=== PATIENT | female | born 1950 | race African-American/Black ===

== ENCOUNTER 2025-06-10 14:11 | Outpatient (AMB) | payer MEDICARE, SELFPAY ==
--- OUTSIDE RECORDS SUMMARY | 2025-06-10 14:14 | XMS_ITS ---
Author Name [facility] Organization Unknown Results Test Name/Text Value Interpretation Date Range Source Troponin I SerPl HS-mCnc 8.0 ng/L 03/14/2025 0 - 14 [facility] D Dimer PPP DDU-mCnc 268.0 ng/mL DDU Above high normal 03/14/2025 - 231 [facility] Troponin I SerPl HS-mCnc 10.0 ng/L 03/14/2025 0 - 14 [facility] Magnesium SerPl-mCnc 2.0 mg/dL Normal 03/14/2025 1.7 - 2.8 [facility] Anion Gap SerPl Calc-sCnc 11.0 Normal 03/14/2025 5 - 14 [facility] Sodium SerPl-sCnc 136.0 mmol/L Normal 03/14/2025 135 - 14 5 [facility] Chloride SerPl-sCnc 103.0 mmol/L Normal 03/14/2025 98 - 107 [facility] BUN SerPl-mCnc 9.0 mg/dL Normal 03/14/2025 7 - 17 [facility] Glucose SerPl-mCnc 83.0 mg/dL Normal 03/14/2025 70 - 199 [facility] Potassium SerPl-sCnc 3.8 mmol/L Normal 03/14/2025 3.5 - 5.1 [facility] BUN/Creat SerPl 18.0 Normal 03/14/2025 12 - 20 [facility] CO2 SerPl-sCnc 22.0 mmol/L Below low normal 03/14/2025 24 - 32 [facility] eGFRcr SerPlBld CKD-EPI 2020 100.0 mL/min/1.73m2 Normal 03/14/2025 - [facility] Creat SerPl-mCnc 0.5 mg/dL Normal 03/14/2025 0.5 - 1 [facility] Calcium SerPl-mCnc 8.6 mg/dL Normal 03/14/2025 8.4 - 10.2 [facility] Hct VFr Bld Auto 40.5 % Normal 03/14/2025 37 - 47 [facility] Platelet # Bld Auto 234.0 K/mcL Normal 03/14/2025 150 - 450 [facility] RDW RBC Auto 15.5 % Normal 03/14/2025 12.1 - 16.2 [facility] RBC # Bld Auto 5.27 M/mcL Normal 03/14/2025 4.2 - 5.4 [facility] PMV Bld Auto 8.5 FL Normal 03/14/2025 7.4 - 11.4 [facility] Hgb Bld-mCnc 13.1 g/dL Normal 03/14/2025 12.5 - 16 [facility] MCHC RBC Auto-EntMCnc 32.3 g/dL Normal 03/14/2025 32 - 36 [facility] WBC # Bld Auto 4.5 K/mcL Normal 03/14/2025 4 - 10.5 [facility] MCH RBC Qn Auto 24.9 pcg Below low normal 03/14/2025 25 - 3 3 [facility] RBC Auto 77.0 FL Below low normal 03/14/2025 78 - 100 [facility] FLUBV RNA Nph Ql CASSANDRA+non-probe Not Detected Normal 03/13/2025 [facility] HPIV2 RNA Nph Ql CASSANDRA+probe Not Detected Normal 03/13/2025 [facility] B parap [id number] DNA Nph Ql CASSANDRA+non-probe Not Detected Normal 03/13/2025 [facility] RSV RNA Resp Ql CASSANDRA+probe Not Detected Normal 03/13/2025 [facility] HAdV DNA Upper resp Ql CASSANDRA+probe Not Detected Normal 03/13/2025 [facility] HPIV4 RNA Nph Ql CASSANDRA+probe Not Detected Normal 03/13/2025 [facility] FLUAV RNA Nph Ql CASSANDRA+non-probe Not Detected Normal 03/13/2025 [facility] SARS-CoV-2 RNA Nph Ql CASSANDRA+non-probe Not Detected Normal 03/13/2025 [facility] hMPV B RNA Spec Ql CASSANDRA+probe Not Detected Normal 03/13/2025 [facility] HPIV3 RNA Nph Ql CASSANDAR+probe Not Detected Normal 03/13/2025 [facility] K pneumon DNA Spec Ql CASSANDRA+probe Not Detected Normal 03/13/2025 [facility] HCoV NL63 RNA Aspirate Ql CASSANDRA+probe Not Detected Normal 03/13/2025 [facility] C pneum DNA Nph Ql CASSANDRA+probe Not Detected Normal 03/13/2025 [facility] RV+EV RNA Nph Ql CASSANDRA+probe Not Detected Normal 03/13/2025 [facility] HCoV OC43 RNA Nph Ql CASSANDRA+non-probe Not Detected Normal 03/13/2025 [facility] B pert DNA Nph Ql CASSANDRA+probe Not Detected Normal 03/13/2025 [facility] HCoV HKU1 RNA Nph Ql CASSANDRA+non-probe Not Detected Normal 03/13/2025 [facility] HCoV 229E RNA Spec Ql CASSANDRA+probe Not Detected Normal 03/13/2025 [facility] HPIV1 RNA Nph Ql CASSANDRA+probe Not Detected Normal 03/13/2025 [facility] Troponin I SerPl HS-mCnc 20.0 ng/L Above high normal 03/13/2025 0 - 14 [facility] Glucose SerPl-mCnc 93.0 mg/dL Normal 03/13/2025 70 - 199 [facility] BUN/Creat SerPl 20.0 Normal 03/13/2025 12 - 20 [facility] Creat SerPl-mCnc 0.6 mg/dL Normal 03/13/2025 0.5 - 1 [facility] BUN SerPl-mCnc 12.0 mg/dL Normal 03/13/2025 7 - 17 [facility] Anion Gap SerPl Calc-sCnc 10.0 Normal 03/13/2025 5 - 14 [facility] Sodium SerPl-sCnc 139.0 mmol/L Normal 03/13/2025 135 - 14 5 [facility] eGFRcr SerPlBld CKD-EPI 2020 96.0 mL/min/1.73m2 Normal 03/13/2025 - [facility] CO2 SerPl-sCnc 24.0 mmol/L Normal 03/13/2025 24 - 32 [facility] Potassium SerPl-sCnc 3.9 mmol/L Normal 03/13/2025 3.5 - 5.1 [facility] Chloride SerPl-sCnc 105.0 mmol/L Normal 03/13/2025 98 - 107 [facility] Calcium SerPl-mCnc 8.4 mg/dL Normal 03/13/2025 8.4 - 10.2 [facility] TSH SerPl DL<=0.005 mIU/L-aCnc 0.81 mcIU/mL Normal 03/13/2025 0.45 - 5.33 [facility] Troponin I SerPl HS-mCnc 13.0 ng/L Normal 03/13/2025 0 - 14 [facility] ALP SerPl-cCnc 55.0 unit/L Normal 03/13/2025 34 - 104 [facility] CO2 SerPl-sCnc 23.0 mmol/L Below low normal 03/13/2025 24 - 32 [facility] Creat SerPl-mCnc 0.6 mg/dL Normal 03/13/2025 0.5 - 1 [facility] Albumin SerPl-mCnc 3.7 g/dL Normal 03/13/2025 3.5 - 5 [facility] ALT SerPl-cCnc 12.0 unit/L Normal 03/13/2025 7 - 52 [facility] BUN SerPl-mCnc 12.0 mg/dL Normal 03/13/2025 7 - 17 [facility] AST SerPl-cCnc 33.0 unit/L Normal 03/13/2025 5 - 40 [facility] Sodium SerPl-sCnc 137.0 mmol/L Normal 03/13/2025 135 - 14 5 [facility] BUN/Creat SerPl 20.0 Normal 03/13/2025 12 - 20 [facility] Anion Gap SerPl Calc-sCnc 9.0 Normal 03/13/2025 5 - 14 [facility] Glucose SerPl-mCnc 94.0 mg/dL Normal 03/13/2025 70 - 199 [facility] eGFRcr SerPlBld CKD-EPI 2020 96.0 mL/min/1.73m2 Normal 03/13/2025 - [facility] Chloride SerPl-sCnc 105.0 mmol/L Normal 03/13/2025 98 - 107 [facility] Bilirub SerPl-mCnc 0.5 mg/dL Normal 03/13/2025 0.3 - 1 [facility] Prot SerPl-mCnc 6.6 g/dL Normal 03/13/2025 6.4 - 8.5 [facility] Potassium SerPl-sCnc 5.7 mmol/L Above high normal 03/13/2025 3.5 - 5.1 [facility] Calcium SerPl-mCnc 8.7 mg/dL Normal 03/13/2025 8.4 - 10.2 [facility] Magnesium SerPl-mCnc 1.8 mg/dL Normal 03/13/2025 1.7 - 2.8 [facility] RDW RBC Auto 16.3 % Above high normal 03/13/2025 12.1 - 1 6.2 [facility] MCHC RBC Auto-EntMCnc 31.5 g/dL Below low normal 03/13/2025 32 - 36 [facility] Monocytes # Bld Auto 0.4 K/mcL Normal 03/13/2025 0 - 0.8 [facility] Lymphocytes # Bld Auto 1.3 K/mcL Normal 03/13/2025 1 - 3.2 [facility] Hgb Bld-mCnc 13.0 g/dL Normal 03/13/2025 12.5 - 16 [facility] Platelet # Bld Auto 289.0 K/mcL Normal 03/13/2025 150 - 450 [facility] Lymphocytes NFr Bld Auto 30.7 % Normal 03/13/2025 20 - 48 [facility] MCH RBC Qn Auto 24.7 pcg Below low normal 03/13/2025 25 - 3 3 [facility] RBC Auto 78.2 FL Normal 03/13/2025 78 - 100 [facility] PMV Bld Auto 8.9 FL Normal 03/13/2025 7.4 - 11.4 [facility] Neutrophils # Bld Auto 2.5 K/mcL Normal 03/13/2025 1.8 - 7.8 [facility] Hct VFr Bld Auto 41.3 % Normal 03/13/2025 37 - 47 [facility] WBC # Bld Auto 4.4 K/mcL Normal 03/13/2025 4 - 10.5 [facility] Basophils NFr Bld Auto 0.4 % Normal 03/13/2025 0 - 2 [facility] Neutrophils NFr Bld Auto 58.1 % Normal 03/13/2025 44 - 74 [facility] Basophils # Bld Auto 0.0 K/mcL Normal 03/13/2025 0 - 0.2 [facility] Eosinophil # Bld Auto 0.0 K/mcL Normal 03/13/2025 0 - 0.5 [facility] Monocytes NFr Bld Auto 10.1 % Normal 03/13/2025 2 - 12 [facility] RBC # Bld Auto 5.28 M/mcL Normal 03/13/2025 4.2 - 5.4 [facility] Eosinophil NFr Bld Auto 0.7 % Normal 03/13/2025 0 - 6 [facility] History of Medication Use Medication Directions Dispensed Refills Start Date End Date Stat colchicine (COLCRYS) 0.6 mg tablet Take 1 tablet (0.6 mg total) by mouth daily. 04/25/2025 active nabumetone (RELAFEN) 500 MG tablet Take 1 tablet (500 mg total) by mouth 2 (two) times a day as needed (arthritis pain). 03/31/2025 active aspirin chewable tablet 81 mg 03/14/2025 active dilTIAZem CD (CARDIZEM CD) 24 hr capsule 120 mg 120 mg, oral, Daily, First dose on Fri03/14/25 at 0900, Do not crush, chew, or split. 03/14/2025 active enoxaparin (LOVENOX) injection 40 mg 40 mg, subcutaneous, Every 24 hours scheduled, First dose on Fri03/14/25 at 0900, Indication: VTE/PE Prophylaxis 03/14/2025 active melatonin tablet 3 mg 3 mg, oral, Nightly PRN, sleep, Starting on 03/13/25 at 2133 03/14/2025 active metoprolol succinate (TOPROL-XL) 24 Hour tablet 50 mg 50 mg, oral, Daily, First dose on Fri03/14/25 at 0900, Do not crush or chew. 03/14/2025 active metoprolol succinate (TOPROL-XL) 25 mg 24 hr tablet Take 2 tablets (50 mg total) by mouth 1 (one) time each day. Do not crush or chew. 03/14/2025 active magnesium sulfate 2 gram/50 mL (4 %) IVPB 2 g 2 g, intravenous, at 25 mL/hr, Administer over 2 Hours, Once, On Fri03/13/25 at 1349, For 1 dose 03/13/2025 completed metoprolol tartrate (LOPRESSOR) injection 5 mg 5 mg, intravenous, Once, On Fri03/13/25 at 1135, For 1 dose, For IV Push - Administer undiluted over 2 minutes 03/13/2025 completed potassium chloride (KLOR-CON M20) CR tablet 20 mEq 20 mEq, oral, Once, On Fri03/13/25 at 1349, For 1 dose, Tablet may be swallowed whole (do not crush/chew/suck on) OR broken in half and each half swallowed separately OR dissolved (whole tablet) in ~4 ounces of water (allow ~2 minutes to dissolve, stir well and administer immediately). 03/13/2025 completed sodium chloride 0.9 % bolus 1,000 mL 1,000 mL, intravenous, Once, On Fri03/13/25 at 1135, For 1 dose 03/13/2025 completed acetaminophen (TYLENOL) tablet 650 mg 650 mg, oral, Every 6 hours PRN, mild pain, Starting on 03/13/25 at 1609 03/13/2025 active traMADoL (ULTRAM) tablet 50 mg 50 mg, oral, Every 6 hours PRN, severe pain, Starting on 03/13/25 at 1622, Max of 300 mg daily for patients greater than 75 years of age. 03/13/2025 active meloxicam (MOBIC) 15 MG tablet 03/09/2025 5 aborted buprenorphine hcl (BELBUCA) 600 MCG buccal film Apply 1 Film (600 mcg total) to cheek twice daily (every 12 hours). Max Daily Amount: 1,200 mcg 03/02/2025 active diltiazem (CARDIZEM CD) 120 MG 24 hr capsule 02/12/2025 active metoPROLOL SUCCINATE (TOPROL-XL) 25 MG 24 hr tablet 02/09/2025 active benzonatate (TESSALON) 200 MG capsule Take 1 capsule (200 mg total) by mouth 3 (three) times a day as needed for cough. 12/22/2024 active oxyCODONE-acetaminoph en (PERCOCET) 5-325 mg per tablet Take 1 tablet by mouth every 4 (four) hours as needed for severe pain. Max Daily Amount: 6 tablets 09/10/2024 active DULoxetine (CYMBALTA) 20 MG capsule 07/15/2024 active meloxicam (MOBIC) 15 MG tablet Take 1 tablet (15 mg total) by mouth daily. 07/11/2024 active gadoterate meglumine (DOTAREM) injection 7.5 mmol/15 mL 15 mL, Intravenous, IMG once as needed, contrast, Starting on Tu05/04/24 at 1359, For 1 dose, Radiology Contrast 05/04/2024 4 completed Xanax 0.5 mg tablet Take 3 tablets 3 hours before MRI. May repeat with 1 tablet 90 minutes later 04/29/2024 active prednisone 10 mg tablet Day 1: 4 tablets in the morning, Day 2: 4 tablets in the morning, Day 3: 3 tablets in the morning, Day 4: 3 tablets in the morning, Day 5: 2 tablets in the morning, Day 6: 2 tablets in the morning, Day 7: 1 tablet in the morning, Day 8: 1 tablet in the morning! 04/15/2024 active dilTIAZem CD (CARDIZEM CD) 120 mg 24 hr capsule TAKE 1 CAPSULE(120 MG) BY MOUTH DAILY 04/02/2024 active methocarbamol (ROBAXIN) 750 MG tablet TAKE 1 TABLET BY MOUTH EVERY NIGHT AT BEDTIME FOR MUSCLE SPASM 02/19/2024 active Paxlovid (300/100) 20 x 150 MG & 10 x 100MG Oral Tablet Therapy Pack Paxlovid (300/100) 20 x 150 MG & 10 x 100MG Oral Tablet Therapy PackTake 2 pink and 1 white pill (3 pills all at once) twice daily, at least 8 hours apart, for five days Quantity: 1 Refills: Wilfred Fisher M.D. Start : [id number] Tablet Box 10/30/2022 completed aspirin 81 mg chewable tablet 07/29/2022 active aspirin 81 mg chewable tablet Chew 1 tablet (81 mg total) by mouth daily. 07/29/2022 active aspirin 81 MG chewable tablet Chew 1 tablet (81 mg total) by mouth daily. 07/29/2022 active aspirin 81 MG chewable tablet Chew 1 tablet (81 mg total) by mouth daily. 07/29/2022 active bisacodyl (DULCOLAX) 5 MG EC tablet Take 4 tablets (20 mg total) by mouth once. Take prior to starting to drink prep, on day prior to colonoscopy. 03/12/2022 active diltiazem (CARDIZEM CD) 120 MG 24 hr capsule Take 1 capsule (120 mg total) by mouth daily. 02/04/2022 active dilTIAZem HCl - 120 MG Oral Tablet dilTIAZem HCl - 120 MG Oral TabletTake 1 tablet daily Quantity: 90 Refills: Maria Dolores Castellano M.D. Start : [id number] 08/01/2020 completed Multivitamin Oral Tablet Multivitamin Oral Tablet1 TAB BY MOUTH ONCE DAILY Refills: 0 Start : [id number] 08/01/2020 completed Tylenol Extra Strength 500 MG Oral Tablet Tylenol Extra Strength 500 MG Oral Tablet Refills: 0 Start : [id number] 08/01/2020 completed Paxlovid 300 mg (150 mg x 2)-100 mg tablets in a dose pack 4 active prednisone 10 mg tablet active acetaminophen 500 mg tablet active alprazolam 0.5 mg tablet Take 3 tablets 3 hours before MRI. May repeat with 1 tablet 90 minutes later active baclofen 10 mg tablet ac tive calcium 600 mg (as calcium carbonate 1,500 mg) tablet active cetirizine 10 mg tablet active cholecalciferol (vitamin D3) 50 mcg (2,000 unit) tablet activ e diltiazem 120 mg tablet Take 1 tablet 3 times a day by oral route. active meloxicam 7.5 mg tablet 7.5 mg by oral route. active oxycodone-acetaminoph en 5 mg-325 mg tablet act arnie tramadol 50 mg tablet ac tive ZTlido 1.8 % topical patch active acetaminophen (TYLENOL EXTRA STRENGTH) 500 MG tablet Take 2 tablets (1,000 mg total) by mouth every 6 (six) hours as needed for pain. active acetaminophen (TYLENOL) 500 MG tablet Take 2 tablets (1,000 mg total) by mouth every 6 (six) hours as needed for pain. active ALPRAZolam (XANAX) 0.25 MG tablet Take 0.25 mg by mouth nightly as needed. active calcium carbonate 1,500 mg (600 mg elemental calcium) tablet Caltrate active Calcium Carbonate 1500 (600 Ca) MG TABS Caltrate act arnie cetirizine (ZyrTEC) 10 MG tablet Take 1 tablet (10 mg total) by mouth daily as needed for allergies. active cholecalciferol (VITAMIN D3) 1000 units tablet Take 1 tablet (1,000 Units total) by mouth daily. active Cholecalciferol (VITAMIN D3) 2000 units TABS Take 1 tablet by mouth daily. active meloxicam (MOBIC) 7.5 mg tablet Take 1 tablet (7.5 mg total) by mouth 1 (one) time each day. active No known medications No known medications active Allergies Allergen Reaction Severity Comment Documented Date Source Status ADHESIVE RASH Only paper tape-REDNESS- per pt bandaides and tegaderms are okay 11/29/2017 [facility] active ADHESIVES/TAPE RASH/DERMATITIS Only paper tape-REDNESS 11/29/2017 [facility] active TAPE RASHRASH Only paper tape-REDNESS- per pt bandaides and tegaderms are okay 11/29/2017 [facility] active VANCOMYCIN ITCHINGOTHER (SEE COMMENTS)OTHER (SEE COMMENTS)OTHER (SEE COMMENTS) Tingling of the tongue, ,Other Reaction(s): Other (See Comments) 11/30/2014 [facility] active PENICILLINS RASH/DERMATITIS 11/16/2014 [facility] a ctive CODEINE ANAPHYLAXIS [facility] ERYTHROMYCIN ANAPHYLAXIS [facility] ERYTHROMYCIN BASE ANAPHYLAXIS [facility] VANCOMYCIN HCL [facility] Problems Problem Status Onset Date Problem Type Date of Resolution Source Kyphosis of thoracic spine active 2023-05-10 1 ProblemAct [facility] Cramp in lower limb active 2023-05-10 1 ProblemAct [facility] Neck pain active 6 ProblemAct [facility] Stenosis of cervix active 6 ProblemAct [facility] Claustrophobia active 2024-04-11 0 ProblemAct [facility] Scoliosis deformity of spine active 2023-05-10 1 ProblemAct [facility] History of lumbar fusion active 6 ProblemAct [facility] Stenosis of intervertebral foramina active 6 ProblemAct [facility] Low back pain active 6 ProblemAct [facility] Neurogenic claudication active 2024-04-11 0 ProblemAct [facility] Other chest pain active 2022-09-11 5 ProblemAct [facility] Primary osteoarthritis of right hand active 2018-02-09 0 ProblemAct [facility] Spondylosis active 7 ProblemAct [facility] Adolescent idiopathic scoliosis of lumbar region active 2017-10-10 2 ProblemAct [facility] Premature atrial beats active 8 ProblemAct [facility] Nonrheumatic aortic valve insufficiency active 2025-03-11 1 ProblemAct [facility] Asymmetric septal hypertrophy active 2022-01-09 7 ProblemAct [facility] Chronic bilateral low back pain with bilateral sciatica active 2017-10-10 2 ProblemAct [facility] Hand arthritis active 6 ProblemAct [facility] Bilateral carpal tunnel syndrome active 6 ProblemAct [facility] Diverticulosis of large intestine without hemorrhage active 2017-10-11 9 ProblemAct [facility] Elbow pain, right active 6 ProblemAct [facility] Elevated blood pressure reading without diagnosis of hypertension active 2025-03-11 1 ProblemAct [facility] Supraventricular tachycardia (CMS/HCC V24) active 2015-03-11 5 ProblemAct [facility] Simple chronic bronchitis ([facility] V24, [facility] V28) active 2019-07-11 8 ProblemAct [facility] C. difficile colitis active 2018-02-08 7 ProblemAct [facility] Left shoulder pain, unspecified chronicity active EncounterDiagnosisAct [facility] Hip arthritis active 2017-12-11 3 ProblemAct [facility] Postlaminectomy syndrome, lumbar region active 2023-06-10 5 ProblemAct [facility] Chronic low back pain without sciatica active 2017-12-11 3 ProblemAct [facility] Greater trochanteric bursitis of left hip active 2018-03-11 2 ProblemAct [facility] Postoperative ileus ([facility] V24, [facility] V28) active 2017-11-11 4 ProblemAct [facility] Palpitations active 8 ProblemAct [facility] Elbow arthritis active 6 ProblemAct [facility] Gait instability active 9 ProblemAct [facility] Family history of malignant neoplasm of breast active 2019-07-11 7 ProblemAct [facility] Asymmetric septal hypertrophy active 2022-01-09 7 ProblemAct [facility] Leg fatigue active 2021-01-08 9 ProblemAct [facility] Left elbow pain active 6 ProblemAct [facility] Status post left hip replacement active 5 ProblemAct [facility] Hand pain, right active 6 ProblemAct [facility] Spondylolisthesis of lumbar region active 2017-10-10 2 ProblemAct [facility] Cervical spondylolysis active 5 ProblemAct [facility] Diarrhea active 2016-04-10 4 ProblemAct [facility] Synovitis of right elbow active EncounterDiagnosisAct [facility] Iron deficiency anemia active 2015-04-10 7 ProblemAct [facility] SVT (supraventricular tachycardia) active 2024-08-10 5 ProblemAct [facility] Status post total right knee replacement active 2015-03-11 5 ProblemAct [facility] Cervical arthritis active 2024-01-1 2 ProblemAct [facility] Inflammation of sacroiliac joint active 4 ProblemAct [facility] Arthritis of right elbow active EncounterDiagnosisAct [facility] History of Clostridium difficile colitis active 2016-04-10 4 ProblemAct [facility] Chronic low back pain without sciatica, unspecified back pain laterality active EncounterDiagnosisAct [facility] Osteoarthritis of spine with radiculopathy, lumbar region active 7 ProblemAct [facility] C. difficile colitis active 2015-04-10 7 ProblemAct [facility] Synovitis of left elbow active EncounterDiagnosisAct [facility] Mild episode of recurrent major depressive disorder active 2025-02-09 3 ProblemAct [facility] COPD (chronic obstructive pulmonary disease) active 2015-03-11 5 ProblemAct [facility] Pain of left hip joint active 2017-09-10 4 ProblemAct [facility] Chondrocalcinosis active [facility] Cardiomyopathy, hypertrophic active 2024-08-10 5 ProblemAct [facility] Essential hypertension active 2015-02-09 9 ProblemAct [facility] Lumbar postlaminectomy syndrome active 2024-11-10 0 ProblemAct [facility] Immunizations Vaccine Date Source Lot Number Status Influenza High-Dose Quadriva lent,(FLUZONE HIGH-DOSE), Perservative Free IM 0.7 mL 65 years and older 08/01/2020 [facility] [id number] completed Influenza, Quadrivalent (FLU CELVAX) MDCK, Preservative Free IM 07/28/2019 [facility] [id number] completed Influenza, Quadrivalent (FLU ARIX, AFLURIA, FLULAVAL, FLUZONE) Preservative Free IM 07/15/2018 [facility] [id number] completed Pneumococcal Polysaccharide 23-Valent 12/03/2017 [facility] [id number] completed Encounters Encounter Type Encounter Reason Primary Diagnosis Location Date Ambulatory [facility] 5 Ambulatory [facility] 5 Ambulatory Dizziness and giddiness Dizziness and giddiness [facility] 5 Ambulatory Annual Exam Annual Exam [facility] 5 Ambulatory [facility] 5 Ambulatory [facility] 5 Ambulatory Supraventricular tachycardia, unspecified ([facility] V24) Supraventricular tachycardia, unspecified ([facility] V24) [facility] 5 Ambulatory Transition Of Care Transition Of Care [facility] 5 Emergency Shortness of Breath, Chest Tightness Palpitations [facility] 5 Ambulatory Sacrococcygeal disorders, not elsewhere Sacrococcygeal disorders, not elsewhere classified [facility] 5 Ambulatory Pain in right hip Pain in right hip [facility] 5 Ambulatory Radiculopathy, lumba r region Radiculopathy, lumbar region [facility] 5 Ambulatory Chronic obstructive pulmonary disease, unspecified Chronic obstructive pulmonary disease, unspecified [facility] 5 Ambulatory [facility] 5 Ambulatory Pain in left knee Pain in left knee [facility] 5 Ambulatory Radiculopathy, lumba r region Radiculopathy, lumbar region [facility] 5 Ambulatory [facility] 5 Ambulatory [facility] 5 Ambulatory Radiculopathy, lumba r region Radiculopathy, lumbar region [facility] 5 Ambulatory Radiculopathy, lumba r region Radiculopathy, lumbar region [facility] 5 Ambulatory Influenza due to other identified influenza virus with other respiratory manifestations Influenza due to other identified influenza virus with other respiratory manifestations [facility] 5 Ambulatory [facility] 5 Ambulatory [facility] 5 Ambulatory [facility] 5 Ambulatory Supraventricular tachycardia, unspecified Supraventricular tachycardia, unspecified [facility] 4 Ambulatory Supraventricular tachycardia, unspecified Supraventricular tachycardia, unspecified [facility] 4 Ambulatory [facility] 4 Ambulatory [facility] 4 Ambulatory Sacroiliitis, not elsewhere classified (CMS/[facility]) [M46.1] Sacroiliitis, not elsewhere classified [facility] 4 Ambulatory [facility] 4 Ambulatory OTHER REDUCED MOBILITY [facility] 4 Ambulatory Spondylosis, unspecified Spondylosis, unspecified [facility] 4 Ambulatory [facility] 4 Ambulatory Follow-up Follow-up [facility] 4 Ambulatory [facility] 4 Ambulatory Other symptoms and signs involving the nervous system Other symptoms and signs involving the nervous system [facility] 4 Ambulatory Other symptoms and signs involving the nervous system Other symptoms and signs involving the nervous system [facility] 4 Ambulatory Other symptoms and signs involving the nervous system Other symptoms and signs involving the nervous system [facility] 4 Ambulatory Other symptoms and signs involving the nervous system Other symptoms and signs involving the nervous system [facility] 4 Ambulatory Loose body in right elbow Loose body in right elbow [facility] 4 Ambulatory [facility] 4 Ambulatory Primary osteoarthritis, right elbow Primary osteoarthritis, right elbow [facility] 4 Ambulatory [facility] 4 Ambulatory [facility] 4 Ambulatory [facility] 4 [facility]ulatory [facility] [place] [facility] [place] [place] 4 Emergency Strain of muscle, fascia and tendon of l Strain of muscle, fascia and tendon of lower back, initial encounter [facility] 4 Ambulatory ARTHRODESIS STATUS [facility] 4 Ambulatory Other specified dermatitis Other specified dermatitis [facility] Ambulatory Annual Wellness Visit Annual Wellness Vis it [facility] 4 Ambulatory Cervicalgia Cervicalgia [facility] 3 Ambulatory Encounter for screening mammogram for malignant neoplasm of breast Encounter for screening mammogram for malignant neoplasm of breast [facility] 3 Ambulatory Fourth degree hemorrhoids Fourth degree hemorrhoids [facility] 3 Ambulatory [facility] 3 Ambulatory [facility] 3 Ambulatory Dorsalgia, unspecified Dorsalgia, unspecified [facility] 3 Ambulatory Dorsalgia, unspecified Dorsalgia, unspecified [facility] 3 Ambulatory Dorsalgia, unspecified Dorsalgia, unspecified [facility] 3 Ambulatory Dorsalgia, unspecified Dorsalgia, unspecified [facility] 3 Ambulatory Dorsalgia, unspecified Dorsalgia, unspecified [facility] 3 Ambulatory Cramp and spasm [facility] 3 Ambulatory [facility] 3 Ambulatory [facility] 3 Ambulatory [facility] 3 Ambulatory [facility] 3 Ambulatory [facility] 3 Ambulatory [facility] [place] 3 Ambulatory Encounter for ge neral adult medical examination without abnormal findings [facility] 3 Ambulatory Encounter for screening for other viral diseases [facility] 2 Emergency Chest pain, unspecified [facility] 2 Ambulatory Other abnormalit y of red blood cells [facility] 2 Ambulatory [facility] 2 Ambulatory Personal history of colonic polyps [facility] 2 Ambulatory Pain in left hip [facility] [employer] 2 Ambulatory Pain in left hip [facility] [employer] 2 Ambulatory Pain in left hip [facility] [employer] [facility] 2 Ambulatory Pain in left hip [facility] [employer] [facility] 2 Ambulatory Pain in left hip [facility] [employer] [facility] 2 Ambulatory Pain in left hip [facility] [employer] [facility] 2 Ambulatory Pain in left hip [facility] [employer] [facility] 2 Ambulatory Pain in left hip [facility] [employer] [facility] 2 Ambulatory Pain in left hip [facility] [employer] [facility] 2 Ambulatory Pain in left hip [facility] [employer] [facility] 2 Ambulatory Encounter for preprocedural laboratory examination [facility] 2 Ambulatory Other specified symptoms and signs involving the digestive system and abdomen [facility] 1 Care Team Organization Name Specialty Phone Email Start Date End Da te [employer] DIONI Primary Care 02/25/2025 Elroy Batista, P.C[facility] [phone] Primary Care 09/30/2024 03/29/[address] [facility] JUJUGALEANO Primary Care 09/14/[address] [facility] NANI MATUTEGALEANO Primary Care 09/13/2024 [facility] 08/19/2024 Elroy Batista, P.CLa Nena Lopez Primary Care 04/29/2024 03/29/2025 [facility] NANI LOPEZ Primary Care 04/02/2024 [facility] 03/12/2024 05/24/2025 [facility] 03/03/2024 [facility] 11/30/2023 [employer] ROBERT LOPEZ Primary Care 08/05/2023 [facility] 06/24/2023 01/28/2025 [facility] NANI LOPEZ Primary Care 06/24/2023 06/24/2023 [facility] 06/06/2023 05/24/2025 [facility] NANI JUJUGALEANO Primary Care 06/04/2023 06/04/[address] [facility] NANI JUJUGALEANO Primary Care 05/30/2023 05/30/2023 [facility] MARIA DOLORES PIERCE Primary Care 09/09/20 [facility] Primary Care 06/16/2022 [facility] Primary Care 06/16/2006/16/2022 [employer] MARAH PIERCEENCE Primary Care 05/24/2022 [facility] JACKIE MARTIN, Primary Care 08/02/2021 06/28/2024 [facility] 07/25/2021 07/25/[address] [facility] 06/01/2019 05/24/20 [facility] Primary Care 06/01/2019 05/24/2022
--- OUTSIDE RECORDS SUMMARY | 2025-06-10 14:14 | XMS_ITS | Clinical Summary ---
Author Organization [facility] Address [address] [place] [address] Care Team Providers Care Distribution System Operator Name Role Phone Juan ManuelAdamMckeonAmparo DO Primary Care Provider + Allergies Active Allergy Reactions Criticality Noted Date Comments Codeine Anaphylaxis High 11/16/2014 Erythromycin Anaphylaxis High 11/16/2014 Penicillins Rash Low 11/16/2014 Tape Rash Low 11/29/2017 Only paper [id number] pt bandaides and tegaderms are okay Vancomycin Hives,Itching,Other (See Comments) Low 11/30/2014 Tingling of the tongue Medications Medication Sig Dispensed Refills Start Date End Date Status acetaminophen (TYLENOL EXTRA STRENGTH) 500 MG tablet Take 2 tablets (1,000 mg total) by mouth every 6 (six) hours as needed for pain. 0 Active Cholecalciferol (VITAMIN D3) 2000 units TABS Take 1 tablet by mouth daily. 0 Active Calcium Carbonate 1500 (600 Ca) MG TABS Caltrate 0 Active aspirin 81 MG chewable tablet Chew 1 tablet (81 mg total) by mouth daily. 100 tablet 3 07/29/2022 Active cetirizine (ZyrTEC) 10 MG tablet Take 1 tablet (10 mg total) by mouth daily as needed for allergies. 0 Active dilTIAZem (CARDIZEM CD) 120 MG 24 hr capsule TAKE 1 CAPSULE(120 MG) BY MOUTH DAILY 90 capsule 3 04/02/2024 Active metoprolol succinate (TOPROL-XL) 24 hr tablet 25 mg Take 1 tablet (25 mg total) by mouth daily. 90 tablet 3 05/05/2024 Active ALPRAZolam (XANAX) 0.25 MG tablet Take 1 tablet (0.25 mg total) by mouth every night at bedtime as needed for anxiety. 0 Active Active Problems Problem Noted Date Diagnosed Date Postlaminectomy syndrome, lumbar region 06/24/20 23 Other chest pain 10/04/2022 Asymmetric septal hypertrophy 02/03/2022 Cervical spondylolysis 08/14/2021 Leg fatigue 01/26/2021 Palpitations 01/16/2020 Premature atrial beats 01/16/2020 Simple chronic bronchitis 07/28/2019 Family history of malignant neoplasm of breast 0 07/27/2019 Status post left hip replacement 07/15/2018 Greater trochanteric bursitis of left hip 2017 Primary osteoarthritis second MCP joint right rehman nd 02/27/2018 C. difficile colitis 02/24/2018 Bilateral carpal tunnel syndrome 02/13/2018 Hand pain, right 02/13/2018 Elbow arthritis 02/13/2018 Hand arthritis 02/13/2018 Left elbow pain 02/13/2018 Elbow pain, right 02/13/2018 Chronic low back pain without sciatica 8 Hip arthritis 12/23/2017 Postoperative ileus 12/03/2017 Diverticulosis of large intestine without hemorr jerica 11/07/2017 Chronic bilateral low back pain with bilateral s ciatica 10/21/2017 Adolescent idiopathic scoliosis of lumbar region 10/21/2017 Spondylolisthesis of lumbar region 10/21/2017 Gait instability 08/18/2017 Spondylosis 01/14/2017 History of Clostridium difficile colitis 016 Iron deficiency anemia 04/26/2015 Status post total right knee replacement 015 Supraventricular tachycardia 04/03/2015 COPD (chronic obstructive pulmonary disease) Essential hypertension 03/08/2015 Overview: ICD-10 Activation Resolved Problems Problem Noted Date Diagnosed Date Resolved Date Primary osteoarthritis of left hip 05/25/2018 07/15/2018 Primary osteoarthritis of left hip 03/31/2018 07/15/2018 Primary osteoarthritis of right elbow 02/27/2018 07/15/2018 Hip pain, left 12/23/2017 07/15/2018 Diarrhea 04/23/2016 11/07/2017 C. difficile colitis 04/26/2015 017 Colitis, Clostridium difficile 04/03/2015 11/07/2015 Atrial tachycardia 05/07/201 6 Hx of echocardiogram 019 Overview: nl LV size/thickness/fxn.,EF >60%,nl diastolic filling pattern no WMA ,tr AI,no ,RVSP 32mmHg Immunizations Name Administration Dates Next Due Influenza Quad (Fluarix/Fluz one/FluLaval) 0.5mL (SD-IIV4) 07/15/2018 Influenza Quad (Flucelvax) 0.5mL >6mon (ccIIV4) 07/28/2019 Pneumococcal Polysaccharide PPSV23 12/03/2017 Family History Medical History Relation Name Comments Arthritis Brother 1 Heart failure Brother 1 Asthma Brother 2 Diabetes Father Hypertension Father Other Father SPINAL ISSUES Breast cancer Mother Diabetes Mother Depression Sister Hypertension Unknown Cancer Neg Hx Colon cancer Neg Hx Endometrial cancer Neg Hx Ovarian cancer Neg Hx Relation Name Status Comments Brother 1 Alive Brother 2 (Age 29) [employer] H Father Alive Mother (Age 59) BREAST CA Sister Alive Unknown Social History Tobacco Use Types Packs/Day Years Used Date Smoking Tobacco: Former Cigarettes 1 30 Q uit: 09/10/2014 Smokeless Tobacco: Never Tobacco Cessation:Counseling Given: Not Answered Comments:quit 10/2014 Alcohol Use Standard Drinks/Week Comments Yes 11 (1 standard drink = 0.6 oz pu re alcohol) Sex and Gender Information Value Date Recorded Sex Assigned at Female 01/19/2020 12:11 PM EDT Gender Identity Female 01/20/2020 1:16 PM EDT Sexual Orientation Not on file Job Start Date Occupation Industry Not on file Not on file Not on file Last Filed Vital Signs Vital Sign Reading Time Taken Comments Blood Pressure 110/84 08/19/2024 1:00 PM EDT Pulse 79 08/19/2024 1:00 PM EDT Temperature 36.5 C (97.7 F) 08/19/2024 10:18 AM EDT Respiratory Rate 18 12/16/2022 1:19 PM EST Oxygen Saturation 98% 08/19/2024 1:00 PM EDT Inhaled Oxygen Concentration - - Weight 59.9 kg (132 lb) 08/19/2024 10:18 AM EDT Height 158.8 cm (5' 2.5 ) 08/19/2024 10:18 AM ED T Body Mass Index 23.76 08/19/2024 10:18 AM EDT Plan of Treatment Health Maintenance Due Date Last Done Comments COVID-19 Vaccine (#1) 1952 DTap / Tdap / Td (1 - Tdap) 1971 Shingrix-Zoster Vaccine (1 of 2) 2002 RSV Adult > 60+ Yrs or (1 - Risk 60-74 years 1-dose series) 2012 Pneumococcal Vaccine (2 of 2 - PCV) 12/03/2018 12/03/2017 Depression Screening 07/28/2020 07/28/2019, 07/28/2019, 07/28/2019, Additional history exists Fall Risk Assessment 07/28/2020 07/28/2019, 07/28/2019, 07/28/2019, Additional history exists Preventative Health Evaluation 07/28/2020 07/28/2019, 01/19/2019, 01/14/2017 Lung Cancer Screening (Low Dose CT) 03/20/2024 03/20/2023 Osteoporosis Screening (DEXA Scan) 03/20/2025 03/20/2023, 04/22/2018, 09/27/2014 Influenza Vaccine (#1) 2025 , 07/28/2019, 07/15/2018 Breast Cancer Screening (Mammogram) 09/03/2025 09/03/2023, 05/23/2022, 05/06/2019, Additional history exists Colon Cancer Screening (Colonoscopy) 06/26/2026 06/26/2016 Hepatitis C Screening Completed 01/19/2019 Hepatitis B Vaccines Aged Out No long er eligible based on patient's age to complete this topic RSV Ped < 20 months Aged Out No longe r eligible based on patient's age to complete this topic Medical Devices Implanted Type Area Manager Behavior Device Identifier Shelf Expiration Date Model / Serial / Lot Sponge Surgiflo 8ml Hemostatic Matrix Absorbable Latex Free - [id number] - [id number] Implanted:Qty: 1 on 11/26/2017 by Sai Aguilar MD at [facility] Hemostatic Agent Left: Spine Lumbar [employer] 07/10/2019 2991 / / [id number] Cement Simplex P Radiopaque Full Dose Bone - 038637 - [id number] Implanted:Qty: 2 on 11/30/2014 by Jaskaran Farrell MD at [facility] Left: Knee [employer] 04/09/2017 6191-1-010 / / [id number] Component Nexgen 32mm All Poly Ptlar - 259665 - [id number] Implanted:Qty: 1 on 11/30/2014 by Jaskaran Farrell MD at [facility] Left: Knee [employer] 08/09/2022 [id number] / / [id number] Insert Lps-Flex Nexgen 3-4mm E-F 10mm Net Mold Fix Uhmwpe - 826252 - [id number] Implanted:Qty: 1 on 11/30/2014 by Jaskaran Farrell MD at [facility] Left: Knee [employer] 07/09/2022 [id number] / / [id number] Plate Nexgen [id number] Cement Modular Stem Tivanium Pmma - 096433 - [id number] Implanted:Qty: 1 on 11/30/2014 by Jaskaran Farrell MD at [facility] Left: Knee [employer] 08/09/2024 [id number] / / [id number] Component Lps-Flex Gender Solutions Option Nexgen F Cocr - 364599 - [id number] Implanted:Qty: 1 on 11/30/2014 by Jaskaran Farrell MD at [facility] Left: Knee [employer] 08/09/2024 [id number] / / [id number] System Gender Solutions Option Flex Cement Tkr Femur - 577721 - [id number] Implanted:Qty: 1 on 11/30/2014 by Jaskaran Farrell MD at [facility] Left: Knee [employer] [id number] / / Insert Legion 3-4 9mm Posterior Stabilized High Flexion Xlpe - 673180 - [id number] Implanted:Qty: 1 on 03/29/2015 by Jaskaran Farrell MD at [facility] Right: Knee [employer] 02/28/2024 [id number] / / [id number] Component Grace Ii 32mm Resurfacing Oxinium Ptlar Knee - 732507 - [id number] Implanted:Qty: 1 on 03/29/2015 by Jaskaran Farrell MD at [facility] Right: Knee [employer] 01/27/2025 [id number] / / [id number] Lgn Gii Ps Cemented Standard Insert - 571644 - [id number] Implanted:Qty: 1 on 03/29/2015 by Jaskaran Farrell MD at [facility] Right: Knee [employer] [id number] / / Cement Simplex P Radiopaque Full Dose Bone - 164863 - [id number] Implanted:Qty: 2 on 03/29/2015 by Jaskaran Farrell MD at [facility] [employer] 03/29/2017 6191-1-010 / / [id number] Component Legion Narrow Posterior Stabilize Femoral Knee - 148307 - [id number] Implanted:Qty: 1 on 03/29/2015 by Jaskaran Farrell MD at [facility] Right: Knee [employer] 06/29/2024 [id number] / / [id number] Baseplate Garce Ii 4 Cemented Titanium Nonporous Tibial - 161969 - [id number] Implanted:Qty: 1 on 03/29/2015 by Jaskaran Farrell MD at [facility] Right: Knee [employer] 08/29/2022 [id number] / / [id number] Kit Infuse Medium 2x1in 20ga 5.6ml Vial Absorbable Collagen - 339489 - [id number] Implanted:Qty: 1 on 11/26/2017 by Sai Aguilar MD at [facility] Left: Spine Lumbar [employer] 09/09/2019 [id number] / / [id number] Spacer [employer]ental 18mm Wide Medium 10d 11mm - 760559 - [id number] Implanted:Qty: 1 on 11/26/2017 by Sai Aguilar MD at [facility] Left: Spine Lumbar [employer] 375.271 / / Screw Creo Creo Amp 55mm 6.5mm Modular Rehman Bone Spine Sterile - 749575 - [id number] Implanted:Qty: 1 on 11/26/2017 by Sai Aguilar MD at [facility] r: Spine Lumbar [employer] 02/14/2022 1067.1656S / / [id number] Screw Creo Creo Amp 55mm 6.5mm Modular Rehman Bone Spine Sterile - 416427 - [id number] Implanted:Qty: 1 on 11/26/2017 by Sai Aguilar MD at [facility] r: Spine Lumbar [employer] 02/14/2022 1067.1656S / / [id number] Bone Cancellous Coarse 30cc - 213683 - [id number] Implanted:Qty: 1 on 11/26/2017 by Sai Aguilar MD at [facility] r: Spine Lumbar [employer] 01/30/2022 1103-12 / [id number] / 6.5 X 50mm Screw Modular Creo Amp - 604903 - [id number] Implanted:Qty: 1 on 11/26/2017 by Sai Aguilar MD at [facility] r: Spine Lumbar [employer] 1067.1650 / / 6.5 X 55mm Screw Modular Creo Amp - 722619 - [id number] Implanted:Qty: 1 on 11/26/2017 by Sai Aguilar MD at [facility] r: Spine Lumbar [facility] 1067.1655 / / Clamp Spinal Od6.5 Mm Mark To Mark - 810540 - [id number] Implanted:Qty: 2 on 11/26/2017 at [facility] r: Spine Lumbar [employer] 154.858 / / 5.5 Polyaxial Tulip Threaded Creo Amp - 652944 - [id number] Implanted:Qty: 4 on 11/26/2017 at [facility] r: Spine Lumbar [employer] 1119.0110 / / 5.5 Threaded Locking Cap Creo - 836436 - [id number] Implanted:Qty: 4 on 11/26/2017 at [facility] r: Spine Lumbar [employer] 1119.0010 / / 5.5mm Curved Mark Titanium Alloy 100mm Length - 956759 - [id number] Implanted:Qty: 1 on 11/26/2017 at [facility] Posterio r: Spine Lumbar [facility] 1119.7100 / / 5.5 Snap On Cross Connector 30 To 35mm Long Creo - 629504 - [id number] Implanted:Qty: 1 on 11/26/2017 at [facility] Posterio r: Spine Lumbar [facility] 1119.0030 / / Off Set Connection 20mm Implanted:Qty: 1 on 11/26/2017 at [facility] r: Spine Lumbar 124.971 / / Shell R3 Standard 52mm 3 Hole Poly Acetabular Hip - 953155 - [id number] Implanted:Qty: 1 on 05/27/2018 by Jaskaran Farrell MD at [facility] Left: Hip [employer] 04/16/2028 [id number] / / [id number] Liner R3 20d 52mm 36mm Xlpe Poly Acetabular Hip Sterile - 276630 - [id number] Implanted:Qty: 1 on 05/27/2018 by Jaskaran Farrell MD at [facility] Left: Hip [employer] 03/24/2028 [id number] / / [id number] Screw Reflection 30mm 6.5mm Reflection Spherical Head Bone - 030097 - [id number] Implanted:Qty: 1 on 05/27/2018 by Jaskaran Farrell MD at [facility] Left: Hip [employer] 12/24/2027 [id number] / / [id number] Screw Reflection 25mm 6.5mm Spherical Head Bone Acetabular - 182935 - [id number] Implanted:Qty: 1 on 05/27/2018 by Jaskaran Farrell MD at [facility] Left: Hip [employer] 01/28/2028 05919608 / / [id number] Stem Anthology 5 High Offset Porous Femoral Hip - 450111 - [id number] Implanted:Qty: 1 on 05/27/2018 by Jaskaran Farrell MD at [facility] Left: Hip [employer] 12/02/2027 [id number] / / [id number] Head [place] -3mm 12\14 Taper 36mm Revision Oxinium Femoral - 735176 - [id number] Implanted:Qty: 1 on 05/27/2018 by Jaskaran Farrell MD at [facility] Left: Hip [employer] 02/22/2028 [id number] / / [id number] Explanted Type Area Manager Behavior Device Identifier Shelf Expiration Date Model / Serial / Lot Clamp External Fixation L18 Mm Od5.5-6.5 Mm Spine Mark To Mark - 348653 - [id number] Explanted:Qty: 1 on 11/26/2017 at [facility] Posterior: Spine Lumbar [employer] 154.860 / / Screw 6.5 X 45.Mm - 513514 - [id number] Explanted:Qty: 1 on 11/26/2017 at [facility] Posterior: Spine Lumbar [employer] 1067.1645 / / 5.5mm Curved Mark Titanium Alloy 90mm Length - 685677 - [id number] Explanted:Qty: 2 on 11/26/2017 at [facility] Posterior: Spine Lumbar [employer] 1119.7090 / / Advance Directives For more information, please contact: [phone] Documents on File Type Date Recorded Patient [employer] Manager Expl anation Advance Directive and Living Will 04/30/2018 1:52 PM Living Will Latest Code Status on File Code Status Date Activated Date Inactivated Comments Full Code 05/27/2018 9:44 AM 05/28/2018 5:54 PM This code status was ascertained in the following way: discussion with patient . Code Status History Code Status Date Activated Date Inactivated Comments Full Code 05/27/2018 5:52 AM 05/27/2018 9:44 AM This code status was ascertained in the following way: discussion with patient . Full Code 11/26/2017 4:40 PM 12/03/2017 9:25 PM This code status was ascertained in the following way: discussion with patient . Full Code 06/26/2016 11:42 AM 06/26/2016 6:21 PM This code status was ascertained in the following way: discussion with patient. Full Code 03/29/2015 8:27 AM 04/12/2015 12:23 AM This code status was ascertained in the following way: discussion with healthcare patient service representative. Care Teams Distribution System Operator Relationship Specialty Start Date End Date Amparo Lopez DO [address] [place] [address] PCP - General Family Medicine 03/18/23
--- OUTSIDE RECORDS SUMMARY | 2025-06-10 14:15 | XMS_ITS | Clinical Summary ---
Author Organization [facility] [address] [facility] Address [address] [place] [address] Phone Care Team Providers Care Area Development Consultant Name Role Phone Amparo Lopez Primary Care Provider Allergies Active Allergy Reactions Criticality Noted Date Comments Adhesive Rash Low 11/29/2017 Only paper [id number] pt bandaides and tegaderms are okay Codeine Anaphylaxis High 11/16/2014 Erythromycin Anaphylaxis High 11/16/2014 Penicillins Rash Low 11/16/2014 Vancomycin Hives,Itching Low 11/30/2014 Other Reaction(s): Other (See Comments) Tingling of the tongue Medications acetaminophen (TYLENOL) 500 mg tablet Take 2 tablets (1,000 mg total) by mouth every 6 (six) hours as needed for pain. Active aspirin 81 mg chewable tablet Chew 1 tablet (81 mg total) by mouth daily. 2 Active calcium carbonate 1,500 mg (600 mg elemental calcium) tablet Caltrate Acti ve cetirizine (ZyrTEC) 10 mg tablet Take 1 tablet (10 mg total) by mouth daily as needed for allergies. Active cholecalciferol (VITAMIN D-3) 50 mcg (2,000 unit) tablet Take 1 tablet by mouth daily. Active ALPRAZolam (XANAX) 0.25 mg tablet Take 1 tablet (0.25 mg total) by mouth every night at bedtime as needed for anxiety. Active dilTIAZem CD (CARDIZEM CD) 120 mg 24 hr capsule Take 1 capsule (120 mg total) by mouth 1 (one) time each day. 90 capsule 3 5 Active metoprolol succinate (TOPROL-XL) 25 mg 24 hr tablet Take 2 tablets (50 mg total) by mouth 1 (one) time each day. Do not crush or chew. 180 each 3 5 06/01/20 26 Active metoprolol succinate (TOPROL-XL) 25 mg 24 hr tablet Take 2 tablets (50 mg total) by mouth 1 (one) time each day. Do not crush or chew. 180 each 3 5 06/01/20 25 Discontinu ed(Reorder ) Active Problems Problem Noted Date Diagnosed Date Nonrheumatic aortic valve insufficiency 03/30/20 25 Elevated blood pressure read ing without diagnosis of hypertension 03/30/2025 Lumbar postlaminectomy syndrome 11/19/2024 Inflammation of sacroiliac joint ([facility] V24) 1 11/13/2023 Postlaminectomy syndrome, lumbar region 06/24/20 23 Other chest pain 10/04/2022 Asymmetric septal hypertrophy 02/03/2022 Cervical spondylolysis 08/14/2021 Leg fatigue 01/26/2021 Palpitations 01/16/2020 Premature atrial beats 01/16/2020 Simple chronic bronchitis ([facility] V24, [facility] V28) 07/28/2019 Greater trochanteric bursitis of left hip 2017 Primary osteoarthritis of right hand 02/27/2018 C. difficile colitis 02/24/2018 Bilateral carpal tunnel syndrome 02/13/2018 Elbow arthritis 02/13/2018 Elbow pain, right 02/13/2018 Hand arthritis 02/13/2018 Hand pain, right 02/13/2018 Left elbow pain 02/13/2018 Chronic low back pain without sciatica 8 Hip arthritis 12/23/2017 Postoperative ileus (CMS/HCC V24, [facility] V28) 0 12/03/2017 Diverticulosis of large intestine without hemorr jerica 11/07/2017 Adolescent idiopathic scoliosis of lumbar region 10/21/2017 Chronic bilateral low back pain with bilateral s ciatica 10/21/2017 Spondylolisthesis of lumbar region 10/21/2017 Gait instability 08/18/2017 Spondylosis 01/14/2017 Iron deficiency anemia 04/26/2015 COPD (chronic obstructive pu lmonary disease) ([facility] V24, [facility] V28) 04/03/2015 Supraventricular tachycardia ([facility] V24) 04/03 Essential hypertension 03/08/2015 Overview (08/26/2024): ICD-10 Activation Resolved Problems Problem Noted Date Diagnosed Date Resolved Date Tachycardia 03/13/2025 03/14/2025 Encounters Date Type Department Care Team Description 03/29/2025 2:00 PM EDT Office Visit [facility] - [place] [address] [facility] [address] [place] [id number] Becca Browne MD Supraventricular tachycardia ([facility] V24) (Primary Dx); Palpitations; Nonrheumatic aortic valve insufficiency; Elevated blood pressure reading without diagnosis of hypertension 03/13/2025 10:49 AM EDT - 03/14/2025 3:38 PM EDT Hospital Encounter [facility] CV Surg Card 8-[address] [place] [id number] Ritchie Baez MD Lee, Swan, MD Singh, Gagan D, MD Shahid, Hania, MD Palpitations (Primary Dx); Chest pain, unspecified type; History of paroxysmal supraventricular tachycardia; Elevated troponin; Tachycardia Discharge Disposition: Home or Self Care from Last 3 Months Immunizations Name Administration Dates Next Due Influenza Quadravalent, MDCK , 0.5ml, preservative free (Flucelvax) 6mo and older 07/28/2019 Influenza Quadrivalent, 0.5m l, preservative free (Fluarix; FluLaval; Fluzone) ages 6mo and older (Afluria) 3yo and older 07/15/2018 Pneumococcal polysaccharide 23 valent (Pneumovax 23) 2yo and older 12/03/2017 Surgical History Surgery Date Site/Laterality Comments BACK SURGERY 1993 PROCEDURE:BACK SURGERY;COMMENT:L4-L5 DILATION AND CURETTAGE OF UTERUS PROCEDURE:DILATION AND CURETTAGE OF UTERUS TOTAL KNEE ARTHROPLASTY 11/2014 Left PROCEDURE:TOTAL KNEE ARTHROPLASTY SPINAL FIXATION SURGERY 04/1995 PROCEDURE:SPINAL FIXATION SURGERY;COMMENT:reconstruct ion COLONOSCOPY PROCEDURE:COLONOSCOPY CATARACT EXTRACTION W/ INTRAOCULAR LENS IMPLANT 2009 Bilateral PROCEDURE:CATARACT EXTRACTION W/ INTRAOCULAR LENS IMPLANT TOTAL HIP ARTHROPLASTY 05/27/2018 Left PROCEDURE:TOTAL HIP ARTHROPLASTY;COMMENT:Proced ure: REPLACEMENT TOTAL HIP; Surgeon: Jaskaran Farrell MD; Location: [facility]); Service: Orthopedics; Laterality: Left; LUMBAR FUSION 11/26/2017 Left PROCEDURE:LUMBAR FUSION;COMMENT:Procedure: L2-3 FUSION SPINE LUMBAR - DLIF 1 INTERSPACE/; Surgeon: Sai Aguilar MD; Location: [facility] MAIN OPERATING ROOM; Service: Spine; Laterality: Left; LUMBAR FUSION 11/26/2017 Posterior PROCEDURE:LUMBAR FUSION;COMMENT:Procedure: L2- L3 FUSION SPINE LUMBAR POSTERIOR EXTENSION TO L4; Surgeon: Sai Aguilar MD; Location: [facility] MAIN [facility]PERATING ROOM; Service: Spine; Laterality: Posterior; LUMBAR LAMINECTOMY 11/26/2017 Bilateral Posterior PROCEDURE:LUMBAR LAMINECTOMY;COMMENT:Procedu re: L2, L3 LAMINECTOMY POSTERIOR LUMBAR; Surgeon: Sai Aguilar MD; Location: [facility] MAIN OPERATING ROOM; Service: Spine; Laterality: Bilateral Posterior; BONE MARROW ASPIRATION 11/26/2017 Right Posterior PROCEDURE:BONE MARROW ASPIRATION;COMMENT:Procedur e: BONE MARROW ASPIRATION; Surgeon: Sai Aguilar MD; Location: [facility] MAIN [facility]PERATING ROOM; Service: Spine; Laterality: Right Posterior; COLONOSCOPY 06/26/2016 N/A PROCEDURE:COLONOSCOPY;COMME NT:Procedure: COLONOSCOPY; Surgeon: Teddy Enamorado MD; Location: [facility] ENDOSCOPY; Service: Gastroenterology; Laterality: N/A; 06/26/16@10:30am [facility]# [id number] Medicaid# [id number] propofol TOTAL KNEE ARTHROPLASTY 03/29/2015 Right PROCEDURE:TOTAL KNEE ARTHROPLASTY;COMMENT:Proced ure: REPLACEMENT TOTAL KNEE; Surgeon: Jaskaran Farrell MD; Location: [facility] [place] [facility]); Service: Orthopedics; Laterality: Right; TOTAL KNEE ARTHROPLASTY 11/30/2014 Left PROCEDURE:TOTAL KNEE ARTHROPLASTY;COMMENT:Proced ure: REPLACEMENT TOTAL KNEE; Surgeon: Jaskaran Farrell MD; Location: [facility] [place] [facility]); Service: Orthopedics; Laterality: Left; Medical History Medical History Date Comments Hypertension DX:Hypertension Osteoarthritis DX:Osteoarthriti s Bronchitis DX:Bronchitis;CO MMENT:in past x's 1 History of transfusion DX:Histor y of transfusion Chronic low back pain DX:Chronic low back pain Palpitations DX:Palpitations; COMMENT:in h&p Varicose vein DX:Varicose vein Gastroenteritis DX:Gastroenterit is PAC (premature atrial contraction) DX:PAC (premature atrial contraction) Hemorrhoids DX:Hemorrhoids Peripheral neuropathy DX:Periphe ral neuropathy;COMMENT:right LE to great big toe Headache DX:Headache Murmur DX:Murmur Atrial tachycardia (CMS/HCC V24) DX:Atrial tachycardia (HCC) Hx of echocardiogram 02/2015 DX:Hx of ec hocardiogram;COMMENT:nl LV size/thickness/fxn.,EF >60%,nl diastolic filling pattern no WMA ,tr AI,no ,RVSP 32mmHg C. difficile diarrhea DX:C. diff icile diarrhea Thrombocytosis DX:Thrombocytosi s Clostridium difficile infection 03/2015 DX:Clostridium difficile infection Cardiac disease DX:Cardiac disea se Anesthesia DX:Anesthesia;CO MMENT:TACHYCARDIA POST OP Primary osteoarthritis of left hip 05/25/2018 DX:Primary osteoarthritis of left hip Spinal stenosis of lumbar region DX:Spinal stenosis of lumbar region History of Holter monitoring 11/2021 DX: History of Holter monitoring;COMMENT:Sinus 57-140, Avg 90, 984 PVCs, 2084 PACs, 59 brief runs SVT - longes 8 beats @ 160. Artifact. 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 Father Alive Mother (Age 59) BREAST CA Other Sister Alive Social History Tobacco Use Types Packs/Day Years Used Date Smoking Tobacco: Former Cigarettes Q uit: 09/10/2014 Smokeless Tobacco: Never Comments:Quit 2013 Alcohol Use Standard Drinks/Week Comments Yes 11 (1 standard drink = 0.6 oz pu re alcohol) 2-3 x weekly Interpersonal Safety Answer Date Record ed Physical Abuse 10/06/2024 Verbal Abuse 10/06/2024 Comments No Sex and Gender Information Value Date Recorded Sex Assigned at Female 10/06/2024 8:33 AM EST Legal Sex Female 2:23 PM EST Gender Identity Female 10/06/2024 8:33 AM EST Sexual Orientation Not on file Obstetrics History Last Filed Vital Signs Vital Sign Reading Time Taken Comments Blood Pressure 129/94 03/29/2025 2:15 PM EDT Pulse 91 03/29/2025 2:15 PM EDT Temperature 36.7 C (98 F) 03/14/2025 5:51 AM EDT Respiratory Rate 16 03/14/2025 12:10 PM EDT Oxygen Saturation 98% 03/29/2025 2:15 PM EDT Inhaled Oxygen Concentration - - Weight 57.2 kg (126 lb) 03/29/2025 2:15 PM EDT Height 157.5 cm (5' 2 ) 03/29/2025 2:15 PM EDT Body Mass Index 23.05 03/29/2025 2:15 PM EDT Plan of Treatment Upcoming Encounters Date Type Department Care Team (Late st Contact Info) Description 06/30/2025 1:30 PM EDT Office Visit [facility] - [address] [place] [phone] Becca Browne MD [address] [place] [address] [address] [facility] Cardioil[facility]ists [place], [place] [id number] Health Maintenance Due Date Last Done Comments DTaP,Tdap,and Td Vaccines (1 - Tdap) 1971 Zoster Vaccines (1 of 2) 2002 RSV Immunization Adult Patients (1 - Risk 60-74 years 1-dose series) 2012 Pneumococcal Vaccine: 50+ Years (2 of 2 - PCV) 12/03/2018 12/03/2017 Medicare Annual Wellness Visit 10/17/2022 Social Influencers of Health Screening 10/17/2022 Lung Cancer Screening (Low Dose CT) 03/20/2024 03/20/2023 COVID-19 Vaccine ( - season) 2024 Depression Screening 11/10/2024 Influenza Vaccine (#1) 2025 , 07/28/2019, 07/15/2018 Breast Cancer Screening 09/03/2025 09/03/20 23, 05/23/2022, 05/06/2019, Additional history exists Falls Risk Assessment 03/14/2026 03/14/2025 Hypertension/CHF/CAD Annual BMP Blood Test 03/14/2026 03/14/2025, 03/13/2025, 03/13/2025, Additional history exists Colorectal Cancer Screening: Colonoscopy 06/26/2026 06/26/2016 Cholesterol Screening (Lipid Panel) 03/02/2029 03/02/2024 Osteoporosis Screening (Bone Density Screening) 03/20/2033 03/20/2023, 04/22/2018 Hepatitis C Screening Completed 01/19/2019 HIB Vaccines Aged Out No longer eligi ble based on patient's age to complete this topic HPV Vaccines Aged Out No longer eligi ble based on patient's age to complete this topic Hepatitis A Vaccines Aged Out No long er eligible based on patient's age to complete this topic Hepatitis B Vaccines Aged Out No long er eligible based on patient's age to complete this topic IPV Vaccines Aged Out No longer eligi ble based on patient's age to complete this topic MMR Vaccines Aged Out No longer eligi ble based on patient's age to complete this topic Meningococcal ACWY Vaccine Aged Out N o longer eligible based on patient's age to complete this topic Meningococcal B Vaccine Aged Out No l onger eligible based on patient's age to complete this topic RSV Immunization Patients Under 20 months Aged Out No longer eligible based on patient's age to complete this topic Varicella Vaccines Aged Out No longer eligible based on patient's age to complete this topic Procedures Procedure Name Priority Date/Time Associated Diagnosis Comments ECG 12-LEAD Routine 03/30/2025 8:09 PM EDT Supraventricular tachycardia (CMS/HCC V24) D-DIMER Routine 03/14/2025 12:35 PM EDT TROPONIN I HIGH SENSITIVITY Routine 03/14/2025 12:35 PM EDT TROPONIN I HIGH SENSITIVITY STAT Add-on 03/14/2025 8:21 AM EDT MAGNESIUM Routine 03/14/2025 8:21 AM EDT BASIC METABOLIC PANEL Routine 03/14/2025 8:21 AM EDT COMPLETE BLOOD COUNT Routine 03/14/2025 8:21 AM EDT TRANSTHORACIC ECHOCARDIOGRAM (TTE) COMPLETE Routine 03/14/2025 8:11 AM EDT Tachycardia RESPIRATORY VIRUS PANEL MOLECULAR STUDY Routine 03/13/2025 4:56 PM EDT XR CHEST 1 VIEW STAT 03/13/2025 1:09 PM EDT BASIC METABOLIC PANEL STAT Add-on 03/13/2025 12:43 PM EDT TROPONIN I HIGH SENSITIVITY STAT 03/13/2025 12:43 PM EDT CBC WITH AUTO DIFFERENTIAL STAT 03/13/2025 11:48 AM EDT TROPONIN I HIGH SENSITIVITY STAT 03/13/2025 11:48 AM EDT MAGNESIUM STAT 03/13/2025 11:48 AM EDT THYROID STIMULATING HORMONE WITH REFLEX FREE T4 STAT 03/13/2025 11:48 AM EDT CBC AND DIFFERENTIAL STAT 03/13/2025 11:48 AM EDT COMPREHENSIVE METABOLIC PANEL STAT 03/13/2025 11:48 AM EDT ECG 12-LEAD STAT 03/13/2025 10:47 AM EDT LIPID PANEL Routine 03/02/2024 MAMMOGRAM SCREENING BILATERAL 3D JEROME WITH CAD Routine 09/03/2023 12:58 PM EDT Encounter for screening mammogram for malignant neoplasm of breast BONE DENSITY STUDY Routine 03/20/2023 2: 24 PM EDT Asymptomatic menopausal state CT CHEST LOW DOSE RADIATION SCREENING WITHOUT IV CONTRAST Routine 03/20/2023 2:06 PM EDT Nicotine dependence, cigarettes, uncomplicated HM HEPATITIS C SCREENING Routine 01/19/2019 HM COLONOSCOPY Routine 06/26/2016 from Last 3 Months or Most Recently Relevant to Health Maintenance Results * ECG 12 lead (03/30/2025 8:09 PM EDT) Only the most recent of2 resultswithin the time period is included. Narrative Becca Browne MD - 03/30/2025 8:09 PM EDT Sinus rhythm rate 71 bpm DE 198 msec/ QRS 98 msec/ QT c 443 msec Normal EKG us Becca Browne MD ECG ORDERABLES Final Resu lt * Troponin I high sensitivity (03/14/2025 12:35 PM EDT) Only the most recent of4 resultswithin the time period is included. High Sensitivity Troponin I 8 0 - 14 ng/L LAB CHEMISTRY METHOD 03/14/2025 1:19 PM EDT [facility] Blood Venous blood specimen / Unknown Venipuncture / Unknown 03/14/2025 12:35 PM EDT 03/14/2025 12:43 PM EDT Narrative [facility] - 03/14/2025 1:19 PM EDT HSTnI results stratify to HIGH RISK category if any value >100 ng/L or delta at 1 hour is greater than or equal to 15 ng/L (male and female). Note: Delta values are not applicable if symptoms began more than 12 hours pre-arrival. Risk stratification should include the calculation of the HEART score. The testing method is an immunoenzymatic assay manufactured by [employer] and performed on the [employer] DxI 800. Ridge Gillespie CANDLE MOLDER HAND LAB BLOOD ORDERABLES Final Result Performing Organization Address [facility] de Phone Number [facility] [address] [place] [address], * (ABNORMAL) D-Dimer (03/14/2025 12:35 PM EDT) Pathologist [facility] [place] D-Dimer, Quant (D-DU) 268(H) <231 ng/mL DDU LAB COAGULATION METHOD 03/14/2025 1:04 PM EDT [facility] Blood Venous blood specimen / Unknown Venipuncture / Unknown 03/14/2025 12:35 PM EDT 03/14/2025 12:43 PM EDT Narrative [facility] - 03/14/2025 1:04 PM EDT This assay has been approved by the Food and Drug Administration (FDA) for use in excluding low and moderate risk patients suspected of venous thromboembolism, including deep vein thrombosis (DVT) and pulmonary embolism (PE) when used in conjunction with a clinical Pre test Probability model such as Wells, et al. The D Dimer result should not be used alone to rule in DVT and or PE. us Ridge Gillespie NP LAB BLOOD ORDERABLES Final Result Performing Organization Address [facility] de Phone Number [facility] [address] [place] [address], [place] [phone] * (ABNORMAL) Complete blood count (03/14/2025 8:21 AM EDT) Pathologist [facility] [place] WBC 4.5 4.0 - 10.5 K/[facility] LAB HEMETOLOGY METHOD 03/14/2025 8:54 AM EDT [facility] RBC 5.27 4.20 - 5.40 M/[facility] LAB HEMETOLOGY METHOD 03/14/2025 8:54 AM EDT [facility] Hemoglobin 13.1 12.5 - 16.0 g/dL LAB HEMETOLOGY METHOD 03/14/2025 8:54 AM EDT [facility] Hematocrit 40.5 37.0 - 47.0 % LAB HEMETOLOGY METHOD 03/14/2025 8:54 AM EDT [facility] MCV 77.0(L) 78.0 - 100.0 FL LAB HEMETOLOGY METHOD 03/14/2025 8:54 AM EDT [facility] MCH 24.9(L) 25.0 - 33.0 pcg LAB HEMETOLOGY METHOD 03/14/2025 8:54 AM EDT [facility] MCHC 32.3 32.0 - 36.0 g/dL LAB HEMETOLOGY METHOD 03/14/2025 8:54 AM EDT [facility] RDW 15.5 12.1 - 16.2 % LAB HEMETOLOGY METHOD 03/14/2025 8:54 AM EDT [facility] Platelets 234 150 - 450 K/mcL LAB HEMETOLOGY METHOD 03/14/2025 8:54 AM EDT [facility] MPV 8.5 7.4 - 11.4 FL LAB HEMETOLOGY METHOD 03/14/2025 8:54 AM EDT [facility] Blood Venous blood specimen / Unknown Venipuncture / Unknown 03/14/2025 8:21 AM EDT 03/14/2025 8:46 AM EDT us Haven Cui [employer]ANDLE [employer] HAND LAB BLOOD ORDERABLES Final Res ult [facility] [address] [place] [address], [place] [phone] * Magnesium (03/14/2025 8:21 AM EDT) Only the most recent of2 resultswithin the time period is included. Magnesium 2.0 1.7 - 2.8 mg/dL LAB CHEMISTRY METHOD 03/14/2025 9:14 AM EDT [facility] Blood Venous blood specimen / Unknown Venipuncture / Unknown 03/14/2025 8:21 AM EDT 03/14/2025 8:46 AM EDT Haven Cui NP LAB BLOOD ORDERABLES Final Res ult [facility] [address] [place] [address], [place] [phone] * (ABNORMAL) Basic metabolic panel (03/14/2025 8:21 AM EDT) Only the most recent of2 resultswithin the time period is included. Sodium 136 135 - 145 mmol/L LAB CHEMISTRY METHOD 03/14/2025 9:14 AM EDT [facility] Potassium 3.8 3.5 - 5.1 mmol/L LAB CHEMISTRY METHOD 03/14/2025 9:14 AM EDT [facility] Chloride 103 98 - 107 mmol/L LAB CHEMISTRY METHOD 03/14/2025 9:14 AM EDT [facility] CO2 22(L) 24 - 32 mmol/L LAB CHEMISTRY METHOD 03/14/2025 9:14 AM EDT [facility] Anion Gap 11 5 - 14 LAB CHEMISTRY METHOD 03/14/2025 9:14 AM EDT [facility] Glucose 83 70 - 199 mg/dL LAB CHEMISTRY METHOD 03/14/2025 9:14 AM EDT [facility] BUN 9 7 - 17 mg/dL LAB CHEMISTRY METHOD 03/14/2025 9:14 AM EDT [facility] Creatinine 0.50 0.50 - 1.00 mg/dL LAB CHEMISTRY METHOD 03/14/2025 9:14 AM EDT [facility] eGFR 100 >=60 mL/min/1. 73m2 LAB CHEMISTRY METHOD 03/14/2025 9:14 AM EDT [facility] Comment:Calculation based on the Chronic Kidney Disease Epidemiology Collaboration (CKD-EPI) equation refit without adjustment for race. BUN/Creatinine Ratio 18.0 12.0 - 20.0 LAB CHEMISTRY METHOD 03/14/2025 9:14 AM EDT [facility] Calcium 8.6 8.4 - 10.2 mg/dL LAB CHEMISTRY METHOD 03/14/2025 9:14 AM EDT [facility] Blood Venous blood specimen / Unknown Venipuncture / Unknown 03/14/2025 8:21 AM EDT 03/14/2025 8:46 AM EDT us Haven Cui [employer] LAB BLOOD ORDERABLES Final Res ult [facility] [address] [place] [address], [place] [phone] * (ABNORMAL) TRANSTHORACIC ECHOCARDIOGRAM (TTE) COMPLETE (03/14/2025 8:11 AM EDT) Left Atrium Minor [place] 6.6 cm CV PACS Left Atrium Major [place] 6.6 cm CV PACS LA Area Sys (A2C) 21 cm2 CV PACS LA Area Sys (A4C) 27 cm2 CV PACS LA Volume (BP) 70 mL CV PACS RA Area 14.5 cm2 CV PACS RA 2D Volume 30 mL CV PACS AV Regurgitation PHT 470 ms CV PACS AR Max Velocity 5.3 m/s CV PACS Aortic Root 3.1 cm CV PACS Ascending Aorta 3.9 cm CV PACS Ejection Fraction (3D) 74 % CV PACS LVOT Stroke Volume 92 mL CV PACS LV [place]azar Vol 3D 93 mL CV PACS LV Sys Vol 3D 24 mL CV PACS LV Mass 3D 125 g CV PACS IVSD 0.9 0.6 - 0.9 cm CV PACS LVIDD 4.1 3.8 - 5.2 cm CV PACS LVIDS 2.6 2.2 - 3.5 cm CV PACS LVOT Diameter 2.0 cm CV PACS LVOT Mean Grad 3 mmHg CV PACS LVOT Peak VTI 29.3 cm CV PACS LVOT Mean Christo 0.9 m/s CV PACS LVOT Peak Christo 1.3 m/s CV PACS LVOT Peak Gradient 7 mmHg CV PACS LVPWD 0.9 0.6 - 0.9 cm CV PACS MV E' Tissue Velocity Lateral 6 cm/s CV PACS MV E' Tissue Velocity Septal 4 cm/s CV PACS GLS -17.9 % CV PACS LVOT Area 3.1 cm2 CV PACS MV Deceleration Reeves 1.9 m/s2 CV PACS E Wave Deceleration Time 274(A) 119 - 242 ms CV PACS MV Annulus 3.9 cm CV PACS MV PHT 80 ms CV PACS MV Peak A Christo 0.52 m/s CV PACS MV Peak E Christo 0.51 m/s CV PACS MV Area PHT 2.8 cm2 CV PACS PV Peak Velocity 0.8 m/s CV PACS PV Peak Gradient 2 mmHg CV PACS RV Diastolic Basal Dimension 3.5 2.5 - 4.1 cm CV PACS RV S' 14 cm/s CV PACS TAPSE 22 mm CV PACS TR Peak Velocity 2.28 m/s CV PACS TR Peak Gradient 21 mmHg CV PACS E/E' Ratio Septal 13 CV PACS E/E' Ratio Averaged 11 CV PACS LVOT Stroke Index 59 mL/m2 CV PACS Relative Wall Thickness ratio 0.44 CV PACS LV Mass Index 3D 80 g/m2 CV PACS FS 37 % CV PACS LV Mass 2D 114 g CV PACS Ascending Aorta Index 2.48 cm/m2 CV PACS LVOT flow 283 mL/s CV PACS RA 2D Volume Index 19 mL/m2 CV PACS LVIDD Index 2.61 cm/m2 CV PACS LVIDS Index 1.66 cm/m2 CV PACS Aortic Root Index 1.97 cm/m2 CV PACS LV EDV Index (3D) 59 mL/m2 CV PACS LV ESV Index (3D) 15 mL/m2 CV PACS E/A Ratio 1.0 CV PACS E/E' Ratio Lateral 9 CV PACS LA Volume Index (BP) 45 mL/m2 CV PACS LV Mass Index 2D 73 g/m2 CV PACS BSA 1.58 m2 CV PACS Right Ventricular Peak Systolic Pressure 24 mmHg CV PACS Est. RA Pressure 3 mmHg CV PACS Anatomical Region Laterality Modality Ultrasound Narrative 03/14/2025 12:14 PM EDT Left ventricle cavity size is normal. Left ventricular systolic function is hyperdynamic. EF by 3D imaging is 74%. No regional LV wall motion abnormalities noted. Left ventricle wall thickness is normal. Left Ventricle: There is Grade I (mild) diastolic dysfunction. Right ventricle cavity is normal. Right ventricular systolic function is normal. Aortic valve demonstrates moderate regurgitation. Left Atrium: Left atrium cavity is moderately dilated. Mitral Valve: There is mild to moderate regurgitation. The ascending aorta is dilated (3.9 cm). Left Ventricle Left ventricle cavity size is normal. Wall thickness is normal. Systolic function is hyperdynamic. The quantitative EF by 3D imaging is 74%. LV global longitudal strain is normal. Global longitudinal strain is -17.9%. There are no regional LV wall motion abnormalities. There is Grade I (mild) diastolic dysfunction. Right Ventricle Right ventricle cavity appears normal. Basal RV end-diastolic diameter is 3.5 cm. Systolic function is normal. RV S' 14 cm/sec. Normal TAPSE (> 17 mm), measuring 22 mm. Normal systolic excursion velocity by TDI (>9.5 cm/s). Left Atrium Left atrium cavity is moderately dilated. Right Atrium Right atrium cavity is normal. Right atrial volume is normal. IVC/SVC Inferior vena cava structure is normal. RA pressures is estimated to be 3 mmHg (IVC diameter <21 mm and decreases >50% during inspiration). Mitral Valve Mitral valve structure is normal. There is mild to moderate regurgitation. There is no evidence of mitral valve stenosis. Tricuspid Valve Tricuspid valve structure is normal. There is mild regurgitation with an eccentric jet. There is no evidence of tricuspid valve stenosis. Aortic Valve The aortic valve is trileaflet. There is moderate regurgitation. There is no evidence of aortic valve stenosis. Pulmonic Valve Visualized portions of the pulmonic valve appear normal. There is no regurgitation or stenosis. Ascending Aorta The ascending aorta is dilated (3.9 cm). Pericardium There is an fat pad. There is no pericardial effusion. Study Details Overall the study quality was adequate. Additional technique includes 3D imaging and postprocessing performed without an independent workstation and myocardial strain. us Haven Cui NP CV ECHO PROCEDURES Final Resul t * Respiratory virus panel molecular study (03/13/2025 4:56 PM EDT) Adenovirus Detection by PCR Not Detected Not Detected LAB MICROBIOLOGY METHOD 03/13/2025 6:22 PM EDT [facility] Influenza A PCR Not Detected Not Detected LAB MICROBIOLOGY METHOD 03/13/2025 6:22 PM EDT [facility] Influenza B PCR Not Detected Not Detected, Invalid LAB MICROBIOLOGY METHOD 03/13/2025 6:22 PM EDT [facility] Coronavirus 229E Not Detected Not Detected LAB MICROBIOLOGY METHOD 03/13/2025 6:22 PM EDT [facility] Coronavirus HKU1 Not Detected Not Detected LAB MICROBIOLOGY METHOD 03/13/2025 6:22 PM EDT [facility] Coronavirus OC43 Not Detected Not Detected LAB MICROBIOLOGY METHOD 03/13/2025 6:22 PM EDT [facility] Coronavirus NL63 Not Detected Not Detected LAB MICROBIOLOGY METHOD 03/13/2025 6:22 PM EDT [facility] Parainfluenza Virus 1 Not Detected Not Detected LAB MICROBIOLOGY METHOD 03/13/2025 6:22 PM EDT [facility] Parainfluenza Virus 2 Not Detected Not Detected LAB MICROBIOLOGY METHOD 03/13/2025 6:22 PM EDT [facility] Parainfluenza Virus 3 Not Detected Not Detected LAB MICROBIOLOGY METHOD 03/13/2025 6:22 PM EDT [facility] Parainfluenza Virus 4 Not Detected Not Detected LAB MICROBIOLOGY METHOD 03/13/2025 6:22 PM EDT [facility] RSV PCR Not Detected Not Detected LAB MICROBIOLOGY METHOD 03/13/2025 6:22 PM EDT [facility] Human Metapneumovirus A and B Not Detected Not Detected LAB MICROBIOLOGY METHOD 03/13/2025 6:22 PM EDT [facility] Rhinovirus/Entero virus Not Detected Not Detected LAB MICROBIOLOGY METHOD 03/13/2025 6:22 PM EDT [facility] Bordetella pertussis Not Detected Not Detected LAB MICROBIOLOGY METHOD 03/13/2025 6:22 PM EDT [facility] Bordetella parapertussis Not Detected Not Detected LAB MICROBIOLOGY METHOD 03/13/2025 6:22 PM EDT [facility] Mycoplasma pneumo by PCR Not Detected Not Detected LAB MICROBIOLOGY METHOD 03/13/2025 6:22 PM EDT [facility] Chlamydia pneumoniae Not Detected Not Detected LAB MICROBIOLOGY METHOD 03/13/2025 6:22 PM EDT [facility] SARS COV-2 Not Detected Not Detected, Invalid LAB MICROBIOLOGY METHOD 03/13/2025 6:22 PM EDT [facility] Swab Both anterior nares / Unknown Non-blood Collection / Unknown 03/13/2025 4:56 PM EDT 03/13/2025 5:05 PM EDT Haven Cui NP LAB MICROBIOLOGY - GENERAL ORD ERABLES Final Result [facility] [address] [place] [address], * XR Chest 1 View (03/13/2025 1:09 PM EDT) Anatomical Region Laterality Modality Body Radiographic Carmen ging 03/13/2025 1:16 PM EDT Impressions 03/13/2025 1:18 PM EDT Mild cardiomegaly. No pulmonary edema. No acute cardiopulmonary abnormality. Report reviewed and signed by : Dr. Deni Green on 03/13/2025 1:18 PM. Workstation Name - [id number] -------- FINAL REPORT -------- Dictated By: Deni Green Dictated Date: 03/13/2025 13:16 ET Assigned Physician: Deni Green Reviewed and Electronically Signed By: Deni Green Signed Date: 03/13/2025 13:18 ET Workstation ID: [id number] Transcribed By: Self Edit Transcribed Date: 03/13/2025 13:16 ET Narrative 03/13/2025 1:18 PM EDT XR CHEST PORTABLE CLINICAL INFORMATION: cp/palp COMPARISON: 12/08/2014 TECHNIQUE: Portable chest radiograph, AP view. FINDINGS: Lungs are well-expanded and clear. No pulmonary consolidation, pneumothorax or pleural effusion. Cardiac silhouette is mildly enlarged. No evidence of cephalization of pulmonary venous flow. There is atherosclerotic calcification of the tortuous thoracic aorta. Bones are diffusely osteopenic. Dextroscoliosis of the degenerated thoracic spine. Procedure Note Deni Green MD - 03/13/2025 XR CHEST PORTABLE CLINICAL INFORMATION: cp/palp COMPARISON: 12/08/2014 TECHNIQUE: Portable chest radiograph, AP view. FINDINGS: Lungs are well-expanded and clear. No pulmonary consolidation,pneumothorax or pleural effusion. Cardiac silhouette is mildly enlarged. No evidence of cephalization ofpulmonary venous flow. There is atherosclerotic calcification of the tortuous thoracic aorta. Bones are diffusely osteopenic. Dextroscoliosis of the degeneratedthoracic spine. IMPRESSION: Mild cardiomegaly. No pulmonary edema. No acute cardiopulmonaryabnormality. Report reviewed and signed by : Dr. Dein Green on 03/13/2025 1:18 PM.Workstation Name - [id number] -------- FINAL REPORT -------- Dictated By: Deni Green Dictated Date: 03/13/2025 13:16 ET Assigned Physician: Deni Green Reviewed and Electronically Signed By: Deni Green Signed Date: 03/13/2025 13:18 ET Workstation ID: [id number] Transcribed By: Self Edit Transcribed Date: 03/13/2025 13:16 ET us Ritchie Baez MD IMG XR PROCEDURES Fi nal Result * Thyroid stimulating hormone with reflex free T4 (03/13/2025 11:48 AM EDT) TSH 0.81 0.45 - 5.33 mcIU/mL LAB CHEMISTRY METHOD 03/13/2025 12:46 PM EDT [facility] Blood Venous blood specimen / Unknown Venipuncture / Unknown 03/13/2025 11:48 AM EDT 03/13/2025 11:58 AM EDT Ritchie Baez MD LAB BLOOD ORDERABLES Final Result [facility] [address] [place] [address], * (ABNORMAL) CBC auto differential (03/13/2025 11:48 AM EDT) Pathologist [facility] [place] WBC 4.4 4.0 - 10.5 K/mcL LAB HEMETOLOGY METHOD 03/13/2025 12:18 PM EDT [facility] RBC 5.28 4.20 - 5.40 M/mcL LAB HEMETOLOGY METHOD 03/13/2025 12:18 PM EDT [facility] Hemoglobin 13.0 12.5 - 16.0 g/dL LAB HEMETOLOGY METHOD 03/13/2025 12:18 PM EDT [facility] Hematocrit 41.3 37.0 - 47.0 % LAB HEMETOLOGY METHOD 03/13/2025 12:18 PM EDT [facility] MCV 78.2 78.0 - 100.0 FL LAB HEMETOLOGY METHOD 03/13/2025 12:18 PM EDT [facility] MCH 24.7(L) 25.0 - 33.0 pcg LAB HEMETOLOGY METHOD 03/13/2025 12:18 PM EDT [facility] MCHC 31.5(L) 32.0 - 36.0 g/dL LAB HEMETOLOGY METHOD 03/13/2025 12:18 PM EDT [facility] RDW 16.3(H) 12.1 - 16.2 % LAB HEMETOLOGY METHOD 03/13/2025 12:18 PM EDT [facility] Platelets 289 150 - 450 K/mcL LAB HEMETOLOGY METHOD 03/13/2025 12:18 PM EDT [facility] MPV 8.9 7.4 - 11.4 FL LAB HEMETOLOGY METHOD 03/13/2025 12:18 PM EDT [facility] Neutrophils Relative 58.1 44.0 - 74.0 % LAB HEMETOLOGY METHOD 03/13/2025 12:18 PM EDT [facility] Comment:Verified by repeat a nalysis Lymphocytes Relative 30.7 20.0 - 48.0 % LAB HEMETOLOGY METHOD 03/13/2025 12:18 PM EDT [facility] Monocytes Relative 10.1 2.0 - 12.0 % LAB HEMETOLOGY METHOD 03/13/2025 12:18 PM EDT [facility] Eosinophils Relative 0.7 0.0 - 6.0 % LAB HEMETOLOGY METHOD 03/13/2025 12:18 PM EDT [facility] Basophils Relative 0.4 0.0 - 2.0 % LAB HEMETOLOGY METHOD 03/13/2025 12:18 PM EDT [facility] Neutrophils Absolute 2.50 1.80 - 7.80 K/mcL LAB HEMETOLOGY METHOD 03/13/2025 12:18 PM EDT [facility] Lymphocytes Absolute 1.30 1.00 - 3.20 K/mcL LAB HEMETOLOGY METHOD 03/13/2025 12:18 PM EDT [facility] Monocytes Absolute 0.40 0.00 - 0.80 K/mcL LAB HEMETOLOGY METHOD 03/13/2025 12:18 PM EDT [facility] Eosinophils Absolute 0.00 0.00 - 0.50 K/mcL LAB HEMETOLOGY METHOD 03/13/2025 12:18 PM EDT [facility] Basophils Absolute 0.00 0.00 - 0.20 K/mcL LAB HEMETOLOGY METHOD 03/13/2025 12:18 PM EDT [facility] Blood Venous blood specimen / Unknown Venipuncture / Unknown 03/13/2025 11:48 AM EDT 03/13/2025 11:58 AM EDT us Ritchie Baez MD LAB BLOOD ORDERABLES Final Result [facility] [address] [place] [address], * (ABNORMAL) Comprehensive metabolic panel (03/13/2025 11:48 AM EDT) Sodium 137 135 - 145 mmol/L LAB CHEMISTRY METHOD 03/13/2025 12:37 PM EDT [facility] Potassium 5.7(H) 3.5 - 5.1 mmol/L LAB CHEMISTRY METHOD 03/13/2025 12:37 PM EDT [facility] Comment:Slightly to Moderate ly Hemolyzed Chloride 105 98 - 107 mmol/L LAB CHEMISTRY METHOD 03/13/2025 12:37 PM EDT [facility] CO2 23(L) 24 - 32 mmol/L LAB CHEMISTRY METHOD 03/13/2025 12:37 PM EDT [facility] Anion Gap 9 5 - 14 LAB CHEMISTRY METHOD 03/13/2025 12:37 PM EDT [facility] Glucose 94 70 - 199 mg/dL LAB CHEMISTRY METHOD 03/13/2025 12:37 PM EDT [facility] BUN 12 7 - 17 mg/dL LAB CHEMISTRY METHOD 03/13/2025 12:37 PM EDT [facility] Creatinine 0.60 0.50 - 1.00 mg/dL LAB CHEMISTRY METHOD 03/13/2025 12:37 PM EDT [facility] eGFR 96 >=60 mL/min/1. 73m2 LAB CHEMISTRY METHOD 03/13/2025 12:37 PM EDT [facility] Comment:Calculation based on the Chronic Kidney Disease Epidemiology Collaboration (CKD-EPI) equation refit without adjustment for race. BUN/Creatinine Ratio 20.0 12.0 - 20.0 LAB CHEMISTRY METHOD 03/13/2025 12:37 PM EDT [facility] Calcium 8.7 8.4 - 10.2 mg/dL LAB CHEMISTRY METHOD 03/13/2025 12:37 PM EDT [facility] AST (SGOT) 33 5 - 40 unit/L LAB CHEMISTRY METHOD 03/13/2025 12:37 PM EDT [facility] Comment:Slightly to Moderate ly Hemolyzed ALT (SGPT) 12 7 - 52 unit/L LAB CHEMISTRY METHOD 03/13/2025 12:37 PM EDT [facility] Alkaline Phosphatase 55 34 - 104 unit/L LAB CHEMISTRY METHOD 03/13/2025 12:37 PM EDT [facility] Total Protein 6.6 6.4 - 8.5 g/dL LAB CHEMISTRY METHOD 03/13/2025 12:37 PM EDT [facility] Albumin 3.7 3.5 - 5.0 g/dL LAB CHEMISTRY METHOD 03/13/2025 12:37 PM EDT [facility] Total Bilirubin 0.5 0.3 - 1.0 mg/dL LAB CHEMISTRY METHOD 03/13/2025 12:37 PM T [facility] Blood Venous blood specimen / Unknown Venipuncture / Unknown 03/13/2025 11:48 AM EDT 03/13/2025 11:59 AM EDT Ritchie Baez MD LAB BLOOD ORDERABLES Final Result [facility] [address] [place] [address], [place] [phone] * Lipid panel (03/02/2024) LDL/HDL Ratio 0 Comment:No interpretation Triglycerides 0 mg/dL Comment:No interpretation Cholesterol 0 mg/dL Comment:No interpretation HDL 0 mg/dL Comment:No interpretation LDL Cholesterol 0 mg/dL Comment:No interpretation Blood Venous blood specimen / Unknown Historical Provider MD LAB BLOOD ORDERABLES Deanna l Result * MAMMOGRAM SCREENING BILATERAL 3D JEROME WITH CAD (09/03/2023 12:58 PM EDT) Anatomical Region Laterality Modality Mammography 08/22/2023 9:15 AM EDT Narrative 09/03/2023 1:11 PM EDT This is a summary report. The complete report is available in the patient's medical record. If you cannot access the medical record, please contact the sending organization for a detailed fax or copy. SESSION: Separate. EXAMINATION: Bilateral digital mammograms with CAD and Tomosynthesis. TECHNIQUE: Bilateral full field digital mammography with synthesized (2D) the and Tomosynthesis (3-D) was performed using standard cc and MLO projections. Mammogram was interpreted in correlation with CAD and Tomosynthesis. INDICATION: Yearly screening. FINDINGS: Compared to 05/23/2022, 05/06/2019 and 04/22/2018. There are scattered areas of fibroglandular density. (Density B, 25% to less than 50%). There is no significant change in the appearance and distribution of benign fibroglandular as well as fibronodular densities in the both breasts. A few typically benign scattered calcifications as well as benign-appearing axillary lymph nodes are stable. No suspicious microcalcifications or masses are seen. CONCLUSION: Stable mammographic findings with no evidence of malignancy. RECOMMENDATION: Patient should continue with yearly screening mammography. NOTE: Patient has been informed about results of this screening mammogram, by a patient letter with 'plain language report'. BI-RADS Category 2: Benign findings. PQRI: 3342F. Report reviewed and signed by : Dr. Isabel Washburn MD on 09/03/2023 1:11 PM. Workstation Name - [id number] Procedure Note Isabel Washburn MD - 12/16/2023 This is a summary report. The complete report is available in thepatient's medical record. If you cannot access the medical record, pleasecontact the sending organization for a detailed fax or copy. SESSION: Separate. EXAMINATION: Bilateral digital mammograms with CAD and Tomosynthesis. TECHNIQUE: Bilateral full field digital mammography with synthesized (2D)the and Tomosynthesis (3-D) was performed using standard cc and MLOprojections. Mammogram was interpreted in correlation with CAD andTomosynthesis. INDICATION: Yearly screening. FINDINGS: Compared to 05/23/2022, 05/06/2019 and 04/22/2018. There are scattered areas of fibroglandular density. (Density B, 25% toless than 50%). There is no significant change in the appearance anddistribution of benign fibroglandular as well as fibronodular densities inthe both breasts. A few typically benign scattered calcifications as well asbenign-appearing axillary lymph nodes are stable. No suspiciousmicrocalcifications or masses are seen. CONCLUSION: Stable mammographic findings with no evidence of malignancy. RECOMMENDATION: Patient should continue with yearly screening mammography. NOTE: Patient has been informed about results of this screening mammogram,by a patient letter with 'plain language report'. BI-RADS Category 2: Benign findings. PQRI: 3342F. Report reviewed and signed by : Dr. Isabel Washburn MD on 09/03/2023 1:11PM. Workstation Name - [id number] Amparo Lopez IM BI PROCEDURES Final Res ult * BONE DENSITY STUDY (03/20/2023 2:24 PM EDT) Anatomical Region Laterality Modality Bone Densitometr y 02/20/2023 7:25 AM EDT Narrative 03/21/2023 8:34 AM EDT EXAM PERFORMED: Bone density study DEXA EXAM HISTORY: Postmenopausal screening. Post-menopausal TECHNIQUE: [employer] system utilized for DEXA images Findings: LEFT FOREARM: Bone mineral density (BMD) measured in the 1/3 radius is 0.593 g/cm2. This correlates with a Z-score of 0.5 and a T-score of -1.7. RIGHT HIP: Bone mineral density (BMD) measured in the total hip is 0.698 g/cm2. This correlates with a Z-score of -1.0 and a T-score of -2.0. IMPRESSION: 1. Left Forearm: Osteopenia. 2. Hip: Osteopenia. PLEASE NOTE: 1) The World Health Organization defines low BMD as follows: T-score Normal > -1 Osteopenia < -1 and > -2.5 Osteoporosis < -2.5 without fractures Established osteoporosis < -2.5 with fractures 2) In general, you may wish to consider: Diagnosis Treatment Follow-up DEXA Normal BMD Prevention 2-3 years Osteopenia Prevention/therapy 1-2 years Osteoporosis Therapy Yearly 3) Fracture risk estimated from the T-score is more accurate for vertebral fractures (often spontaneous) than for hip fractures. 4) The next DEXA scan of this patient should include the following sites: forearm, hip. Session: Separate Report reviewed and signed by : Dr. Neisha Fuentes MD on 03/21/2023 8:34 AM. Workstation Name - [id number] Procedure Note Neisha Fuentes MD - 12/16/2023 EXAM PERFORMED: Bone density study DEXA EXAM HISTORY: Postmenopausal screening. Post-menopausal TECHNIQUE: Hologic system utilized for DEXA images Findings: LEFT FOREARM: Bone mineral density (BMD) measured in the 1/3 radius is 0.593 g/cm2. This correlates with a Z-score of 0.5 and a T-score of -1.7. RIGHT HIP: Bone mineral density (BMD) measured in the total hip is 0.698 g/cm2. This correlates with a Z-score of -1.0 and a T-score of -2.0. IMPRESSION: 1. Left Forearm: Osteopenia. 2. Hip: Osteopenia. PLEASE NOTE: 1) The World Health Organization defines low BMD as follows: T-score Normal > -1 Osteopenia < -1 and > -2.5 Osteoporosis < -2.5 without fractures Established osteoporosis < -2.5 with fractures 2) In general, you may wish to consider: Diagnosis Treatment Follow-upDEXA Normal BMD Prevention 2-3years Osteopenia Prevention/therapy 1-2years Osteoporosis Therapy Yearly 3) Fracture risk estimated from the T-score is more accurate forvertebral fractures (often spontaneous) than for hip fractures. 4) The next DEXA scan of this patient should include the following sites:forearm, hip. Session: Separate Report reviewed and signed by : Dr. Neisha Fuentes MD on 03/21/2023 8:34AM. Workstation Name - [id number] Amparo ZambranoAdamMckeon [facility] DXA PROCEDURES Final Re sult * CT CHEST LOW DOSE RADIATION SCREENING WITHOUT IV CONTRAST (03/20/2023 2:06 PM EDT) Anatomical Region Laterality Modality Computed Tomogra phy 02/20/2023 7:27 AM EDT Narrative 03/20/2023 4:[address] CHEST WITHOUT CONTRAST FOR LUNG CANCER SCREENING INDICATION: Smoking greater than 20 pack years TECHNIQUE: Helical, low dose CT (LDCT) of the chest was performed without intravenous contrast. Additional maximal intensity projection images COMPARISON: None available at this institution. FINDINGS: Neck: Enlargement of the thyroid Lung Screening Specific: 2 mm subpleural right upper lobe pulmonary nodule (series 3, image 89). 3 mm solid nodule along the right fissure (series 3, image 210). Lung parenchyma: Fine linear subpleural interstitial thickening. Mediastinum: Mild atherosclerosis of thoracic aorta. Upper abdomen: Calcification within the spleen could represent granuloma. MSK: Moderate degenerative changes of thoracic spine IMPRESSION: 1. LUNG-RADS category 2: Benign findings without evidence of primary lung cancer. 2. LUNG-RADS category S: Negative, no new/unknown potentially significant incidental findings requiring urgent additional evaluation. 3. Other incidental findings as above. RECOMMENDATION: Continued routine annual LDCT lung screening. Suggest next exam on or around 03/20/2024. Report reviewed and signed by : Dr. Garland Ellis MD on 03/20/2023 4:50 PM. Workstation Name - [id number] Procedure Note Garland Ellis MD - 12/16/2023 CT CHEST WITHOUT CONTRAST FOR LUNG CANCER SCREENING INDICATION: Smoking greater than 20 pack years TECHNIQUE: Helical, low dose CT (LDCT) of the chest was performed withoutintravenous contrast. Additional maximal intensity projection images COMPARISON: None available at this institution. FINDINGS: Neck: Enlargement of the thyroid Lung Screening Specific: 2 mm subpleural right upper lobe pulmonarynodule (series 3, image 89). 3 mm solid nodule along the right fissure(series 3, image 210). Lung parenchyma: Fine linear subpleural interstitial thickening. Mediastinum: Mild atherosclerosis of thoracic aorta. Upper abdomen: Calcification within the spleen could representgranuloma. MSK: Moderate degenerative changes of thoracic spine IMPRESSION: 1. LUNG-RADS category 2: Benign findings without evidence of primary lungcancer. 2. LUNG-RADS category S: Negative, no new/unknown potentially significantincidental findings requiring urgent additional evaluation. 3. Other incidental findings as above. RECOMMENDATION: Continued routine annual LDCT lung screening. Suggest nextexam on or around 03/20/2024. Report reviewed and signed by : Dr. Garland Ellis MD on 03/20/2023 4:50PM. Workstation Name - [id number] Amparo STEEL CT PROCEDURES Final Res ult * Hepatitis C Screening (01/19/2019) [facility] Hepatitis C Screening Abstracted Historical Provider HEALTH MAINTENANCE Final Result * Colonoscopy (06/26/2016) [facility] Colonoscopy Abstracted, no interpretation Anatomical Region Laterality Modality Other Historical Provider HEALTH MAINTENANCE Final Result from Last 3 Months or Most Recently Relevant to Health Maintenance Insurance [employer] Advance Directives * Full Code - Confirmed (Latest Code Status on File) Date Activated Date Inactivated Comments 03/13/2025 2:20 PM 03/14/2025 5:49 PM This code stat us was ascertained in the following way: Code status discussion: discussion with patient To update the patient's code status, place a code status order. Do not modify or discontinue any currently active code status orders. * Full Code - Default Date Activated Date Inactivated Comments 03/13/2025 2:07 PM 03/13/2025 2:20 PM This is order is used when code status has not been discussed with the patient, or code status is otherwise unknown/unconfirmed To update the patient's code status, place a code status order. Do not modify or discontinue any currently active code status orders. Care Teams Area Development Consultant Relationship Specialty Start Date End Date Amparo Lopez [address] [place] [id number] PCP - General 03/18/23
--- OUTSIDE RECORDS SUMMARY | 2025-06-10 14:15 | XMS_ITS ---
Author Organization [facility] Care Team Providers Care Sales Representative Trainee Name Role Phone Bre Wong Unavailable Unavailable Sriram Boss Unavailable Unavailable Allergies and adverse reactions Code CodeSystem Substance Reaction Severity StartDate Concern Status 36693 RXNORM Vancomycin Unknown 12/03/[id number] Penicillins Unknown 12/03/2017 activ e paper tape Unknown 12/03/2017 active 4053 RXNORM Erythromycin Unknown 12/03/2017 active 2670 RXNORM Codeine Unknown 12/03/2017 active Care Team Name Role Address Phone Organization Dates Sriram Boss PCP [address] [place], [address], [place] (Office): : [facility] 12/03/2017 - 12/12/2017 Bre Wong [facility] [address], [place], [address], [place] (Office): [facility] 12/03/2017 - 12/12/2017 Functional Status Functional Condition Code Code System Date Dependence on Cane 704095060 SNOMED CT 8 Immunizations Immunization Status Vaccine Details Vaccine Code CodeSystem Date Notes Influenza new Influenza, high-dose, split virus, quadrivalent, injectable, preservative free 197 CVX created date: 12/11/2017 consent date: 12/11/2017 Pneumovax 23 Dose 1 completed pneumococcal polysaccharide vaccine, 23 valent 33 CVX created date: 12/04/2017 administere d date: 12/03/2017 Mental Status Section Date Assessment Total Score Description 12/12/2017 BIMS 15 cognitively int act CAM 0 No delirium ind icated PHQ-9 00 12/10/2017 BIMS 15 cognitively int act CAM 0 No delirium ind icated PHQ-9 00 Problems Problem # Description Date of onset Resolved Date Code CodeSystem Concern Status 1 ENCOUNTER FOR IMMUNIZATION 12/11/[address] active 2 ADOLESCENT IDIOPATHIC SCOLIOSIS, LUMBAR REGION 12/03/[address] active 3 CHRONIC OBSTRUCTIVE PULMONARY DISEASE, UNSPECIFIED 12/03/[address] active 4 ENCOUNTER FOR OTHER SPECIFIED SURGICAL AFTERCARE 12/03/[address] active 5 ESSENTIAL (PRIMARY) HYPERTENSION 12/03/[address] active 6 MUSCLE WEAKNESS (GENERALIZED) 12/03/[address] active 7 NEED FOR ASSISTANCE WITH PERSONAL CARE 12/03/[address] active 8 OTHER INTERVERTEBRAL DISC DEGENERATION, LUMBAR REGION 12/03/[address] active 9 SPINAL STENOSIS, LUMBAR REGION WITHOUT NEUROGENIC CLAUDICATION 12/03/[address] active 10 SPONDYLOLISTHESIS, LUMBAR REGION 12/03/[address] active 11 SUPRAVENTRICULAR TACHYCARDIA 12/03/[address] active 12 UNSPECIFIED ABNORMALITIES OF GAIT AND MOBILITY 12/03/[address] active Reason for Referral No Reasons for Referral Entered Social History Social History Observation Description Start Date End Date Code Code System Current Smoking Status Tobacco smoking consumption unknown 997350825 SNOMED CT Sex Assigned At Female 1950 75602-4 [facility] Gender Identity Vital Signs Code Code System Vitals Name Values and Units Timing Information 54369-6 INC Pain Level Value=7.0 12/12/2017 8310-5 INC Body Temperature Value=97.0 Units= F 12/12/2017 9279-1 LOINC Respiratory Rate Value=19.0 Units=/m in 12/12/2017 8462-4 [facility] Blood Pressure-Diastolic Value=78 Un its=mmHg 12/12/2017 8480-6 [facility] Blood Pressure-Systolic Gmbzl=827 Un its=mmHg 12/12/2017 8867-4 [facility] Heart rate Value=89.0 Units=/min 12/2017 30343-8 [facility] O2 % BldC Oximetry Value=99.0 Units= % 12/12/2017 63907-6 [facility] Weight Wypgk=126.4 Units=Lbs 8302-2 [facility] Height Value=63.0 Units=Inches 12/03/2017
--- OUTSIDE RECORDS SUMMARY | 2025-06-10 14:15 | XMS_ITS | Clinical Summary ---
Author Organization [facility] Address [address] [place] [address] Care Team Providers Care Military Lawyer Name Role Phone Amparo Lopez Unavailable [phone] Amparo Lopez DO Primary Care Provider + Allergies Active Allergy Reactions Criticality Noted Date Comments Adhesive Rash Low 11/29/2017 Only paper ikza-OLGHNAX-gva pt bandaides and tegaderms are okay Adhesive Tape-Silicones Rash Low 11/29/2017 Only paper tape-REDNESS Codeine Anaphylaxis High 11/16/2014 Erythromycin Base 06/16/2022 Penicillins Rash Low 11/16/2014 Vancomycin Hives,Itching,Other (see comments) Medium 11/30/2014 Tingling of the tongue Tingling of the tongue Medications diltiazem (TIAZAC) 120 mg 24 hr capsule diltiazem CD 120 mg capsule,extend ed release 24 hr 2 Active metoprolol succinate XL (TOPROL-XL) 25 mg 24 hr tablet 2 Active baclofen (LIORESAL) 10 mg tablet Take 0.5 tablets (5 mg total) by mouth 2 (two) times a day as needed for muscle spasms for up to 14 days. 14 tablet 4 Active Active Problems Problem Noted Date Diagnosed Date Asthma 02/08/2025 Atrial fibrillation 02/08/2025 Eczema 02/08/2025 Hypercholesterolemia 02/08/2025 Hypertensive disorder 02/08/2025 Loose body in right elbow 02/08/2025 Melanocytic nevi of trunk 02/08/2025 Primary osteoarthritis of right elbow 02/08/2025 Seborrheic keratosis 02/08/2025 Smoker 02/08/2025 Radiculopathy, lumbar region 02/08/2025 Notalgia paresthetica 02/08/2025 Inflammation of sacroiliac joint 09/13/2024 Cardiomyopathy, hypertrophic 08/24/2024 Cervical arthritis 11/21/2023 Postlaminectomy syndrome, lumbar region 06/24/20 23 Other chest pain 10/04/2022 Asymmetric septal hypertrophy 02/03/2022 Cervical spondylolysis 08/14/2021 Leg fatigue 01/26/2021 Palpitations 01/16/2020 Premature atrial beats 01/16/2020 Simple chronic bronchitis 07/28/2019 Status post left hip replacement 07/15/2018 Greater trochanteric bursitis of left hip 2017 Primary osteoarthritis of right hand 02/27/2018 Bilateral carpal tunnel syndrome 02/13/2018 Elbow arthritis 02/13/2018 Hand arthritis 02/13/2018 Hand pain, right 02/13/2018 Left elbow pain 02/13/2018 Hip arthritis 12/23/2017 Postoperative ileus 12/03/2017 Diverticulosis of large intestine without hemorr jerica 11/07/2017 Adolescent idiopathic scoliosis of lumbar region 10/21/2017 Chronic bilateral low back pain with bilateral s ciatica 10/21/2017 Spondylolisthesis of lumbar region 10/21/2017 Pain of left hip joint 09/23/2017 Gait instability 08/18/2017 Osteoarthritis of spine with radiculopathy, lumb ar region 01/14/2017 Spondylosis 01/14/2017 Diarrhea 04/23/2016 C. difficile colitis 04/26/2015 Iron deficiency anemia 04/26/2015 Supraventricular tachycardia 04/03/2015 COPD (chronic obstructive pulmonary disease) Status post total right knee replacement 015 Essential hypertension 03/08/2015 Overview (02/08/2025): ICD-10 Activation Encounters Date Type Department Care Team Description 03/22/2025 12:30 PM EDT - 03/22/2025 1:00 PM EDT Surgery [facility] Operating Room Services [address] [place] [address] Sriram Duran III, MD R HIP INJ [[id number] (CPT )] 03/22/2025 10:39 AM EDT - 03/22/2025 12:22 PM EDT Hospital Encounter [facility] [address] [place] [address] Sriram Duran III, MD Discharge Disposition: Home or Self Care 03/22/2025 7:05 AM EDT Ancillary Procedure [facility] Department of OR Imaging [address] [place] [address] Sriram Duran III, MD from Last 3 Months Social History Tobacco Use Types Packs/Day Years Used Date Smoking Tobacco: Former Cigarettes Smokeless Tobacco: Never Tobacco Cessation:Counseling Given: Not Answered Alcohol Use Standard Drinks/Week Comments Yes 0 (1 standard drink = 0.6 oz pur e alcohol) socially Comments No Sex and Gender Information Value Date Recorded Sex Assigned at Not on file Legal Sex Female 12:55 AM EST Gender Identity Not on file Sexual Orientation Not on file Last Filed Vital Signs Vital Sign Reading Time Taken Comments Blood Pressure 134/82 03/22/2025 12:10 PM EDT Pulse 67 03/22/2025 12:10 PM EDT Temperature 36.2 C (97.1 F) 03/22/2025 11:19 AM EDT Respiratory Rate 16 03/22/2025 12:10 PM EDT Oxygen Saturation 97% 03/22/2025 12:10 PM EDT Inhaled Oxygen Concentration - - Weight 58.1 kg (128 lb) 03/22/2025 11:19 AM EDT Height 157.5 cm (5' 2 ) 03/22/2025 11:19 AM EDT Body Mass Index 23.41 03/22/2025 11:19 AM EDT Plan of Treatment Health Maintenance Due Date Last Done Comments Bone Density Screening 1950 CT Colonography 1950 FIT-DNA (Cologuard) 1950 FIT 1950 FOBT 1950 Flex Sigmoidoscopy - 5y 1950 HIV Screening 1950 DTaP,Tdap,and Td Vaccines (1 - Tdap) 1970 Hepatitis C Screening 1970 Zoster Vaccines (1 of 2) 2002 Pneumococcal Vaccine, 50+ Years (2 of 2 - PCV) 12/03/2018 12/03/2017 Breast Cancer Screening 05/23/2024 05/23/2022 COVID-19 Vaccine (1 - season) 2024 Influenza Vaccine (#1) 2025 0, 07/28/2019, 07/15/2018 Medicare Annual Wellness (AWV) 03/03/2026 03/02/2025, 03/02/2024, 02/18/2023, Additional history exists Colonoscopy 06/26/2026 06/26/2016 Colorectal Cancer Screening 06/26/2026 HPV Vaccines Aged Out No longer eligi ble based on patient's age to complete this topic Hepatitis A Vaccines Aged Out No long er eligible based on patient's age to complete this topic Meningococcal Vaccine Aged Out No guillermo francisco eligible based on patient's age to complete this topic Procedures Procedure Name Priority Date/Time Associated Diagnosis Comments OR C-ARM IMAGING Routine 03/22/2025 12:1 0 PM EDT HI ARTHROCENTESIS ASPIR&/INJ MAJOR JT/BURSA W/O US 03/22/2025 11:54 AM EDT Right hip pain Special Needs 11A please from Last 3 Months Results * FL > 1 HR IN OR RAD READ (03/22/2025 12:10 PM EDT) Anatomical Region Laterality Modality Radio Fluoroscop y 03/22/2025 12:2 8 PM EDT Impressions 03/22/2025 12:29 PM EDT Fluoroscopic assistance provided. Please refer to the corresponding operative report / procedure note for details on findings. Reminder to Patients and Legally Authorized Representatives: Language in this report is designed for medical communication with other treating physicians and clinical practitioners. Please speak with your provider(s) about any questions or concerns related to the content of this report. Jimmy Angulo AF^0 Narrative 03/22/2025 12:29 PM EDT EXAMINATION: INTRAOPERATIVE FLUOROSCOPIC GUIDANCE INDICATION: OR C-ARM IMAGING 03/22/2025 11:52 AM. Patient : 1950. PROCEDURE: Fluoroscopy for OR C-ARM IMAGING. Fluoroscopic guidance was provided to DR. SRIRAM DURAN III for the procedure. A radiologist was not present during the procedure. The fluoroscopy was performed by the radiology specialist. The exam is not reviewed for diagnostic purposes. The healthcare provider performing the procedure is responsible for supervision and interpretation of fluoroscopic images. Total fluoroscopy time: 16.8 seconds Fluoroscopic images: 3 Procedure Note Jimmy Angulo MD - 03/22/2025 EXAMINATION: INTRAOPERATIVE FLUOROSCOPIC GUIDANCE INDICATION: OR C-ARM IMAGING 03/22/2025 11:52 AM. Patient : 1950. PROCEDURE: Fluoroscopy for OR C-ARM IMAGING. Fluoroscopic guidance was provided to DR. SRIRAM DURAN III for theprocedure. A radiologist was not present during the procedure. The fluoroscopy was performed by the radiology specialist. The exam is not reviewed for diagnostic purposes. The healthcare provider performing the procedure is responsible forsupervision and interpretation of fluoroscopic images. Total fluoroscopy time: 16.8 seconds Fluoroscopic images: 3 IMPRESSION: Fluoroscopic assistance provided. Please refer to the corresponding operative report / procedure note fordetails on findings. Reminder to Patients and Legally Authorized Representatives: Language in this report is designed for medical communication with othertreating physicians and clinical practitioners. Please speak with your provider(s) about any questions or concernsrelated to the content of this report. Jimmy Angulo AF^0 Sriram Duran III, MD IMG FLUOROSCOPY PROCEDURES Final Result from Last 3 Months Insurance () [facility] [place] [address] MEDICARE [employer] MEDICARE [facility] Advance Directives For more information, please contact: [phone] Documents on File Type Date Recorded Patient Bedspread Folder Expl anation Advance Directives 03/24/2025 2:19 PM Care Teams Military Lawyer Relationship Specialty Start Date End Date Amparo Lopez DO [address] [place] [address] PCP - Insurance Payer PCP 04/02/24 Amparo Lopez DO [address] [place] [address] PCP - General Internal Medicine 04/02/24
--- OUTSIDE RECORDS SUMMARY | 2025-06-10 14:15 | XMS_ITS | Encounter Summary ---
Author Organization [facility] Address [address] [place] [address] Care Team Providers Care Supervisor Bleach Plant Name Role Phone Becca Browne MD Unavailable [phone] Al Platt MD Unavailable Amparo Lopez MD Primary Care Provider + Amparo Lopez MD Unavailable [phone] Amparo Lopez MD Unavailable [phone] Encounter Details Date Type Department Care Team (Late st Contact Info) Description 01/28/2025 Scanned Document [facility], [address], [address] [place] [address] Unknown Unknow Provider Address Social History Tobacco Use Types Packs/Day Years Used Date Smoking Tobacco: Former Cigarettes 2013 Smokeless Tobacco: Former Alcohol Use Standard Drinks/Week Comments Yes 6 (1 standard drink = 0.6 oz pur e alcohol) PHQ-2 Answer Date Recorded PHQ-2 Total Score 2 03/02/2024 Comments No Sex and Gender Information Value Date Recorded Sex Assigned at Choose not to disclose 10:53 AM EDT Legal Sex Female 2:45 PM EDT Gender Identity Choose not to disclose 10:53 AM EDT Sexual Orientation Choose not to disclose 2022 10:53 AM EDT 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 file Not on file Not on file documented as of this encounter Plan of Treatment Upcoming Encounters Date Type Department Care Team (Late st Contact Info) Description 06/27/2025 1:30 PM EDT Consult [facility] Department of Pain [place] [address] [place] [phone] Cas Baez MD [address] [place] [address], [place] [address] 07/20/2025 1:00 PM EDT Clinical Support [facility] [place] [address] [place] [phone] Fan Ness MD [address] [phone] Karla Cueva Au.D [address] [place], [place] [phone] 03/06/2026 1:00 PM EDT Office Visit [facility] Department of Family Medicine [place] [address] [place] [phone] Amparo Lopez MD [address] [place], [place] [phone] documented as of this encounter Goals Goal Patient Goal Type Associated Problems Recent Progress Patient-Stated? Author PT STG 2 Physical Therapy Not on track( 022 4:43 PM EDT) Jai Roth PT Note: Pt will be able to get in and out of her car w/o using her arms to lift the L LE after 3 weeks of PT PT STG 3 Physical Therapy Not on track( 022 4:43 PM EDT) Jai Roth PT Note: Pt LE strength will be at least 4+/5 grossly after 3 weeks of PT PT LTG 1 Physical Therapy Not on track( 022 4:44 PM EDT) Jai Roth PT Note: Pt will be able to sleep at least 5 hours w/o interruption after 6 weeks of PT documented as of this encounter Visit Diagnoses Not on filedocumented in this encounter Care Teams Supervisor Bleach Plant Relationship Specialty Start Date End Date Amparo Lopez MD [address] [place] [address] PCP - General Internal Medicine 04/01/23 Amparo Lopez MD [address] [place] [address] PCP - Elroy Quintana MA Attributed 09/10/24 Becca Browne MD Continuity Tester Cardiovascular Disease 03/12/22 Al Platt MD [address] [place] [address] Gastroenterology 03/26/22 Amparo Lopez MD [address] [place] [address] Internal Medicine 02/01/25 documented as of this encounter
--- NOTE | 2025-06-10 14:25 | HO.SPINEOV ---
Vital Signs 06/10/25 14:30 Height 5 ft 2 in Weight 130 lb BMI 23.8 Intake Visit Reasons: back pain/difficulty walking Intake Note: Ms. Bella is here today c/o intense back pain and weakness in both legs. Salesforce Developer Required: No Allergies codeine Allergy (Severe, Verified 06/10/25 14:32) Unknown Penicillins Allergy (Severe, Verified 06/10/25 14:32) Unknown vancomycin Allergy (Severe, Verified 06/10/25 14:32) Unknown Physical Exam Vital Signs: BMI result Body Mass Index 23.8 Assessment & Plan Assessment & Plan (1) Lumbar spinal stenosis due to adjacent segment disease after fusion procedure: Code(s): M48.061 - Spinal stenosis, lumbar region without neurogenic claudication; M51.369 - Other intervertebral disc degeneration, lumbar region without mention of lumbar back pain or lower extremity pain; Z98.1 - Arthrodesis status Category: Medical Plan Dear colleague Thank you for referring Marisa Bella to the office today with a chief complaint of back pain, right leg pain and weakness. HPI: This 75-year-old female is suffering from back pain, and intense burning pain in the right hip and weakness of both legs with difficulty walking and standing. Intensity can be 10/10. The left leg weakness is more pronounced than the right leg weakness. Her history is positive for a spinal fusion L4-5 in 1993 and extension of the fusion to L2 in 2018. She did well until approximately 2 years ago where she started to develop the above-mentioned symptoms. They have since then progressed and currently she can hardly walk or stand. Sitting or leaning forward improves the symptoms. She has seen her old surgeon, who apparently through his hands up in the air and said he could not do anything. Another surgeon wanted to fuse her from the cervical spine down to the lumbar spine but in the end decided not to do it. She comes in for another opinion. The following conservative treatment options were tried in the last 2 years without success antiinflammatories, tylenol, physical therapy, chiropractic therapy, acupuncture and cortisone shots PMH: Hypertension, supraventricular tachycardia, 2 spinal surgeries, left hip replacement, bilateral knee replacement Medications: Diltiazem, metoprolol, acetaminophen Allergies: Vancomycin, penicillin, erythromycin, codeine Social history: Nonsmoker Physical Exam: Height 5 ft 2, weight 130 lb. She stands in a flexed position. She has a well healed for in scar in the midline of the lumbar spine. There is a grade 3/5 weakness of the iliopsoas on the left side than a grade 4/5 weakness of the iliopsoas on the right side. The remainder of the muscles are intact. No sensory deficits. Reflexes are symmetrically intact. SI joint provocative tests are negative. Radiological Studies: MRI done of the lumbar spine at [facility] shows status post L2-L5 instrumented fusion with 2 types of instrumentation. There was advanced adjacent degenerative disc disease L1-L2 with central spinal stenosis and severe bilateral L1 foraminal stenosis. There is also a right-sided disc herniation compressing the right L2 nerve root. However, a CT scan and CT myelogram show that this disc herniation is calcified. The CT scan also shows that this patient is osteoporotic. Impression/Plan: This is a 75-year-old female that is suffering from neurogenic claudication with pain and weakness due to adjacent degenerative disc disease L1-L2. She is status post L2-5 instrumented fusion. The symptoms are debilitating and she is looking for a solution to have a quality of life. I offered her a oblique lumbar lateral interbody fusion L1-L2 followed by revision of the posterior instrumentation and extension of the instrumentation to L1. The disc quality of T12 is excellent and therefore I decided not to extend the fusion into the thoracic spine. She has 2 types of instrumentation and I will need the operative reports to see what type of instrumentation is in the lumbar spine in order for me to have the right tools to remove it. She will think about our conversation and will let me know if she wants to proceed. Thank you for allowing me to participate in your patients care. total time spent was 60 minutes in counseling ,coordination of plan, personal review of imaging, surgical decision making and subsequent plan Eric Bull MD, PhD Spine Fellowship Trained Neurosurgeon Director, [facility] Coding Level of Care Code New Pt Level 5 (64192) Diagnoses Lumbar spinal stenosis due to adjacent segment disease after fusion procedure M48.061; M51.369; Z98.1
[2025-06-10 14:30] VITALS: BMI 23.8
== END 2025-06-10 16:24 | disposition home or self-care (01) ==
LOC: HO.HNS 14:12
PROVIDERS: Visit Provider Neurological Surgery
DX: M48.061 Spinal stenosis, lumbar region without neurogenic claudication (principal); M51.369 Other intervertebral disc degeneration, lumbar region without mention of lumbar back pain or lower extremity pain; Z98.1 Arthrodesis status
CPT/HCPCS: 99205

== ENCOUNTER → 2025-06-10 14:11 | Outpatient (BNVA) | payer MEDICARE, SELFPAY | PROVIDERS: Visit Provider Neurological Surgery | DX: M48.061 Spinal stenosis, lumbar region without neurogenic claudication (principal); Z98.1 Arthrodesis status | CPT/HCPCS: 99202 ==

== ENCOUNTER 2025-07-22 13:32 | Outpatient (AMB) | payer MEDICARE, SELFPAY ==
--- NOTE | 2025-07-22 13:39 | HO.SPINEOV ---
Intake Visit Reasons: Address further surgical questions Intake Note: Ms. Bella is here today to Address further surgical questions. Oval Or Circular Glass Cutter Required: No Allergies codeine Allergy (Severe, Verified 07/22/25 13:39) Unknown Penicillins Allergy (Severe, Verified 07/22/25 13:39) Unknown vancomycin Allergy (Severe, Verified 07/22/25 13:39) Unknown Assessment & Plan Assessment & Plan (1) Lumbar spinal stenosis due to adjacent segment disease after fusion procedure: Code(s): M48.061 - Spinal stenosis, lumbar region without neurogenic claudication; M51.369 - Other intervertebral disc degeneration, lumbar region without mention of lumbar back pain or lower extremity pain; Z98.1 - Arthrodesis status Category: Medical Plan Mrs Bella came back in follow-up to review her operative note from Dr. Walden and to go over the operative plan with Dr. Bull. Please refer to his last note for the specifics of the problem. The operative note states that Creo Globus screws were used at the time of surgery. The surgeon did have a lot of problems localizing L3-[address] so he [address] not [address] an interbody construct there and did not remove the posterior instrumentation at L4-5 but rather connected the whole construct together from L2-3 down to the L4 level using various dominoes and lateral connectors. Based on the x-rays that we saw that the patient's granddaughter had from Dr. Walden office it looks like there maybe a crosslink in there as well. She has a CT scan and an MRI done from [facility] that we reviewed as well. The plan will be for an L1-2 oblique lateral trans Kambin lumbar interbody fusion with revision of posterior instrumentation. All pertinent risks and benefits were discussed, quoted success rate at 60-70%. The patient will obtain preoperative cardiac clearance. She is tentatively booked for August 30 The patient was given risk and benefits of lumbar fusion surgery including but not limited to infection, hematoma, nerve injury, durotomy, weakness, bowel/bladder injury, persistent pain, and pseudoarthosis or instrumentation failure. We also discussed the option to continue with conservative treatment and patient wishes to proceed with surgery. They are aware they should stop NSAIDs 7 days prior to surgery. All questions were answered to the best of our ability. If there is anything about this patients medical history that we have overlooked or concerns you have about us proceeding with surgery we would appreciate any input you can offer. Total amount of time spent in this visit was 20 minutes in discussion of symptoms, lumbar CT, MRI imaging results and subsequent plan of care Jai Bull MD,PhD [facility] Coding Level of Care Code Est Pt Level 3 (45252) Diagnoses Lumbar spinal stenosis due to adjacent segment disease after fusion procedure M48.061; M51.369; Z98.1
--- OUTSIDE RECORDS SUMMARY | 2025-07-22 16:19 | XMS_ITS ---
Author Organization [facility] Care Team Providers Care Armhole Raiser Lockstitch Name Role Phone Bre Wong Unavailable Unavailable Sriram Boss Unavailable Unavailable Allergies and adverse reactions Code CodeSystem Substance Reaction Severity StartDate Concern Status 16294 RXNORM Vancomycin Unknown 12/03/[address] Penicillins Unknown 12/03/2017 activ e paper tape Unknown 12/03/2017 active 4053 RXNORM Erythromycin Unknown 12/03/2017 active 2670 RXNORM Codeine Unknown 12/03/2017 active Care Team Name Role Address Phone Organization Dates Sriram Boss PCP [address] [place], [address], [place] (Office): : [facility] 12/03/2017 - 12/12/2017 Bre Wong [facility] [address], [place], [address], [place] (Office): [facility] 12/03/2017 - 12/12/2017 Functional Status Functional Condition Code Code System Date Dependence on Cane 078011714 SNOMED CT 8 Immunizations Immunization Status Vaccine [...] Status 1 ENCOUNTER FOR IMMUNIZATION 12/11/[address] active 2 ADOLESCENT IDIOPATHIC SCOLIOSIS, LUMBAR REGION 12/03/[address] active 3 CHRONIC OBSTRUCTIVE PULMONARY DISEASE, UNSPECIFIED 12/03/[address] active 4 ENCOUNTER FOR OTHER SPECIFIED SURGICAL AFTERCARE 12/03/[address] active 5 ESSENTIAL (PRIMARY) HYPERTENSION 12/03/[address] active 6 MUSCLE WEAKNESS (GENERALIZED) 12/03/[address] active 7 NEED FOR ASSISTANCE WITH PERSONAL CARE 12/03/[address] active 8 OTHER INTERVERTEBRAL DISC DEGENERATION, LUMBAR REGION 12/03/[address] active 9 SPINAL STENOSIS, LUMBAR REGION WITHOUT NEUROGENIC CLAUDICATION 12/03/[address] active 10 SPONDYLOLISTHESIS, LUMBAR REGION 12/03/[address] active 11 SUPRAVENTRICULAR TACHYCARDIA 12/03/[address] active 12 UNSPECIFIED ABNORMALITIES OF GAIT AND MOBILITY 12/03/[address] active Reason for Referral No Reasons for Referral Entered Social History Social History Observation Description Start Date End Date Code Code System Current Smoking Status Tobacco smoking consumption unknown 835916036 SNOMED CT Sex Assigned At Female 1950 02122-9 [facility] Gender Identity Sexual Orientation Vital Signs Code Code System Vitals Name Values and Units Timing Information 25493-2 LOINC Pain Level Value=7.0 12/12/2017 8310-5 LOINC Body Temperature Value=97.0 Units= F 12/12/2017 9279-1 LOINC Respiratory Rate Value=19.0 Units=/m in 12/12/2017 8462-4 [facility] Blood Pressure-Diastolic Value=78 Un its=mmHg 12/12/2017 8480-6 [facility] Blood Pressure-Systolic Kqqwi=136 Un its=mmHg 12/12/2017 8867-4 [facility] Heart rate Value=89.0 Units=/min 12/2017 82483-4 [facility] O2 % BldC Oximetry Value=99.0 Units= % 12/12/2017 32042-4 [facility] Weight Mqezb=063.4 Units=Lbs 8302-2 [facility] Height Value=63.0 Units=Inches 12/03/2017
--- OUTSIDE RECORDS SUMMARY | 2025-07-22 16:19 | XMS_ITS | Clinical Summary ---
Author Organization [facility] Address [address] [place] [address] Care Team Providers Care Traffic Operations Engineer Name Role Phone Amparo Lopez Unavailable [phone] Amparo Lopez DO Primary Care Provider + Allergies Active Allergy Reactions Criticality Noted Date Comments Adhesive Rash Low 11/29/2017 Only paper [id number] pt bandaides and tegaderms are okay Adhesive [...] Essential hypertension 03/08/2015 Overview (02/08/2025): ICD-10 Activation Social History Tobacco Use Types Packs/Day Years [...] Screening 05/23/2024 05/23/2022 COVID-19 Vaccine (1 - 2023- season) 2025 Influenza Vaccine (#1) 2025 , 07/28/2019, 07/15/2018 Medicare Annual Wellness (AWV) 03/03/2026 [...] on patient's age to complete this topic Insurance () [facility] [place] Address: [facility] [address] [place] [address] MEDICARE CONNECT[place]ARE MEDICARE CONNE[place]ARE Advance Directives For more information, please contact: [phone] Documents on File Type Date Recorded Patient Day Spa Manager Expl anation Advance Directives 03/24/2025 2:19 PM Care Teams Traffic Operations Engineer Relationship Specialty Start Date End Date Amparo Lopez DO [address] [place] [address] PCP - Insurance Payer PCP 04/02/24 Amparo Lopez DO [address] [facility] [place] [address] PCP - General Internal Medicine 04/02/24
--- OUTSIDE RECORDS SUMMARY | 2025-07-22 16:19 | XMS_ITS | Encounter Summary ---
Author Organization [facility] Address [address] [place] [address] Care Team Providers Care Fish And Wildlife Warden Name Role Phone Amparo Lopez DO Unavailable [phone] Amparo Lopez DO Primary Care Provider + Encounter Details Date Type Department Care Team (Late st Contact Info) Description 09/04/2022 Orders Only [address] [address] Micki Rice DDS [address] [place] [address] [place] [address] Social History Tobacco Use Types Packs/Day Years Used Date Smoking Tobacco: Never Assessed Comments No Sex and Gender Information Value Date Recorded Sex Assigned at Not on file Legal Sex Female 12:55 AM EST Gender Identity Not on file Sexual Orientation Not on file documented as of this encounter Plan of Treatment Not on file documented as of this encounter Visit Diagnoses Not on filedocumented in this encounter Care Teams Fish And Wildlife Warden Relationship Specialty Start Date End Date Amparo Lopez DO [address] [place], [place] [id number] PCP - Insurance Payer PCP 04/02/24 Amparo Lopez DO [address] [place], [place] [phone] PCP - General Internal Medicine 04/02/24 documented as of this encounter
--- OUTSIDE RECORDS SUMMARY | 2025-07-22 16:19 | XMS_ITS | Clinical Summary ---
Author Organization [facility] [address] [facility] Address [address] [place] [address] Phone Care Team Providers Care Criminal Justice Social Worker Name Role Phone Amparo Lopez Primary Care Provider Allergies Active Allergy Reactions Criticality Noted Date Comments Adhesive Rash Low 11/29/2017 Only paper imos-[id number] pt bandaides and tegaderms are okay Codeine [...] mg (600 mg elemental calcium) tablet Caltrate Active cetirizine (ZyrTEC) 10 mg tablet Take 1 tablet (10 mg total) by mouth daily as needed for allergies. Active cholecalcifero l (VITAMIN D-3) 50 mcg (2,000 unit) tablet Take 1 tablet by mouth daily. Active dilTIAZem CD (CARDIZEM CD) 120 mg 24 hr capsule Take 1 capsule (120 mg total) by mouth 1 (one) time each day. 90 capsule 3 5 Active metoprolol succinate (TOPROL-XL) 25 mg 24 hr tablet Take 2 tablets (50 mg total) by mouth 1 (one) time each day. Do not crush or chew. 180 each 3 5 026 Active ALPRAZolam (XANAX) 0.25 mg tablet Take 1 tablet (0.25 mg total) by mouth every night at bedtime as needed for anxiety. 025 Discontinued Active Problems Problem Noted Date Diagnosed Date Nonrheumatic aortic valve insufficiency 03/30/20 Elevated blood pressure read ing without diagnosis of hypertension 03/30/2025 Lumbar postlaminectomy syndrome 11/19/2024 Inflammation of sacroiliac joint ([facility] V24) 1 11/13/2023 Postlaminectomy syndrome, lumbar region 06/24/20 Other chest pain 10/04/2022 Asymmetric septal hypertrophy 02/03/2022 Cervical spondylolysis 08/14/2021 Leg fatigue 01/26/2021 Palpitations 01/16/2020 Premature atrial beats 01/16/2020 Simple chronic bronchitis ([facility] V24, [facility] V28) 07/28/2019 Greater trochanteric bursitis of left hip 2017 Primary osteoarthritis of right hand 02/27/2018 C. difficile colitis 02/24/2018 Bilateral carpal tunnel syndrome 02/13/2018 Elbow arthritis 02/13/2018 Elbow pain, right 02/13/2018 Hand arthritis 02/13/2018 Hand pain, right 02/13/2018 Left elbow pain 02/13/2018 Chronic low back pain without sciatica 8 Hip arthritis 12/23/2017 Postoperative ileus ([facility] V24, [facility] V28) 0 12/03/2017 Diverticulosis of large intestine without hemorr jerica 11/07/2017 Adolescent idiopathic scoliosis of lumbar region 10/21/2017 Chronic bilateral low back pain with bilateral s ciatica 10/21/2017 Spondylolisthesis of lumbar region 10/21/2017 Gait instability 08/18/2017 Spondylosis 01/14/2017 Iron deficiency anemia 04/26/2015 Supraventricular tachycardia ([facility] V24) 04/03 Essential hypertension 03/08/2015 Overview (08/26/2024): ICD-10 Activation Resolved Problems Problem Noted Date Diagnosed Date Resolved Date Tachycardia 03/13/2025 03/14/2025 COPD (chronic obstructive pu lmonary disease) ([facility] V24, [facility] V28) 04/03/2015 06/30/2025 Encounters Date Type Department Care Team Description 06/30/2025 1:30 PM EDT [facility] Visit [facility] [address] [place] [address] Becca Browne MD Supraventricular tachycardia ([facility] V24) (Primary Dx) from Last 3 Months Immunizations Name Administration [...] TOTAL HIP; Surgeon: Jaskaran Farrell MD; Location: [facility]); Service: Orthopedics; Laterality: Left; LUMBAR FUSION 11/26/2017 Left PROCEDURE:LUMBAR FUSION;COMMENT:Procedure: L2-3 FUSION SPINE LUMBAR - DLIF 1 INTERSPACE/; Surgeon: Sai Aguilar MD; Location: [facility]PERATING [facility]OM; Service: Spine; Laterality: Left; LUMBAR FUSION 11/26/2017 Posterior PROCEDURE:LUMBAR FUSION;COMMENT:Procedure: L2- L3 FUSION SPINE LUMBAR POSTERIOR EXTENSION TO L4; Surgeon: Sai Aguilar MD; Location: [facility]; Service: Spine; Laterality: Posterior; LUMBAR LAMINECTOMY 11/26/2017 Bilateral Posterior PROCEDURE:LUMBAR LAMINECTOMY;COMMENT:Procedu re: L2, L3 LAMINECTOMY POSTERIOR LUMBAR; Surgeon: Sai Aguilar MD; Location: [facility]; Service: Spine; Laterality: Bilateral Posterior; BONE MARROW ASPIRATION 11/26/2017 Right Posterior PROCEDURE:BONE MARROW ASPIRATION;COMMENT:Procedur e: BONE MARROW ASPIRATION; Surgeon: Sai Aguilar MD; Location: [facility]; Service: Spine; Laterality: Right Posterior; COLONOSCOPY 06/26/2016 N/A PROCEDURE:COLONOSCOPY;COMME NT:Procedure: COLONOSCOPY; Surgeon: Teddy Enamorado MD; Location: [facility] ENDOSCOPY; Service: Gastroenterology; Laterality: N/A; 06/26/16@10:30am [facility]# [id number] Medicaid# [id number] propofol TOTAL KNEE ARTHROPLASTY 03/29/2015 Right PROCEDURE:TOTAL KNEE ARTHROPLASTY;COMMENT:Proced ure: REPLACEMENT TOTAL KNEE; Surgeon: Jaskaran Farrell MD; Location: [facility] ([facility]); Service: Orthopedics; Laterality: Right; TOTAL KNEE ARTHROPLASTY 11/30/2014 Left PROCEDURE:TOTAL KNEE ARTHROPLASTY;COMMENT:Proced ure: REPLACEMENT TOTAL KNEE; Surgeon: Jaskaran Farrell MD; Location: [facility] ([facility]); Service: Orthopedics; Laterality: Left; Medical History Medical [...] 1 Alive Brother 2 (Age 29) 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 H Father Alive Mother (Age 59) BREAST [...] Sign Reading Time Taken Comments Blood Pressure 112/80 06/30/2025 1:38 PM EDT Pulse 81 06/30/2025 1:34 PM EDT Temperature 36.7 C (98 F) 03/14/2025 5:51 AM EDT Respiratory Rate 16 03/14/2025 12:10 PM EDT Oxygen Saturation 98% 06/30/2025 1:34 PM EDT Inhaled Oxygen Concentration - - Weight 59 kg (130 lb) 06/30/2025 1:34 PM EDT Height 157.5 cm (5' 2 ) 06/30/2025 1:34 PM EDT Body Mass Index 23.78 06/30/2025 1:34 PM EDT Plan of Treatment Upcoming Encounters Date Type Department Care Team ([facility] st Contact Info) Description 08/16/2025 1:30 PM EDT Office Visit [facility] [place] [address] [address] Rebekah Kline NP 19 [facility] [address] [place], [place] [id number] Health Maintenance Due Date Last Done Comments DTaP,Tdap,and Td Vaccines (1 - Tdap) 1971 Zoster Vaccines (1 of 2) 2002 RSV Immunization Adult Patients (1 - Risk 60-74 years 1-dose series) 2012 Pneumococcal Vaccine: 50+ Years (2 of 2 - PCV) 12/03/2018 12/03/2017 Medicare Annual Wellness Visit 10/17/2022 Social Influencers of Health Screening 10/17/2022 Lung Cancer Screening (Low Dose CT) 03/20/2024 03/20/2023 Depression Screening 11/10/2024 COVID-19 Vaccine ( - season) 2025 Influenza Vaccine (#1) 2025 , 07/28/2019, 07/15/2018 Falls Risk Assessment 03/14/2026 03/14/2025 Hypertension/CHF/CAD Annual BMP Blood Test 03/14/2026 03/14/2025, 03/13/2025, 03/13/2025, Additional history exists Colorectal Cancer Screening: Colonoscopy 06/26/2026 06/26/2016 Breast Cancer Screening 04/19/2027 04/19/20 25, 09/03/2023, 05/23/2022, Additional history exists Cholesterol Screening (Lipid Panel) 03/02/2029 03/02/2024 Osteoporosis Screening (Bone Density Screening) 04/19/2035 04/19/2025, 03/20/2023, 04/22/2018 Hepatitis C Screening Completed 01/19/2019 [...] Procedure Name Priority Date/Time Associated Diagnosis Comments BASIC METABOLIC PANEL Routine 03/14/2025 8:21 AM EDT LIPID PANEL Routine 03/02/2024 MAMMOGRAM SCREENING BILATERAL 3D JEROME WITH CAD Routine 09/03/2023 12:58 PM EDT Encounter for screening mammogram for malignant neoplasm of breast BONE DENSITY STUDY Routine 03/20/2023 2: 24 PM EDT Asymptomatic menopausal state CT CHEST LOW DOSE RADIATION SCREENING WITHOUT IV CONTRAST Routine 03/20/2023 2:06 PM EDT Nicotine dependence, cigarettes, uncomplicated HEPATITIS C SCREENING Routine 01/19/2019 COLONOSCOPY Routine 06/26/2016 from Last 3 Months or Most Recently Relevant to Health Maintenance Results * (ABNORMAL) Basic metabolic panel (03/14/2025 8:21 AM EDT) Sodium 136 135 - 145 mmol/L LAB CHEMISTRY METHOD 03/14/2025 9:14 AM EDT [facility] Potassium 3.8 3.5 - 5.1 mmol/L LAB CHEMISTRY METHOD 03/14/2025 9:14 AM EDT [facility] Chloride 103 98 - 107 mmol/L LAB CHEMISTRY METHOD 03/14/2025 9:14 AM EDT [facility] CO2 22(L) 24 - 32 mmol/L LAB CHEMISTRY METHOD 03/14/2025 9:14 AM EDT [facility] Anion Gap 11 5 - 14 LAB CHEMISTRY METHOD 03/14/2025 9:14 AM EDT [facility] Glucose 83 70 - 199 mg/dL LAB CHEMISTRY METHOD 03/14/2025 9:14 AM EDT [facility] BUN 9 7 - 17 mg/dL LAB CHEMISTRY METHOD 03/14/2025 9:14 AM EDT [facility] Creatinine 0.50 0.50 - 1.00 mg/dL LAB CHEMISTRY METHOD 03/14/2025 9:14 AM EDT [facility] eGFR 100 >=60 mL/min/1. 73m2 LAB CHEMISTRY METHOD 03/14/2025 9:14 AM EDT [facility] Comment:Calculation based on the Chronic Kidney Disease Epidemiology Collaboration (CKD-EPI) equation refit without adjustment for race. BUN/Creatinine Ratio 18.0 12.0 - 20.0 LAB CHEMISTRY METHOD 03/14/2025 9:14 AM EDT [facility] Calcium 8.6 8.4 - 10.2 mg/dL LAB CHEMISTRY METHOD 03/14/2025 9:14 AM EDT [facility] Blood Venous blood specimen / Unknown Venipuncture / Unknown 03/14/2025 8:21 AM EDT 03/14/2025 8:46 AM EDT us Haven Cui NP LAB BLOOD ORDERABLES Final Res ult [facility] [address] [place] [address], [place] [phone] * Lipid panel (03/02/2024) LDL/HDL Ratio 0 Comment:No interpretation Triglycerides 0 mg/dL Comment:No interpretation Cholesterol 0 mg/dL Comment:No interpretation HDL 0 mg/dL Comment:No interpretation LDL Cholesterol 0 mg/dL Comment:No interpretation Blood Venous blood specimen / Unknown us Historical Provider MD LAB BLOOD ORDERABLES Deanna [...] on 09/03/2023 1:11 PM. Workstation Name - [id number] Procedure Note Isabel Washburn MD - 12/16/2023 [...] MD on 09/03/2023 1:11PM. Workstation Name - [id number] Amparo Lopez IM BI PROCEDURES Final Res [...] on 03/21/2023 8:34 AM. Workstation Name - [id number] Procedure Note Neisha Fuentes MD - 12/16/2023 [...] MD on 03/21/2023 8:34AM. Workstation Name - [id number] Amparo Lopez IM DXA PROCEDURES Final Re sult * CT [...] Res ult * Hepatitis C Screening (01/19/2019) Pathologist [facility] Hepatitis C Screening Abstracted Historical Provider HEALTH MAINTENANCE Final Result * Colonoscopy (06/26/2016) Pathologist [facility] Colonoscopy Abstracted, no interpretation Anatomical Region [...] currently active code status orders. Care Teams Criminal Justice Social Worker Relationship Specialty Start Date End Date Amparo Lopez [address] [place] [phone] PCP - General 03/18/23
== END 2025-07-22 14:55 | disposition home or self-care (01) ==
PROVIDERS: Visit Provider Physician Assistant
DX: M48.061 Spinal stenosis, lumbar region without neurogenic claudication (principal); M51.369 Other intervertebral disc degeneration, lumbar region without mention of lumbar back pain or lower extremity pain; Z98.1 Arthrodesis status
CPT/HCPCS: 99213

== ENCOUNTER → 2025-07-22 13:32 | Outpatient (BNVA) | payer MEDICARE, SELFPAY | PROVIDERS: Visit Provider Neurological Surgery | DX: M48.061 Spinal stenosis, lumbar region without neurogenic claudication (principal); M51.369 Other intervertebral disc degeneration, lumbar region without mention of lumbar back pain or lower extremity pain | CPT/HCPCS: 99212 ==

== ENCOUNTER 2025-08-30 09:21 | Inpatient (IN) | payer MEDICARE, SELFPAY ==
[2025-08-23 13:10] VITALS: BP 112/68; PULSE 78; RESP 16; O2SAT 96; BMI 24.7
--- NOTE | 2025-08-23 13:29 | P.CONAN_ITS ---
Documented by User: Josi Delatorre NP 08/26/25 12:14 HPI - Anesthesia Eval Consult details Narrative: 75 yr old female for L1-L2 Transforaminal Lumbar Interbody Fuse, scheduled for 08/30/25, seen in PAT 08/23/25 No CP/SOB with minimal walking with cane, limited due to pain. No recent illness. Saw PCP May 2025 for lightheadedness, had labs, EKG with unremarkable work up. Pt reports full resolution of symptoms. SVT: follows with court monitor in [place], [place]; pt denies recent symptoms Optimized by her court monitor to proceed at 08/24/25 visit Anesthesia Pre-Procedure Meds If yes to any meds - educate patient: Pt education - increased risk of aspiration and/or euvolemic DKA PMFSH Active Problems Active Problems: All Active Problems Lumbar spinal stenosis due to adjacent segment disease after fusion procedure (Acute) Past Medical History Medical History (Updated 08/23/25 @ 13:26 by Kerline Toscano, CAT) Scoliosis Situational anxiety Weakness of both legs History of ileus Hx of supraventricular tachycardia Spinal stenosis Hx of Clostridium difficile infection (~2017) Family History Family history of problems with anesthesia: No Surgical History Surgical History (Updated 08/24/25 @ 15:49 by Kerline Toscano, CAT) Hx of bilateral cataract extraction Hx of colonoscopy History of right hip replacement (~2016) History of bilateral knee replacement (~2014) Hx of spinal surgery (2018) History of Problems with Anesthesia: No Social History Social History (Updated 08/23/25 @ 13:28 by Kerline Toscano RN) Household Members: None Housing: Apartment Patient Tobacco Use Status: Former Tobacco user Tobacco use type: Cigarette Use of substances other than those prescribed or required for medical reasons: Yes Substance Use Type: Marijuana Substance Use Frequency: Daily Have you been hit, kicked, punched, or otherwise hurt by someone within the past year? If so, by whom?: No Are you DNR?: No Advance Directives: No Advance Directives Information Provided: Yes Advance Directives on File: No Poor oral hygiene: No Meds Allergies Allergy/AdvReac Type Severity Reaction Status Date / Time adhesive tape Allergy Severe Rash Verified 08/19/25 09:02 codeine Allergy Severe Anaphylaxis Verified 08/19/25 09:02 erythromycin base Allergy Severe Itching Verified 08/19/25 09:02 Penicillins Allergy Severe Itching Verified 08/19/25 09:02 vancomycin Allergy Severe Itching Verified 08/19/25 09:02 Home Medications ?Medication ?Instructions ?Recorded ?Confirmed ?Last Taken ?Type Vitamin C 08/19/25 Unknown History Vitamin D3 08/19/25 Unknown History calcium 08/19/25 Unknown History diltiazem HCl 120 mg 120 mg PO DAILY 08/19/2509/0308/30/25 History capsule,extended release 24 hr magnesium 08/19/25 08/19/25 Unknown H istory metoprolol succinate 25 mg 50 mg PO BID 08/19/2508/1908/30/25 History tablet,extended release 24 hr multivitamin 1 tab PO DAILY 08/19/2508/10 Unknown History zinc 08/19/25 Unknown History Exam Height,Weight and Vital Signs: Height 5 ft 2 in Weight 61.235 kg Last Vital Signs Pulse 78 08/23/25 13:10 Resp 16 08/23/25 13:10 BP 112/68 08/23/25 13:10 Pulse Ox 96 08/23/25 13:10 O2 Del Method Room Air 08/23/25 13:10 Pertinent Lab Results Pertinent Lab Results: Labs 05/12/25 CBC WBC 5.63 RBC 5.36 Hgb 13.1 Hct 41.0 Platelet 257 CMP Glucose 170 BUN 13 Creat 0.7 Sodium 140 Potassium 4.2 Calcium 9.6 AST 21 ALT 19 Narrative Narrative: EKG 05/2025 Normal sinus, rate [address]-T wave changes EKG 08/2025 NSR, rate [address]-T wave changes ECHO 03/2025 Left ventricle cavity is normal. Left ventricular systolic function is hyperdynamic. EF by 3D imaging is 74%. No regional LV wall motion abnormalities noted. Left ventricl wall thickness is normal. Left ventricle: Grade I mild diastolic dysfunction. Right ventricle cavity is normal. Right ventricular systolic function is normal. Aortic valve demonstrates moderate regurgitation. Left atrium: Left atrium is moderately dilated. Mitral valve: there is mild to moderate regurg Ascending aorta is dilated 3.9 cm Airway TM Dist: >3cm Neck ROM: Full Loose/Missing/Broken Teeth: Yes (chipped #9) Heart: RRR Lungs: CTAB Assessment and Plan Final Anesthetic Review Family History of Problems with Anesthesia: No History of Problems with Anesthesia: No Documented by User: Arnold Caal MD 08/30/25 13:31 REPLACED BY [facility] Past Medical History Medical History (Updated 08/23/25 @ 13:26 by Kerline Toscano, RN) Scoliosis Situational anxiety Weakness of both legs History of ileus Hx of supraventricular tachycardia Spinal stenosis Hx of Clostridium difficile infection (~2017) Surgical History Surgical History (Updated 08/24/25 @ 15:49 by Kerline Toscano, RN) Hx of bilateral cataract extraction Hx of colonoscopy History of right hip replacement (~2016) History of bilateral knee replacement (~2014) Hx of spinal surgery (2018) Social History Social History (Updated 08/23/25 @ 13:28 by Kerline Toscano, RN) Household Members: None Housing: Apartment Patient Tobacco Use Status: Former Tobacco user Tobacco use type: Cigarette Use of substances other than those prescribed or required for medical reasons: Yes Substance Use Type: Marijuana Substance Use Frequency: Daily Have you been hit, kicked, punched, or otherwise hurt by someone within the past year? If so, by whom?: No Are you DNR?: No Advance Directives: No Advance Directives Information Provided: Yes Advance Directives on File: No Poor oral hygiene: No Meds Allergies Allergy/AdvReac Type Severity Reaction Status Date / Time adhesive tape Allergy Severe Rash Verified 08/19/25 09:02 codeine Allergy Severe Anaphylaxis Verified 08/19/25 09:02 erythromycin base Allergy Severe Itching Verified 08/19/25 09:02 Penicillins Allergy Severe Itching Verified 08/19/25 09:02 vancomycin Allergy Severe Itching Verified 08/19/25 09:02 Home Medications ?Medication ?Instructions ?Recorded ?Confirmed ?Last Taken ?Type Vitamin C 08/19/25 Unknown History Vitamin D3 08/19/25 Unknown History calcium 08/19/25 Unknown History diltiazem HCl 120 mg 120 mg PO DAILY 08/19/2509/0308/30/25 History capsule,extended release 24 hr magnesium 08/19/25 08/19/25 Unknown H istory metoprolol succinate 25 mg 50 mg PO BID 08/19/2508/1908/30/25 History tablet,extended release 24 hr multivitamin 1 tab PO DAILY 08/19/2508/10 Unknown History zinc 08/19/25 Unknown History Assessment and Plan Final Anesthetic Review NPO: Yes ASA Class: III Final Preanesthetic Review: No Changes in Pt Med Stat, Meds/Allgs Chart Reviewed, Consent Obtained/Reviewed and Anes Risks/Benef Reviewed Patient Risk: Intermediate Procedure Risk: Low Anesthetic Plan Anesthetic Plan: GA Disposition: Standard PACU
[2025-08-30] VITALS (13 sets, daily range): BP systolic 117–186; BP diastolic 69–105; PULSE 73–102; RESP 12–24; TEMP 35.9–37.6; O2SAT 94–98
--- NOTE | ~2025-08-30 | FL_ITS ---
EXAMINATION: FL GUIDANCE ONLY HISTORY: L1-2 Transkambin with revision COMPARISON: None available. TECHNIQUE: Fluoroscopy time: 2 minutes, 45 seconds. Cumulative Dose: 77.254 mGy. DAP: 20.932 Gycm2 Images: 7. FINDINGS: Fluoroscopic spot films of the lumbar spine demonstrate placement of an intervertebral disc prosthesis at the L1-2 level. FL/FL guidance in OR IMPRESSION: Fluoroscopy during procedure. Please see procedure report for additional information. Electronically signed by: Ras Villafuerte MD 08/31/2025 07:53 AM EDT
[2025-08-30] MEDS: Lactated Ringers 1,000 ML 100 ML IVCONT (09:51)
--- NOTE | 2025-08-30 10:10 | MHC.SHP ---
Pre-Procedural Eval Section A - 24 Hr Update-Section A only Date of Service: 08/30/25 The patient is an INPATIENT: No Changes since office visit: No Cold of Flu in the past 2 weeks, No New Medical Problems, No Changes in Medication and No Patient answered all questions Section B - Complete if H&P > 30 days Chief Complaint: s/p L1-2 transkambin fusion Allergies: Allergies Allergy/AdvReac Type Severity Reaction Status Date / Time adhesive tape Allergy Severe Rash Verified 08/19/25 09:02 codeine Allergy Severe Anaphylaxis Verified 08/19/25 09:02 erythromycin base Allergy Severe Itching Verified 08/19/25 09:02 Penicillins Allergy Severe Itching Verified 08/19/25 09:02 vancomycin Allergy Severe Itching Verified 08/19/25 09:02 Review of Systems Sugical H&P ROS: Negative: Constitution, Cardiovascular, Respiratory, Neurological, Psychiatric, Hem-Onc, Allergic/Immunologic, Gastrointestinal, Genitourinary, Musculoskeletal, Integumentary, Endocrine and Eyes/Ears/Nose/Throat Exam Surgical H&P Exam: Normal: HEENT, Normal: Heart, Normal: Lungs, Normal: Extremities, Normal: Abdomen, Normal: Skin and Normal: Neurological (awake, alert,oriented x 3 ) Plan Diagnosis/Plan: Unchanged L1-2 transkambin lumbar interbody fusion, revision of posterior instrumentation Time Spent With Patient Time: Total time managing care of this patient today _4___ minutes.
--- NOTE | 2025-08-30 10:11 | PC.NURSE ---
Patient has allergic reaction Hives to PCN. patient stated 'My last procedure at [facility] they have me something that started with an A . This Rn spoke to Abhilash, pharmacist regarding allergy reaction and educated on safety of administering Ancef with PCN reaction. Patient educated. Dr. Bull and Dr. Caal aware.
--- OUTSIDE RECORDS SUMMARY | 2025-08-30 10:38 | XMS_ITS | Clinical Summary ---
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 Father Alive Mother (Age 59) BREAST [...] this topic Medical Devices Implanted Type Area Machine Brush Maker Device Identifier Shelf Expiration Date Model / Serial / Lot Sponge Surgiflo 8ml Hemostatic Matrix Absorbable Latex Free - [id number] - [id number] Implanted:Qty: 1 on 11/26/2017 by Sai Aguilar MD at [facility] Hemostatic Agent Left: Spine Lumbar [employer] 07/10/2019 2991 / / [id number] Cement Simplex P Radiopaque Full Dose Bone - 898001 - [id number] Implanted:Qty: 2 on 11/30/2014 by Jaskaran Farrell MD at [facility] Left: Knee [employer] 04/09/2017 6191-1-010 / / [id number] Component Nexgen 32mm All Poly Ptlar - 144568 - [id number] Implanted:Qty: 1 on 11/30/2014 by Jaskaran Farrell MD at [facility] Left: Knee [employer] 08/09/2022 [id number] / / [id number] Insert Lps-Flex Nexgen 3-4mm E-F 10mm Net Mold Fix Uhmwpe - 964515 - [id number] Implanted:Qty: 1 on 11/30/2014 by Jaskaran Farrell MD at [facility] Left: Knee [employer] 07/09/2022 [id number] / / [id number] Plate Nexgen [id number] Cement Modular Stem Tivanium Pmma - 885386 - [id number] Implanted:Qty: 1 on 11/30/2014 by Jaskaran Farrell MD at [facility] Left: Knee [employer] 08/09/2024 [id number] / / [id number] Component Lps-Flex Gender Solutions Option Nexgen F Cocr - 376750 - [id number] Implanted:Qty: 1 on 11/30/2014 by Jaskaran Farrell MD at [facility] Left: Knee [employer] 08/09/2024 [id number] / / [id number] System Gender Solutions Option Flex Cement Tkr Femur - 929254 - [id number] Implanted:Qty: 1 on 11/30/2014 by Jaskaran Farrell MD at [facility] Left: Knee [employer] [id number] / / Insert Legion 3-4 9mm Posterior Stabilized High Flexion Xlpe - 227109 - [id number] Implanted:Qty: 1 on 03/29/2015 by Jaskaran Farrell MD at [facility] Right: Knee [employer] 02/28/2024 [id number] / / [id number] Component Grace Ii 32mm Resurfacing Oxinium Ptlar Knee - 135745 - [id number] Implanted:Qty: 1 on 03/29/2015 by Jaskaran Farrell MD at [facility] Right: Knee [employer] 01/27/2025 [id number] / / [id number] Lgn Gii Ps Cemented Standard Insert - 181220 - [id number] Implanted:Qty: 1 on 03/29/2015 by Jaskaran Farrell MD at [facility] Right: Knee [employer] [id number] / / Cement Simplex P Radiopaque Full Dose Bone - 473422 - [id number] Implanted:Qty: 2 on 03/29/2015 by Jaskaran Farrell MD at [facility] 03/29/2017 6191-1-010 / / [id number] Component Legion Narrow Posterior Stabilize Femoral Knee - 402627 - [id number] Implanted:Qty: 1 on 03/29/2015 by Jaskaran Farrell MD at [facility] Right: Knee [employer] 06/29/2024 [id number] / / [id number] Baseplate Grace Ii 4 Cemented Titanium Nonporous Tibial - 415461 - [id number] Implanted:Qty: 1 on 03/29/2015 by Jaskaran Farrell MD at [facility] Right: Knee [employer] 08/29/2022 [id number] / / [id number] Kit Infuse Medium 2x1in 20ga 5.6ml Vial Absorbable Collagen - 118523 - [id number] Implanted:Qty: 1 on 11/26/2017 by Sai Aguilar MD at [facility] Left: Spine Lumbar [employer] 09/09/2019 [id number] / / [id number] Spacer Transcontinental 18mm Wide Medium 10d 11mm - 043163 - [id number] Implanted:Qty: 1 on 11/26/2017 by Sai Aguilar MD at [facility] Left: Spine Lumbar [employer] 375.271 / / Screw Creo Creo Amp 55mm 6.5mm Modular Rehman Bone Spine Sterile - 306572 - [id number] Implanted:Qty: 1 on 11/26/2017 by Sai Aguilar MD at [facility] r: Spine Lumbar [employer] 02/14/2022 1067.1656S / / [id number] Screw Creo Creo Amp 55mm 6.5mm Modular Rehman Bone Spine Sterile - 832199 - [id number] Implanted:Qty: 1 on 11/26/2017 by Sai Aguilar MD at [facility] r: Spine Lumbar [employer] 02/14/2022 1067.1656S / / [id number] Bone Cancellous Coarse 30cc - 822178 - [id number] Implanted:Qty: 1 on 11/26/2017 by Sai Aguilar MD at [facility] r: Spine Lumbar [employer] 01/30/2022 1103-12 / [id number] / 6.5 X 50mm Screw Modular Creo Amp - 135602 - [id number] Implanted:Qty: 1 on 11/26/2017 by Sai Aguilar MD at [facility] r: Spine Lumbar [employer] 1067.1650 / / 6.5 X 55mm Screw Modular Creo Amp - 477396 - [id number] Implanted:Qty: 1 on 11/26/2017 by Sai Aguilar MD at [facility] r: Spine Lumbar [facility] 1067.1655 / / Clamp Spinal Od6.5 Mm Mark To Mark - 276815 - [id number] Implanted:Qty: 2 on 11/26/2017 at [facility] r: Spine Lumbar [employer] 154.858 / / 5.5 Polyaxial Tulip Threaded Creo Amp - 345344 - [id number] Implanted:Qty: 4 on 11/26/2017 at [facility] r: Spine Lumbar [employer] 1119.0110 / / 5.5 Threaded Locking Cap Creo - 086377 - [id number] Implanted:Qty: 4 on 11/26/2017 at [facility] r: Spine Lumbar [employer] 1119.0010 / / 5.5mm Curved Mark Titanium Alloy 100mm Length - 598201 - [id number] Implanted:Qty: 1 on 11/26/2017 at [facility] Posterio r: Spine Lumbar [facility] 1119.7100 / / 5.5 Snap On Cross Connector 30 To 35mm Long Creo - 271282 - [id number] Implanted:Qty: 1 on 11/26/2017 at [facility] Posterio r: Spine Lumbar [facility] 1119.0030 / / Off Set Connection 20mm Implanted:Qty: 1 on 11/26/2017 at [facility] Posterio r: Spine Lumbar 124.971 / / Shell R3 Standard 52mm 3 Hole Poly Acetabular Hip - 027417 - [id number] Implanted:Qty: 1 on 05/27/2018 by Jaskaran Farrell MD at [facility] Left: Hip [employer] 04/16/2028 [id number] / / [id number] Liner R3 20d 52mm 36mm Xlpe Poly Acetabular Hip Sterile - 533957 - [id number] Implanted:Qty: 1 on 05/27/2018 by Jaskaran Farrell MD at [facility] Left: Hip [employer] 03/24/2028 [id number] / / [id number] Screw Reflection 30mm 6.5mm Reflection Spherical Head Bone - 107871 - [id number] Implanted:Qty: 1 on 05/27/2018 by Jaskaran Farrell MD at [facility] Left: Hip [employer] 12/24/2027 [id number] / / [id number] Screw Reflection 25mm 6.5mm Spherical Head Bone Acetabular - 799715 - [id number] Implanted:Qty: 1 on 05/27/2018 by Jaskaran Farrell MD at [facility] Left: Hip [employer] 01/28/2028 [id number] / / [id number] Stem Anthology 5 High Offset Porous Femoral Hip - 471002 - [id number] Implanted:Qty: 1 on 05/27/2018 by Jaskaran Farrell MD at [facility] Left: Hip [employer] 12/02/2027 [id number] / / [id number] Head [place] -3mm 12\14 Taper 36mm Revision Oxinium Femoral - 650038 - [id number] Implanted:Qty: 1 on 05/27/2018 by Jaskaran Farrell MD at [facility] Left: Hip [employer] 02/22/2028 [id number] / / [id number] Explanted Type Area Machine Brush Maker Device Identifier Shelf Expiration Date Model / Serial / Lot Clamp External Fixation L18 Mm Od5.5-6.5 Mm Spine Mark To Mark - 416878 - [id number] Explanted:Qty: 1 on 11/26/2017 at [facility] Posterior: Spine Lumbar [employer] 154.860 / / Screw 6.5 X 45.Mm - 440612 - [id number] Explanted:Qty: 1 on 11/26/2017 at [facility] Posterior: Spine Lumbar [employer] 1067.1645 / / 5.5mm Curved Mark Titanium Alloy 90mm Length - 423213 - [id number] Explanted:Qty: 2 on 11/26/2017 at [facility] Posterior: Spine Lumbar [employer] 1119.7090 / / Advance Directives For more information, please contact: [phone] Documents on File Type Date Recorded Patient Chinese Medicine Practitioner Expl anation Advance Directive and Living Will [...] in the following way: discussion with healthcare players club representative. Care Teams Octave Board Assembler Relationship Specialty Start Date End Date Amparo Lopez DO [address] [place] [address] PCP - General Family Medicine 03/18/23
--- OUTSIDE RECORDS SUMMARY | 2025-08-30 10:38 | XMS_ITS | Clinical Summary ---
Author Organization [facility] Address [address] [place] [address] Care Team Providers Care Legal Activity Adjudicator Name Role Phone Amparo Lopez Unavailable [phone] Amparo Lopez DO Primary Care Provider + Allergies Active Allergy Reactions Criticality Noted Date Comments Adhesive Rash Low 11/29/2017 Only paper zqoh-WADNXGH-fmo pt bandaides and tegaderms are okay Adhesive [...] to complete this topic Insurance () [facility] Address: [facility] [address] [place] [address] MEDICARE CONNECT[place]ARE MEDICARE CONNE[place]ARE Advance Directives For more information, please contact: [phone] Documents on File Type Date Recorded Patient Business Professor Expl anation Advance Directives 03/24/2025 2:19 PM Care Teams Legal Activity Adjudicator Relationship Specialty Start Date End Date Amparo Lopez DO [address] [place] [address] PCP - Insurance Payer PCP 04/02/24 Amparo Lopez DO [address] [facility] [place] [address] PCP - General Internal Medicine 04/02/24
--- OUTSIDE RECORDS SUMMARY | 2025-08-30 10:38 | XMS_ITS | Encounter Summary ---
Author Organization [facility] Address [address] [place] [address] Care Team Providers Care Manager Housekeeping Name Role Phone Becca Browne MD Unavailable [phone] Al Platt MD Unavailable Amparo Lopez MD Primary Care Provider + Amparo Lopez MD Unavailable [phone] Amparo Lopez MD Unavailable [phone] Amparo Lopez MD Unavailable [phone] Encounter Details Date Type Department Care Team (Late st Contact Info) Description 01/28/2025 Scanned Document [facility], [address], [address] [place] [address] Unknown Unknow Provider Address Social [...] Care Team (Late st Contact Info) Description 03/06/2026 1:00 PM EDT Office Visit Elroy Batista Department of Family Medicine [place] [address] [place] [address] Amparo Lopez MD [address] [place] [address] documented as of this encounter Goals Goal Patient Goal Type Associated Problems Recent Progress Patient-Stated? Author PT STG 2 Physical Therapy Not on track( 4:43 PM EDT) No Jai Mcclellan PT Note: Pt will be able to get in and out of her car w/o using her arms to lift the L LE after 3 weeks of PT PT STG 3 Physical Therapy Not on track( 4:43 PM EDT) No Jai Mcclellan PT Note: Pt LE strength will be at least 4+/5 grossly after 3 weeks of PT PT LTG 1 Physical Therapy Not on track( 4:44 PM EDT) No Jai Mcclellan PT Note: Pt will be able to sleep at least 5 hours w/o interruption after 6 weeks of PT documented as of this encounter Visit Diagnoses Not on filedocumented in this encounter Care Teams Manager Housekeeping Relationship Specialty Start Date End Date Amparo Lopez MD [address] [place] [address] PCP - General Internal Medicine 04/01/23 Amparo Lopez MD [address] [place] [address] PCP - Elroy Quintana MA Attributed 09/10/24 06/09/25 Amparo Lopez MD [address] [place] [address] PCP - Elroy Brady [place] attributed 06/10/25 Becca Browne MD Flight Manager Cardiovascular Disease 03/12/22 Al Platt MD [address] [place] [address] Gastroenterology 03/26/22 Amparo Lopez MD [address] [place] [address] Internal Medicine 02/01/25 documented as of this encounter
--- OUTSIDE RECORDS SUMMARY | 2025-08-30 10:38 | XMS_ITS | Encounter Summary ---
Author Organization [facility] Address [address] [place] [address] Care Team Providers Care Broadcast Field Supervisor Name Role Phone Provider, Mikie MEDLEY Primary Care Provider Un available Maria Dolores Sinha MD Primary Care Provider [phone] Becca Browne MD Unavailable [phone] Al Platt MD Unavailable Amparo Lopez MD Primary Care Provider + Amparo Lopez MD Unavailable [phone] Amparo Lopez MD Unavailable [phone] Amparo Lopez MD Unavailable [phone] Amparo Lopez MD Unavailable [phone] Encounter Details Date Type Department Care Team (Late st Contact Info) Description 11/20/2017 Scanned Document [facility] [address] [place] [address] Jhony Mcdonald MD [address] [facility] [address] [place], [place] [id number] Social History Tobacco Use Types Packs/Day Years Used Date Smoking Tobacco: Former Cigarettes Smokeless Tobacco: Former Alcohol Use Standard Drinks/Week Comments Yes 7 (1 standard drink = 0.6 oz pur e alcohol) Social Use Comments No Sex and Gender Information Value [...] Visit Elroy Batista Department of Family Medicine [place] [address] [place] [address] Amparo Lopez MD [address] [place] [address] documented as of this encounter Visit Diagnoses Not on filedocumented in this encounter Care Teams Broadcast Field Supervisor Relationship Specialty Start Date End Date Provider, MD Mikie PCP - General 03/10/15 09/13/21 Maria Dolores Sinha MD [address] [place] [address] PCP - General Internal Medicine 09/14/21 03/31/23 Amparo Lopez MD [address] [place] [address] PCP - General Internal Medicine 04/01/23 Amparo Lopez MD [address] [place] [address] PCP - Elroy Bonifacio MCDOWELL Attributed 12/11/23 09/09/24 Amparo Lopez MD [address] [place] [address] PCP - Elroy Quintana MA Attributed 09/10/24 06/09/25 Amparo Lopez MD [address] [place] [address] PCP - Elroy Brady [place] attributed 06/10/25 Becca Browne MD [address] [place] [address] Teacher Tutor Cardiovascular Disease 03/12/22 Al Platt MD [address] [place] [address] Gastroenterology 03/26/22 Amparo Lopez MD [address] [place] [address] Internal Medicine 02/01/25 documented as of this encounter
--- OUTSIDE RECORDS SUMMARY | 2025-08-30 10:38 | XMS_ITS | Encounter Summary ---
Author Organization [facility] Address [address] [place] [address] Care Team Providers Care Materials Analyst Name Role Phone Amparo Lopez DO Unavailable [phone] Amparo Lopez DO Primary Care Provider + Encounter Details Date Type Department Care Team (Late st Contact Info) Description 09/04/2022 Orders Only [address] [address] Micki Rice DDS [address] [place] [address] [place] [address] Social History Tobacco Use Types Packs/Day Years [...] on filedocumented in this encounter Care Teams Materials Analyst Relationship Specialty Start Date End Date Amparo Lopez DO [address] [place], [place] [id number] PCP - Insurance Payer PCP 04/02/24 Amparo Lopez DO [address] [place], [place] [id number] PCP - General Internal Medicine 04/02/24 documented as of this encounter
--- OUTSIDE RECORDS SUMMARY | 2025-08-30 10:38 | XMS_ITS | Encounter Summary ---
Author Organization [facility] Address [address] [place] [address] Care Team Providers Care Yarn Winder Name Role Phone Provider, Mikie MEDLEY Primary Care Provider Un available Maria Dolores Sinha MD Primary Care Provider [phone] Becca Browne MD Unavailable [phone] Al Platt MD Unavailable Amparo Lopez MD Primary Care Provider + Amparo Lopez MD Unavailable + [phone] Amparo Lopez MD Unavailable + [phone] Amparo Lopez MD Unavailable + [phone] Amparo Lopez MD Unavailable [phone] Encounter Details Date Type Department Care Team (Late st Contact Info) Description 07/11/2017 Abstract [facility] [address] [place] [address] Susana Blake [place] 100 [facility] [address] [place] [address] Social History Tobacco Use Types Packs/Day Years Used Date Smoking Tobacco: Never Assessed Comments Unknown Sex and Gender Information Value Date Recorded Sex Assigned at Choose not to disclose 10:53 AM EDT Legal Sex Female 2:45 PM EDT Gender Identity Choose not to disclose 10:53 AM EDT Sexual Orientation Choose not to disclose 2022 10:53 AM EDT documented as of this encounter Plan of Treatment Upcoming Encounters Date Type Department Care Team (Late st Contact Info) Description 03/06/2026 1:00 PM EDT Office Visit Elroy Batista Department of Family Medicine [place] [address] [place] [address] Amparo Lopez MD [address] [place] [address] documented as of this encounter Visit Diagnoses Not on filedocumented in this encounter Care Teams Yarn Winder Relationship Specialty Start Date End Date Provider, MD Mikie PCP - General 03/10/15 09/13/21 Maria Dolores Sinha MD [address] [place] [address] PCP - General Internal Medicine 09/14/21 03/31/23 Amparo Lopez MD [address] [place] [address] PCP - General Internal Medicine 04/01/23 Amparo Lopez MD [address] [place] [address] PCP - Elroy HENDERSON MA Attributed 12/11/23 09/09/24 Amparo Lopez MD [address] [place] [address] PCP - Elroy Quintana MA Attributed 09/10/24 06/09/25 Amparo Lopez MD [address] [place] [address] PCP - Elroy Brady MA attributed 06/10/25 Becca Browne MD [address] [place] [address] Buffer Copper Cardiovascular Disease 03/12/22 Al Platt MD [address] [place] [address] Gastroenterology 03/26/22 Amparo Lopez MD [address] [place] [address] Internal Medicine 02/01/25 documented as of this encounter
--- OUTSIDE RECORDS SUMMARY | 2025-08-30 10:38 | XMS_ITS | Encounter Summary ---
Author Organization [facility] Address [address] [place] [address] Care Team Providers Care Logistical Engineer Name Role Phone Provider, Mikie MEDLEY Primary Care Provider Un available Maria Dolores Sinha MD Primary Care Provider [phone] Becca Browne MD Unavailable [phone] Al Platt MD Unavailable Amparo Lopez MD Primary Care Provider + Amparo Lopez MD Unavailable + [phone] Amparo Lopez MD Unavailable + [phone] Amparo Lopez MD Unavailable + [phone] Amparo Lopez MD Unavailable + [phone] Encounter Details Date Type Department Care Team (Late st Contact Info) Description 09/16/2017 Scanned Document [facility] PHYSICAL MEDICINE & REH[facility] [address]ANE [address] [place] [phone] Delvis Mcknight MD [address] [place] [address] Social History Tobacco Use Types Packs/Day Years Used Date Smoking Tobacco: Former Cigarettes Smokeless Tobacco: Never Alcohol Use Standard Drinks/Week Comments Yes 7 [...] Visit Elroy Batista Department of Family Medicine [place] [address] [place] [address] Amparo Lopez MD [address] [place] [address] documented as of this encounter Visit Diagnoses Not on filedocumented in this encounter Care Teams Logistical Engineer Relationship Specialty Start Date End Date ProviderMikie MD PCP - General 03/10/15 09/13/21 Maria Dolores Sinha MD [address] [place] [address] PCP - General Internal Medicine 09/14/21 03/31/23 Amparo Lopez MD [address] [place] [address] PCP - General Internal Medicine 04/01/23 Amparo Lopez MD [address] [place] [address] PCP - Elroy Bonifacio MCDOWELL Attributed 12/11/23 09/09/24 Amparo Lopez MD [address] [place] [address] PCP - Elroy Quintana MA Attributed 09/10/24 06/09/25 Amparo Lopez MD [address] [place] [address] PCP - Elroy Brady MD attributed 06/10/25 Becca Browne MD [address] [place] [address] Fixture Maker Cardiovascular Disease 03/12/22 Al Platt MD [address] [place] [address] Gastroenterology 03/26/22 Amparo Lopez MD [address] [place] [address] Internal Medicine 02/01/25 documented as of this encounter
--- OUTSIDE RECORDS SUMMARY | 2025-08-30 10:39 | XMS_ITS | Encounter Summary ---
Author Organization [facility] Address [address] [place] [address] Care Team Providers Care Manager Production Name Role Phone Maria Dolores Sinha MD Primary Care Provider [phone] Becca Browne MD Unavailable [phone] Al Platt MD Unavailable Amparo Lopez MD Primary Care Provider + Amparo Lopez MD Unavailable [phone] Amparo Lopez MD Unavailable [phone] Amparo Lopez MD Unavailable [phone] Amparo Lopez MD Unavailable [phone] Encounter Details Date Type Department Care Team (Late st Contact Info) Description 03/14/2022 Erroneous Encounter [facility] [address] [place] [id number] ProviderMikie MD Social History Tobacco Use Types Packs/Day Years Used Date Smoking Tobacco: Former Cigarettes 1 20 Smokeless Tobacco: Former Alcohol Use Standard Drinks/Week Comments Yes 6 (1 standard drink = 0.6 oz pur e alcohol) Comments No Sex and Gender Information Value [...] Description 03/06/2026 1:00 PM EDT Office Visit [facility] Physicians Department of Family Medicine [place] [address] [place] [phone] Amparo Lopez MD [address] [place] [address] documented as of this encounter Goals Goal [...] filedocumented in this encounter Care Teams Manager Production Relationship Specialty Start Date End Date Maria Dolores Sinha MD [address] [place] [id number] PCP - General Internal Medicine 09/14/21 03/31/23 Amparo Lopez MD [address] [place] [address] PCP - General Internal Medicine 04/01/23 Amparo Lopez MD [address] [place] [address] PCP - Starjovana [facility] [place] Attributed 12/11/23 09/09/24 Amparo Lopez MD [address] [place] [address] [facility] [place] Attributed 09/10/24 06/09/25 Amparo Lopez MD [address] [place] [address] PCP - [place] [place] attributed 06/10/25 Becca Browne MD [address] [place] [id number] Pool Cleaner Cardiovascular Disease 03/12/22 Al Platt MD [address] [place] [id number] Gastroenterology 03/26/22 Amparo Lopez MD [address] [place] [address] Internal Medicine 02/01/25 documented as of this encounter
--- OUTSIDE RECORDS SUMMARY | 2025-08-30 10:39 | XMS_ITS | Clinical Summary ---
Author Organization [facility] Address [address] [place] [address] Care Team Providers Care Territory Sales Consultant Name Role Phone Becca Browne MD Unavailable [phone] Al Platt MD Unavailable Amparo Lopez MD Primary Care Provider + Amparo Lopez MD Unavailable [phone] Amparo Lopez MD Unavailable [phone] Allergies Active Allergy Reactions Criticality Noted Date Comments Adhesives/Tape Rash/Dermatitis Low 11/29/2017 Only paper tape-REDNESS Codeine Anaphylaxis High 11/16/2014 Erythromycin Anaphylaxis High 11/16/2014 Penicillins Rash/Dermatitis Low 11/16/2014 Vancomycin Hives,Other (See Comments) Medium 11/30/2014 Tongue tingling Medications methocarbamol (ROBAXIN) 750 MG tablet TAKE 1 TABLET BY MOUTH EVERY NIGHT AT BEDTIME FOR MUSCLE SPASM 024 Active acetaminophen (TYLENOL) 500 MG tablet Take 2 tablets (1,000 mg total) by mouth every 6 (six) hours as needed for pain. Active diltiazem (CARDIZEM CD) 120 MG 24 hr capsule 025 Active metoPROLOL SUCCINATE (TOPROL-XL) 25 MG 24 hr tablet 025 Active traMADol (ULTRAM) 50 MG tabletIndications: Lumbar postlaminectomy syndrome,Other osteoarthritis of spine, unspecified spinal region Take 1 tablet (50 mg total) by mouth 4 times daily (every 6 hours) as needed for severe pain or moderate pain. 120 tablet 025 Active nabumetone (RELAFEN) 500 MG tabletIndications: Chronic low back pain without sciatica, unspecified back pain laterality Take 1 tablet (500 mg total) by mouth 2 (two) times a day as needed (arthritis pain). 60 tablet 025 Active colchicine (COLCRYS) 0.6 mg tabletIndications: Calcium pyrophosphate arthropathy Take 1 tablet (0.6 mg total) by mouth daily. 30 tablet 1 025 Active ibandronate (BONIVA) 150 MG tabletIndications: Osteoporosis without current pathological fracture, unspecified osteoporosis type Take 1 tablet (150 mg total) by mouth every 30 days (once a month). Take in AM with glass of water prior to food; don't lie down for 60 minutes. 3 tablet 3 025 Active meclizine (ANTIVERT) 25 MG tabletIndications: Dizziness Take 1 tablet (25 mg total) by mouth 3 (three) times a day as needed for dizziness. 90 tablet 3 025 Active aejyrq-zthtuuupd-u agnesium sulfates (Suprep Bowel Prep Kit) 17.5-3.13-1.6 GM/177ML Solution solutionIndication s:Change in bowel function,Nausea,We ight loss,Decrease in appetite,Low mean corpuscular volume (MCV) Take two 177 mL bottles as directed 2 each 021 2021 Discontinued diltiazem (DILACOR XR) 120 MG 24 hr capsule Take 120 mg by mouth daily. 2021 Discontinued(P atient Discharge) magnesium citrate solutionIndication s:Change in bowel function,Nausea,We ight loss,Decrease in appetite Take two 10 oz bottle as instructed 2days before procedure 2 each 022 2021 Discontinued Active Problems Problem Noted Date Diagnosed Date Mild episode of recurrent major depressive disor robert 03/02/2025 Lumbar postlaminectomy syndrome 11/19/2024 Inflammation of sacroiliac joint 09/13/2024 Cardiomyopathy, hypertrophic 08/24/2024 SVT (supraventricular tachycardia) 08/24/2024 Cervical arthritis 11/21/2023 Pain of left hip joint 09/23/2017 Hx of echocardiogram 07/27/2017 Overview (07/27/2017): Overview: nl LV size/thickness/fxn.,EF >60%,nl diastolic filling pattern no WMA ,tr AI,no ,RVSP 32mmHg Osteoarthritis of spine with radiculopathy, lumb ar region 01/14/2017 Diarrhea 04/23/2016 History of Clostridium difficile colitis 016 C. difficile colitis 04/26/2015 Iron deficiency anemia 04/26/2015 COPD (chronic obstructive pulmonary disease) Status post total right knee replacement 015 Essential hypertension 03/08/2015 Overview (07/27/2017): Overview: ICD-10 Activation Resolved Problems Problem Noted Date Diagnosed Date Resolved Date Supraventricular tachycardia 04/03/2015 08/24/2024 Encounters Date Type Department Care Team Description 07/20/2025 1:00 PM EDT Clinical Support [facility] [address] [place] [phone] Fan Ness MD Necklas, Gabriella, Au.D Tinnitus, bilateral (Primary Dx); Sensorineural hearing loss, bilateral; Impacted cerumen of left ear 07/19/2025 Telephone [facility] Department of Pain [address] [phone] Cas Baez MD mri discs 06/27/2025 2:05 PM EDT Ancillary Procedure [facility] [address] [place] [phone] Low back pain, unspecified back pain laterality, unspecified chronicity, unspecified whether sciatica present 06/27/2025 1:30 PM EDT Consult [facility] Department of Pain [place] [address] [place] [address] Cas Baez MD Low back pain, unspecified back pain laterality, unspecified chronicity, unspecified whether sciatica present (Primary Dx) 06/27/2025 Travel 06/06/2025 Orders Only [facility] Department of Family Medicine [address] [phone] Provider, MD Kiara from Last 3 Months Immunizations Immunization Administration Dates Next Due Influenza High-Dose Quadriva lent,(FLUZONE HIGH-DOSE), Perservative Free IM 0.7 mL 65 years and older 08/01/2020 Influenza, Quadrivalent (FLU ARIX, AFLURIA, FLULAVAL, FLUZONE) Preservative Free IM 07/15/2018 Influenza, Quadrivalent (FLU CELVAX) MDCK, Preservative Free IM 07/28/2019 Pneumococcal Polysaccharide 23-Valent 12/03/2017 Family History Medical History Relation Name Comments Arthritis Father Hypertension Father passed age 94 Breast cancer Mother passed age 59 Diabetes Mother Congenital heart disease Son Gout Son Colon cancer Neg Hx Crohn's disease Neg Hx Ulcerative colitis Neg Hx Relation Name Status Comments Father Mother Son Alive Social History Tobacco Use Types Packs/Day Years Used Date Smoking Tobacco: Former Cigarettes 2013 Smokeless Tobacco: Former Tobacco Cessation:Counseling Given: Not Answered Alcohol Use Standard Drinks/Week Comments Yes 6 (1 standard drink = 0.6 oz pur e alcohol) AUDIT-C Answer Date Recorded Q1: How often do you have a drink containing alc ohol? 2-3 times a week 03/01/2025 Q2: How many drinks containi ng alcohol do you have on a typical day when you are drinking? 1 or 2 03/01/2025 Q3: How often do you have si x or more drinks on one occasion? 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 Not on file Not o n file Not on file Last Filed Vital Signs Vital Sign Reading Time Taken Comments Blood Pressure 110/80 05/12/2025 9:17 AM EDT Pulse 99 05/12/2025 9:17 AM EDT Temperature 36.3 C (97.3 F) 05/12/2025 9:17 AM EDT Respiratory Rate 14 03/18/2025 11:29 AM EDT Oxygen Saturation 100% 05/12/2025 9:17 AM EDT Inhaled Oxygen Concentration - - Weight 58.3 kg (128 lb 8.5 oz) 07/20/2025 1:38 P M EDT Height 157.5 cm (5' 2.01 ) 07/20/2025 1:38 PM ED T Body Mass Index 23.5 07/20/2025 1:38 PM EDT Plan of Treatment Upcoming Encounters Date Type Department Care Team (Late st Contact Info) Description 03/06/2026 1:00 PM EDT Office Visit [facility] Department of Family Medicine [place] [address] [place] [phone] Amparo Lopez MD [address] [place] [address] Health Maintenance Due Date Last Done Comments Hepatitis C Virus Screening 1950 DTaP/Tdap/Td Vaccines (1 - Tdap) 1971 Lung Cancer Screening (LDCT) 2002 RSV Vaccine 50 years and older and Patients (1 - Risk 50-74 years 1-dose series) 2002 Zoster (Shingles) Vaccine (1 of 2) 2002 Pneumococcal Vaccines 50+ (2 of 2 - PCV) 12/03/2018 12/03/2017 Influenza Vaccine 06/10/2025 08/01/2020, 07/28/2019, 07/15/2018 COVID-19 Vaccine (1 - 2023-2 5 season) 2025 DXA Bone Density (Females,Ages 65 and older) 04/19/2027 04/19/2025 Mammogram 04/19/2027 04/19/2025 Colonoscopy 05/24/2032 05/24/2022 Advance Care Planning Completed 05/22/2023 Hepatitis B Vaccines Aged Out No long er eligible based on patient's age to complete this topic Goals Goal Patient Goal Type Associated Problems Recent Progress Patient-Stated? Author PT STG 2 Physical Therapy Not on track( 022 4:43 PM EDT) No Jai Mcclellan, PT Note: Pt will be able to get in and out of her car w/o using her arms to lift the L LE after 3 weeks of PT PT STG 3 Physical Therapy Not on track( 022 4:43 PM EDT) No Jai Mcclellan PT Note: Pt LE strength will be at least 4+/5 grossly after 3 weeks of PT PT LTG 1 Physical Therapy Not on track( 022 4:44 PM EDT) No Jai Mcclellan PT Note: Pt will be able to sleep at least 5 hours w/o interruption after 6 weeks of PT Procedures Procedure Name Priority Date/Time Associated Diagnosis Comments NC PURE TONE AUDIOMETRY AIR ONLY Routine 07/20/2025 1:00 PM EDT Tinnitus, bilateral Sensorineural hearing loss, bilateral XR LUMBAR SPINE 2 OR 3 VIEWS Routine 06/27/2025 2:23 PM EDT Low back pain, unspecified back pain laterality, unspecified chronicity, unspecified whether sciatica present RESULT LETTER Routine 06/06/2025 4:53 PM EDT DEXA BONE DENSITY AXIAL SKELETON, 1 OR MORE SITES Routine 04/19/2025 3:46 PM EDT Post-menopausal MM MAMMOGRAM SCREENING-BILATERAL Routine 04/19/2025 1:34 PM EDT Encounter for screening mammogram for malignant neoplasm of breast from Last 3 Months or Most Recently Relevant to Health Maintenance Results * Audiometry (07/20/2025 1:00 PM EDT) Karla Santo Au.D - 07/20/2025 1:00 PM EDT Ankur Ross 07/20/2025 1:12 PM Fan Ness MD AUDIOLOGY SERVICES ORDERAB LES Final Result * XR Lumbar spine 2 or 3 views (06/27/2025 2:23 PM EDT) Anatomical Region Laterality Modality L-spine Digital Radiogra phy 06/28/2025 1:20 PM EDT Impressions 06/28/2025 1:24 PM EDT 1. Severe demineralization somewhat limits study. 2. Grade 2 anterolisthesis L4-5 without significant change on flexion and extension views. 3. Generalized disc space narrowing. Narrative 06/28/2025 1:24 PM EDT XR LUMBAR SPINE 2 OR 3 VIEWS: 06/27/2025 2:11 PM CLINICAL HISTORY: flex ex low back. Low back pain, unspecified back pain laterality, unspecified chronicity, unspecified whether sciatica present. COMPARISON:02/22/2025 TECHNIQUE: The examination is performed in the lateral view with flexion and extension. FINDINGS: Patient is status post fusion from the level of L2 through the level of L5. There is severe demineralization of the osseous structures which does somewhat limit the study. Interbody spacer L2-3. Grade 2/3 anterolisthesis L4-5 with approximately 2.1 cm of bony offset on flexion and 2.0 cm on extension. No statistically significant change detected. Disc space narrowing L3-4 and L4-5. Disc space narrowing L1-2 with increased sclerotic changes at the endplates. No acute compression deformity detected. Consider further assessment as clinically indicated. Procedure Note Martin Espinoza MD - 06/28/2025 XR LUMBAR SPINE 2 OR 3 VIEWS: 06/27/2025 2:11 PM CLINICAL HISTORY: flex ex low back. Low back pain, unspecified back pain laterality,unspecified chronicity, unspecified whether sciatica present. COMPARISON:02/22/2025 TECHNIQUE: The examination is performed in the lateral view with flexion andextension. FINDINGS: Patient is status post fusion from the level of L2 through the level ofL5. There is severe demineralization of the osseous structures which doessomewhat limit the study. Interbody spacer L2-3. Grade 2/3 anterolisthesis L4-5 with approximately 2.1 cm of bony offset onflexion and 2.0 cm on extension. No statistically significant changedetected. Disc space narrowing L3-4 and L4-5. Disc space narrowing L1-2 with increased sclerotic changes at theendplates. No acute compression deformity detected. Consider further assessment as clinically indicated. IMPRESSION: 1. Severe demineralization somewhat limits study. 2. Grade 2 anterolisthesis L4-5 without significant change on flexion andextension views. 3. Generalized disc space narrowing. Cas Baez MD IMG DIAGNOSTIC IMAGING ORDERABLE S Final Result * RESULT LETTER (06/06/2025 4:53 PM EDT) External Provider HX AMB PROCEDURES Final Res ult * DEXA Bone Density axial skeleton, 1 or more sites (04/19/2025 3:46 PM EDT) Anatomical Region Laterality Modality Digital Radiogra phy 04/19/2025 2:15 PM EDT 04/19/2025 2:15 PM EDT Impressions 04/20/2025 1:31 PM EDT 1. DIAGNOSIS: Osteoporosis based on the lowest T-score value of -3.2 in the forearm radius 33% applying World Health Organization criteria. 2. 10-YEAR FRACTURE RISK PREDICTION, FRAX: According to the guidelines, FRAX calculation should only be performed on patients in the osteopenia bone density category. Therefore, FRAX was not performed on this patient. 3. Treatment Recommendations: NOF guidelines recommend consideration for treatment in postmenopausal women and men age 50 and older presenting with the following: -A hip or vertebral (clinical or morphometric) fracture. -T-score less than or equal to -2.5 at the femoral neck or spine after appropriate evaluation to exclude secondary causes. -Low bone mass at the hip or spine and a 10-year fracture probability by FRAX of greater than or equal to 3% for hip fracture or greater than or equal to 20% for major osteoporotic fracture based on the [place] adapted WHO algorithm. 4. Other Recommendations: All treatment decisions require clinical judgment and consideration of individual patient factors, including patient preferences, comorbidities, previous drug use, risk factors not captured in the FRAX model (e.g. frailty, falls, vitamin D deficiency, increased bone turnover, interval significant decline in bone density) and possible under or overestimation of fracture risk by FRAX. Additional medical evaluation for secondary cause of low bone mineral density may be appropriate. FUTURE SCAN RECOMMENDATION: People with diagnosed cases of osteoporosis or at high risk for fracture should have regular bone mineral density tests. For patients eligible for Medicare, routine testing is allowed once every 2 years. The testing frequency can be increased to one year for patients who have rapidly progressing disease, those who are receiving or discontinuing medical therapy to restore bone mass, or have additional risk factors. Electronically signed by: Ranjeet Roman MD 04/20/2025 01:31 PM EDT RP Thank you for referring your patient to us, Ranjeet Roman MD [phone] (Electronically Signed - 04/20/2025 13:31) Narrative 04/20/2025 1:31 PM EDT EXAMINATION: BONE DENSITOMETRY CLINICAL INDICATION: Asymptomatic menopausal state. COMPARISON: This is the patients baseline examination. TECHNIQUE: Using a [employer] DXA system (software version: 14.10) manufactured by [employer], dual-energy x-ray absorptiometry was performed of the right hip and left forearm radius 33% due to left hip replacement and spinal surgery. The images are of good technical quality. Summary results are attached. FINDINGS: RIGHT FEMUR, NECK: BMD 0.755 g/cm2, Z-score -1.1, T-score -2.0, osteopenia. RIGHT FEMUR, TOTAL: BMD 0.772 g/cm2, Z-score -1.2, T-score -1.9, osteopenia. LEFT FOREARM RADIUS 33%: BMD 0.478 g/cm2, Z-score -1.9, T-score -3.2, osteoporosis. IDENTIFIED RISK FACTORS: Height loss, hysterectomy, low body weight, low calcium intake, osteoporosis. HISTORY OF FRACTURE: None listed. MEDICATIONS: Calcium supplements or multivitamin, vitamin D. Procedure Note Ranjeet Roman MD - 04/20/2025 EXAMINATION: BONE DENSITOMETRY CLINICAL INDICATION: Asymptomatic menopausal state. COMPARISON: This is the patients baseline examination. TECHNIQUE: Using a [employer] DXA system (software version:14.10) manufactured by [employer], dual-energy x-rayabsorptiometry was performed of the right hip and left forearm radius 33%due to left hip replacement and spinal surgery. The images are of good technical quality. Summary results areattached. FINDINGS: RIGHT FEMUR, NECK: BMD 0.755 g/cm2, Z-score -1.1, T-score -2.0, osteopenia. RIGHT FEMUR, TOTAL: BMD 0.772 g/cm2, Z-score -1.2, T-score -1.9, osteopenia. LEFT FOREARM RADIUS 33%: BMD 0.478 g/cm2, Z-score -1.9, T-score -3.2, osteoporosis. IDENTIFIED RISK FACTORS: Height loss, hysterectomy, low body weight, low calcium intake,osteoporosis. HISTORY OF FRACTURE: None listed. MEDICATIONS: Calcium supplements or multivitamin, vitamin D. IMPRESSION: 1. DIAGNOSIS: Osteoporosis based on the lowest T-score value of -3.2 inthe forearm radius 33% applying World Health Organization criteria. 2. 10-YEAR FRACTURE RISK PREDICTION, FRAX: According to the guidelines,FRAX calculation should only be performed on patients in the osteopeniabone density category. Therefore, FRAX was not performed on thispatient. 3. Treatment Recommendations: NOF guidelines recommend consideration fortreatment in postmenopausal women and men age 50 and older presenting withthe following: -A hip or vertebral (clinical or morphometric) fracture. -T-score less than or equal to -2.5 at the femoral neck or spine afterappropriate evaluation to exclude secondary causes. -Low bone mass at the hip or spine and a 10-year fracture probability byFRAX of greater than or equal to 3% for hip fracture or greater than orequal to 20% for major osteoporotic fracture based on the [place] adapted WHOalgorithm. 4. Other Recommendations: All treatment decisions require clinicaljudgment and consideration of individual patient factors, includingpatient preferences, comorbidities, previous drug use, risk factors notcaptured in the FRAX model (e.g. frailty, falls, vitamin D deficiency, increased bone turnover, interval significantdecline in bone density) and possible under or overestimation of fracturerisk by FRAX. Additional medical evaluation for secondary cause of lowbone mineral density may be appropriate. FUTURE SCAN RECOMMENDATION: People with diagnosed cases of osteoporosis or at high risk for fractureshould have regular bone mineral density tests. For patients eligible forMedicare, routine testing is allowed once every 2 years. The testingfrequency can be increased to one year for patients who have rapidly progressing disease, those who arereceiving or discontinuing medical therapy to restore bone mass, or haveadditional risk factors. Electronically signed by: Ranjeet Roman MD 04/20/2025 01:31 PM EDT RPWorkstation: [id number] Thank you for referring your patient to us, Ranjeet Roman MD [phone] (Electronically Signed - 04/20/2025 13:31) Amparo Lopez MD IM DXA ORDERABLES Final Result * MM Mammogram screening-Bilateral (04/19/2025 1:34 PM EDT) Anatomical Region Laterality Modality Breast Bilateral Mammography 04/19/2025 1:45 PM EDT 04/19/2025 1:45 PM EDT Impressions 04/20/2025 9:16 AM EDT There is no mammographic evidence of malignancy. OVERALL ASSESSMENT: BI-RADS 2: Benign. RECOMMENDATION: Routine annual screening mammography. The patient will receive a lay summary of the results of this breast imaging exam. Lay summaries for mammography examinations will also identify the patients personal breast tissue composition as required by state law. Electronically signed by: Betina Sharma MD 04/20/2025 09:16 AM EDT RP Thank you for referring your patient to us, Betina Sharma MD [phone] (Electronically Signed - 04/20/2025 09:16) Narrative 04/20/2025 9:16 AM EDT EXAMINATION: MM SCREENING WITH TOMOSYNTHESIS, BILATERAL CLINICAL INFORMATION: Routine annual screening mammography. COMPARISON: None TECHNIQUE: Examination was performed using full breast technique. Standard CC and MLO views of the bilateral breasts were obtained. Tomosynthesis views of the bilateral breasts were obtained at 1 mm increments. Computer-aided detection was utilized by the radiologist in the interpretation of this exam. FINDINGS: The breasts are heterogeneously dense, which may obscure small masses. (ACR BI- RADS breast composition Category c)*. No significant masses, calcifications, or other findings are seen in either breast. Procedure Note Betina Sharma MD - 04/20/2025 EXAMINATION: MM SCREENING WITH TOMOSYNTHESIS, BILATERAL CLINICAL INFORMATION: Routine annual screening mammography. COMPARISON: None TECHNIQUE: Examination was performed using full breast technique. Standard CC and MLOviews of the bilateral breasts were obtained. Tomosynthesis views of thebilateral breasts were obtained at 1 mm increments. Computer-aideddetection was utilized by the radiologist in the interpretation of this exam. FINDINGS: The breasts are heterogeneously dense, which may obscure small masses.(ACR BI- RADS breast composition Category c)*. No significant masses, calcifications, or other findings are seen ineither breast. IMPRESSION: There is no mammographic evidence of malignancy. OVERALL ASSESSMENT: BI-RADS 2: Benign. RECOMMENDATION: Routine annual screening mammography. The patient will receive a lay summary of the results of this breastimaging exam. Lay summaries for mammography examinations will alsoidentify the patients personal breast tissue composition as required bystate law. Electronically signed by: Betina Sharma MD 04/20/2025 09:16 AM EDT RPWorkstation: [id number] Thank you for referring your patient to us, Betina Sharma MD [phone] (Electronically Signed - 04/20/2025 09:16) Amparo Lopez MD IMG MAMMOGRAPHY ORDERABL ES Final Result from Last 3 Months or Most Recently Relevant to Health Maintenance Insurance [employer] MEDICARE [employer] MEDICARE Member Subscriber Plan / Payer (Ef fective for All Dates) Name:Marisa Bella Relation to Subscriber:Self Name:Marisa Bella Payer ID:[id number] Type:Not on file Address: [address] [place] [id number] [facility] MEDICARE Member Subscriber Plan / Payer (Ef fective for All Dates) Name:Marisa Bella Relation to Subscriber:Self Name:Marisa Bella Payer ID:[id number] Type:Not on file Address: [address] [place] [id number] Member Subscriber Plan / Payer (Ef fective for All Dates) Name:Marisa Bella Relation to Subscriber:Self Name:Marisa Bella Payer ID:[id number] Type:Not on file Address: [address] [place] [phone] Advance Directives Documents on File Type Date Recorded Patient Soap Maker Expl anation Advance Directive-Scan 05/22/2023 Ortho pedics Note Advance Directive-Scan 03/17/2023 Medic al Records Transfer to [facility] Territory Sales Consultant Relationship Specialty Start Date End Date Amparo Lopez MD [address] [place] [address] PCP - General Internal Medicine 04/01/23 Amparo Lopez MD [address] [place] [address] PCP - [facility] attributed 06/10/25 Becca Browne MD Rn Shift Mgr Cardiovascular Disease 03/12/22 Al Platt MD [address] [place] [id number] Gastroenterology 03/26/22 Amparo Lopez MD [address] [place] [address] Internal Medicine 02/01/25
--- OUTSIDE RECORDS SUMMARY | 2025-08-30 10:39 | XMS_ITS | Encounter Summary ---
Author Organization [facility] Address [address] [place] [address] Care Team Providers Care Associate Entertainment Editor Name Role Phone Maria Dolores Sinha MD Primary Care Provider [phone] Becca Browne MD Unavailable [phone] Al Platt MD Unavailable Amparo Lopez MD Primary Care Provider + Amparo Lopez MD Unavailable [phone] Amparo Lopez MD Unavailable [phone] Amparo Lopez MD Unavailable [phone] Amparo Lopez MD Unavailable [phone] Encounter Details Date Type Department Care Team (Late st Contact Info) Description 05/24/[address] [address] [place] [id number] Al Platt MD [address] [place] [id number] Social History Tobacco Use Types Packs/Day Years Used Date Smoking Tobacco: Former Cigarettes 4 - 2013 Smokeless Tobacco: Former Alcohol Use Standard [...] file Not on file Not on file COVID-19 Exposure Response Date Recorded In the last 10 days, have gary u been in contact with someone who was confirmed or suspected to have Coronavirus/COVID-19? No / Unsure 05/24/2022 12:31 PM EDT documented as of this encounter Plan of Treatment Upcoming Encounters Date Type Department Care Team (Late st Contact Info) Description 03/06/2026 1:00 PM EDT Office Visit [facility] Department of Family Medicine [address] [place] [phone] Amparo Lopez MD [address] [place] [address] documented as of this encounter Goals Goal [...] Therapy Not on track( 4:43 PM EDT) Jai Roth PT Note: Pt LE strength will be at least 4+/5 grossly after 3 weeks of PT PT LTG 1 Physical Therapy Not on track( 4:44 PM EDT) No Jai Mcclellan PT Note: Pt will be able to sleep at least 5 hours w/o interruption after 6 weeks of PT documented as of this encounter Procedures Procedure Name Priority Date/Time Associated Diagnosis Comments PATHOLOGY REPORT 05/24/2022 12:0 0 AM EDT documented in this encounter Results * PATHOLOGY REPORT (05/24/2022 12:00 AM EDT) us Nihal Platt MD PATHOLOGY/CYTOLOGY ORDERABLES Fi nal Result documented in this encounter Visit Diagnoses Not on filedocumented in this encounter Care Teams Associate Entertainment Editor Relationship Specialty Start Date End Date Maria Dolores Sinha MD [address] [place] [address] PCP - General Internal Medicine 09/14/21 03/31/23 Amparo Lopez MD [address] [place] [address] PCP - General Internal Medicine 04/01/23 Amparo Lopez MD [address] [place] [address] PCP - [facility] JULY Attributed 12/11/23 09/09/24 Amparo Lopez MD [address] [place] [address] PCP - Annistonjovana Quintana MA Attributed 09/10/24 06/09/25 Amparo Lopez MD [address] [place] [address] PCP - Star[facility] JULY attributed 06/10/25 Becca Browne MD [address] [place] [address] Office Asst Cardiovascular Disease 03/12/22 Al Platt MD [address] [place] [id number] Gastroenterology 03/26/22 Amparo Lopez MD [address] [place] [address] Internal Medicine 02/01/25 documented as of this encounter
--- NOTE | 2025-08-30 14:18 | P.OP_ITS ---
Operative Note Operative Note Date of Service: 08/30/25 Narrative: Preoperative diagnosis: 1) adjacent degenerative disc disease L1-L2 2) status post L2-L5 fusion Postprocedure diagnosis: 1) same as above Procedure: 1) L1-L2 oblique lateral lumbar interbody fusion with discectomy, preparation of the endplates and placement of a titanium bullet cage packed with allograft, anterior to the transverse process in modified prone position, with intraoperative biplanar fluoroscopy imaging and electrophysiological monitoring 2) Removal of bilateral L3 pedicle screws 3) L2 and L3 posterior minimally invasive pedicle screw placement and posterior lateral fusion with intraoperative biplanar fluoroscopic imaging and electrophysiological monitoring Consent Informed Consent was obtained for this operation. I have explained the nature, purpose and benefits of the operation. I have discussed the risks and benefit of the operation including possible complications or adverse events with patient/family. Alternative(s) were discussed with the patient with their relative benefits and risks as well as the consequences of not accepting the operation were included in obtaining consent. Surgeon: DANIEL FIGUEROA MD, PHD Procedure Assisted By: shanna Oropeza Description of Procedure: This is a complex surgery on the lumbar spine and an oceanographer assistant as needed for safety of the surgery for setup of instrumentation, retraction and closing. History: 75-year-old female had a previous L2-L5 lumbar fusion done in another institution. She presented with progressive severe back pain and imaging showed adjacent degenerative disc disease L1-L2. The decision was made to offer the patient an oblique lumbar lateral interbody fusion L1-L2 followed by revision of the posterior instrumentation with removal of the bilateral tubes pedicle screws and extension of the posterolateral fusion to L2-3 with instrumentation. The procedure and complications were explained and the patient was consented. Procedure: The patient was brought to the operating room and endotracheally intubated. The patient was positioned on the Kwasi spine table in a modified prone position for ease of access from the left side.. 2C arms were installed for fluoroscopy. Prepping and draping was done followed by timeout. The landmarks, including spinal processes, transverse processes, disc space, endplates and pedicles are identified and marked. The following steps are taken for each specified level: L1-L2 level: Cage size 11 mm high and 30 mm long titanium . The patient was turned using the rotation of the surgical table so a near direct anterior lateral approach to the lumbar spine could be achieved. A small incision was then made superior to the mid iliac crest and then using biplanar fluoroscopy visualization, under electrophysiological monitoring and stimulation, we introduced an electrophysiological probe through the retroperitoneal space into the desired disc anterior to the transverse process and then passed it into the disc space after finding a silent window. The sleeve was retained and the probe was removed, then the K wire was passed sequentially into the disc space. A dilating tube was then passed along the same route. Following this, a working channel, a working channel was then passed sequentially into the disc space. The working channel was manually held in position while a series of disc cleaning tools were passed through the channel to remove the affected disc under clear and direct biplanar fluoroscopic visualization, decompress the nerve roots and equal corticated vertebral endplates at this segment. Arthrodesis of the intervertebral space via an anterior retroperitoneal exposure was achieved through Kambin's [place] and lateral extraforaminal space. Allograft was added into the anterior disc space. The working channel was then removed. A titanium interbody cage tightly packed with allograft was then inserted into the midportion of the intervertebral disc space over a K-wire under biplanar fluoroscopic visualization and intraoperative neuro monitoring. The inter pedicular and intradiscal space was significantly enlarged and disc height was restored to worked normal anatomy there for releasing pressure on the nerve roots visual largely the spinal canal and lateral recess as well as foramen were bilateral decompressed and all bones were confined to the borders of the disc space . Then attention was turned to the revision of the posterior instrumentation. She had a very complicated instrumentation from L2-L5 with cross connectors and side connectors with 2 pairs of rods. The decision was made to cut the hadley under the L2 pedicle screw as this seems to be the most efficient way of revising and extending the posterior fusion. Two paramedian incisions were made over the L2 screw and part of the hadley. A high-speed drill was used to cut the hadley bilaterally. The locking cap was removed from the L2 screw bilaterally. The partial hadley was removed including a side connector bilaterally. Then the [employer] nurse advisor was used to remove the bilateral L2 screws. This instrument was required as the pedicle screws were fused into the vertebral body and I was unable to remove them with the available removal set. Two 7.5 x 15 mm screws were inserted as replacement of the removed bilateral L2 pedicle screws. Then we entered the L1 pedicle with the pediguard tap after which a K-wire was introduced into the vertebral body. Additionally, I used a small periosteal decorticator along the screws to refresh the surface of the bone and facet and I put some amount of allograft for additional stability for the posterolateral fusion. Over the K-wire we insert pedicle screws bilaterally at L1. The L1 and L2 screws were connected with a 40 mm hadley bilaterally. Each incision has been closed with 0 Vicryl for the fascia and a 3-0 Vicryl for the subdermal layer. Steri-Strips were used to approximate the incisions. An OpSite with Tegaderm was used to cover the incisions. Final x-rays and AP and lateral projection showed good position of the interbody device and instrumentation. All sponge and needle counts were correct. The patient was extubated and transported in a stable condition to the recovery room. This procedure was done with the aid of a physician oceanographer assistant as a qualified resident was not available. Anesthesia: General Estimated Blood Loss (ml): 300 Specimen: None Duration of Surgery: 2 hours and 45 minutes Postoperative Plan: Admit to inpatient for clinical observation.
--- NOTE | 2025-08-30 18:42 | PHA.MEDREC ---
Addendum entered by Aashish Lang, PharmD 08/30/25 18:52: MED REC CHECKED BY [facility] Original Note: Pharmacy Consult ? Medication Reconciliation Pharmacy has completed the medication reconciliation. Spoke with pt and pt daughter (Che) at bedside and pt was able to confirm her medications.
[2025-08-31 03:31] VITALS: BP 114/73; PULSE 84; RESP 16; TEMP 36.4; O2SAT 96
--- NOTE | 2025-08-31 04:34 | PC.NURSE ---
08/30/251929. Pt alert oriented x4. Pleasant and cooperative. Patient verbalizing readiness to ambulate. Patient with back safety precautions explained was able to sit by side of the bed, stand with a walker but unable to ambulate. Patient within 5 minutes of standing reported feeling nauseated and feeling like she was going to have hot flash . Assisted patient back to a sitting position as she began to dry heave into emesis bag. Zofran administered and words of encouragement offered to patient. Patient positioned in the bed with HOB elevated, pillows supporting lower back and N/V resolved shortly after Zofran administration. Patient unable to void during the night until 3 am/ Pt able to ambulated to the commode and was able to void 3500 cc of urine with a PVR of 0 by bladder scanner. Patient tolerating solid foods but Intake of liquids minimal so IVF's continued. Pt encouraged to oral hydrate. Pt tolerated ambulating to the commode without nausea or dizziness . With pain medication provided patient report her pain level is at a verbal 3 out of 10 scale and reports her back pain was a 11 before having surgery.
[2025-08-31 06:57] VITALS: BP 125/70; PULSE 83; RESP 16; TEMP 36.6; O2SAT 98
--- NOTE | 2025-08-31 07:38 | PM.DS ---
DS: Providers Provider Date of Service: 08/31/25 Date of admission: 08/30/25 09:21 Date of discharge: 08/31/25 Primary care physician: Amparo Mckeon DO DS: Summary Time Attestation Discharge Coordination Time (in mins): 12 Quality: Safe Use of Opioids Does Pt have an Active Cancer Diagnosis on the Problem List?: No Quality: Stroke Does the patient have a stroke diagnosis?: No Physical Exam Vital Signs: Vital Signs: Last Vital Signs Temp 98 F 08/31/25 06:57 Pulse 83 08/31/25 06:57 Resp 16 08/31/25 06:57 BP 125/70 08/31/25 06:57 Pulse Ox 98 08/31/25 06:57 O2 Del Method Room Air 08/31/25 06:57 O2 Flow Rate 3 08/30/25 15:28 BMI result Body Mass Index 24.7 Discharge Plan Discharge Anticipated Discharge Date/Time: 08/31/25 07:38 Patient Disposition: Home, Self-Care Discharge Diagnosis: s/p 1) L1-L2 oblique lateral lumbar interbody fusion 2) Removal of bilateral L3 pedicle screws 3) L2 and L3 posterior minimally invasive pedicle screw Referrals: Amparo Munoz DO [Primary Care Provider, Family Practice] - 1 Week Discharge Medications: New oxycodone 5 mg tablet 5 mg PO Q4H PRN (Reason: pain) Qty: 30 0RF Rx Instructions: Partial Fill upon patient request. Continued multivitamin Tablet 1 tab PO DAILY diltiazem HCl 120 mg capsule,extended release 24hr 120 mg PO DAILY metoprolol succinate 25 mg tablet extended release 24 hr 50 mg PO BID zinc acetate 50 mg (zinc) Capsule 50 mg PO DAILY calcium carbonate 500 mg calcium (1,250 mg) Tablet 1,000 mg PO DAILY ascorbic acid (vitamin C) [Vitamin C] 500 mg Tablet 500 mg PO DAILY magnesium oxide 500 mg magnesium Tablet 500 mg PO DAILY cholecalciferol (vitamin D3) [Vitamin D3] 25 mcg (1,000 unit) Tablet 25 mcg PO DAILY acetaminophen 650 mg Tablet Extended Release 1,950 mg PO Q8H PRN (Reason: Pain) Discharge Orders: Discharge Order (Routine); Ordered 08/31/25 Ordered By: Vernon Barbosa Diet: Advance to usual diet Activity on Discharge: As tolerated Stand Alone Forms: Patient Portal Discharge page Print Language: Croatian Activity Restrictions/Additional Instructions: After your spinal surgery we ask you to observe the following restrictions/guidelines: Activity: It is normal to feel some discomfort as you increase your activity, but that will improve with time. We ask you avoid heavy lifting or acitivities that cause pain. As a general rule, 8lbs is a safe limit for lifting right after surgery. Walk as much as you feel comfortable but not to exhaustion. You will feel extra tired the first few days after surgery. Stay well hydrated. It is OK to walk up and down stairs You may return to driving when you are off narcotics (such as vicodin, oxycodone, dilaudid, etc), and you are back to normal functional capacity. If you have any concerns please check with office before driving. Return to work is specific to each patient and each surgery, so please speak with your doctor/PA at first follow up. Please bring paperwork such as FMLA at that time if you need it filled out. Medications: We recommend you take 500mg Tylenol every 4 hours for the first week after surgery, if you do not have any liver issues and can tolerate this medication. Do not exceed 4,000mg daily. We also recommend you take Ibuprofen 600mg every 8 hours for the first week after surgery starting on post op day 1, ?if you do not have any kidney or sugar control issues and can tolerate this medication. Do not exceed 2,000mg daily. We will give you a short supply of narcotics after surgery (usually one weeks worth). If you need more please call the office but do not use more than prescribed. You will need to give our office 48 hours notice if you need narcotics refilled and we do not fill narcotics on weekends or evenings. If you are on a narcotic, it is a good idea to take a stool softener such as colace or senna to avoid constipation If you take blood thinner such as aspirin, Plavix, Coumadin, Effient, Eliquis etc for conditions such as Afib, DVT, Pulmonary embolus, coronary disease, stents etc please speak with your surgeon about specific details as to when you can resume these medications. You can resume NSAIDs on post op day 1 (eg: Motrin, Naproxen, etc). Follow up: Please call the office, , after surgery to arrange a 3 week follow up for wound check. Wound Care: You may remove your dressing on the first day after surgery. ?You may ?leave open to air. Please do not remove the steri strips underneath. they will fall off on their own in one week. IT IS NORMAL FOR THE WOUND TO OOZE OR BE BLOODY FOR A FEW DAYS AFTER SURGERY. ?IF THIS HAPPENS JUST PLACE NEW DRESSING OVER IT TO AVOID STAINING CLOTHES. You may shower on post op day # 1 We ask that you do not let the water soak the wound. If it does get wet, just towel dry lightly. Please do not scrub your incision or place any type of chemical/ointment on the wound. No tub baths, pools or jacuzzis for one month. If you have any leaking or redness from your wound, or fevers, please call the office. Care Plan Goals: Return to normal activity as tolerated Health Concerns: None Plan of Treatment: Follow-up in clinic in 2-3 weeks Assessment: POD: 1 Procedure: 1) L1-L2 oblique lateral lumbar interbody fusion 2) Removal of bilateral L3 pedicle screws 3) L2 and L3 posterior minimally invasive pedicle screw Shiloh is a pleasant 75-year-old female who underwent the above mentioned procedure with Dr. Bull yesterday. She was seen sitting upright in bed on [address] this morning. She reports that her pain very much so has improved since yesterday. She has been tolerating her oxycodone medication, but is unable to tolerate Dilaudid as it makes her itchy. She has been out of bed, is voiding well, and tolerating diet. The patient is requesting to discharge home this morning. Afebrile, vital signs stable. Normal strength and sensation. Back dressings have some staining without signs of hematoma. No active sanguineous drainage. Area is dry. Plan: Patient meets criteria to be medically discharged home. She was seen at bedside with Dr. Bull. I will send in a prescription of oxycodone to our pharmacy here at [facility].
[2025-08-31] MEDS: Metoprolol Succinate ER 50 MG TAB.ER.24H PO (08:20)
[2025-08-31] MEDS: dilTIAZem HCL CD 120 MG CAP.ER.DEG PO (08:21)
--- NOTE | 2025-08-31 08:56 | HO.POSTANES ---
Post Anesthesia Evaluation Post Anesthesia Evaluation Date of Service: 08/31/25 Vital Signs: Vital Signs Temp Pulse Resp BP Pulse Ox O2 Del Method 08/31/25 06:57 98 F 83 16 125/70 98 Room Air 08/31/25 03:31 97.5 F 84 16 114/73 96 Room Air 08/30/25 22:41 99.6 F 82 20 132/91 H 98 Room Air Anesthesia: General Mental Status: Awake Pain Control: Satisfactory Nausea/Vomiting: None Hydration: Adequate Anesthesia-Related Issues: No Anes. Related Issues
--- NOTE | 2025-08-31 09:15 | MHC.CM.PN ---
pt dcd home self pts dagter to transport
== END 2025-08-31 10:24 | disposition home or self-care (01) | DRG 451 ==
LOC: HO.SSSA 09:29 → HO.S3 14:42
PROVIDERS: Neurological Surgery; Admitting Provider Physician Assistant; PCP Family Medicine; Visit Provider Physician Assistant
PROC: 0SG00A0 Fusion of Lumbar Vertebral Joint with Interbody Fusion Device, Anterior Approach, Anterior Column, Open Approach (ICD-10-PCS; principal; 2025-08-30 11:00)
DX: M51.369 Other intervertebral disc degeneration, lumbar region without mention of lumbar back pain or lower extremity pain (principal); M48.061 Spinal stenosis, lumbar region without neurogenic claudication; Z98.1 Arthrodesis status; Z87.891 Personal history of nicotine dependence; Z79.899 Other long term (current) drug therapy
CPT/HCPCS: 86850; 86900; 86901; 97161; C1713; C1889; J0131; J0665; J0690; J1100; J1171; J1885; J2003; J2250; J2371; J2405; J2704; J3010; L8699

== ENCOUNTER → 2025-08-30 09:21 | Outpatient (BNV) | payer MEDICARE, SELFPAY | PROVIDERS: Admitting Provider Physician Assistant; PCP Family Medicine; Visit Provider Neurological Surgery | DX: M51.362 Other intervertebral disc degeneration, lumbar region with discogenic back pain and lower extremity pain (principal); Z98.1 Arthrodesis status | CPT/HCPCS: 20930; 22558; 22612; 22840; 22853; 63056; 99499 ==

== ENCOUNTER 2025-09-19 14:29 | Outpatient (AMB) | payer MEDICARE, SELFPAY ==
--- NOTE | 2025-09-19 14:33 | HO.SPINEOV ---
Intake Visit Reasons: 1st post op Intake Note: Ms. Bella is here today for her 1st post op. Cell Repairer Required: No Allergies adhesive tape Allergy (Severe, Verified 08/19/25 09:02) Rash codeine Allergy (Severe, Verified 08/19/25 09:02) Anaphylaxis erythromycin base Allergy (Severe, Verified 08/19/25 09:02) Itching Penicillins Allergy (Severe, Verified 08/19/25 09:02) Itching vancomycin Allergy (Severe, Verified 08/19/25 09:02) Itching Assessment & Plan Assessment & Plan (1) Lumbar spinal stenosis due to adjacent segment disease after fusion procedure: Code(s): M48.061 - Spinal stenosis, lumbar region without neurogenic claudication; M51.369 - Other intervertebral disc degeneration, lumbar region without mention of lumbar back pain or lower extremity pain; Z98.1 - Arthrodesis status Category: Medical Plan Procedure: 1) L1-L2 oblique lateral lumbar interbody fusion 2) Removal of bilateral L3 pedicle screws 3) L2 and L3 posterior minimally invasive pedicle screw placement with posterolateral fusionLa Nena Matamoros is a pleasant 75-year-old female who underwent the above procedure with Dr. Bull on 08/30/2025. She comes in today for 1st postoperative visit. She reports that overall she has done very well since her surgery. The severe pain that she had prior to her operation has subsided. She now has only mainly concerned with the occasional cramping/flare-up of low-grade low back pain. She states that she does not need to take her narcotic pain medication, and is overall doing very well. She is completing her activities of daily living without much issue. She asked several questions regarding the postoperative healing course, all of which I answered to the best of my ability. No new neurological deficits. The patient ambulates well and rises from a seated position without difficulty. She utilizes a 4 pronged cane to ambulate. Her posterior incision sites are closed and well healing. No signs of edema/drainage. 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 She requested that we have her go back remotely for the time being as this was offered to her by her employer, but she may need a updated letter during her next postop visit specifying that she can return in person. I would like to follow up with Shiloh in 6 weeks for her 2nd postoperative visit. She will need to get X-rays before her appt. Vernon Bull MD,PhD [facility] Coding Level of Care Code Global (64066) Diagnoses Lumbar spinal stenosis due to adjacent segment disease after fusion procedure M48.061; M51.369; Z98.1
--- OUTSIDE RECORDS SUMMARY | 2025-09-19 16:50 | XMS_ITS | Clinical Summary ---
Author Organization [facility] Address [address] [place] [address] Care Team Providers Care Manager Consumer Name Role Phone Amparo Lopez DO Unavailable [phone] Amparo Lopez DO Primary Care Provider + Allergies Active Allergy Reactions Criticality Noted Date Comments Adhesive Rash Low 11/29/2017 Only paper [id number] pt bandaides and tegaderms are okay Adhesive [...] to 14 days. 14 tablet 4 Active diazePAM (VALIUM) 5 mg tablet Take 1 tablet (5 mg total) by mouth 3 (three) times a day as needed for muscle spasms for up to 3 days. 2-3 times daily PRN 9 tablet 11/04/202 5 Active Active Problems Problem Noted Date Diagnosed [...] arthritis 11/21/2023 Postlaminectomy syndrome, lumbar region 06/24/20 Other chest [...] Encounters Date Type Department Care Team Description 09/13/2025 8:18 AM EST - 09/13/2025 12:22 PM EST Emergency [facility] Department of Emergency Services [address] [place] [id number] Junie Girard MD Muscle strain of left upper back, initial encounter (Primary Dx) Discharge Disposition: Home or Self Care from Last 3 Months Social History Tobacco [...] on file Sexual Orientation Not on file COVID-19 Exposure Response Date Recorded In the last 10 days, have yo u been in contact with someone who was confirmed or suspected to have Coronavirus/COVID-19? No / Unsure 09/13/2025 8:15 AM EST Last Filed Vital Signs Vital Sign Reading Time Taken Comments Blood Pressure 110/70 09/13/2025 12:19 PM EST Pulse 70 09/13/2025 12:19 PM EST Temperature 36.9 C (98.4 F) 09/13/2025 12:19 PM EST Respiratory Rate 18 09/13/2025 12:19 PM EST Oxygen Saturation 97% 09/13/2025 12:19 PM EST Inhaled Oxygen Concentration - - Weight 59 kg (130 lb) 09/13/2025 8:18 AM EST Height 157.5 cm (5' 2 ) 09/13/2025 8:18 AM EST Body Mass Index 23.78 09/13/2025 8:18 AM EST Plan of Treatment Health Maintenance Due Date Last Done Comments CT Colonography 1952 FIT-DNA (Cologuard) 1952 FIT 1952 FOBT 1952 Flex Sigmoidoscopy - 5y 1950 HIV Screening 1950 DTaP,Tdap,and Td Vaccines (1 - Tdap) 1970 Hepatitis C Screening 1970 Zoster Vaccines (1 of 2) 2002 Pneumococcal Vaccine, 50+ Years (2 of 2 - PCV) 12/03/2018 12/03/2017 COVID-19 Vaccine (1 - season) 2025 Influenza Vaccine (#1) 2025 , 07/28/2019, 07/15/2018 Medicare Annual Wellness (AWV) 03/03/2026 03/02/2025, 03/02/2024, 02/18/2023, Additional history exists Colonoscopy 06/26/2026 06/26/2016 Colorectal Cancer Screening 06/26/2026 Breast Cancer Screening 04/19/2027 04/19/20, 04/19/2025, 05/23/2022 Bone Density Screening Completed 04/19/2025 HPV Vaccines Aged Out No longer eligi ble based on patient's age to complete this topic Hepatitis A Vaccines Aged Out No long er eligible based on patient's age to complete this topic Meningococcal Vaccine Aged Out No guillermo francisco eligible based on patient's age to complete this topic Procedures Procedure Name Priority Date/Time Associated Diagnosis Comments HIGH SENSITIVITY TROPONIN I STAT 09/13/2025 11:[address] ANGIOGRAM PULMONARY WO+/OR W IV CONTRAST STAT 09/13/2025 10:[address] CERVICAL SPINE WO IV CONTRAST STAT 09/13/2025 9:26 AM EST COMPLETE BLOOD COUNT WITH AUTO DIFFERENTIAL STAT 09/13/2025 8:48 AM EST D-DIMER, QUANTITATIVE STAT 09/13/2025 8:48 AM EST HIGH SENSITIVITY TROPONIN I STAT 09/13/2025 8:48 AM EST BASIC METABOLIC PANEL STAT 09/13/2025 8:48 AM EST MAGNESIUM STAT 09/13/2025 8:48 AM EST COMPLETE BLOOD COUNT AND DIFFERENTIAL STAT 09/13/2025 8:48 AM EST ECG 12-LEAD STAT 09/13/2025 8:25 AM EST from Last 3 Months Results * High Sensitivity Troponin I (09/13/2025 11:10 AM EST) Only the most recent of2 resultswithin the time period is included. high sensitivity Troponin I 3 <=14 ng/L 09/13/2025 12:23 PM EST [facility] Comment:Refer to the high se nsitivity TnI algorithm for further workup Blood Venous blood specimen / Unknown Venipuncture / Unknown 09/13/2025 11:10 AM EST 09/13/2025 11:50 AM EST us Junie Girard MD LAB BLOOD ORDERABLES Final Result Performing Organization Address City/State/[facility] [[email or web address]] Co de Phone Number [facility] [address] [place] [address], [place] [phone] * CT angiogram pulmonary WO+/or W iv contrast (09/13/2025 10:14 AM EST) Anatomical Region Laterality Modality Chest Computed Tomogra phy 09/13/2025 10:3 7 AM EST Impressions 09/13/2025 10:49 AM EST 1. No evidence for pulmonary arterial filling defect with slight limitation due to respiratory motion. 2. Left lower lobe platelike atelectasis and widespread hypoventilatory changes. 3. Cardiomegaly with suspected left atrial dilatation. Consider correlation with echocardiogram. 4. Postsurgical changes involving the lumbar spine without visualized acute complication. Reminder to Patients and Legally Authorized Representatives: Language in this report is designed for medical communication with other treating physicians and clinical practitioners. Please speak with your provider(s) about any questions or concerns related to the content of this report. Bria Claire MD AF^0 Narrative 09/13/2025 10:49 AM EST CHEST CTA WITH CONTRAST INDICATION: Spine surgery 2 weeks prior. Pain in left neck, left upper back and left upper chest radiating to left arm. TECHNIQUE: Contiguous helical CT images of the chest were obtained from the thoracic inlet to the upper abdomen after intravenous administration of 75 mL of the low osmolar contrast agent Omnipaque-350 via power injector. Timing of contrast bolus was tailored to evaluate the pulmonary arteries. Coronal and sagittal reformatted images were subsequently obtained at a separate workstation. Up-to-date CT equipment and radiation dose reduction techniques were employed. CTDI Vol: 8.4 - 9.1 mGy. DLP: 282 mGy-cm. No immediate complications occurred after contrast administration. COMPARISON: Chest CT dated 06/16/2022. FINDINGS: The thyroid is again diffusely enlarged. Imaging is obtained during exhalation as evidenced by configuration of the trachea resulting in widespread hypoventilatory changes. Respiratory motion artifact limits evaluation of a mid section of the thorax. No discrete suspicious pulmonary nodule, mass or consolidation is observed. A 3 mm septal associated solid nodule in the right apex on image 409, series 3 is not significantly changed. Bandlike density in the left lower lobe is associated with volume loss, compatible with platelike atelectasis. Additional subsegmental atelectasis is present adjacent to the descending thoracic aorta. Biapical blebs and bulla are again demonstrated. The central airways are patent. No pleural effusions are present. No mediastinal, hilar or axillary lymphadenopathy is demonstrated. Contrast bolus is diagnostic, however respiratory motion artifact affects the midportion of the thorax. No filling defects are present within the pulmonary arteries allowing for motion artifact. Mild atherosclerotic changes are present within the normal caliber thoracic aorta. Heart size is prominent with dilated left atrium. The interventricular septum is normal in position and configuration. No pericardial effusion is observed. Osseous structures are without acute or aggressive abnormality. Lumbar spinal fusion hardware is partially visualized and appears intact. Subcutaneous fluid is demonstrated within the midline upper back, likely edema or postoperative seroma. Bilateral adrenal thickening is observed without defined nodule, not included on prior range of imaging. The included portions of the upper abdomen are otherwise unchanged, including dystrophic calcification involving the lateral spleen. Procedure Note Bria Claire MD - 09/13/2025 CHEST CTA WITH CONTRAST INDICATION: Spine surgery 2 weeks prior. Pain in left neck, left upperback and left upper chest radiating to left arm. TECHNIQUE: Contiguous helical CT images of the chest were obtained fromthe thoracic inlet to the upper abdomen after intravenous administrationof 75 mL of the low osmolar contrast agent Omnipaque-350 via powerinjector. Timing of contrast bolus was tailored to evaluate the pulmonaryarteries. Coronal and sagittal reformatted images were subsequentlyobtained at a separate workstation. Up-to-date CT equipment and radiation dose reduction techniques wereemployed. CTDI Vol: 8.4 - 9.1 mGy. DLP: 282 mGy-cm. No immediate complications occurred after contrast administration. COMPARISON: Chest CT dated 06/16/2022. FINDINGS: The thyroid is again diffusely enlarged. Imaging is obtained during exhalation as evidenced by configuration of thetrachea resulting in widespread hypoventilatory changes. Respiratorymotion artifact limits evaluation of a mid section of the thorax. Nodiscrete suspicious pulmonary nodule, mass or consolidation is observed. A3 mm septal associated solid nodule in the right apex on image 409, series3 is not significantly changed. Bandlike density in the left lower lobe isassociated with volume loss, compatible with platelike atelectasis.Additional subsegmental atelectasis is present adjacent to the descendingthoracic aorta. Biapical blebs and bulla are again demonstrated. Thecentral airways are patent. No pleural effusions are present. No mediastinal, hilar or axillary lymphadenopathy is demonstrated. Contrast bolus is diagnostic, however respiratory motion artifact affectsthe midportion of the thorax. No filling defects are present within thepulmonary arteries allowing for motion artifact. Mild atheroscleroticchanges are present within the normal caliber thoracic aorta. Heart sizeis prominent with dilated left atrium. The interventricular septum isnormal in position and configuration. No pericardial effusion isobserved. Osseous structures are without acute or aggressive abnormality. Lumbarspinal fusion hardware is partially visualized and appears intact.Subcutaneous fluid is demonstrated within the midline upper back, likelyedema or postoperative seroma. Bilateral adrenal thickening is observed without defined nodule, notincluded on prior range of imaging. The included portions of the upperabdomen are otherwise unchanged, including dystrophic calcificationinvolving the lateral spleen. IMPRESSION: 1. No evidence for pulmonary arterial filling defect with slightlimitation due to respiratory motion. 2. Left lower lobe platelike atelectasis and widespread hypoventilatorychanges. 3. Cardiomegaly with suspected left atrial dilatation. Considercorrelation with echocardiogram. 4. Postsurgical changes involving the lumbar spine without visualizedacute complication. Reminder to Patients and Legally Authorized Representatives: Language in this report is designed for medical communication with othertreating physicians and clinical practitioners. Please speak with your provider(s) about any questions or concernsrelated to the content of this report. Bria Claire MD AF^0 us Junie Girard MD IMG CT PROCEDURES Fin al Result * CT cervical spine without contrast (09/13/2025 9:26 AM EST) Anatomical Region Laterality Modality Spine, C-spine Computed Tomogra phy 09/13/2025 9:27 AM EST Impressions 09/13/2025 9:33 AM EST No acute fracture, significant subluxation or severe spinal canal stenosis. Multilevel degenerative changes of the cervical spine. Reminder to Patients and Legally Authorized Representatives: Language in this report is designed for medical communication with other treating physicians and clinical practitioners. Please speak with your provider(s) about any questions or concerns related to the content of this report. Chaitanya Victor MD AF^0 Narrative 09/13/2025 9:33 AM EST EXAM: CT CERVICAL SPINE WITHOUT CONTRAST INDICATION: Cervical radiculopathy, no red flags left neck and upper back pain going over to the left TECHNIQUE: Axial noncontrast CT images of the cervical spine were obtained utilizing automatic exposure control. Multiplanar reformats were performed and reviewed. COMPARISON: None available. FINDINGS: No acute fracture is seen. Grade 1 anterolisthesis of C3 on C4. Grade 1 retrolisthesis of C5 on C6. Normal atlantoaxial articulation. Severe multilevel degenerative disc disease. No severe spinal canal stenosis or significant neural foraminal narrowing. Prevertebral soft tissues appear normal. Lung apices are clear. Procedure Note Chaitanya Victor MD - 09/13/2025 EXAM: CT CERVICAL SPINE WITHOUT CONTRAST INDICATION: Cervical radiculopathy, no red flags left neck and upper back pain going over to the left TECHNIQUE: Axial noncontrast CT images of the cervical spine were obtainedutilizing automatic exposure control. Multiplanar reformats were performedand reviewed. COMPARISON: None available. FINDINGS: No acute fracture is seen. Grade 1 anterolisthesis of C3 on C4. Grade 1retrolisthesis of C5 on C6. Normal atlantoaxial articulation. Severemultilevel degenerative disc disease. No severe spinal canal stenosis orsignificant neural foraminal narrowing. Prevertebral soft tissues appear normal. Lung apices are clear. IMPRESSION: No acute fracture, significant subluxation or severe spinal canalstenosis. Multilevel degenerative changes of the cervical spine. Reminder to Patients and Legally Authorized Representatives: Language in this report is designed for medical communication with othertreating physicians and clinical practitioners. Please speak with your provider(s) about any questions or concernsrelated to the content of this report. Chaitanya Victor MD AF^0 us Junie Girard MD IMG CT PROCEDURES Fin al Result * (ABNORMAL) Complete Blood Count with Auto Differential (09/13/2025 8:48 AM EST) White Cell Count 9.3 3.6 - 11.0 10*3/uL 09/13/2025 8:58 AM [facility] Red Cell Count 3.58(L) 3.80 - 5.20 10*6/ L 09/13/2025 8:58 AM [facility] Hemoglobin 8.8(L) 12.0 - 16.0 g/dL 09/13/2025 8:58 AM [facility] Hematocrit 26.7(L) 35.0 - 47.0 % 09/13/2025 8:58 AM [facility] MCV 74.6(L) 80.0 - 100.0 fL 09/13/2025 8:58 AM [facility] MCH 24.6(L) 26.0 - 34.0 pg 09/13/2025 8:58 AM [facility] MCHC 33.0 32.0 - 36.0 g/dL 09/13/2025 8:58 AM [facility] RBC Distribution Width 15.4(H) 11.6 - 14.8 % 09/13/2025 8:58 AM [facility] Platelet count 578(H) 150 - 440 10*3/uL 09/13/2025 8:58 AM [facility] Neutrophils 85.3(H) 40.0 - 70.0 % 09/13/2025 8:58 AM [facility] Immature Granulocytes 0.5 0.0 - 0.6 % 09/13/2025 8:58 AM [facility] Lymphocytes 6.4(L) 20.0 - 50.0 % 09/13/2025 8:58 AM [facility] Monocytes 7.2 4.0 - 12.0 % 09/13/2025 8:58 AM [facility] Eosinophils 0.1 0.0 - 6.0 % 09/13/2025 8:58 AM [facility] Basophils 0.5 0.0 - 2.0 % 09/13/2025 8:58 AM [facility] Absolute Neutrophil Ct. 7.88(H) 1.40 - 6.30 10*3/uL 09/13/2025 8:58 AM [facility] Absolute Lymphocyte Ct. 0.59(L) 0.70 - 4.50 10*3/uL 09/13/2025 8:58 AM [facility] Absolute Monocyte Ct. 0.67 0.20 - 0.80 10*3/uL 09/13/2025 8:58 AM [facility] Absolute Eosinophil Ct. 0.01 0.00 - 0.30 10*3/uL 09/13/2025 8:58 AM [facility] Absolute Basophil Ct. 0.05 0.00 - 0.20 10*3/uL 09/13/2025 8:58 AM [facility] nRBC 0.0 0.0 - 0.0 % 09/13/2025 8:58 AM [facility] MPV 9.1(L) 9.4 - 12.4 fL 09/13/2025 8:58 AM EST [facility] Absolute immature granulocytes 0.05 10*3/uL 09/13/2025 8:58 AM EST [facility] Blood Venous blood specimen / Unknown Venipuncture / Unknown 09/13/2025 8:48 AM EST 09/13/2025 8:53 AM EST Junie Girard MD LAB BLOOD ORDERABLES Final Result Performing Organization Address [facility] de Phone Number [facility] [address] [place] [address], * (ABNORMAL) D-dimer, quantitative (09/13/2025 8:48 AM EST) D-Dimer, Quantitative 836(H) <=243 ng/mL D-DU 09/13/2025 9:06 AM EST [facility] Blood Venous blood specimen / Unknown Venipuncture / Unknown 09/13/2025 8:48 AM EST 09/13/2025 8:53 AM EST Narrative [facility] - 09/13/2025 9:06 AM EST Elevated levels of D-dimer are indicative of ongoing fibrinolysis and can be seen in various clinical conditions including deep venous thrombosis (DVT) and pulmonary embolism (PE), DIC, cancer patients, elderly and hospitalized patients, post-operatively, and in . Cut-off value for exclusion of PE: Levels of D-dimer below the cut-off of 230 ng/mL D-DU (D-dimer units) carry a high negative predictive value for PE when used in conjunction with other clinical findings (i.e. clinical pretest probability assessment). Reference range: The reference range established from a normal population is <244 ng/mL D-DU. This D-dimer test is reported in D-dimer units (D-DU). This D-dimer test is an FDA approved automated quantitative immunoassay. Junie Girard MD LAB BLOOD ORDERABLES Final Result [facility] [address] [place] [address], * Magnesium (09/13/2025 8:48 AM EST) Magnesium 2.0 1.8 - 3.0 mg/dL 09/13/2025 9:27 AM EST [facility] Blood Venous blood specimen / Unknown Venipuncture / Unknown 09/13/2025 8:48 AM EST 09/13/2025 8:53 AM EST Junie Girard MD LAB BLOOD ORDERABLES Final Result [facility] [address] [place] [address], * Basic metabolic panel (09/13/2025 8:48 AM EST) Sodium 138 137 - 144 mmol/L 09/13/2025 9:27 AM EST [facility] Potassium 4.0 3.6 - 5.1 mmol/L 09/13/2025 9:27 AM EST [facility] Chloride 106 100 - 111 mmol/L 09/13/2025 9:27 AM EST [facility] CO2 23 23 - 32 mmol/L 09/13/2025 9:27 AM [facility] Anion gap 9 3 - 11 mmol/L 09/13/2025 9:27 AM EST [facility] BUN 15 8 - 24 mg/dL 09/13/2025 9:27 AM [facility] Creatinine 0.60 0.60 - 1.20 mg/dL 09/13/2025 9:27 AM EST [facility] Glucose 125 70 - 200 mg/dL 09/13/2025 9:27 AM [facility] Comment: Normal fasting glucose 75-99 mg/dL Impaired fasting glucose 100 - 125 mg/dL Fasting glucose >125 mg/dL - provisional diagnosis of diabetes mellitus Random glucose >= 200 mg/dl is considered diagnostic for diabetes ADA Guidelines: Classification and Diagnosis of Diabetes: Standards of Medical Care in Diabetes - 2021, Diabetes Care 2020; S15-S33. Calcium 9.3 8.4 - 10.2 mg/dL 09/13/2025 9:27 AM EST [facility] eGFR 95 >60 mL/min/1. 73m*2 09/13/2025 9:27 AM EST [facility] Comment: Calculation based on the Chronic Kidney Disease Epidemiology Collaboration (CKD-EPI) equation refit without adjustment for race. Chronic Kidney Disease less than 60 ml/min/1.73 m2 Kidney Failure less than 15 ml/min/1.73 m2 Age (Years) Average GFR 20 - 29 116 ml/min/1.73 m2 30 - 39 107 ml/min/1.73 m2 40 - 49 99 ml/min/1.73 m2 50 - 59 93 ml/min/1.73 m2 60 - 69 85 ml/min/1.73 m2 70 + 75 ml/min/1.73 m2 Pursuant to [place] Public Act 06-120(1)(b)(1). The 2020 CKD-EPI calculation used to estimate eGFR has only been validated for patients 18 years or older. Blood Venous blood specimen / Unknown Venipuncture / Unknown 09/13/2025 8:48 AM EST 09/13/2025 8:53 AM EST Junie Girard MD LAB BLOOD ORDERABLES Final Result [facility] [address] [place] [address], * ECG 12 lead (09/13/2025 8:25 AM EST) 09/13/2025 8:25 AM EST 09/13/2025 9:15 AM EST Narrative [facility] - 09/13/2025 9:15 AM EST Ventricular Rate: 102 BPM Atrial Rate: 102 BPM P-R Interval: 216 ms QRS Duration: 80 ms Q-T Interval: 330 ms QTC Calculation(Bazett): 430 ms P Datto: 68 degrees R Datto: -13 degrees T Datto: 44 degrees Diagnosis: Sinus tachycardia with 1st degree A-V block with Premature supraventricular complexes Nonspecific T wave abnormality Abnormal ECG When compared with ECG of 16-Jun-2022 17:51, Nonspecific T wave abnormality, worse in Anterior leads Confirmed by Chely Harrington ([id number]) on 09/13/2025 8:57:33 AM Also confirmed by Chely Harrington ([id number]), field map editor Gwendolyn Mayorga ([id number]) on 09/13/2025 9:15:49 AM Procedure Note Chely Harrington MD - 09/13/2025 Ventricular Rate: 102 BPM Atrial Rate: 102 BPM P-R Interval: 216 ms QRS Duration: 80 ms Q-T Interval: 330 ms QTC Calculation(Bazett): 430 ms P Datto: 68 degrees R Datto: -13 degrees T Datto: 44 degrees Diagnosis: Sinus tachycardia with 1st degree A-V block with Prematuresupraventricular complexes Nonspecific T wave abnormality Abnormal ECG When compared with ECG of 16-Jun-2022 17:51, Nonspecific T wave abnormality, worse in Anterior leads Confirmed by Chely Harrington ([id number]) on 09/13/2025 8:57:33 AM Also confirmed by Chely Harrington ([id number]), field map editor Gwendolyn Mayorga ([id number])on 09/13/2025 9:15:49 AM us Junie Girard MD ECG ORDERABLES Final Result [facility] [place] [address], from Last 3 Months Insurance () [employer] MEDICARE [place]ARE [place] Advance Directives For more information, please contact: [phone] Documents on File Type Date Recorded Patient Clother In Expl anation Advance Directives 03/24/2025 2:19 PM Care Teams Manager Consumer Relationship Specialty Start Date End Date Amparo Lopez DO [address] [place] [address] PCP - Insurance Payer PCP 04/02/24 Amparo Lopez DO [address] [place] [address] PCP - General Internal Medicine 04/02/24
--- OUTSIDE RECORDS SUMMARY | 2025-09-19 16:50 | XMS_ITS | Data Portability ---
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 There is concerned she may require CT myelogram. She is claustrophobic and was medicated with Xanax. She tolerated the MRI very well but unfortunately is not diagnostic. There is no obvious stenosis there was significant artifact about the L4-5 foramina. She remains very uncomfortable. Her symptoms are consistent with neurogenic claudication. She is worse with standing and walking and relieved with sitting. She has no distal weakness. She has no tension sign. Her pedal pulses are strong. We discussed options. She is getting very sad over her decreased function. She is hoping to go to [place] next year. After long discussion we designed a plan. Will start her on Cymbalta 20 mg at night. If she tolerates this after 1 week she will increase to 40 mg at night.(She is not suicidal, she does not have glaucoma and her blood pressure is well-controlled). Will also obtain bilateral lower extremity EMGs and a lumbar CT myelogram. As per her request, we will order a next wave external stimulator to help her with her back pain She will follow-up after the studies. Not available 05/18/2024 15:43:15 06/29/2024 06/29/2024 74-year-old woman well-known to our service status post lumbar fusion years ago for spondylolisthesis done with Dr. Palumbo. Most recently she has been followed for lower extremity pain consistent with neurogenic claudication. At her last visit on May 18, 2024 we referred her for EMG and a CT myelogram as her MRI was not fully diagnostic because of her hardware. EMG/[facility]/June 23, 2024: Electrodiagnostic evidence suggestive chronic/remote right L5-S1 radiculopathy without active denervation changes. Possible very mild left deep peroneal neuropathy at the fibular head. No evidence of generalized sensory Giuliana motor neuropathy. And then there is an open displaced distal Dr. Bhagat degeneration I think that level his Today she returns with her symptoms unchanged. She feels she has proximal weakness which is difficult to document she has no distal lower extremity weakness. I reviewed her MRI as well as the images and the report. I called 2-week to discuss the study. There is some nomenclature issues due to transitional segment. Referring to the level above the fusion is the level of interest I am concerned that there is foraminal stenosis. This would correspond with her perceived proximal weakness. There is also relatively isolated severe Modic changes which could help explain her back pain. Dr. Knapp is uncertain due to the artifact. His report suggests that she has mild stenosis on the right and moderate to severe left foraminal stenosis. The issue is that the postcontrast images are suggestive of scar not true compression. It is unclear why she would have scar at this level as it is never been operated. I have a strong clinical suspicion that she would benefit from a DLIF at L2-3. Serious consideration is given to a myelogram though this is a tremendous financial difficulty for her as it would cost her thousand dollars siv-oj-kppiqi. She last had physical therapy about a year ago which was not beneficial. It is not inconceivable that the insurance company will demand additional PT. She wants to consider her options. She will follow-up and will call basis. Not available 06/29/2024 13:57:59 08/24/2024 08/24/2024 74-year-old woma n well-known to our service status post lumbar fusion years ago for spondylolisthesis done with Dr. Palumbo. Most recently she has been followed for lower extremity pain consistent with neurogenic claudication. EMG/[facility] [facility]/June 23, 2024: Electrodiagnostic evidence suggestive chronic/remote right L5-S1 radiculopathy without active denervation changes. Possible very mild left deep peroneal neuropathy at the fibular head. No evidence of generalized sensory Giuliana motor neuropathy. At her last visist, I had a strong clinical suspicion that she would benefit from a DLIF at L2-3. Serious consideration was given to a myelogram though this is a tremendous financial difficulty for her as it would cost her thousand dollars [id number]-jonaje. She last had physical therapy about a year ago which was not beneficial. It is not inconceivable that the insurance company will demand additional PT. Today she returns with a variety of complaints but her main issue is right-sided low back/buttock pain. She also has some perception of left lower extremity weakness and knee pain. Physical examination most pertinent finding is tenderness over the SI joint and pain with oukjaz-yj-wqdg. She does not have a great deal of discomfort with thrust. We have a long discussion regarding options. She has some foraminal stenosis in the upper lumbar spine I would tend not to pursue this surgically. Her main issue is the right buttock pain which could well be coming from the right SI joint. We refer her to for diagnostic SI joint injection. We asked her to keep a pain diary. She will follow-up after the injection. This encounter required over 25 minutes of time including chart review, preparation, and documentation, face time with the patient as well as review of other documents and studies. Not available 08/24/2024 12:00:47 12/07/2024 12/07/2024 74-year-old duy pineda long status post lumbar fusion for spondylolisthesis was last seen on August 24, 2024 with ongoing back and right buttock pain. We discussed the possibility that her pain was related to degeneration at L2-3 or possibly her right SI joint. Today she returns with her daughter Che. Previously her physical examination revealed tenderness over the SI joint with positive waebgq-ru-nivm and a great deal of discomfort with thrust. She was referred for diagnostic SI joint injection. We asked her to keep a pain diary. Today she equivocates about whether the SI joint injection was helpful. It seemed to give her modest relief for a day or 2. The needle insertion dramatically increased her typical SI joint pain. Subsequent to the injection she has noted dramatic increase in the pain I believe is mediated by her SI joint. I had an opportunity to review the CT myelogram as well as the report. I had some questions about the use of the word pseudoarthrosis was able to speak with Dr. 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 It does not represent either a surgical pseudoarthrosis nor pseudoarthrosis after sacral stress fracture. Today she is ambulating with a cane. She looks moderately uncomfortable. She is not tender over her hardware. She continues to be tender over her SI joint. I did not repeat the provocative tests as they were quite positive. She has a very complex problem. I am strongly suspicious the problem is emanating from the right SI joint. She does not have hardware tenderness. 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 Her options clued continued stoic forbearance which is something she prefers not to do. I am reluctant to offer additional lumbar surgery. She could be referred for consultation vis- -vis SI joint fusion but it would be preferable for her to undergo a second SI joint diagnostic injection as well as an injection into the transverse process sacral articulation. These injections should be done separately. If either injection gave her meaningful temporary relief we would be more inclined to recommend surgery on that body part. She wants to think about her options. As per her request we will email her this note so she can ponder her options were carefully. She will call us when she wants to follow-up. Not available 12/07/2024 17:14:59 05/31/2025 05/31/2025 74-year-old longtime patient of ours returns for management of her chronic back pain and perceived lower extremity weakness. She has been extensively evaluated including failed SI joint injections. Failed hip injections. 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 She had an MRI and a CT scan which revealed degeneration above the reconstruction and in the lower thoracic spine. In the past we discussed there is not likely intervention could help her. We discussed in greater detail the possibility of doing DLIF's or long posterior reconstruction. Overall this is not advisable. We discussed consultation with neurosurgery as well as additional treatment in the pain clinic. For now she will stoically forbear. She will follow-up in September before I retire. This encounter required over 25 minutes of time including chart review, preparation, and documentation, face time with the patient as well as review of other documents and studies. /////////////////// /////////////////// /////////// follow up, 12-07-2024 back pain Performed by Sai Aguilar MD, Orthopedic Surgery, 74-year-old woman long status post lumbar fusion for spondylolisthesis was last seen on August 24, 2024 with ongoing back and right buttock pain. We discussed the possibility that her pain was related to degeneration at L2-3 or possibly her right SI joint. Today she returns with her daughter Che. Previously her physical examination revealed tenderness over the SI joint with positive pekjyy-kg-czqh and a great deal of discomfort with thrust. She was referred for diagnostic SI joint injection. We asked her to keep a pain diary. Today she equivocates about whether the SI joint injection was helpful. It seemed to give her modest relief for a day or 2. The needle insertion dramatically increased her typical SI joint pain. Subsequent to the injection she has noted dramatic increase in the pain I believe is mediated by her SI joint. I had an opportunity to review the CT myelogram as well as the report. I had some questions about the use of the word pseudoarthrosis was able to speak with Dr. 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 It does not represent either a surgical pseudoarthrosis nor pseudoarthrosis after sacral stress fracture. Today she is ambulating with a cane. She looks moderately uncomfortable. She is not tender over her hardware. She continues to be tender over her SI joint. I did not repeat the provocative tests as they were quite positive. She has a very complex problem. I am strongly suspicious the problem is emanating from the right SI joint. She does not have hardware tenderness. 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 Her options clued continued stoic forbearance which is something she prefers not to do. I am reluctant to offer additional lumbar surgery. She could be referred for consultation vis- -vis SI joint fusion but it would be preferable for her to undergo a second SI joint diagnostic injection as well as an injection into the transverse process sacral articulation. These injections should be done separately. If either injection gave her meaningful temporary relief we would be more inclined to recommend surgery on that body part. She wants to think about her options. As per her request we will email her this note so she can ponder her options were carefully. She will call us when she wants to follow-up. low back pain Additional diagnosis detail: Lumbar back pain kyphosis of thoracic spine Not available 05/31/2025 10:21:49 Plan of Treatment Reminders Order Date Submit Date Provider Last Modified By Organization Details Last Modified Time Details Appointments FOLLOW UP 2024 01:00P Jeremiah Aguilar MD Not available Not available Not available Lab None recorded. Referral intervent ional pain medicine specialis t referral - Please contact patient to schedule appointme nt. Diagnosti c right SI joint injection . Please have patient keep a pain diary. 2023 [email or web address] Rosana Sparrow MD, [address], [place], [address], 09/07/2024 09:59:[address] referral - Bilateral lower extremity EMG/NCV 2nd Request, please contact patient directly to schedule 2023 024 [facility], [address] [facility], [facility] [address], [place], [address], 12/09/2024 15:42:05 Procedures None recorded. Surgeries None recorded. Imaging CT, myelogram , lumbar spine - Your thyroidNe urogenic claudicat ion. Prior fusion. MRI 2023 024 [facility], [address] [place], [address], 06/21/2024 14:37:27 Medication Orders Cymbalta 20 mg capsule,d elayed release 2023 024 Not available 05/18/2024 15:42:50 Patient TargetsNo targets recorded. Patient InstructionsNo instructions recorded. Reason for Referral Neurologist Referral for Chadd rogenic claudication Bilateral lower extremity EMG/NCV2nd Request, please contact patient directly to schedule Referring Physician: Sai Aguilar, Orthopedic Surgery, Encounter Date: 05/18/2024 Interventional Pain Medicine Specialist Referral for Low back pain Please contact patient to schedule appointment. Diagnostic right SI joint injection. Please have patient keep a pain diary. Referring Physician: Sai Aguilar Orthopedic Surgery, Encounter Date: 08/24/2024 Results Created Date Observation Date Name Description Value Unit Range Abnormal Flag Note LastModifiedBy Organization Detail LastModifiedTime 04/20/20 24 XR, thora cic spine , 2 view No observ ation record ed. [email or web address] Not Available 04/20 09:37:57 04/20/20 24 imagi ng/di agnos tic resul t No observ ation record ed. [email or web address] Not Available 04/20 09:39:47 04/20/20 24 imagi ng/di agnos tic resul t No observ ation record ed. [email or web address] Not Available 04/20 15:23:14 04/20/20 24 MRI, thora cic spine , w/o contr ast No observ ation record ed. [email or web address] Not Available 04/20 15:54:28 04/20/20 24 MRI, cervi shiv spine , w/o contr ast No observ ation record ed. [email or web address] Not Available 04/20 15:57:05 05/05/20 24 05/04/2024 MRI, lumba r spine , w/wo contr ast No observ ation record ed. [email or web address] [address], [address], 05/05/2024 19:16:14 06/24/20 24 06/23/2024 elect romyo gram + nerve condu ction study No observ ation record ed. [email or web address] [facility] [address], [address], 06/25/2024 08:20:27 08/19/20 24 08/19/2024 CT, myelo gram, lumba r spine No observ ation record ed. [email or web address] [facility] [address] [place], [address], 08/19/2024 22:53:49 08/20/2008/19/2024 CT, myelo gram, lumba r spine No observ ation record ed. [email or web address] [facility] [address] [place], [address], 08/20/2024 12:38:06 06/02/20 25 05/04/2024 MRI, lumba r spine , w/o contr ast No observ ation record ed. [email or web address] Not Available 2024 14:03:26 Result Notes None recorded. Problems Name Problem SNOMED Code Status Onset Date Resolution Date Notes Provider Name and Address Organization Details Recorded Time Essential hypertens ion 46913372 Active 2014 Essential hypertens ion - Overview: Formattin g of this note might be different from the original. ICD-10 Activatio n Not Available [facility] 23:53:13 History of total knee arthropla sty 24558913474 Active 2014 Status post total right knee replaceme nt Not Available [facility] 23:53:07 Chronic obstructi ve pulmonary disease 38493599 Active 2014 COPD (chronic obstructi ve pulmonary disease) Not Available [facility] 23:53:09 Supravent ricular tachycard ia 9802615 Active 2014 Supravent ricular tachycard ia Not Available [facility] 23:53:11 Iron deficienc y anemia 27749672 Active 2014 Iron deficienc y anemia Not Available [facility] 23:53:13 History of intestina l infection caused by Clostridi oides difficile 33947892466 9101 Active 2015 History of Clostridi um difficile colitis Not Available [facility] 5 23:53:07 Spondylos is 0967330 Active 2016 Spondylos is Not Available [facility] 5 23:53:12 Abnormal gait 59461280 Active 2016 Gait instabili ty Not Available [facility] 5 23:53:08 Lumbar spondylol isthesis 42329839967 9102 Active 2016 Spondylol isthesis of lumbar region Not Available [facility] 5 23:53:08 Adolescen t idiopathi c scoliosis of lumbar spine 37496832701 9105 Active 2016 Adolescen t idiopathi c scoliosis of lumbar region Not Available [facility] 5 23:53:09 Chronic low back pain 630854564 Active 2016 Chronic bilateral low back pain with bilateral sciatica Chronic low back pain without sciatica Not Available [facility] 5 23:53:15 Diverticu lum of large intestine without hemorrhag e 926307929 Active 2016 Diverticu losis of large intestine without hemorrhag e Not Available [facility] 5 23:53:16 Postopera tive ileus 347971166 Active 2017 Postopera tive ileus Not Available [facility] 5 23:53:11 Arthritis of hip 91079662 Active 2017 Hip arthritis Not Available [facility] 5 23:53:05 Bilateral carpal tunnel syndrome 33940103528 400749 Active 2017 Bilateral carpal tunnel syndrome Not Available [facility] 5 23:53:05 Pain of right hand 50276689809 9109 Active 2017 Hand pain, right Not Available [facility] 5 23:53:07 Pain of elbow region 68337930 Active 2017 Elbow pain, right Lef t elbow pain Not Available [facility] 5 23:53:08 Arthritis of joint of hand Active 2017 Hand arthritis Not Available [facility] 5 23:53:09 Arthritis of elbow 525404027 Active 2017 Elbow arthritis Not Available [facility] 5 23:53:10 Clostridi um difficile colitis 524490860 Active 2017 C. 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 58945782812 9107 Active 2017 Primary osteoarth ritis second MCP joint right hand Not Available [facility] 5 23:53:14 Greater trochante geremias pain syndrome 3805535 Active 2017 Greater trochante geremias bursitis of left hip Not Available [facility] 5 23:53:15 History of repair of hip joint 594942537 Active 2017 Status post left hip replaceme nt Not Available [facility] 5 23:53:06 Family history of breast cancer 042046521 Active 2018 Family history of malignant neoplasm of breast Not Available [facility] 5 23:53:14 Simple chronic bronchiti s 26045563 Active 2018 Simple chronic bronchiti s Not Available [facility] 5 23:53:13 Premature atrial contracti on 381069810 Active 2019 Premature atrial beats Not Available [facility] 5 23:53:06 Palpitati ons 89093012 Active 2019 Palpitati ons Not Available [facility] 5 23:53:10 Periphera l muscle fatigue 12585083 Active 2020 Leg fatigue Not Available [facility] 5 23:53:06 Spondylol ysis of cervical spine 952771990 Active 2020 Cervical spondylol ysis Not Available [facility] 5 23:53:05 Ventricul ar hypertrop hy 537842668 Active 2021 Asymmetri c septal hypertrop hy Not Available [facility] 5 23:53:10 Chest pain 84986292 Active 2021 Other chest pain Not Available [facility] 5 23:53:14 Kyphosis of thoracic spine 921774985 Active [address], [place], [address] , [place] [facility] 3 16:47:48 Scoliosis deformity of spine 294765705 Active [address], [place], [address] , [place] [facility] 3 16:48:03 Cramp in lower limb 873303991 Active [address], [place], [address] , [place] [facility] 3 16:48:09 Lumbar post-lami nectomy syndrome 688572962 Active 2022 Postlamin ectomy syndrome, lumbar region Not Available [facility] 23:53:12 Low back pain 601700774 Active [address], [place], [address] , [place] [facility] 14:24:44 Neck pain 34845156 Active [address], [place], [address] , [place] [facility] 4 14:25:02 History of lumbar fusion 21982834293 106 Active [address], [place], [address] , [place] [facility] 4 14:29:10 Stenosis of cervix 64806085 Active [address], [place], [address] , [place] [facility] 4 14:30:05 Stenosis of intervert ebral foramina 33056326234 9 Active [address], [place], [address] , [place] [facility] 4 14:30:27 Candicegenkylee killian 431324699 Active 2023 Sai Aguilar MD [address], [place], [address] , [place] [facility] 4 14:00:28 Claustrop hobia 96381110 Active 2023 Sai Aguilar MD [address], [place], [address] , [place] [facility] 4 15:25:05 Problem Notes None recorded. Medical Equipment None Reported. Allergies Allergen ID Allergen Name Allergen Category Reaction Reaction Severity Criticality Documentation Date Start Date Code Code System Note Provider Name and Address Organization Details Recorded Time 22337 vancomyci n medicatio n hives itching Not available Not available Not available 04/29/20242014 76962 RxNorm Barbara Plochocki null, [place] [facility] 5 09:45:12 83633 Product containin g penicilli n (product) medicatio n rash Not available Not available 04/29/20242014 92048 8001 SNOMED Barbara Plochocki null, [place] [facility] 09:45:12 99337 erythromy elly medicatio n anaphylax is Not available Not available 04/29/20242014 4053 RxNorm Barbara Plochocki null, [place] [facility] 5 09:45:12 84927 codeine medicatio n anaphylax is Not available Not available 04/29/20242014 2670 RxNorm Barbara Plochocki null, [place] [facility] 5 09:45:12 87892 Adhesive agent (substanc e) environme nt,medica tion rash Not available Not available 05/31/20252017 80344 0007 SNOMED Barbara Plochocki null, [place] [facility] 09:45:12 Medications Name Sig Start Date Stop Date Status Note LastModified by Organization Details LastModified Time losartan 50 mg tablet Take 1 tablet (50 mg total) by mouth daily. 12/15 completed Not Available Not Available Not Available diltiazem 5 mg/mL intravenous solution as directed 02/03 completed Not Available Not Available Not Available acetaminoph en 325 mg tablet Take 3 tablets (975 mg total) by mouth every 8 (eight) hours. 12/03 completed Not Available Not Available Not Available prednisone 10 mg tablet TAKE 4 TABLETS BY MOUTH DAILY FOR 2 DAYS THEN DECREASE BY 1 TABLET EVERY 2 DAYS UNTIL FINISHED 05/31 completed Not Available Not Available Not Available diltiazem ER (XR/XT) 240 mg capsule,ext ended release 24 hr, controlled Take 1 capsule (240 mg total) by mouth daily. 12/15 completed Not Available Not Available Not Available cetirizine 10 mg tablet active Not Available Not Available Not Available metoprolol succinate ER 50 mg tablet,exte nded release 24 hr Take 1 tablet (50 mg total) by mouth daily. 01/11 completed Not Available Not Available Not Available cephalexin 250 mg capsule TK ALL 4 CS AT ONCE SINGLE DOSE/ ONE HOUR PRIOR TO DENTAL WORK 08/19 completed Not Available Not Available Not Available hydrocodone 5 mg-acetamin ophen 325 mg tablet TK 1 T PO Q 12 H PRN P 04/21 completed Not Available Not Available Not Available meloxicam 15 mg tablet TAKE 1 TABLET BY MOUTH EVERY DAY 12/07 completed Not Available Not Available Not Available sennosides 8.6 mg-docusate sodium 50 mg tablet Take 1 tablet by mouth 2 (two) times a day. 01/19 completed Not Available Not Available Not Available lactated Ringers intravenous solution 11/18 completed Not Available Not Available Not Available tramadol 50 mg tablet active Not Available Not Available No t Available acetaminoph en 500 mg tablet active Not Available Not Available Not Available baclofen 20 mg tablet TAKE 1 TABLET BY MOUTH EVERY NIGHT AT BEDTIME NEEDED FOR MUSCLE SPASM active Not Available Not Available No t Available meloxicam 7.5 mg tablet 7.5 mg by oral route. active Not Available Not Available No t Available oxycodone-a cetaminophe n 5 mg-325 mg tablet active Not Available Not Available No t Available hydrocortis one 2.5 % topical cream with perineal applicator INSERT RECTALLY TO THE AFFECTED AREA TWICE DAILY active Not Available Not Available No t Available alprazolam 0.5 mg tablet Take 3 tablets 3 hours before MRI. May repeat with 1 tablet 90 minutes later active Not Available Not Available No t Available calcium 600 mg (as calcium carbonate 1,500 mg) tablet active Not Available Not Available Not Available hydromorpho ne 2 mg tablet Take 1 tablet (2 mg total) by mouth every 4 (four) hours as needed for pain. 04/21 completed Not Available Not Available Not Available alprazolam 0.25 mg tablet active Not Available Not Available Not Available diltiazem 120 mg tablet Take 1 tablet 3 times a day by oral route. active Not Available Not Available No t Available methocarbam ol 750 mg tablet TAKE 1 TABLET BY MOUTH EVERY NIGHT AT BEDTIME FOR MUSCLE SPASM 04/19 completed Not Available Not Available Not Available diltiazem ER 120 mg capsule,24 hr,extended release Take 1 capsule (120 mg total) by mouth daily. 04/02 completed Not Available Not Available Not Available baclofen 10 mg tablet 05/31 completed Not Available Not Available Not Available lidocaine 5 % topical patch UNWRAP AND APPLY 1 PATCH TO SKIN DAILY AND LEAVE ON FOR 12 HOURS THEN REMOVE. PATCH MAY REMAIN ON SKIN FOR 12 HOURS PER DAY active Not Available Not Available No t Available aspirin 81 mg chewable tablet 2021 active Not Available Not Available Not Avai lable diltiazem CD 120 mg capsule,ext ended release 24 hr active Not Available Not Available Not Available gabapentin 100 mg capsule Take one to two capsules three times a day as needed for pain 11/07 completed Not Available Not Available Not Available metoprolol succinate ER 25 mg tablet,exte nded release 24 hr Take 1 tablet (25 mg total) by mouth daily. active Not Available Not Available No t Available triamcinolo ne acetonide 10 mg/mL suspension for injection 02/27 completed Not Available Not Available Not Available losartan 50 mg-hydrochl orothiazide 12.5 mg tablet 11/07 completed Not Available Not Available Not Available loratadine 10 mg tablet Take 1 tablet (10 mg total) by mouth daily as needed for allergies . 08/19 completed Not Available Not Available Not Available duloxetine 20 mg capsule,del ayed release TAKE 1 CAPSULE BY MOUTH EVERY DAY AT BEDTIME active Not Available Not Available No t Available lidocaine (PF) 20 mg/mL (2 %) injection solution 02/27 completed Not Available Not Available Not Available fluocinolon e acetonide oil 0.01 % ear drops 08/19 completed Not Available Not Available Not Available cholecalcif lloyd (vitamin D3) 25 mcg (1,000 unit) tablet Take by mouth. 11/07 completed Not Available Not Available Not Available diclofenac 1 % topical gel RADHAMES 4 GRAMS EXT AA QID 08/19 completed Not Available Not Available Not Available cholecalcif lloyd (vitamin D3) 50 mcg (2,000 unit) tablet active Not Available Not Available Not Available ZTlido 1.8 % topical patch active Not Available Not Available Not Available Paxlovid 300 mg (150 mg x 2)-100 mg tablets in a dose pack 04/19 completed Not Available Not Available Not Available Vitals Date Recorded Body height Body mass index (BMI) Body weight Provider Name and Address Organization Details Last Updated DateTime 12/07/2024 160.02 cm 23 kg/m2 49308.01 g Barbara Ruiz [place] - [facility] 12/07/2024 15:20:03 Date Recorded Body height Body mass index (BMI) Body weight Provider Name and Address Organization Details Last Updated DateTime 05/18/2024 160.02 cm 23.7 kg/m2 55044.38 g Shannan Epps [place] - [facility] 05/18/2024 15:13:04 Date Recorded Body height Provider Name an d Address Organization Details Last Updated DateTime 05/31/2025 160.02 cm Barbara Ruiz [place] - [facility] 05/31/2025 09:45:00 Date Recorded Body height Body mass index (BMI) Body weight Provider Name and Address Organization Details Last Updated DateTime 06/29/2024 160.02 cm 23.7 kg/m2 78536.38 g Shannan Epps [facility] 06/29/2024 13:18:28 Date Recorded Body height Body mass index (BMI) Body weight Heart rate Body temperature Oxygen saturation Oxygen saturation in Arterial blood by Pulse oximetry Systolic And Diastolic Provider Name and Address Organization Details Last Updated DateTime 4 158.8 cm 23.76 kg/m2 44979 g 79 /min 97.7 [degF] 98 % 98 % 110/84 mm[Hg] Not Available [facility] 5 00:57:07 Date Recorded Body height Body mass index (BMI) Body weight Provider Name and Address Organization Details Last Updated DateTime 08/24/2024 160.02 cm 23.7 kg/m2 55210.38 g Shannan Epps [facility] 08/24/2024 11:31:38 Social History None recorded. Functional Status None recorded. Mental Status None recorded. Family History Nothing Reported. Medical History No medical history recorded. Gynecological HistoryNo gynecological history recorded. Obstetrics History GPAL:G 0 P 0 0 0 0 Immunizations Vaccine Type Date Status Note Provider Nam e and Address Organization Details Recorded Time pneumococcal polysaccharide PPV23 8 completed Not Available [facility] 08/02/2025 05:39:36 Influenza, split virus, quadrivalent, PF 8 completed Not Available [facility] 08/02/2025 05:39:36 Influenza, MDCK, quadrivalent, PF 9 completed Not Available [facility] 08/02/2025 05:39:36 Past Encounters Encounter ID Performer Location Encounter Start Date Encounter Closed Date Diagnosis/Indication Diagnosis SNOMED-CT Code Diagnosis ICD10 Code Diagnosis IMO Codes Diagnosis Note [id number] MD VALARIE Hernandez [address] [place] [address] [place] [address] 05/20/2023 16:07:30 05/20/2023 16:49:57 History of lumbar fusion 7943055535 9106 Z98.1 Kyphosis o f thoracic spine 602886412 M40.204 Scoliosis deformity of spine 454516847 M41.9 Cramp in lower limb 4499 97407 R25.2 [id number] DAYSI GOODWIN PA-C [address] [place] [address] 06/13/2023 11:38:29 06/13/2023 12:13:26 Kyphosis of thoracic spine 958134833 M40.204 History of lumbar fusion 4232813287 9106 Z98.1 Scoliosis deformity of spine 955466928 M41.9 Cramp in lower limb 4499 46540 R25.2 [id number] [facility] [address] [place] [address] 04/15/2024 13:28:12 04/15/2024 14:26:44 Kyphosis of thoracic spine 709481885 M40.204 History of lumbar fusion 7526021569 9106 Z98.1 Scoliosis deformity of spine 913716954 M41.9 Low back pain 147792454 M54.50 Additional diagnosis detail: Lumbar back pain Neck pain 54814275 M54.2 Stenosis o f intervertebral foramina 3838096196 09 M48.02 Additional diagnosis detail: Foraminal stenosis of cervical region [id number] [facility] [address] [place] [address] 04/29/2024 14:47:07 04/29/2024 15:22:36 History of lumbar fusion 6981528731 9106 Z98.1 Neurogenic claudication 417974997 R29.818 Claustrophobia 54095438 F40.240 [id number] MD VALARIE Hernandez [address] [facility] [address] 05/18/2024 15:10:26 05/18/2024 15:46:26 Neurogenic claudication 167218788 R29.818 Claustrophobia 30853949 F40.240 History of lumbar fusion 6391470189 9106 Z98.1 Kyphosis o f thoracic spine 684864131 M40.204 Low back pain 576214800 M54.50 Additional diagnosis detail: Lumbar back pain [id number] MD VALARIE Hernandez [address] [place] [address] 06/29/2024 13:12:16 06/29/2024 14:01:35 History of lumbar fusion 0081505417 9106 Z98.1 Low back pain 424063468 M54.50 Additional diagnosis detail: Lumbar back pain Neurogenic claudication 046440303 R29.818 [id number] MD VALARIE Hernandez [address] [place] [address] 08/24/2024 11:20:07 08/24/2024 12:00:42 Kyphosis of thoracic spine 929194158 M40.204 Low back pain 832823847 M54.50 Additional diagnosis detail: Lumbar back pain [id number] MD VALARIE Hernandez [address] [place] [address] 12/07/2024 15:11:42 12/07/2024 16:28:22 Low back pain 353098836 M54.50 Additional diagnosis detail: Lumbar back pain Kyphosis o f thoracic spine 254608451 M40.204 [id number] MD VALARIE Hernandez [address] [place] [address] 05/31/2025 09:34:53 05/31/2025 10:06:10 Low back pain 953596460 M54.50 Additional diagnosis detail: Lumbar back pain Scoliosis deformity of spine 766789540 M41.9 Stenosis o f intervertebral foramina 7980591668 09 M48.02 Additional diagnosis detail: Foraminal stenosis of cervical region Health Concerns Section Related Observation LastModified by Organization Detai ls LastModified Time None Recorded Concern Status LastModified by Organization Details LastModified Time None Recorded Advance Directives Directive None Recorded Payers Insurance Date Sequence Insurance Name Policy Number Policy [place] Covered Member ID [place] Member ID Guarantor Name 05/30/2025 1 [facility] (MEDICARE REPLACEMENT/AD VANTAGE - HMO) [id number] Marisa Bella [id number] Marisa Bella 06/29/2024 2 [place] Marisa Bella [id number] Marisa Bella 06/21/2024 1 [facility] (MEDICARE REPLACEMENT/AD VANTAGE - PPO) [id number] Marisa Bella [id number] Marisa Bella 12/06/2024 1 [employer] (MEDICARE REPLACEMENT/AD VANTAGE - PPO) [id number] Marisa Bella [id number] Marisa Bella OBGyn Episode No OBEpisode recorded.
--- OUTSIDE RECORDS SUMMARY | 2025-09-19 16:50 | XMS_ITS | Encounter Summary ---
Author Organization [facility] Address [address] [place] [address] Care Team Providers Care Support Services Manager Name Role Phone Maria Dolores Sinha MD Primary Care Provider [phone] Becca Browne MD Unavailable [phone] Al Platt MD Unavailable Amparo Lopez MD Primary Care Provider + Amparo Lopez MD Unavailable + [phone] Amparo Lopez MD Unavailable [phone] Amparo Lopez MD Unavailable [phone] Amparo Lopez MD Unavailable [phone] Encounter Details Date Type Department Care Team (Late st Contact Info) Description 05/24/[address] [facility] [address] [facility] [address] [place] [phone] Al Platt MD [address] [place] [id number] Social History Tobacco Use Types Packs/Day Years Used Date Smoking Tobacco: Former Cigarettes - 2013 Smokeless Tobacco: Former Alcohol Use [...] on file documented as of this encounter Goals Goal [...] * PATHOLOGY REPORT (05/24/2022 12:00 AM EDT) Al Platt MD PATHOLOGY/CYTOLOGY ORDERABLES Fi nal Result documented in this encounter Visit Diagnoses Not on filedocumented in this encounter Care Teams Support Services Manager Relationship Specialty Start Date End Date Maria Dolores Sinha MD [address] [place] [address] PCP - General Internal Medicine 09/14/21 03/31/23 Amparo Lopez MD [address] [place] [address] PCP - General Internal Medicine 04/01/23 Amparo Lopez MD [address] [place] [address] PCP - [facility] MA Attributed 12/11/23 09/09/24 Amparo Lopez MD [address] [place], [place] [id number] PCP - [facility] [place] Attributed 09/10/24 06/09/25 Amparo Lopez MD [address] [place], [place] [id number] PCP - [facility] MA attributed 06/10/25 Becca Browne MD [address] [place] [address] Neck Band Operator Cardiovascular Disease 03/12/22 Al Platt MD [address] [place] [address] Gastroenterology 03/26/22 Amparo Lopez MD [address] [place], [place] [id number] Internal Medicine 02/01/25 documented as of this encounter
--- OUTSIDE RECORDS SUMMARY | 2025-09-19 16:50 | XMS_ITS | Encounter Summary ---
Author Organization [facility] Address [address] [place] [address] Care Team Providers Care Production Control Supervisor Name Role Phone Provider, Mikie MEDLEY Primary Care Provider Un available Maria Dolores Sinha MD Primary Care Provider [phone] Becca Browne MD Unavailable [phone] Al Platt MD Unavailable Amparo Lopez MD Primary Care Provider + Amparo Lopez MD Unavailable + [phone] Amparo Lopez MD Unavailable + [phone] Amparo Lopez MD Unavailable + [phone] Amparo Lopez MD Unavailable + [phone] Encounter Details Date Type Department Care Team (Late st Contact Info) Description 09/16/2017 Scanned Document [facility] [place] [address] [place] [phone] Delvis Mcknight MD [address] [place] [address] Social History Tobacco Use Types Packs/Day Years [...] on filedocumented in this encounter Care Teams Production Control Supervisor Relationship Specialty Start Date End Date Mikie Davis MD PCP - General 03/10/15 09/13/21 Maria Dolores Sinha MD [address] [place] [address] PCP - General Internal Medicine 09/14/21 03/31/23 Amparo Lopez MD [address] [place] [address] PCP - General Internal Medicine 04/01/23 Amparo Lopez MD [address] [place] [address] PCP - [facility] J[facility]Y Attributed 12/11/23 09/09/24 Amparo Lopez MD [address] [place] [address] PCP - Starjovana Quintana MA Attributed 09/10/24 06/09/25 Amparo Lopez MD [address] [place] [address] PCP - Starjovana Brady MA attributed 06/10/25 Becca Browne MD [address] [place] [address] Court Interpreter Cardiovascular Disease 03/12/22 Al Platt MD [address] [place] [address] Gastroenterology 03/26/22 Amparo Lopez MD [address] [place] [address] Internal Medicine 02/01/25 documented as of this encounter
--- OUTSIDE RECORDS SUMMARY | 2025-09-19 16:50 | XMS_ITS | Encounter Summary ---
Author Organization [facility] Address [address] [place] [address] Care Team Providers Care Manager Of Clinical Name Role Phone Provider, Mikie MEDLEY Primary Care Provider Un available Maria Dolores Sinha MD Primary Care Provider [phone] Becca Browne MD Unavailable [phone] Al Platt MD Unavailable Amparo Lopez MD Primary Care Provider + Amparo Lopez MD Unavailable [phone] Amparo Lopez MD Unavailable [phone] Amparo Lopez MD Unavailable [phone] Amparo Lopez MD Unavailable [phone] Encounter Details Date Type Department Care Team (Late st Contact Info) Description 11/20/2017 Scanned Document [facility] [address] [place] [address] Jhony Mcdonald MD [address] [facility] [address] [place], [place] [id number] Social History Tobacco Use Types Packs/Day Years [...] filedocumented in this encounter Care Teams Manager Of Clinical Relationship Specialty Start Date End Date ProviderMikie MD PCP - General 03/10/15 09/13/21 Maria Dolores Sinha MD [address] [place] [address] PCP - General Internal Medicine 09/14/21 03/31/23 Amparo Lopez MD [address] [place] [address] PCP - General Internal Medicine 04/01/23 Amparo Lopez MD [address] [place] [address] PCP - Elroy HENDERSON MA Attributed 12/11/23 09/09/24 Amparo Lopez MD [address] [place] [address] PCP - Elroy Quintana MA Attributed 09/10/24 06/09/25 Amparo Lopez MD [address] [place] [address] PCP - Elroy Brady MA attributed 06/10/25 Becca Browne MD [address] [place] [address] Composite Layup Worker Cardiovascular Disease 03/12/22 Al Platt MD [address] [place] [address] Gastroenterology 03/26/22 Amparo Lopez MD [address] [place] [address] Internal Medicine 02/01/25 documented as of this encounter
--- OUTSIDE RECORDS SUMMARY | 2025-09-19 16:50 | XMS_ITS | Encounter Summary ---
Author Organization [facility] Address [address] [place] [address] Care Team Providers Care Cpc Name Role Phone Amparo Lopez DO Unavailable [phone] Amparo Lopez DO Primary Care Provider + Encounter Details Date Type Department Care Team (Late st Contact Info) Description 09/04/2022 Orders Only [address] [address] Micki Rice DDS [address] [place] [address] [place] [address] Social History Tobacco Use Types Packs/Day Years [...] on filedocumented in this encounter Care Teams Cpc Relationship Specialty Start Date End Date Amparo Lopez DO [address] [place], [place] [id number] PCP - Insurance Payer PCP 04/02/24 Amparo Lopez DO [address] [place], [place] [id number] PCP - General Internal Medicine 04/02/24 documented as of this encounter
--- OUTSIDE RECORDS SUMMARY | 2025-09-19 16:50 | XMS_ITS | Clinical Summary ---
Author Organization Formerly [facility] Address [address] [place] [address] Care Team Providers Care Vp Security Name Role Phone Becca Browne MD Unavailable [phone] Al Platt MD Unavailable Amparo Lopez MD Primary Care Provider + Amparo Lopez MD Unavailable [phone] Amparo Lopez MD Unavailable [phone] Allergies Active Allergy Reactions Criticality Noted Date Comments Adhesives/Tape Rash/Dermatitis Low 11/29/2017 Only paper tape-REDNESS Codeine Anaphylaxis High 11/16/2014 Erythromycin Anaphylaxis High 11/16/2014 Penicillins Rash/Dermatitis Low 11/16/2014 Vancomycin Hives,Other (See Comments),Itching Medium 11/30/2014 Tongue tingling Medications methocarbamol (ROBAXIN) [...] 25 MG 24 hr tablet 025 Active colchicine (COLCRYS) 0.6 mg tabletIndications: Calcium pyrophosphate arthropathy Take 1 tablet (0.6 mg total) by mouth daily. 30 tablet 1 025 Active Additional Information Patient not taking.Reported on 09/02/2025 ibandronate (BONIVA) 150 MG tabletIndications: Osteoporosis without current pathological fracture, unspecified osteoporosis type Take 1 tablet (150 mg total) by mouth every 30 days (once a month). Take in AM with glass of water prior to food; don't lie down for 60 minutes. 3 tablet 3 Active Additional Information Patient not taking.Reported on 09/02/2025 meclizine (ANTIVERT) 25 MG tabletIndications: Dizziness Take 1 tablet (25 mg total) by mouth 3 (three) times a day as needed for dizziness. 90 tablet 3 Active Additional Information Patient not taking.Reported on 09/02/2025 ondansetron (ZOFRAN-ODT) 8 MG disintegrating tabletIndications: Nausea and vomiting, unspecified vomiting type Take 1 tablet (8 mg total) by mouth 3 times daily (every 8 hours) as needed for nausea or vomiting. Place tablet on tongue and to dissolve. 30 tablet 3 Active baclofen (LIORESAL) 20 MG tablet Take 20 mg by mouth nightly as needed. FOR MUSCLE SPASM Active Cholecalciferol 50 MCG (2000 UT) Tab Ac tive hydrocortisone 2.5 % cream INSERT RECTALLY TO THE AFFECTED AREA TWICE DAILY Active lidocaine (LIDODERM) 5 % patch UNWRAP AND APPLY 1 PATCH TO SKIN DAILY AND LEAVE ON FOR 12 HOURS THEN REMOVE. PATCH MAY REMAIN ON SKIN FOR 12 HOURS PER DAY Active Lidocaine (ZTlido) 1.8 % Patch Active meloxicam (MOBIC) 7.5 MG tablet 7.5 mg by oral route. Active oxyCODONE (ROXICODONE) 5 MG immediate release tablet Active qgqirj-vxtqfakxp-g agnesium sulfates (Suprep Bowel Prep Kit) 17.5-3.13-1.6 [...] before procedure 2 each 022 2021 Discontinued traMADol (ULTRAM) 50 MG tabletIndications: Lumbar postlaminectomy syndrome,Other osteoarthritis of spine, unspecified spinal region Take 1 tablet (50 mg total) by mouth 4 times daily (every 6 hours) as needed for severe pain or moderate pain. 120 tablet 025 2024 Discontinued(T herapy completed) nabumetone (RELAFEN) 500 MG tabletIndications: Chronic low back pain without sciatica, unspecified back pain laterality Take 1 tablet (500 mg total) by mouth 2 (two) times a day as needed (arthritis pain). 60 tablet 025 2024 Discontinued(T herapy completed) ALPRAZolam (XANAX) 0.25 MG tablet 2024 Discontinued(T herapy completed) ALPRAZolam (XANAX) 0.5 MG tablet Take 3 tablets 3 hours before MRI. May repeat with 1 tablet 90 minutes later 2024 Discontinued(T herapy completed) cetirizine (ZyrTEC) 10 MG tablet 2024 Discontinued(T herapy completed) oxyCODONE-acetamin ophen (PERCOCET) 5-325 mg per tablet 2024 Discontinued(T herapy completed) Active Problems Problem Noted Date Diagnosed Date [...] Encounters Date Type Department Care Team Description 09/02/2025 2:30 PM EDT Office Visit [facility] [address] [place] [address] Amparo Lopez MD S/P lumbar fusion (Primary Dx); Chronic obstructive pulmonary disease, unspecified COPD type (HCC); Essential hypertension; Congestive heart failure, unspecified HF chronicity, unspecified heart failure type (HCC) 09/01/2025 Scanned Document [facility] [address] [place] [address] Amparo Lopez MD 07/20/2025 1:00 PM EDT Clinical Support [facility] [place] [address] [place] [address] Fan Ness MD Necklas, Gabriella, Au.D Tinnitus, bilateral (Primary Dx); Sensorineural hearing loss, bilateral; Impacted cerumen of left ear 06/27/2025 2:05 PM EDT Ancillary Procedure [facility] Radiology [address] [place] [phone] Low back pain, unspecified back pain laterality, unspecified chronicity, unspecified whether sciatica present 06/27/2025 1:30 PM EDT Consult [facility] Department of Pain [place] [address] [place] [address] Cas Baez MD Low back pain, unspecified back pain laterality, unspecified chronicity, unspecified whether sciatica present (Primary Dx) 06/27/2025 Travel from Last 3 Months Immunizations Immunization Administration [...] Used Date Smoking Tobacco: Former Cigarettes 1 2013 Smokeless Tobacco: Former Tobacco Cessation:Counseling Given: [...] Sign Reading Time Taken Comments Blood Pressure 109/76 09/02/2025 2:35 PM EDT Pulse 85 09/02/2025 2:35 PM EDT Temperature 36.6 C (97.8 F) 09/02/2025 2:35 PM EDT Respiratory Rate 14 09/02/2025 2:35 PM EDT Oxygen Saturation 97% 09/02/2025 2:35 PM EDT Inhaled Oxygen Concentration - - Weight 60.5 kg (133 lb 6.4 oz) 09/02/2025 2:35 P M EDT Height 157.5 cm (5' 2 ) 09/02/2025 2:35 PM EDT Body Mass Index 24.4 09/02/2025 2:35 PM EDT Plan of Treatment Health Maintenance Due [...] Bone Density (Females,Ages 65 and older) 04/19/2027 04/19/2025, 03/20/2023 Mammogram 04/19/2027 04/19/2025 Colonoscopy 05/24/2032 05/24/2022 Advance [...] EDT) No Jai Mcclellan, PT Note: Pt LE strength will be at least 4+/5 grossly after 3 weeks of PT PT LTG 1 Physical Therapy Not on track( 022 4:44 PM EDT) No Jai Mcclellan PT Note: Pt will be able to sleep at least 5 hours w/o interruption after 6 weeks of PT Procedures Procedure Name Priority Date/Time Associated Diagnosis Comments CA PURE TONE AUDIOMETRY AIR ONLY Routine 07/20/2025 1:00 PM EDT Tinnitus, bilateral Sensorineural hearing loss, bilateral XR LUMBAR SPINE 2 OR 3 VIEWS Routine 06/27/2025 2:23 PM EDT Low back pain, unspecified back pain laterality, unspecified chronicity, unspecified whether sciatica present DEXA BONE DENSITY AXIAL SKELETON, 1 OR MORE SITES Routine 04/19/2025 3:46 PM EDT Post-menopausal MM MAMMOGRAM SCREENING-BILATERAL Routine 04/19/2025 1:34 PM EDT Encounter for screening mammogram for malignant neoplasm of breast from Last 3 Months or Most Recently Relevant to Health Maintenance Results * Audiometry (07/20/2025 1:00 PM EDT) Narrative Karla Cueva Au.D - 07/20/2025 1:00 PM EDT Ankur Ross 07/20/2025 1:12 PM aFn Ness MD AUDIOLOGY SERVICES ORDERAB LES Final [...] andextension views. 3. Generalized disc space narrowing. us Cas Baez MD IMG DIAGNOSTIC IMAGING ORDERABLE S Final Result * DEXA Bone Density axial skeleton, 1 [...] Ranjeet Roman MD 04/20/2025 01:31 PM EDT Thank you for referring your patient to us, Ranjeet Roman MD [phone] (Electronically Signed - 04/20/2025 13:31) Narrative 04/20/2025 1:31 PM EDT EXAMINATION: BONE DENSITOMETRY CLINICAL INDICATION: Asymptomatic menopausal state. COMPARISON: This is the patients baseline examination. TECHNIQUE: Using a Lunar Prodigy Advance DXA system (software version: 14.10) manufactured by [employer], dual-energy x-ray absorptiometry was performed of the [...] the patients baseline examination. TECHNIQUE: Using a Com[employer]imize DXA system (software version:14.10) manufactured by [employer], dual-energy x-rayabsorptiometry was performed of the right [...] Roman MD 04/20/2025 01:31 PM EDT RPWorkstation: [id number] Thank you for referring your patient to us, Ranjeet Roman MD [id number] (Electronically Signed - 04/20/2025 13:31) Amparo Lopez [...] your patient to us, Betina Sharma MD [id number] (Electronically Signed - 04/20/2025 09:16) Narrative 04/20/2025 [...] Sharma MD 04/20/2025 09:16 AM EDT RPWorkstation: [id number] Thank you for referring your patient to us, Betina Sharma MD [id number] (Electronically Signed - 04/20/2025 09:16) Amparo Lopez MD IMG MAMMOGRAPHY ORDERABL ES Final Result from Last 3 Months or Most Recently Relevant to Health Maintenance Insurance [employer] Member Subscriber Plan / Payer (Ef fective for All Dates) Name:Marisa Bella Relation to Subscriber:Self Name:Marisa Bella Payer ID:[id number] Type:Not on file Address: [place] [phone] [employer] Member Subscriber Plan / Payer (Ef fective for All Dates) Name:Marisa Bella Relation to Subscriber:Self Name:Marisa Bella Payer ID:[id number] Type:Not on file Address: [place] [phone] [employer] [facility] MEDICARE Member Subscriber Plan / Payer (Ef fective for All Dates) Name:Marisa Bella Relation to Subscriber:Self Name:Marisa Bella Payer ID:[id number] Type:Not on file Address: [address] [place] [phone] Advance Directives Documents on File Type Date Recorded Patient Military Education Coordinator Expl anation Advance Directive-Scan 05/22/2023 Ortho pedics Note Advance Directive-Scan 03/17/2023 Medic al Records Transfer to [facility] Vp Security Relationship Specialty Start Date End Date Amparo Lopez MD [address] [place] [address] PCP - General Internal Medicine 04/01/23 Amparo Lopez MD [address] [place] [address] PCP - [facility] attributed 06/10/25 Becca Browne MD Director Of Reservations Cardiovascular Disease 03/12/22 Al Platt MD [address] [place] [address] Gastroenterology 03/26/22 Amparo Lopez MD [address] [place] [address] Internal Medicine 02/01/25
--- OUTSIDE RECORDS SUMMARY | 2025-09-19 16:50 | XMS_ITS | Clinical Summary ---
Author Organization [facility] [address] [facility] Address [address] [place] [address] Phone Care Team Providers Care Sports Clerk Name Role Phone Amparo Lopez Primary Care Provider Allergies Active Allergy Reactions Criticality Noted Date Comments Adhesive Rash Low 11/29/2017 Only paper [id number] pt bandaides and tegaderms are okay Codeine [...] (81 mg total) by mouth daily. 07/29/2022 Active calcium carbonate 1,500 mg (600 mg [...] (one) time each day. 90 capsule 3 03/29/2025 Active metoprolol succinate (TOPROL-XL) 25 mg 24 hr tablet Take 2 tablets (50 mg total) by mouth 1 (one) time each day. Do not crush or chew. 180 each 3 06/01/2025 06/01/20 26 Active Active Problems Problem Noted Date Diagnosed Date Nonrheumatic aortic valve insufficiency 03/30/20 25 Elevated blood pressure read ing without diagnosis of hypertension 03/30/2025 Lumbar postlaminectomy syndrome 11/19/2024 Inflammation of sacroiliac joint ([facility] V24) 1 11/13/2023 Postlaminectomy syndrome, lumbar region 06/24/20 23 Other chest pain 10/04/2022 Asymmetric septal hypertrophy 02/03/2022 Cervical spondylolysis 08/14/2021 Leg fatigue 01/26/2021 Palpitations 01/16/2020 Premature atrial beats 01/16/2020 Simple chronic bronchitis ([facility] V24, [facility] V28) 07/28/2019 Greater trochanteric bursitis of left hip 2017 Primary osteoarthritis of right hand 02/27/2018 C. difficile colitis 02/24/2018 Bilateral carpal tunnel syndrome 02/13/2018 Elbow arthritis 02/13/2018 Elbow pain, right 02/13/2018 Hand arthritis 02/13/2018 Hand pain, right 02/13/2018 Left elbow pain 02/13/2018 Chronic low back pain without sciatica 8 Hip arthritis 12/23/2017 Postoperative ileus ([facility] V24, [facility] V28) 0 12/03/2017 Diverticulosis of large intestine without hemorr jerica 11/07/2017 Adolescent idiopathic scoliosis of lumbar region 10/21/2017 Chronic bilateral low back pain with bilateral s ciatica 10/21/2017 Spondylolisthesis of lumbar region 10/21/2017 Gait instability 08/18/2017 Spondylosis 01/14/2017 Iron deficiency anemia 04/26/2015 Supraventricular tachycardia ([facility] V24) 04/03 Essential hypertension 03/08/2015 Overview (08/26/2024): ICD-10 Activation Resolved Problems Problem Noted Date Diagnosed Date Resolved Date Tachycardia 03/13/2025 03/14/2025 COPD (chronic obstructive pu lmonary disease) ([facility] V24, [facility] V28) 04/03/2015 06/30/2025 Encounters Date Type Department Care Team Description 08/24/2025 9:30 AM EDT Office Visit [facility] [address] [address] Rebekah Kline NP Pre-operative cardiovascular examination (Primary Dx); Nonrheumatic aortic valve insufficiency; Supraventricular tachycardia ([facility] V24) 06/30/2025 1:30 PM EDT Office Visit [facility] - [address] [address] Becac Browne MD Supraventricular tachycardia ([facility] V24) (Primary Dx) from Last 3 Months Immunizations Immunization Administration Dates Next Due Influenza Quadravalent, MDCK [...] TOTAL HIP; Surgeon: Jaskaran Farrell MD; Location: [facility] ([facility]); Service: Orthopedics; [...] [facility]; Service: Gastroenterology; Laterality: N/A; 06/26/16@10:30am [facility] Exchange# [id number] Medicaid# [id number] propofol TOTAL KNEE ARTHROPLASTY 03/29/2015 Right PROCEDURE:TOTAL KNEE ARTHROPLASTY;COMMENT:Proced ure: REPLACEMENT TOTAL KNEE; Surgeon: Jaskaran Farrell MD; Location: [facility] ([facility]); Service: Orthopedics; Laterality: Right; TOTAL KNEE ARTHROPLASTY 11/30/2014 Left PROCEDURE:TOTAL KNEE ARTHROPLASTY;COMMENT:Proced ure: REPLACEMENT TOTAL KNEE; Surgeon: Jaskaran Farrell MD; Location: [facility] ([facility]); Service: Orthopedics; Laterality: Left; Medical [...] 1 Alive Brother 2 (Age 29) PLANE INSOLE DOUBLER H Father Alive Mother (Age 59) BREAST CA Other Sister Alive Social History Tobacco Use Types Packs/Day Years Used Date Smoking Tobacco: Former Cigarettes 1 Q uit: 09/10/2014 Smokeless Tobacco: Never Comments:Quit 2013 Alcohol Use Standard Drinks/Week Comments Yes 11 (1 standard drink = 0.6 oz pu re alcohol) 2-3 x weekly Interpersonal Safety Answer Date Record ed Physical Abuse Unrecognized value 10/06/2024 Verbal Abuse Unrecognized value 10/06/2024 Comments No Sex and Gender Information Value Date Recorded Sex Assigned at Female 10/06/2024 8:33 AM EST Legal Sex Female 2:23 PM EST Gender Identity Female 10/06/2024 8:33 AM EST Sexual Orientation Not on file Obstetrics History Last Filed Vital Signs Vital Sign Reading Time Taken Comments Blood Pressure 128/78 08/24/2025 9:49 AM EDT Pulse 87 08/24/2025 9:49 AM EDT Temperature 36.7 C (98 F) 03/14/2025 5:51 AM EDT Respiratory Rate 16 03/14/2025 12:10 PM EDT Oxygen Saturation 99% 08/24/2025 9:49 AM EDT Inhaled Oxygen Concentration - - Weight 59 kg (130 lb) 08/24/2025 9:49 AM EDT Height 157.5 cm (5' 2 ) 08/24/2025 9:49 AM EDT Body Mass Index 23.78 08/24/2025 9:49 AM EDT Plan of Treatment Upcoming Encounters Date Type Department Care Team (Late st Contact Info) Description 02/23/2026 1:00 PM EDT [facility] Visit [facility] [place] [facility] [address] [place] [address] Becca Browne MD 19 [facility] [address] Cardioilogists [place], [place] [id number] Health Maintenance Due Date Last Done Comments DTaP,Tdap,and Td Vaccines (1 - Tdap) 1971 RSV Immunization Adult Patients (1 - Risk 50-74 years 1-dose series) 2002 Zoster Vaccines (1 of 2) 2002 Pneumococcal Vaccine: 50+ Years (2 of 2 - PCV) 12/03/2018 12/03/2017 Medicare Annual Wellness Visit 10/17/2022 Social Influencers of Health Screening 10/17/2022 Lung Cancer Screening (Low Dose CT) 03/20/2024 03/20/2023 Depression Screening 11/10/2024 COVID-19 Vaccine ( season) 2025 Influenza Vaccine (#1) 2025 0, 07/28/2019, 07/15/2018 Falls Risk Assessment 03/14/2026 03/14/2025 [...] Date/Time Associated Diagnosis Comments ECG 12-LEAD Routine 08/24/2025 10:42 AM EDT Pre-operative cardiovascular examination Nonrheumatic aortic valve insufficiency Supraventricular tachycardia (CMS/HCC V24) BASIC METABOLIC PANEL Routine 03/14/2025 8:21 AM [...] Health Maintenance Results * ECG 12 lead (08/24/2025 10:42 AM EDT) Narrative Rebekah Kline NP - 08/24/2025 10:42 AM EDT Sinus rhythm 76 bpm Rebekah Eliud CAMARGO ECG ORDERABLES Final Result * (ABNORMAL) Basic metabolic panel (03/14/2025 8:21 AM EDT) Sodium 136 135 - 145 mmol/L LAB CHE[facility]STR[facility] Potassium 3.8 3.5 - 5.1 mmol/L LAB CHEMISTRY METHOD 03/14/2025 9:14 AM EDT [facility] Chloride 103 98 - 107 mmol/L LAB CHEMISTRY METHOD 03/14/2025 9:14 AM [facility] CO2 22(L) 24 - 32 mmol/L LAB CHEMISTRY METHOD 03/14/2025 9:14 AM EDT [facility] Anion Gap 11 5 - 14 LAB CHEMISTRY METHOD 03/14/2025 9:14 AM [facility] Glucose 83 70 - 199 mg/dL LAB CHEMISTRY METHOD 03/14/2025 9:14 AM EDT [facility] BUN 9 7 - 17 mg/dL LAB CHEMISTRY METHOD 03/14/2025 9:14 AM EDT [facility] Creatinine 0.50 0.50 - 1.00 mg/dL LAB CHEMISTRY METHOD 03/14/2025 9:14 AM [facility] eGFR 100 >=60 mL/min/1. 73m2 LAB CHEMISTRY METHOD 03/14/2025 9:14 AM EDT [facility] Comment:Calculation based on the Chronic Kidney Disease Epidemiology Collaboration (CKD-EPI) equation refit without adjustment for race. BUN/Creatinine Ratio 18.0 12.0 - 20.0 LAB CHEMISTRY METHOD 03/14/2025 9:14 AM EDT [facility] Calcium 8.6 8.4 - 10.2 mg/dL LAB CHEMISTRY METHOD 03/14/2025 9:14 AM EDT [facility] Blood Venous blood specimen / Unknown Venipuncture / Unknown 03/14/2025 8:21 AM EDT 03/14/2025 8:46 AM EDT Haven Cui INFORMATION SYSTEMS OPERATOR LAB BLOOD ORDERABLES Final Res ult [facility] [address] [place] [address], [place] [phone] * Lipid panel (03/02/2024) LDL/HDL Ratio 0 Comment:No interpretation Triglycerides 0 mg/dL Comment:No interpretation Cholesterol 0 mg/dL Comment:No interpretation HDL 0 mg/dL Comment:No interpretation LDL Cholesterol 0 mg/dL Comment:No interpretation Blood Venous blood specimen / Unknown Navneet Provider LAB BLOOD ORDERABLES Deanna l Result * [...] on 09/03/2023 1:11 PM. Workstation Name - [id number] Procedure Note Isabel Washburn MD - 12/16/2023 [...] MD on 09/03/2023 1:11PM. Workstation Name - [id number] Amparo Lopez IM BI PROCEDURES Final Res [...] on 03/21/2023 8:34 AM. Workstation Name - [id number] Procedure Note Neisha Fuentes MD - 12/16/2023 [...] MD on 03/21/2023 8:34AM. Workstation Name - [id number] Amparo Lopez [facility] DXA PROCEDURES Final Re sult * CT [...] on 03/20/2023 4:50 PM. Workstation Name - Kvantum Procedure Note Garland Ellis MD - 12/16/2023 [...] MD on 03/20/2023 4:50PM. Workstation Name - BrandYourself Amparo STEEL CT PROCEDURES Final Res ult * Hepatitis C Screening (01/19/2019) [facility] Signature Hepatitis C Screening Abstracted Historical Provider [facility] Final Result * Colonoscopy (06/26/2016) Colonoscopy Abstracted, no interpretation Anatomical Region Laterality Modality Other us Historical Provider HEALTH MAINTENANCE Final Result from [...] currently active code status orders. Care Teams Sports Clerk Relationship Specialty Start Date End Date Amparo Lopez [address] [place] [phone] PCP - General 03/18/23
--- OUTSIDE RECORDS SUMMARY | 2025-09-19 16:50 | XMS_ITS | Encounter Summary ---
Author Organization [facility] Address [address] [place] [address] Care Team Providers Care Helper Chicken Farm Name Role Phone Provider, Mikie MEDLEY Primary Care Provider Un available Maria Dolores Sinha MD Primary Care Provider [phone] Becca Browne MD Unavailable [phone] Al Platt MD Unavailable Amparo Lopez MD Primary Care Provider + Amparo Lopez MD Unavailable [phone] Amparo Lopez MD Unavailable + [phone] Amparo Lopez MD Unavailable [phone] Amparo Lopez MD Unavailable [phone] Encounter Details Date Type Department Care Team (Late st Contact Info) Description 07/11/2017 Abstract [facility] [address] [place] [id number] Susana Blake MA [address] [facility] [address] [place] [address] Social History Tobacco Use Types Packs/Day Years [...] on filedocumented in this encounter Care Teams Helper [employer] Farm Relationship Specialty Start Date End Date ProviderMikie MD PCP - General 03/10/15 09/13/21 Maria Dolores Sinha MD [address] [place] [address] PCP - General Internal Medicine 09/14/21 03/31/23 Amparo Lopez MD [address] [place] [address] PCP - General Internal Medicine 04/01/23 Amparo Lopez MD [address] [place] [address] PCP - [place] [facility] MA Attributed 12/11/23 09/09/24 Amparo Lopez MD [address] [place] [address] PCP - Limaling Mariano MA Attributed 09/10/24 06/09/25 Amparo Lopez MD [address] [place] [address] PCP - [place] MA attributed 06/10/25 Becca Browne MD [address] [place] [address] Linker Up Cardiovascular Disease 03/12/22 Al Platt MD [address] [place] [address] Gastroenterology 03/26/22 Amparo Lopez MD [address] [place] [address] Internal Medicine 02/01/25 documented as of this encounter
--- OUTSIDE RECORDS SUMMARY | 2025-09-19 16:50 | XMS_ITS | Encounter Summary ---
Author Organization [facility] Address [address] [place] [address] Care Team Providers Care Flat Surfacer Name Role Phone Becca Browne MD Unavailable [phone] Al Platt MD Unavailable Amparo Lopez MD Primary Care Provider + Amparo Lopez MD Unavailable [phone] Amparo Lopez MD Unavailable [phone] Amparo Lopez MD Unavailable [phone] Encounter Details Date Type Department Care Team (Late st Contact Info) Description 01/28/2025 Scanned Document [facility] [address], [address] [place] [address] Unknown Unknow Provider Address Social [...] on filedocumented in this encounter Care Teams Flat Surfacer Relationship Specialty Start Date End Date Amparo Lopez MD [address] [place] [address] PCP - General Internal Medicine 04/01/23 Amparo Lopez MD [address] [place] [address] PCP - Elroy Quintana MA Attributed 09/10/24 06/09/25 Amparo Lopez MD [address] [place] [address] PCP - Elroy Brady MA attributed 06/10/25 Becca Browne MD [facility] Cardiovascular Disease 03/12/22 Al Platt MD [address] [place] [address] Gastroenterology 03/26/22 Amparo Lopez MD [address] [place] [address] Internal Medicine 02/01/25 documented as of this encounter
--- OUTSIDE RECORDS SUMMARY | 2025-09-19 16:51 | XMS_ITS | Encounter Summary ---
Author Organization [facility] Address [address] [place] [address] Care Team Providers Care Choirmaster Name Role Phone Becca Browne MD Unavailable [phone] Al Platt MD Unavailable Amparo Lopez MD Primary Care Provider + Amparo Lopez MD Unavailable [phone] Amparo Lopez MD Unavailable [phone] Encounter Details Date Type Department Care Team (Late st Contact Info) Description 09/01/2025 Scanned Document [facility] Department of Family Medicine [place] [address] [place] [address] Amparo Lopez MD [address] [place], [place] [id number] Social History Tobacco Use Types Packs/Day Years [...] Not o n file Not on file documented as of [...] on filedocumented in this encounter Care Teams Choirmaster Relationship Specialty Start Date End Date Amparo Lopez MD [address] [place] [address] PCP - General Internal Medicine 04/01/23 Amparo Lopez MD [address] [place] [address] PCP - Elroy Brady MA attributed 06/10/25 Becca Browne MD [facility] Cardiovascular Disease 03/12/22 Al Platt MD [address] [place] [address] Gastroenterology 03/26/22 Amparo Lopez MD [address] [place] [address] Internal Medicine 02/01/25 documented as of this encounter
== END 2025-09-19 15:03 | disposition home or self-care (01) ==
LOC: HO.HNS 14:30
PROVIDERS: PCP Family Medicine; Visit Provider Physician Assistant
DX: M48.061 Spinal stenosis, lumbar region without neurogenic claudication (principal); M51.369 Other intervertebral disc degeneration, lumbar region without mention of lumbar back pain or lower extremity pain; Z98.1 Arthrodesis status
CPT/HCPCS: 99024

== ENCOUNTER 2025-09-19 14:29 | Outpatient (REF) | payer MEDICARE, SELFPAY | END 2025-09-19 14:30 | disposition home or self-care (01) | LOC: HO.HOSX 14:29 | PROVIDERS: PCP Family Medicine; Visit Provider Physician Assistant | DX: M48.061 Spinal stenosis, lumbar region without neurogenic claudication (principal); M51.369 Other intervertebral disc degeneration, lumbar region without mention of lumbar back pain or lower extremity pain; Z98.1 Arthrodesis status | CPT/HCPCS: 99212 ==

== ENCOUNTER → 2025-10-04 10:49 | Outpatient (BNV) | payer MEDICARE, SELFPAY | PROVIDERS: Visit Provider Radiology Diagnostic Radiology | DX: M43.26 Fusion of spine, lumbar region (principal); M16.11 Unilateral primary osteoarthritis, right hip | CPT/HCPCS: 72110 ==

== ENCOUNTER 2025-10-04 15:10 | Outpatient (REF) | payer MEDICARE, SELFPAY ==
--- NOTE | ~2025-10-04 | XR_ITS ---
Indication: CR Xr Lumbar Spine 4v Min TECHNIQUE: AP, and lateral: Flexion, neutral, and extension view x-rays of the lumbar spine. Indication: Z98.1 - Arthrodesis status Comparison: 08/30/2025 fluoroscopic images. FINDINGS: Total hip replacement has been performed on the left. The right hip demonstrate mild to moderate axial joint space narrowing. There is chondrocalcinosis visible along the lateral superior femoral head. There are minute marginal osteophytes involving the right hip joint. There are 5 nonrib-bearing lumbar segments. There is 22 degrees levoscoliosis. Posterior pedicle screws and rods are present between L1-L5. There is no abnormal lucency at bone metal interfaces. There is interbody spacer at L1 to an interbody cage at L2-3. There is no subsidence. There is grade 2 anterolisthesis of L4-5. During flexion and extension, there is no visible instability. XR/XR lumbar spine 4V min IMPRESSION: Posterior lumbar interbody fusion at L1-L5. Interbody spacer at L1-2 and interbody cage at L2-3. L4-5: Grade 2 anterolisthesis. No instability with flexion and extension. Mild to moderate levoscoliosis of the lumbar spine. 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 Electronically signed by: Yovani Mayen MD 10/04/2025 11:21 AM [facility]
--- OUTSIDE RECORDS SUMMARY | 2025-10-04 13:59 | XMS_ITS | Encounter Summary ---
Author Organization [facility] Address [address] [place] [address] Care Team Providers Care Bus Greaser Name Role Phone Amparo Lopez DO Unavailable [phone] Amparo Lopez DO Primary Care Provider + Encounter Details Date Type Department Care Team (Late st Contact Info) Description 09/04/2022 Orders Only [address] [address] Micki Rice DDS [address] [place] [address] [place] [address] Social History Tobacco Use Types Packs/Day Years [...] on filedocumented in this encounter Care Teams Bus Greaser Relationship Specialty Start Date End Date Amparo Lopez DO [address] [place], [place] [id number] PCP - Insurance Payer PCP 04/02/24 Amparo Lopez DO [address] [place], [place] [id number] PCP - General Internal Medicine 04/02/24 documented as of this encounter
--- OUTSIDE RECORDS SUMMARY | 2025-10-04 13:59 | XMS_ITS | Clinical Summary ---
Author Organization [facility] Address [address] [place] [address] Care Team Providers Care Livestock Breeder Name Role Phone Juan ManuelAdamMckeonAmparo DO Primary Care Provider + Allergies Active Allergy Reactions Criticality Noted Date Comments Codeine Anaphylaxis High 11/16/2014 Erythromycin Anaphylaxis High 11/16/2014 Penicillins Rash Low 11/16/2014 Tape Rash Low 11/29/2017 Only paper [id number] pt bandaides and tegaderms are okay Vancomycin [...] 1 Alive Brother 2 (Age 29) [employer]ANE [employer] GU[employer] H Father Alive Mother (Age 59) BREAST [...] this topic Medical Devices Implanted Type Area Band Tacker Device Identifier Shelf Expiration Date Model / Serial / Lot Sponge Surgiflo 8ml Hemostatic Matrix Absorbable Latex Free - 316124 - [id number] Implanted:Qty: 1 on 11/26/2017 by Sai Aguilar MD at [facility] Hemostatic Agent Left: Spine Lumbar [employer] 07/10/2019 2991 / / [id number] Cement Simplex P Radiopaque Full Dose Bone - 310085 - [id number] Implanted:Qty: 2 on 11/30/2014 by Jaskaran Farrell MD at [facility] Left: Knee [employer] 04/09/2017 6191-1-010 / / [id number] Component Nexgen 32mm All Poly Ptlar - 198681 - [id number] Implanted:Qty: 1 on 11/30/2014 by Jaskaran Farrell MD at [facility] Left: Knee [employer] 08/09/2022 [id number] / / [id number] Insert Lps-Flex Nexgen 3-4mm E-F 10mm Net Mold Fix Uhmwpe - 021950 - [id number] Implanted:Qty: 1 on 11/30/2014 by Jaskaran Farrell MD at [facility] Left: Knee [employer] 07/09/2022 [id number] / / [id number] Plate Nexgen [id number] Cement Modular Stem Tivanium Pmma - 628322 - [id number] Implanted:Qty: 1 on 11/30/2014 by Jaskaran Farrell MD at [facility] Left: Knee [employer] 08/09/2024 [id number] / / [id number] Component Lps-Flex [employer] Solutions Option Nexgen F Cocr - 850091 - [id number] Implanted:Qty: 1 on 11/30/2014 by Jaskaran Farrell MD at [facility] Left: Knee [employer] 08/09/2024 [id number] / / [id number] System Gender Solutions Option Flex Cement Tkr Femur - 490011 - [id number] Implanted:Qty: 1 on 11/30/2014 by Jaskaran Farrell MD at [facility] Left: Knee [employer] [id number] / / Insert Legion 3-4 9mm Posterior Stabilized High Flexion Xlpe - 686278 - [id number] Implanted:Qty: 1 on 03/29/2015 by Jaskaran Farrell MD at [facility] Right: Knee [employer] 02/28/2024 [id number] / / [id number] Component Grace Ii 32mm Resurfacing Oxinium Ptlar Knee - 610959 - [id number] Implanted:Qty: 1 on 03/29/2015 by Jaskaran Farrell MD at [facility] Right: Knee [employer] 01/27/2025 78849333 / / [id number] Lgn Gii Ps Cemented Standard Insert - 379888 - [id number] Implanted:Qty: 1 on 03/29/2015 by Jaskaran Farrell MD at [facility] Right: Knee [employer] [id number] / / Cement Simplex P Radiopaque Full Dose Bone - 148009 - [id number] Implanted:Qty: 2 on 03/29/2015 by Jaskaran Farrell MD at [facility] [employer] 03/29/2017 6191-1-010 / / [id number] Component Legion Narrow Posterior Stabilize Femoral Knee - 319934 - [id number] Implanted:Qty: 1 on 03/29/2015 by Jaskaran Farrell MD at [facility] Right: Knee [employer] 06/29/2024 83755106 / / [id number] Baseplate Grace Ii 4 Cemented Titanium Nonporous Tibial - 858249 - [id number] Implanted:Qty: 1 on 03/29/2015 by Jaskaran Farrell MD at [facility] Right: Knee [employer] 08/29/2022 [id number] / / [id number] Kit Infuse Medium 2x1in 20ga 5.6ml Vial Absorbable Collagen - 794758 - [id number] Implanted:Qty: 1 on 11/26/2017 by Sai Aguilar MD at [facility] Left: Spine Lumbar [employer] 09/09/2019 [id number] / / [id number] Spacer Transcontinental 18mm Wide Medium 10d 11mm - 312565 - [id number] Implanted:Qty: 1 on 11/26/2017 by Sai Aguilar MD at [facility] Left: Spine Lumbar [employer] 375.271 / / Screw Creo Creo Amp 55mm 6.5mm Modular Rehman Bone Spine Sterile - 946934 - [id number] Implanted:Qty: 1 on 11/26/2017 by Sai Aguilar MD at [facility] r: Spine Lumbar [employer] 02/14/2022 1067.1656S / / [id number] Screw Creo Creo Amp 55mm 6.5mm Modular Rehman Bone Spine Sterile - 667573 - [id number] Implanted:Qty: 1 on 11/26/2017 by Sai Aguilar MD at [facility] r: Spine Lumbar [employer] 02/14/2022 1067.1656S / / [id number] Bone Cancellous Coarse 30cc - 245183 - [id number] Implanted:Qty: 1 on 11/26/2017 by Sai Aguilar MD at [facility] r: Spine Lumbar [employer] 01/30/2022 1103-12 / [id number] / 6.5 X 50mm Screw Modular Creo Amp - 496350 - [id number] Implanted:Qty: 1 on 11/26/2017 by Sai Aguilar MD at [facility] r: Spine Lumbar [employer] 1067.1650 / / 6.5 X 55mm Screw Modular Creo Amp - 744095 - [id number] Implanted:Qty: 1 on 11/26/2017 by Sai Aguilar MD at [facility] r: Spine Lumbar [facility] 1067.1655 / / Clamp Spinal Od6.5 Mm Mark To Mark - 427154 - [id number] Implanted:Qty: 2 on 11/26/2017 at [facility] r: Spine Lumbar [employer] 154.858 / / 5.5 Polyaxial Tulip Threaded Creo Amp - 462267 - [id number] Implanted:Qty: 4 on 11/26/2017 at [facility] r: Spine Lumbar [employer] 1119.0110 / / 5.5 Threaded Locking Cap Creo - 281110 - [id number] Implanted:Qty: 4 on 11/26/2017 at [facility] r: Spine Lumbar [employer] 1119.0010 / / 5.5mm Curved Mark Titanium Alloy 100mm Length - 260982 - [id number] Implanted:Qty: 1 on 11/26/2017 at [facility] Posterio r: Spine Lumbar [facility] 1119.7100 / / 5.5 Snap On Cross Connector 30 To 35mm Long Creo - 089211 - [id number] Implanted:Qty: 1 on 11/26/2017 at [facility] Posterio r: Spine Lumbar [facility] 1119.0030 / / Off Set Connection 20mm Implanted:Qty: 1 on 11/26/2017 at [facility] Posterio r: Spine Lumbar 124.971 / / Shell R3 Standard 52mm 3 Hole Poly Acetabular Hip - 307851 - [id number] Implanted:Qty: 1 on 05/27/2018 by Jaskaran Farrell MD at [facility] Left: Hip [employer] 04/16/2028 [id number] / / [id number] Liner R3 20d 52mm 36mm Xlpe Poly Acetabular Hip Sterile - 618421 - [id number] Implanted:Qty: 1 on 05/27/2018 by Jaskaran Farrell MD at [facility] Left: Hip [employer] 03/24/2028 86990795 / / [id number] Screw Reflection 30mm 6.5mm Reflection Spherical Head Bone - 577171 - [id number] Implanted:Qty: 1 on 05/27/2018 by Jaskaran Farrell MD at [facility] Left: Hip [employer] 12/24/2027 42987485 / / [id number] Screw Reflection 25mm 6.5mm Spherical Head Bone Acetabular - 793027 - [id number] Implanted:Qty: 1 on 05/27/2018 by Jaskaran Farrell MD at [facility] Left: Hip [employer] 01/28/2028 17335655 / / [id number] Stem Anthology 5 High Offset Porous Femoral Hip - 764113 - [id number] Implanted:Qty: 1 on 05/27/2018 by Jaskaran Farrell MD at [facility] Left: Hip [employer] 12/02/2027 72975102 / / [id number] Head Bude -3mm 12\14 Taper 36mm Revision Oxinium Femoral - 939232 - [id number] Implanted:Qty: 1 on 05/27/2018 by Jaskaran Farrell MD at [facility] Left: Hip [employer] 02/22/2028 17639757 / / [id number] Explanted Type Area Band Tacker Device Identifier Shelf Expiration Date Model / Serial / Lot Clamp External Fixation L18 Mm Od5.5-6.5 Mm Spine Mark To Mark - 425553 - [id number] Explanted:Qty: 1 on 11/26/2017 at [facility] Posterior: Spine Lumbar [employer] 154.860 / / Screw 6.5 X 45.Mm - 867316 - [id number] Explanted:Qty: 1 on 11/26/2017 at [facility] Posterior: Spine Lumbar [employer] 1067.1645 / / 5.5mm Curved Mark Titanium Alloy 90mm Length - 656436 - [id number] Explanted:Qty: 2 on 11/26/2017 at [facility] Posterior: Spine Lumbar [employer] 1119.7090 / / Advance Directives For more information, please contact: [phone] Documents on File Type Date Recorded 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 Care Teams Livestock Breeder Relationship Specialty Start Date End Date Amparo Lopez DO [address] [place] [address] PCP - General Family Medicine 03/18/23
--- OUTSIDE RECORDS SUMMARY | 2025-10-04 13:59 | XMS_ITS | Encounter Summary ---
Author Organization [facility] Address [address] [place] [address] Care Team Providers Care Automation Qa Lead Name Role Phone Provider, Mikie MEDLEY Primary Care Provider Un available Maria Dolores Sinha MD Primary Care Provider [phone] Becca Browne MD Unavailable [phone] Al Platt MD Unavailable Amparo Lopez MD Primary Care Provider + Amparo Lopez MD Unavailable [phone] Amparo Lopez MD Unavailable [phone] Amparo Lopez MD Unavailable [phone] Amparo Lopez MD Unavailable [phone] Encounter Details Date Type Department Care Team (Late st Contact Info) Description 11/20/2017 Scanned Document [facility] [address] [place] [address] Jhony Mcdonald MD [address] [facility] [address] [place], [place] [id number] Social History Tobacco Use Types Packs/Day Years [...] on filedocumented in this encounter Care Teams Automation Qa Lead Relationship Specialty Start Date End Date ProviderMikie MD PCP - General 03/10/15 09/13/21 Maria Dolores Sinha MD [address] [place] [address] PCP - General Internal Medicine 09/14/21 03/31/23 Amparo Lopez MD [address] [place] [address] PCP - General Internal Medicine 04/01/23 Amparo Lopez MD [address] [place] [address] PCP - Elroy HENDERSON MA Attributed 12/11/23 09/09/24 Amparo Lopez MD [address] [place] [address] PCP - Elroy Quintana MA Attributed 09/10/24 06/09/25 Amparo Lopez MD [address] [place] [address] PCP - Elroy Brady MA attributed 06/10/25 Becca Browne MD [address] [place] [address] Photo Finisher Cardiovascular Disease 03/12/22 Al Platt MD [address] [place] [address] Gastroenterology 03/26/22 Amparo Lopez MD [address] [place] [address] Internal Medicine 02/01/25 documented as of this encounter
--- OUTSIDE RECORDS SUMMARY | 2025-10-04 13:59 | XMS_ITS | Data Portability ---
Author Organization [place] [facility] Address [address] [place] [address] Care Team Providers Care Biology Lecturer Name Role Phone NANI WHEATLEY Referring Provider Assessment Encounter Date Assessment Date Assessment LastModified by Organization Details LastModified Time 06/29/2024 06/29/2024 74-year-old woman well-known to our service status post lumbar fusion years ago for spondylolisthesis done with Dr. Palumbo. Most recently she has been followed for lower extremity pain consistent with neurogenic claudication. At her last visit on May 18, 2024 we referred her for EMG and a CT myelogram as her MRI was not fully diagnostic because of her hardware. EMG/[facility]/Jhonathan-Ivet posito/June 23, 2024: Electrodiagnostic evidence suggestive chronic/remote [...] as it would cost her thousand dollars rry-lf-jtpogh. She last had physical therapy about a year ago which was not beneficial. It is not inconceivable that the insurance company will demand additional PT. She wants to consider her options. She will follow-up and will call basis. Not available 06/29/2024 13:57:59 08/24/2024 08/24/2024 74-year-old duy n well-known to our service status post lumbar fusion years ago for spondylolisthesis done with Dr. Palumbo. Most recently she has been followed for lower extremity pain consistent with neurogenic claudication. EMG/[facility]/Jhonathan-[facility] posito/June 23, 2024: Electrodiagnostic evidence suggestive [...] as it would cost her thousand dollars qof-jy-mewueq. She last had physical therapy about a [...] over the SI joint and pain with qbzhlw-da-mvwg. She does not have a great deal [...] Not available 08/24/2024 12:00:47 12/07/2024 12/07/2024 74-year-old woma n long status post lumbar fusion for spondylolisthesis was last seen on August 24, 2024 with ongoing back and right buttock pain. We discussed the possibility that her pain was related to degeneration at L2-3 or possibly her right SI joint. Today she returns with her daughter Che. Previously her physical examination revealed tenderness over the SI joint with positive gwaurm-hq-oizk and a great deal of discomfort with [...] injections. Most recently she was seen by superintendent [employer]. She had an MRI and a CT [...] tenderness over the SI joint with positive oluaav-pr-gzaj and a great deal of discomfort with [...] of thoracic spine Not available 05/31/2025 10:21:49 09/27/2025 09/27/2025 75-year-old monique mahan well-known to our practice returns with her daughter Che to update us on her progress. Previously she was doing a good deal of pain though she has a significant scoliotic deformity. Since we saw her last she underwent extension of her fusion to L1 to the anterior basilar and posterior hardware. Her pain is much improved since the surgery. Wounds are well-healed she is grossly neurologically intact. As per her request we obtained radiographs. She has new hardware with anterior and posteriorly at L1-2. She has marked scoliotic deformity above this. The family was interested in my opinion. My opinion is unchanged. But I determined it is surgery at L1 she has a significant risk of progression of her deformity requiring surgery. Initially we did not want to proceed because we felt a less global procedure carries a higher risk of failure. For now she is doing well. She will remain active. She understands I am retiring. She can follow-up with her neurosurgeon or return to our office to see Dr. Ly. For now no specific return appointment is scheduled. This encounter required over 25 minutes of time including chart review, preparation, and documentation, face time with the patient as well as review of other documents and studies. /////////////////// /////////////////// /////////////////// /// follow up, 05-31-2025 LBP Performed by Sai Aguilar MD, Orthopedic Surgery, 74-year-old longtime patient of ours returns for management of her chronic back pain and perceived lower extremity weakness. She has been extensively evaluated including failed SI joint injections. Failed hip injections. Most recently she was seen by superintendent [employer]. She had an MRI and a CT [...] of other documents and studies. Not available 09/27/2025 14:00:22 Plan of Treatment Reminders Order Date Submit Date Provider Last Modified By Organization Details Last Modified Time Details Appointments None recorded. Lab None recorded. Referral [facility] referral - Please contact patient to schedule appointment . Diagnostic right SI joint injection. Please have patient keep a pain diary. 2023 024 [email or web address] Rosana Sparrow MD, [address], [facility], [place], [address], 4 09:59:19 Procedures None recorded. Surgeries None recorded. Imaging XR, lumbosacral spine, 2 or 3 view 2024 025 [email or web address] 2 [facility], [address], [address], [place], [address], 5 09:45:22 Medication Orders None recorded. Patient TargetsNo targets recorded. Patient Instructions Encounter Date Encounter Id Patient Instructions Last Modified By Organization Details Last Modified Time 09/27/2025 [id number] Radiographs: As per the patient's request AP and lateral lumbosacral spine radiographs were obtained in the [facility] facility. There is a new L1 to instrumentation which appears well-positioned. There is a severe scoliotic deformity with apex just above the reconstruction. There is no evidence of hardware failure or loosening. Not available 09/27/2025 14:01:24 Reason for Referral Interventional Pain Medicine Specialist Referral for Low back pain Please contact patient to schedule appointment. Diagnostic right SI joint injection. Please have patient keep a pain diary. Referring Physician: Sai Aguilar, Orthopedic Surgery, Encounter Date: 08/24/2024 Results Created Date Observation Date Name Description Value Unit Range Abnormal Flag Note LastModifiedBy Organization Detail LastModifiedTime 06/24/2006/23/2024 elect romyo gram + nerve condu ction study No observ ation record ed. [email or web address] [facility] [address] [facility] [address], [place], [address], 06/25/2024 08:20:27 08/19/20 24 08/19/2024 CT, myelo gram, lumba r spine No observ ation record ed. [email or web address] [facility] [address] [facility], [place], [address], 08/19/2024 22:53:49 08/20/2008/19/2024 CT, myelo gram, lumba r spine No observ ation record ed. [email or web address] [facility] [address] [place], [address], 08/20/2024 12:38:06 06/02/20 25 05/04/2024 MRI, lumba r spine , w/o contr ast No observ ation record ed. [email or web address] Available 2024 14:03:26 Result Notes None recorded. Problems Name Problem SNOMED Code Status Onset Date Resolution Date Notes Provider Name and Address Organization Details Recorded Time Essential hypertens ion 50382423 Active 2014 Essential hypertens ion - Overview: Formattin g of this note might be different from the original. ICD-10 Activatio n Not Available [facility] 5 23:53:13 History of total knee arthropla sty 44839564803 05 Active 2014 Status post total right knee replaceme nt Not Available [facility] 5 23:53:07 Chronic obstructi ve pulmonary disease 66929006 Active 2014 COPD (chronic obstructi ve pulmonary disease) Not Available [facility] 5 23:53:09 Supravent ricular tachycard ia 5050774 Active 2014 Supravent ricular tachycard ia Not Available [facility] 5 23:53:11 Iron deficienc y anemia 60756498 Active 2014 Iron deficienc y anemia Not Available [facility] 5 23:53:13 History of intestina l infection caused by Clostridi oides difficile 76914194425 9101 Active 2015 History of Clostridi um difficile colitis Not Available [facility] 5 23:53:07 Spondylos is 5841515 Active 2016 Spondylos is Not Available [facility] 5 23:53:12 Abnormal gait 83436617 Active 2016 Gait instabili ty Not Available [facility] 5 23:53:08 Lumbar spondylol isthesis 91209265550 9102 Active 2016 Spondylol isthesis of lumbar region Not Available [facility] 5 23:53:08 Adolescen t idiopathi c scoliosis of lumbar spine 31775209190 9105 Active 2016 Adolescen t idiopathi c scoliosis of lumbar region Not Available [facility] 5 23:53:09 Chronic low back pain 238962720 Active 2016 Chronic bilateral low back pain with bilateral sciatica Chronic low back pain without sciatica Not Available [facility] 5 23:53:15 Diverticu lum of large intestine without hemorrhag e 452004979 Active 2016 Diverticu losis of large intestine without hemorrhag e Not Available [facility] 5 23:53:16 Postopera tive ileus 968715154 Active 2017 Postopera tive ileus Not Available [facility] 5 23:53:11 Arthritis of hip 99891763 Active 2017 Hip arthritis Not Available [facility] 5 23:53:05 Bilateral carpal tunnel syndrome 44980285952 959393 Active 2017 Bilateral carpal tunnel syndrome Not Available [facility] 5 23:53:05 Pain of right hand 93768211042 9109 Active 2017 Hand pain, right Not Available [facility] 5 23:53:07 Pain of elbow region 43180608 Active 2017 Elbow pain, right Lef t elbow pain Not Available [facility] 5 23:53:08 Arthritis of joint of hand Active 2017 Hand arthritis Not Available [facility] 5 23:53:09 Arthritis of elbow 055795970 Active 2017 Elbow arthritis Not Available [facility] 5 23:53:10 Clostridi um difficile colitis 962054140 Active 2017 C. 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 Not Available [facility] 5 23:53:14 Greater trochante geremias pain syndrome 4352086 Active 2017 Greater trochante geremias bursitis of left hip Not Available [facility] 5 23:53:15 History of repair of hip joint 009077109 Active 2017 Status post left hip replaceme nt Not Available [facility] 5 23:53:06 Family history of breast cancer 145977928 Active 2018 Family history of malignant neoplasm of breast Not Available [facility] 5 23:53:14 Simple chronic bronchiti s 15663895 Active 2018 Simple chronic bronchiti s Not Available [facility] 5 23:53:13 Premature atrial contracti on 246700112 Active 2019 Premature atrial beats Not Available [facility] 5 23:53:06 Palpitati ons 47829977 Active 2019 Palpitati ons Not Available [facility] 5 23:53:10 Periphera l muscle fatigue 03625463 Active 2020 Leg fatigue Not Available [facility] 5 23:53:06 Spondylol ysis of cervical spine 002129010 Active 2020 Cervical spondylol ysis Not Available [facility] 5 23:53:05 Ventricul ar hypertrop hy 387528745 Active 2021 Asymmetri c septal hypertrop hy Not Available [facility] 5 23:53:10 Chest pain 54019217 Active 2021 Other chest pain Not Available [facility] 5 23:53:14 Kyphosis of thoracic spine 835231742 Active 2022 Sai Aguilar MD [address], [place], [address] , [place] [facility] 3 16:47:48 Scoliosis deformity of spine 205568830 Active 2022 Sai Aguilar MD [address], [place], [address] , [place] [facility], [facility] 3 16:48:03 Cramp in lower limb 803781744 Active [address], [place], [address] , [place] [facility] 3 16:48:09 Lumbar post-lami nectomy syndrome 673413078 Active 2022 Postlamin ectomy syndrome, lumbar region Not Available [facility] 5 23:53:12 Low back pain 122887186 Active 2023 Sai Aguilar MD [address], [place], [place], , [place] [facility] 4 14:24:44 Neck pain 23367306 Active 2023 Sai Aguilar MD [address], [place], [address] , [place] [facility] 4 14:25:02 History of lumbar fusion 84170342986 106 Active [address], [place], [place], , [place] [facility] 4 14:29:10 Stenosis of cervix 86121693 Active [address], [place], , [place] [facility] 4 14:30:05 Stenosis of intervert ebral foramina 64783843259 9 Active [address], [place], [address] , [place] [facility] 4 14:30:27 Neurogeni c claudicat ion 658070012 Active [address], [place], , [place] [facility] 4 14:00:28 Claustrop hobia 87695152 Active [address], [place], [address] , [place] [facility] 4 15:25:05 Problem Notes None recorded. Medical Equipment None Reported. Allergies Allergen ID Allergen Name Allergen Category Reaction Reaction Severity Criticality Documentation Date Start Date Code Code System Note Provider Name and Address Organization Details Recorded Time 66344 vancomyci n medicatio n hives itching Not available Not available Not available 04/29/20242014 42427 RxNorm Barbara Plochocki null, [place] [facility] 5 09:45:12 74694 Product containin g penicilli n (product) medicatio n rash Not available Not available 04/29/20242014 07852 8001 SNOMED Barbara Rosalesi null, [facility], P 5 09:45:12 45698 erythromy elly medicatio n anaphylax is Not available Not available 04/29/20242014 4053 RxNorm Barbara Plochocki null, [facility] 5 09:45:12 88926 codeine medicatio n anaphylax is Not available Not available 04/29/20242014 2670 RxNorm Barbara Chavezocki [facility], [facility] 5 09:45:12 18864 Adhesive agent (substanc e) environme nt,medica tion rash Not available Not available 05/31/20252017 85248 0007 SNOMED Barbara Rosalesi [facility], [facility] 5 09:45:12 Medications Name Sig Start [...] active Not Available Not Available Not Available ondansetron 8 mg disintegrat ing tablet DISSOLVE 1 TABLET ON THE TONGUE EVERY 8 HOURS NEEDED FOR NAUSEA OR VOMITING active Not Available Not Available No t Available baclofen 20 mg tablet TAKE 1 [...] Not Available hydromorpho ne 2 mg tablet TAKE 1 TO 2 TABLETS BY MOUTH EVERY 4 TO 6 HOURS NEEDED FOR PAIN active Not Available Not Available No t Available alprazolam 0.25 mg tablet active Not [...] completed Not Available Not Available Not Available diazepam 5 mg tablet TAKE 1 TABLET BY MOUTH THREE TIMES DAILY NEEDED FOR MUSCLE SPASMS FOR UP TO 3 DAYS active Not Available Not Available No t Available duloxetine 20 mg capsule,del ayed release [...] Updated DateTime 12/07/2024 160.02 cm 23 kg/m2 55293.01 g [facility] - [facility] 12/07/2024 15:20:03 Date Recorded Body height Provider Name an d Address Organization Details Last Updated DateTime 05/31/2025 160.02 cm [facility] - [facility] 05/31/2025 09:45:00 Date Recorded Body height Body mass index (BMI) Body weight Provider Name and Address Organization Details Last Updated DateTime 06/29/2024 160.02 cm 23.7 kg/m2 44979.38 g Shannan Epps [place] - [facility] 06/29/2024 13:18:28 Date Recorded Body height Body mass index (BMI) Body weight Heart rate Body temperature Oxygen saturation Systolic And Diastolic Provider Name and Address Organization Details Last Updated DateTime 4 158.8 cm 23.76 kg/m2 25865 g 79 /min 97.7 [degF] 98 % 110/84 mm[Hg] Not Available [facility] 5 00:57:07 Date Recorded Body height Body mass index (BMI) Body weight Provider Name and Address Organization Details Last Updated DateTime 08/24/2024 160.02 cm 23.7 kg/m2 [address]17.[address] [facility] 08/24/2024 11:31:38 Social History None recorded. Functional Status None recorded. Mental Status None recorded. Family History Nothing Reported. Medical History No medical history recorded. Gynecological HistoryNo gynecological history recorded. Obstetrics History GPAL:G 0 P 0 0 0 0 Immunizations Vaccine Type Date Status Note Provider Nam e and Address Organization Details Recorded Time pneumococcal polysaccharide PPV23 8 completed Not Available [facility] 08/02/2025 05:39:36 Influenza, split virus, quadrivalent, PF 8 completed Not Available [facility] 08/02/2025 05:39:36 Influenza, MDCK, quadrivalent, PF 9 completed Not Available [facility] 08/02/2025 05:39:36 Past Encounters Encounter ID Performer Location Encounter Start Date Encounter Closed Date Diagnosis/Indication Diagnosis SNOMED-CT Code Diagnosis ICD10 Code Diagnosis IMO Codes Diagnosis Note [id number] MD VALARIE Hernandez [address] [place] [address] [place] [address] 05/20/2023 16:07:30 05/20/2023 16:49:57 History of lumbar fusion 8977472697 9106 Z98.1 Kyphosis o f thoracic spine 298620278 M40.204 Scoliosis deformity of spine 216513977 M41.9 Cramp in lower limb 4499 73059 R25.2 [id number] DAYSI GOODWIN PA-C [address] [place] [address] 06/13/2023 11:38:29 06/13/2023 12:13:26 Kyphosis of thoracic spine 778639666 M40.204 History of lumbar fusion 4932127387 9106 Z98.1 Scoliosis deformity of spine 489958638 M41.9 Cramp in lower limb 4499 52756 R25.2 [id number] MD VALARIE Hernandez [address] [address] 04/15/2024 13:28:12 04/15/2024 14:26:44 Kyphosis of thoracic spine 972897720 M40.204 History of lumbar fusion 5888157546 9106 Z98.1 Scoliosis deformity of spine 612971022 M41.9 Low back pain 296860145 M54.50 Additional diagnosis detail: Lumbar back pain Neck pain 97629320 M54.2 Stenosis o f intervertebral foramina 0202468417 09 M48.02 Additional diagnosis detail: Foraminal stenosis of cervical region [id number] MD VALARIE Hernandez Shahid [address] [place] [address] 04/29/2024 14:47:07 04/29/2024 15:22:36 History of lumbar fusion 6816954435 9106 Z98.1 Neurogenic claudication 375397863 R29.818 Claustrophobia 53936047 F40.240 [id number] MD VALARIE Hernandez [address] [place] [address] 05/18/2024 15:10:26 05/18/2024 15:46:26 Neurogenic claudication 010315422 R29.818 Claustrophobia 50898791 F40.240 History of lumbar fusion 6870039324 9106 Z98.1 Kyphosis o f thoracic spine 008045064 M40.204 Low back pain 135495795 M54.50 Additional diagnosis detail: Lumbar back pain [id number] MD VALARIE Hernandez [address] [facility] [place] [address] 06/29/2024 13:12:16 06/29/2024 14:01:35 History of lumbar fusion 0880865033 9106 Z98.1 Low back pain 978092076 M54.50 Additional diagnosis detail: Lumbar back pain Neurogenic claudication 229234195 R29.818 [id number] MD VALARIE Hernandez [address] [place] [address] 08/24/2024 11:20:07 08/24/2024 12:00:42 Kyphosis of thoracic spine 401061690 M40.204 Low back pain 825619080 M54.50 Additional diagnosis detail: Lumbar back pain [id number] MD VALARIE Hernandez [address] [place] [address] 12/07/2024 15:11:42 12/07/2024 16:28:22 Low back pain 357284425 M54.50 Additional diagnosis detail: Lumbar back pain Kyphosis o f thoracic spine 724274500 M40.204 [id number] MD VALARIE Hernandez [address] [place] [address] 05/31/2025 09:34:53 05/31/2025 10:06:10 Low back pain 109549262 M54.50 Additional diagnosis detail: Lumbar back pain Scoliosis deformity of spine 945163571 M41.9 Stenosis o f intervertebral foramina 7922423182 09 M48.02 Additional diagnosis detail: Foraminal stenosis of cervical region [id number] MD VALARIE Hernandez [address] [place] [address] 09/27/2025 13:02:56 09/27/2025 13:52:40 History of lumbar fusion 1702574396 9106 Z98.1 Kyphosis o f thoracic spine 745180875 M40.204 Scoliosis deformity of spine 921130058 M41.9 Health Concerns Section Related Observation LastModified by Organization Detai ls LastModified Time None Recorded Concern Status LastModified by Organization Details LastModified Time None Recorded Advance Directives Directive None Recorded Payers Insurance Date Sequence Insurance Name Policy Number Policy [place] Covered Member ID [place] Member ID Guarantor Name 09/24/2025 1 [facility]MEDICARE REPLACEMENT/AD VANTAGE - HMO) [id number] Marisa Bella [id number] Marisa Bella 06/29/2024 2 [place] Marisa Bella [id number] Marisa Bella 06/21/2024 1 [facility] (MEDICARE REPLACEMENT/AD VANTAGE - PPO) [id number] Marisa Bella [id number] Marisa Bella 12/06/2024 1 [employer] (MEDICARE REPLACEMENT/AD VANTAGE - PPO) [id number] Marisa Bella [id number] Marisa C Shayne OBGyn Episode No OBEpisode recorded.
--- OUTSIDE RECORDS SUMMARY | 2025-10-04 13:59 | XMS_ITS | Clinical Summary ---
Author Organization [facility] Address [address] [place] [address] Care Team Providers Care Safety Attendant Name Role Phone Amparo Lopez DO Unavailable [phone] Amparo Lopez DO Primary Care Provider + Allergies Active Allergy Reactions Criticality Noted Date Comments Adhesive Rash Low 11/29/2017 Only paper [id number] pt bandaides and tegaderms are okay Adhesive [...] - 09/13/2025 12:22 PM EST Emergency [facility] Department of Emergency Services [address] [place] [phone] Junie Girard MD Muscle strain of left [...] - season) 2025 Influenza Vaccine (#1) 2025 0, 07/28/2019, 07/15/2018 Medicare Annual Wellness (AWV) 03/03/2026 03/02/2025, 03/02/2024, 02/18/2023, Additional history exists Colonoscopy 06/26/2026 06/26/2016 Colorectal Cancer Screening 06/26/2026 Breast Cancer Screening 04/19/2027 04/19/20 25, 04/19/2025, 05/23/2022 Bone Density Screening Completed 04/19/2025 [...] 3 <=14 ng/L 09/13/2025 12:23 PM EST [facility] Comment:Refer to the high se nsitivity TnI algorithm for further workup Blood Venous blood specimen / Unknown Venipuncture / Unknown 09/13/2025 11:10 AM EST 09/13/2025 11:50 AM EST us Junie Girard MD LAB BLOOD ORDERABLES Final Result Performing Organization Address City/State/[facility] Co de Phone Number [facility] [address] [place] [address], [place] [phone] * CT angiogram pulmonary WO+/or W iv [...] 3.6 - 11.0 10*3/uL 09/13/2025 8:58 AM [facility] Red Cell Count 3.58(L) 3.80 - 5.20 10*6/ L 09/13/2025 8:58 AM [facility] Hemoglobin 8.8(L) 12.0 - 16.0 g/dL 09/13/2025 8:58 AM [facility] Hematocrit 26.7(L) 35.0 - 47.0 % 09/13/2025 8:58 AM [facility] MCV 74.6(L) 80.0 - 100.0 fL 09/13/2025 8:58 AM [facility] MCH 24.6(L) 26.0 - 34.0 pg 09/13/2025 8:58 AM [facility] MCHC 33.0 32.0 - 36.0 g/dL 09/13/2025 8:58 AM [facility] RBC Distribution Width 15.4(H) 11.6 - 14.8 % 09/13/2025 8:58 AM [facility] Platelet count 578(H) 150 - 440 10*3/uL 09/13/2025 8:58 AM [facility] Neutrophils 85.3(H) 40.0 - 70.0 % 09/13/2025 8:58 AM [facility] Immature Granulocytes 0.5 0.0 - 0.6 % 09/13/2025 8:58 AM [facility] Lymphocytes 6.4(L) 20.0 - 50.0 % 09/13/2025 8:58 AM [facility] Monocytes 7.2 4.0 - 12.0 % 09/13/2025 8:58 AM [facility] Eosinophils 0.1 0.0 - 6.0 % 09/13/2025 8:58 AM [facility] Basophils 0.5 0.0 - 2.0 % 09/13/2025 8:58 AM [facility] Absolute Neutrophil Ct. 7.88(H) 1.40 - 6.30 10*3/uL 09/13/2025 8:58 AM [facility] Absolute Lymphocyte Ct. 0.59(L) 0.70 - 4.50 10*3/uL 09/13/2025 8:58 AM [facility] Absolute Monocyte Ct. 0.67 0.20 - 0.80 10*3/uL 09/13/2025 8:58 AM [facility] Absolute Eosinophil Ct. 0.01 0.00 - 0.30 10*3/uL 09/13/2025 8:58 AM [facility] Absolute Basophil Ct. 0.05 0.00 - 0.20 10*3/uL 09/13/2025 8:58 AM [facility] nRBC 0.0 0.0 - 0.0 % 09/13/2025 8:58 AM [facility] MPV 9.1(L) 9.4 - 12.4 fL 09/13/2025 8:58 AM EST [facility] Absolute immature granulocytes 0.05 10*3/uL 09/13/2025 8:58 AM EST [facility] Blood Venous blood specimen / Unknown Venipuncture / Unknown 09/13/2025 8:48 AM EST 09/13/2025 8:53 AM EST Junie Girard MD LAB BLOOD ORDERABLES Final Result Performing Organization Address [facility] de Phone Number [facility] [address] [place] [address], * (ABNORMAL) D-dimer, quantitative (09/13/2025 8:48 AM EST) D-Dimer, Quantitative 836(H) <=243 ng/mL D-DU 09/13/2025 9:06 AM EST [facility] Blood Venous blood specimen / Unknown Venipuncture / Unknown 09/13/2025 8:48 AM EST 09/13/2025 8:53 AM EST Narrative [facility] - 09/13/2025 9:06 AM EST Elevated [...] Girard MD LAB BLOOD ORDERABLES Final Result [facility] [address] [place] [address], * Magnesium (09/13/2025 8:48 AM EST) Magnesium 2.0 1.8 - 3.0 mg/dL 09/13/2025 9:27 AM EST [facility] Blood Venous blood specimen / Unknown Venipuncture / Unknown 09/13/2025 8:48 AM EST 09/13/2025 8:53 AM EST Junie Girard MD LAB BLOOD ORDERABLES Final Result [facility] [address] [place] [address], * Basic metabolic panel (09/13/2025 8:48 AM EST) Sodium 138 137 - 144 mmol/L 09/13/2025 9:27 AM EST [facility] Potassium 4.0 3.6 - 5.1 mmol/L 09/13/2025 9:27 AM EST [facility] Chloride 106 100 - 111 mmol/L 09/13/2025 9:27 AM EST [facility] CO2 23 23 - 32 mmol/L 09/13/2025 9:27 AM [facility] Anion gap 9 3 - 11 mmol/L 09/13/2025 9:27 AM EST [facility] BUN 15 8 - 24 mg/dL 09/13/2025 9:27 AM [facility] Creatinine 0.60 0.60 - 1.20 mg/dL 09/13/2025 9:27 AM EST [facility] Glucose 125 70 - 200 mg/dL 09/13/2025 9:27 AM [facility] Comment: Normal fasting glucose 75-99 mg/dL Impaired fasting glucose 100 - 125 mg/dL Fasting glucose >125 mg/dL - provisional diagnosis of diabetes mellitus Random glucose >= 200 mg/dl is considered diagnostic for diabetes ADA Guidelines: Classification and Diagnosis of Diabetes: Standards of Medical Care in Diabetes - 2021, Diabetes Care 2020; S15-S33. Calcium 9.3 8.4 - 10.2 mg/dL 09/13/2025 9:27 AM EST [facility] eGFR 95 >60 mL/min/1. 73m*2 09/13/2025 9:27 AM EST [facility] Comment: Calculation based on the Chronic [...] 70 + 75 ml/min/1.73 m2 Pursuant to [place] Public Act 06-120(1)(b)(1). The 2020 CKD-EPI calculation used to estimate eGFR has only been validated for patients 18 years or older. Blood Venous blood specimen / Unknown Venipuncture / Unknown 09/13/2025 8:48 AM EST 09/13/2025 8:53 AM EST Junie Girard MD LAB BLOOD ORDERABLES Final Result [facility] [address] [place] [address], * ECG 12 lead (09/13/2025 8:25 AM EST) 09/13/2025 8:25 AM EST 09/13/2025 9:15 AM EST Narrative [facility] ([facility]) - 09/13/2025 9:15 AM EST Ventricular Rate: 102 BPM Atrial Rate: 102 BPM P-R Interval: 216 ms QRS Duration: 80 ms Q-T Interval: 330 ms QTC Calculation(Bazett): 430 ms P [place]: 68 degrees R [place]: -13 degrees T [place]: 44 degrees Diagnosis: Sinus tachycardia with 1st degree A-V block with Premature supraventricular complexes Nonspecific T wave abnormality Abnormal ECG When compared with ECG of 16-Jun-2022 17:51, Nonspecific T wave abnormality, worse in Anterior leads Confirmed by Chely Harrington (2001) on 09/13/2025 8:57:33 AM Also confirmed by Chely Harrington (2001), food expeditor Gwendolyn Mayorga ([id number]) on 09/13/2025 9:15:49 AM Procedure Note Chely Harrington MD - 09/13/2025 Ventricular Rate: 102 BPM Atrial Rate: 102 BPM P-R Interval: 216 ms QRS Duration: 80 ms Q-T Interval: 330 ms QTC Calculation(Bazett): 430 ms P [place]: 68 degrees R [place]: -13 degrees T [place]: 44 degrees Diagnosis: Sinus tachycardia with 1st degree A-V block with Prematuresupraventricular complexes Nonspecific T wave abnormality Abnormal ECG When compared with ECG of 16-Jun-2022 17:51, Nonspecific T wave abnormality, worse in Anterior leads Confirmed by Chely Harrington (2001) on 09/13/2025 8:57:33 AM Also confirmed by Chely Harrington (2001), food expeditor Gwendolyn Mayorga ([id number])on 09/13/2025 9:15:49 AM us Junie Girard MD ECG ORDERABLES Final Result [facility] ([place]USE) [place] [address], from Last 3 Months Insurance () [employer] MEDICARE [employer] MEDICARE [employer]ARE Advance Directives For more information, please contact: [phone] Documents on File Type Date Recorded Patient [employer] Cook Expl anation Advance Directives 03/24/2025 2:19 PM Care Teams Safety Attendant Relationship Specialty Start Date End Date Amparo Lopez DO [address] [place] [address] PCP - Insurance Payer PCP 04/02/24 Amparo Lopez DO [address] [place] [address] PCP - General Internal Medicine 04/02/24
--- OUTSIDE RECORDS SUMMARY | 2025-10-04 13:59 | XMS_ITS | Encounter Summary ---
Author Organization [facility] Address [address] [place] [address] Care Team Providers Care Dance Director Name Role Phone Becca Browne MD Unavailable [phone] Al Platt MD Unavailable Amparo Lopez MD Primary Care Provider + Amparo Lopez MD Unavailable [phone] Amparo Lopez MD Unavailable [phone] Amparo Lopez MD Unavailable [phone] Encounter Details Date Type Department Care Team (Late st Contact Info) Description 01/28/2025 Scanned Document [facility], [address], [address] [place] [address] Unknown Unknow Provider Address Social [...] on filedocumented in this encounter Care Teams Dance Director Relationship Specialty Start Date End Date Amparo Lopez MD [address] [place] [address] PCP - General Internal Medicine 04/01/23 Amparo Lopez MD [address] [place] [address] PCP - Elroy Quintana MA Attributed 09/10/24 06/09/25 Amparo Lopez MD [address] [place] [address] PCP - Elroy Brady MA attributed 06/10/25 Becca Browne MD Editor & Co Founder Cardiovascular Disease 03/12/22 Al Platt MD [address] [place] [address] Gastroenterology 03/26/22 Amparo Lopez MD [address] [place] [address] Internal Medicine 02/01/25 documented as of this encounter
--- OUTSIDE RECORDS SUMMARY | 2025-10-04 13:59 | XMS_ITS | Continuity of Care Document ---
Author Organization [place] [facility] Address [address] [place] [address] Care Team Providers Care Mainframe Consultant Name Role Phone NANI WHEATLEY Referring Provider Assessment Encounter Date Assessment Date Assessment LastModified by Organization Details LastModified Time 09/27/2025 09/27/2025 75-year-old female well-known to our practice returns with her [...] as review of other documents and studies. ///////////////// ///////////////// ///////////////// ///////// follow up, 05-31-2025 LBP Performed by Sai Aguilar MD, Orthopedic Surgery, 74-year-old longtime patient of ours returns for management of her chronic back pain and perceived lower extremity weakness. She has been extensively evaluated including failed SI joint injections. Failed hip injections. Most recently she was seen by rheumatology nurse. She had an MRI and a CT [...] Appointments None recorded. Lab None recorded. Referral None recorded. Procedures None recorded. Surgeries None recorded. Imaging XR, lumbosacral spine, 2 or 3 view 2024 025 [email or web address] 2 [facility], [address], [address], [place], [address], 09:45:22 Medication Orders None recorded. Patient TargetsNo targets recorded. Patient Instructions Encounter Date Encounter Id Patient Instructions Last Modified By Organization Details Last Modified Time 09/27/2025 [id number] Radiographs: As per the patient's request AP and lateral lumbosacral spine radiographs were obtained in the [facility] facility. There is a new L1 to instrumentation which appears well-positioned. There is a severe scoliotic deformity with apex just above the reconstruction. There is no evidence of hardware failure or loosening. Not available 09/27/2025 14:01:24 Reason for Referral None Reported. Problems Name Problem SNOMED Code Status Onset Date Resolution Date Notes Provider Name and Address Organization Details Recorded Time Essential hypertens ion 82985126 Active 2014 Essential hypertens ion - Overview: Formattin g of this note might be different from the original. ICD-10 Activatio n Not Available [facility] 5 23:53:13 History of total knee arthropla sty 63949056381 05 Active 2014 Status post total right knee replaceme nt Not Available [facility] 5 23:53:07 Chronic obstructi ve pulmonary disease 23411304 Active 2014 COPD (chronic obstructi ve pulmonary disease) Not Available [facility] 5 23:53:09 Supravent ricular tachycard ia 6648897 Active 2014 Supravent ricular tachycard ia Not Available [facility] 5 23:53:11 Iron deficienc y anemia 87783139 Active 2014 Iron deficienc y anemia Not Available [facility] 5 23:53:13 History of intestina l infection caused by Clostridi oides difficile 80152773097 9101 Active 2015 History of Clostridi um difficile colitis Not Available [facility] 5 23:53:07 Spondylos is 4716214 Active 2016 Spondylos is Not Available [facility] 5 23:53:12 Abnormal gait 48218684 Active 2016 Gait instabili ty Not Available [facility] 5 23:53:08 Lumbar spondylol isthesis 95149191904 9102 Active 2016 Spondylol isthesis of lumbar region Not Available [facility] 5 23:53:08 Adolescen t idiopathi c scoliosis of lumbar spine 82631463401 9105 Active 2016 Adolescen t idiopathi c scoliosis of lumbar region Not Available [facility] 5 23:53:09 Chronic low back pain 775307103 Active 2016 Chronic bilateral low back pain with bilateral sciatica Chronic low back pain without sciatica Not Available [facility] 5 23:53:15 Diverticu lum of large intestine without hemorrhag e 833485782 Active 2016 Diverticu losis of large intestine without hemorrhag e Not Available [facility] 5 23:53:16 Postopera tive ileus 602818617 Active 2017 Postopera tive ileus Not Available [facility] 5 23:53:11 Arthritis of hip 94248253 Active 2017 Hip arthritis Not Available [facility] 5 23:53:05 Bilateral carpal tunnel syndrome 75549422766 228036 Active 2017 Bilateral carpal tunnel syndrome Not Available [facility] 5 23:53:05 Pain of right hand 78225563811 9109 Active 2017 Hand pain, right Not Available [facility] 5 23:53:07 Pain of elbow region 00017546 Active 2017 Elbow pain, right Lef t elbow pain Not Available [facility] 5 23:53:08 Arthritis of joint of hand Active 2017 Hand arthritis Not Available [facility] 5 23:53:09 Arthritis of elbow 256227322 Active 2017 Elbow arthritis Not Available [facility] 5 23:53:10 Clostridi um difficile colitis 621675136 Active 2017 C. 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 Not Available [facility] 5 23:53:14 Greater trochante geremias pain syndrome 2592241 Active 2017 Greater trochante geremias bursitis of left hip Not Available [facility] 5 23:53:15 History of repair of hip joint 912174349 Active 2017 Status post left hip replaceme nt Not Available [facility] 5 23:53:06 Family history of breast cancer 350623402 Active 2018 Family history of malignant neoplasm of breast Not Available [facility] 5 23:53:14 Simple chronic bronchiti s 03981178 Active 2018 Simple chronic bronchiti s Not Available [facility] 5 23:53:13 Premature atrial contracti on 297519884 Active 2019 Premature atrial beats Not Available [facility] 5 23:53:06 Palpitati ons 81921999 Active 2019 Palpitati ons Not Available [facility] 5 23:53:10 Periphera l muscle fatigue 01673951 Active 2020 Leg fatigue Not Available [facility] 5 23:53:06 Spondylol ysis of cervical spine 292039918 Active 2020 Cervical spondylol ysis Not Available [facility] 5 23:53:05 Ventricul ar hypertrop hy 009916514 Active 2021 Asymmetri c septal hypertrop hy Not Available [facility] 5 23:53:10 Chest pain 31187240 Active 2021 Other chest pain Not Available [facility] 5 23:53:14 Kyphosis of thoracic spine 132605694 Active [address], [place], [address] , [place] [facility] 3 16:47:48 Scoliosis deformity of spine 479661540 Active 2022 Sai Aguilar MD [address], [place], [address] , [place] [facility], [facility] 3 16:48:03 Cramp in lower limb 950312643 Active 2022 Sai Aguilar MD [address], [place], [address] , [place] [facility], [facility] 3 16:48:09 Lumbar post-lami nectomy syndrome 251918400 Active 2022 Postlamin ectomy syndrome, lumbar region Not Available [facility] 5 23:53:12 Low back pain 298133915 Active 2023 Sai Aguilar MD [address], [place], [address] , [place] [facility], [facility] 4 14:24:44 Neck pain 18184919 Active 2023 Sai Aguilar MD [address], [address] [place] [address] , [facility], P 4 14:25:02 History of lumbar fusion 57308861501 106 Active 2023 Sai Aguilar MD [address], [address] , [facility], P 4 14:29:10 Stenosis of cervix 24679912 Active 2023 Sai Aguilar MD [address], [address] [place] [address] , [facility], P 4 14:30:05 Stenosis of intervert ebral foramina 17231179149 9 Active 2023 Sai Aguilar MD [address], [address] , [facility], P 4 14:30:27 Neurogeni c claudicat ion 001172560 Active 2023 Sai Aguilar MD [address],[place] [address], [place], [address] , [facility], P 4 14:00:28 Claustrop hobia 91879569 Active 2023 Sai Aguilar MD [address], [address] , [facility], [facility] 4 15:25:05 Problem Notes None recorded. Medical Equipment None Reported. Allergies Allergen ID Allergen Name Allergen Category Reaction Reaction Severity Criticality Documentation Date Start Date Code Code System Note Provider Name and Address Organization Details Recorded Time 25515 vancomyci n medicatio n hives itching Not available Not available Not available 04/29/20242014 95984 RxNorm Barbara bolaños, [place] - [facility] 5 09:45:12 70187 Product containin g penicilli n (product) medicatio n rash Not available Not available 04/29/20242014 23803 8001 SNOMED Barbara Plemmyocki null, [place] - [facility], P 5 09:45:12 29643 erythromy elly medicatio n anaphylax is Not available Not available 04/29/20242014 4053 RxNorm Barbara Plochocki null, [place] - [facility], P 5 09:45:12 55300 codeine medicatio n anaphylax is Not available Not available 04/29/20242014 2670 RxNorm Barbara Plochocki null, [place] - [facility], P 5 09:45:12 34909 Adhesive agent (substanc e) environme nt,medica tion rash Not available Not available 05/31/20252017 53895 0007 SNOMED Barbara Chavezocki null, [place] - [facility], [facility] 5 09:45:12 Medications Name Sig Start [...] Not Available Not Available Not Available Vitals None Recorded Social History None recorded. Functional Status None recorded. Mental Status None recorded. Family History Nothing Reported. Medical History No medical history recorded. Gynecological HistoryNo gynecological history recorded. Obstetrics History GPAL:G 0 P 0 0 0 0 Immunizations Vaccine Type Date Status Note Provider Nam e and Address Organization Details Recorded Time pneumococcal polysaccharide PPV23 8 completed Not Available [facility] 08/02/2025 05:39:36 Influenza, split virus, quadrivalent, PF 8 completed Not Available [facility] 08/02/2025 05:39:36 Influenza, MDCK, quadrivalent, PF 9 completed Not Available [facility] 08/02/2025 05:39:36 Past Encounters Encounter ID Performer Location Encounter Start Date Encounter Closed Date Diagnosis/Indication Diagnosis SNOMED-CT Code Diagnosis ICD10 Code Diagnosis IMO Codes Diagnosis Note [id number] MD VALARIE Hernandez [address] [place] [address] [place] [address] 09/27/2025 13:02:56 09/27/2025 13:52:40 History of lumbar fusion 0641266865 9106 Z98.1 Kyphosis o f thoracic spine 190063036 M40.204 Scoliosis deformity of spine 447300005 M41.9 Health Concerns Section Related Observation LastModified by Organization Detai ls LastModified Time None Recorded Concern Status LastModified by Organization Details LastModified Time None Recorded Payers Encounter Date Sequence Insurance Name Policy Number Policy Font[place] Covered Member ID [place] Member ID Guarantor Name 09/27/2025 1 [employer] - PASSAGE DUAL (MEDICARE REPLACEMENT/ADV ANTAGE - HMO) [id number] Marisa Bella [id number] 1 Marisa Bella OBGyn Episode No OBEpisode recorded.
--- OUTSIDE RECORDS SUMMARY | 2025-10-04 14:00 | XMS_ITS | Encounter Summary ---
Author Organization [facility] Address [address] [place] [address] Care Team Providers Care Harp Maker Name Role Phone Maria Dolores Sinha MD Primary Care Provider [phone] Becca Browne MD Unavailable [phone] Al Platt MD Unavailable Amparo Lopez MD Primary Care Provider + Amparo Lopez MD Unavailable [phone] Amparo Lopez MD Unavailable [phone] Amparo Lopez MD Unavailable [phone] Amparo Lopez MD Unavailable [phone] Encounter Details Date Type Department Care Team (Late st Contact Info) Description 05/24/[address] [facility] [address] [facility] [address] [place] [address] Al Platt MD [address] [place] [phone] Social History Tobacco Use Types Packs/Day Years [...] on filedocumented in this encounter Care Teams Harp Maker Relationship Specialty Start Date End Date Maria Dolores Sinha MD [address] [place] [address] PCP - General Internal Medicine 09/14/21 03/31/23 Amparo Lopez MD [address] [place] [address] PCP - General Internal Medicine 04/01/23 Amparo Lopez MD [address] [place] [address] PCP - Starling [facility] MA Attributed 12/11/23 09/09/24 Amparo Lopez MD [address] [place], [place] [id number] PCP - Starjovana [facility] MA Attributed 09/10/24 06/09/25 Amparo Lopez MD [address] [place], [place] [id number] PCP - Starling [facility] MA attributed 06/10/25 Becca Browne MD [address] [place] [address] Automobile Body Repairer Helper Cardiovascular Disease 03/12/22 Al Platt MD [address] [place] [address] Gastroenterology 03/26/22 Amparo Lopez MD [address] [place], [place] [id number] Internal Medicine 02/01/25 documented as of this encounter
--- OUTSIDE RECORDS SUMMARY | 2025-10-04 14:00 | XMS_ITS | Clinical Summary ---
Author Organization [facility] [address] [facility] Address [address] [place] [address] Phone Care Team Providers Care Shoe Repairman Name Role Phone Amparo Lopez Primary Care Provider Allergies Active Allergy Reactions Criticality Noted Date Comments Adhesive Rash Low 11/29/2017 Only paper hhho-[id number]-cit pt bandaides and tegaderms are okay Codeine [...] postlaminectomy syndrome 11/19/2024 Inflammation of sacroiliac joint ([facility] V24) 1 11/13/2023 Postlaminectomy syndrome, lumbar region 06/24/20 23 Other chest pain 10/04/2022 Asymmetric septal hypertrophy 02/03/2022 Cervical spondylolysis 08/14/2021 Leg fatigue 01/26/2021 Palpitations 01/16/2020 Premature atrial beats 01/16/2020 Simple chronic bronchitis ([facility] V24, [facility] V28) 07/28/2019 Greater trochanteric bursitis of left hip 2017 Primary osteoarthritis of right hand 02/27/2018 C. difficile colitis 02/24/2018 Bilateral carpal tunnel syndrome 02/13/2018 Elbow arthritis 02/13/2018 Elbow pain, right 02/13/2018 Hand arthritis 02/13/2018 Hand pain, right 02/13/2018 Left elbow pain 02/13/2018 Chronic low back pain without sciatica 8 Hip arthritis 12/23/2017 Postoperative ileus ([facility] V24, [facility] V28) 0 12/03/2017 Diverticulosis of large intestine without hemorr jerica 11/07/2017 Adolescent idiopathic scoliosis of lumbar region 10/21/2017 Chronic bilateral low back pain with bilateral s ciatica 10/21/2017 Spondylolisthesis of lumbar region 10/21/2017 Gait instability 08/18/2017 Spondylosis 01/14/2017 Iron deficiency anemia 04/26/2015 Supraventricular tachycardia ([facility] V24) 04/03 Essential hypertension 03/08/2015 Overview (08/26/2024): ICD-10 Activation Resolved Problems Problem Noted Date Diagnosed Date Resolved Date Tachycardia 03/13/2025 03/14/2025 COPD (chronic obstructive pu lmonary disease) ([facility] V24, [facility] V28) 04/03/2015 06/30/2025 Encounters Date Type Department Care Team Description 08/24/2025 9:30 AM EDT [facility] [address] [place] [address] Rebekah Kline NP Pre-operative cardiovascular examination (Primary Dx); Nonrheumatic aortic valve insufficiency; Supraventricular tachycardia ([facility] V24) from Last 3 Months Immunizations Immunization Administration [...] TOTAL HIP; Surgeon: Jaskaran Farrell MD; Location: [facility]); Service: Orthopedics; Laterality: Left; LUMBAR FUSION 11/26/2017 Left PROCEDURE:LUMBAR FUSION;COMMENT:Procedure: L2-3 FUSION SPINE LUMBAR - DLIF 1 INTERSPACE/; Surgeon: Sai Aguilar MD; Location: [facility]; Service: Spine; Laterality: Left; LUMBAR FUSION 11/26/2017 Posterior PROCEDURE:LUMBAR FUSION;COMMENT:Procedure: L2- L3 FUSION SPINE LUMBAR POSTERIOR EXTENSION TO L4; Surgeon: Sai Aguilar MD; Location: [facility]; Service: Spine; Laterality: Posterior; LUMBAR LAMINECTOMY 11/26/2017 Bilateral Posterior PROCEDURE:LUMBAR LAMINECTOMY;COMMENT:Procedu re: L2, L3 LAMINECTOMY POSTERIOR LUMBAR; Surgeon: Sai Aguilar MD; Location: [facility]; Service: Spine; Laterality: Bilateral Posterior; BONE MARROW ASPIRATION 11/26/2017 Right Posterior PROCEDURE:BONE MARROW ASPIRATION;COMMENT:Procedur e: BONE MARROW ASPIRATION; Surgeon: Sai Aguilar MD; Location: [facility]; Service: Spine; Laterality: Right Posterior; COLONOSCOPY 06/26/2016 N/A PROCEDURE:COLONOSCOPY;COMME NT:Procedure: COLONOSCOPY; Surgeon: Teddy Enamorado MD; Location: [facility] ENDOSCOPY; Service: Gastroenterology; Laterality: N/A; 06/26/16@10:[facility]am [id number] Medicaid# [id number] propofol TOTAL KNEE ARTHROPLASTY 03/29/2015 Right PROCEDURE:TOTAL KNEE ARTHROPLASTY;COMMENT:Proced ure: REPLACEMENT TOTAL KNEE; Surgeon: Jaskaran Farrell MD; Location: [facility] ([facility]); Service: Orthopedics; Laterality: Right; TOTAL KNEE ARTHROPLASTY 11/30/2014 Left PROCEDURE:TOTAL KNEE ARTHROPLASTY;COMMENT:Proced ure: REPLACEMENT TOTAL KNEE; Surgeon: Jaskaran Farrell MD; Location: [facility] ([facility]); Service: Orthopedics; Laterality: Left; Medical [...] 1 Alive Brother 2 (Age 29) PLANE EARLY 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 SPECIALIST H Father Alive Mother (Age 59) BREAST [...] Upcoming Encounters Date Type Department Care Team ([facility] st Contact Info) Description 02/23/2026 1:00 PM EDT [facility] Visit [facility] [place] [facility] [address] [place] [phone] Becca Browne MD 19 [facility] [address] [place], [place] [id number] Health Maintenance Due Date Last Done Comments [...] ( season) 2025 Influenza Vaccine (#1) 2025 , [...] lead (08/24/2025 10:42 AM EDT) Narrative Rebekah Kline, MARY JO - 08/24/2025 10:42 AM EDT Sinus rhythm 76 bpm Rebekah Kline MARY JO ECG ORDERABLES Final Result * (ABNORMAL) Basic metabolic panel (03/14/2025 8:21 AM EDT) Sodium 136 135 - 145 mmol/L LAB CHEMISTRY METHOD 03/14/2025 9:14 AM EDT [facility] Potassium 3.8 3.5 - 5.1 mmol/L LAB CHEMISTRY METHOD 03/14/2025 9:14 AM EDT [facility] Chloride 103 98 - 107 mmol/L LAB CHEMISTRY METHOD 03/14/2025 9:14 AM [facility] CO2 22(L) 24 - 32 mmol/L LAB CHEMISTRY METHOD 03/14/2025 9:14 AM EDT [facility] Anion Gap 11 5 - 14 LAB CHEMISTRY METHOD 03/14/2025 9:14 AM EDT [facility] Glucose 83 70 - 199 mg/dL LAB CHEMISTRY METHOD 03/14/2025 9:14 AM [facility] BUN 9 7 - 17 mg/dL LAB CHEMISTRY METHOD 03/14/2025 9:14 AM [facility] Creatinine 0.50 0.50 - 1.00 mg/dL LAB CHEMISTRY METHOD 03/14/2025 9:14 AM T [facility] eGFR 100 >=60 mL/min/1. 73m2 LAB CHEMISTRY METHOD 03/14/2025 9:14 AM T [facility] Comment:Calculation based on the Chronic Kidney Disease Epidemiology Collaboration (CKD-EPI) equation refit without adjustment for race. BUN/Creatinine Ratio 18.0 12.0 - 20.0 LAB CHEMISTRY METHOD 03/14/2025 9:14 AM EDT [facility] Calcium 8.6 8.4 - 10.2 mg/dL LAB CHEMISTRY METHOD 03/14/2025 9:14 AM EDT [facility] Blood Venous blood specimen / Unknown Venipuncture / Unknown 03/14/2025 8:21 AM EDT 03/14/2025 8:46 AM EDT Haven Cui ORNAMENTAL IRONWORKER HELPER LAB BLOOD ORDERABLES Final Res ult [facility] [address] [place] [address], * Lipid panel (03/02/2024) LDL/HDL Ratio 0 Comment:No interpretation Triglycerides 0 mg/dL Comment:No interpretation Cholesterol 0 mg/dL Comment:No interpretation HDL 0 mg/dL Comment:No interpretation LDL Cholesterol 0 mg/dL Comment:No interpretation Blood Venous blood specimen / Unknown Historical Provider LAB BLOOD ORDERABLES Deanna l Result [...] on 09/03/2023 1:11 PM. Workstation Name - [id number] Procedure Note Isabel Washburn MD - 12/16/2023 [...] MD on 09/03/2023 1:11PM. Workstation Name - [id number] Amparo Lopez [facility] BI PROCEDURES Final Res ult * BONE [...] on 03/21/2023 8:34 AM. Workstation Name - [id number] Procedure Note Neisha Fuentes MD - 12/16/2023 [...] MD on 03/21/2023 8:34AM. Workstation Name - [id number] Amparo Lopez [facility] DXA PROCEDURES Final Re sult * CT [...] on 03/20/2023 4:50 PM. Workstation Name - [email or web address] Procedure Note Garland Ellis MD - 12/16/2023 [...] MD on 03/20/2023 4:50PM. Workstation Name - [email or web address] Amparo STEEL CT PROCEDURES Final Res ult * Hepatitis C Screening (01/19/2019) Pathologist [facility] Hepatitis C Screening Abstracted Historical Provider HEALTH MAINTENANCE Final Result * Colonoscopy (06/26/2016) Pathologist [facility] Colonoscopy Abstracted, no interpretation Anatomical Region Laterality [...] currently active code status orders. Care Teams Shoe Repairman Relationship Specialty Start Date End Date Amparo Lopez [address] [place] [phone] PCP - General 03/18/23
--- OUTSIDE RECORDS SUMMARY | 2025-10-04 14:00 | XMS_ITS | Encounter Summary ---
Author Organization [facility] Address [address] [place] [address] Care Team Providers Care School Lunch Monitor Name Role Phone Provider, Mikie MEDLEY Primary Care Provider Un available Maria Dolores Sinha MD Primary Care Provider [phone] Becca Browne MD Unavailable [phone] Al Platt MD Unavailable Amparo Lopez MD Primary Care Provider + Amparo Lopez MD Unavailable + [phone] Amparo Lopez MD Unavailable + [phone] Amparo Lopez MD Unavailable + [phone] Amparo Lopez MD Unavailable [phone] Encounter Details Date Type Department Care Team (Late st Contact Info) Description 07/11/2017 Abstract [facility] [address] [place] [phone] Susana Blake MA [address] [facility] [address] [place] [address] Social History Tobacco Use Types Packs/Day Years [...] on filedocumented in this encounter Care Teams School Lunch Monitor Relationship Specialty Start Date End Date ProviderMikie MD PCP - General 03/10/15 09/13/21 Maria Dolores Sinha MD [address] [place] [address] PCP - General Internal Medicine 09/14/21 03/31/23 Amparo Lopez MD [address] [place] [address] PCP - General Internal Medicine 04/01/23 Amparo Lopez MD [address] [place] [address] PCP - [facility] MA Attributed 12/11/23 09/09/24 Amparo Lopez MD [address] [place] [address] PCP - [place] Mariano MA Attributed 09/10/24 06/09/25 Amparo Lopez MD [address] [place] [address] PCP - [facility] MA attributed 06/10/25 Becca Browne MD [address] [place] [address] Cane Cutter Cardiovascular Disease 03/12/22 Al Platt MD [address] [place] [address] Gastroenterology 03/26/22 Apmaro Lopez MD [address] [place] [address] Internal Medicine 02/01/25 documented as of this encounter
--- OUTSIDE RECORDS SUMMARY | 2025-10-04 14:00 | XMS_ITS | Clinical Summary ---
Author Organization [facility] Address [address] [place] [address] Care Team Providers Care Mink Slicer Name Role Phone Becca Browne MD Unavailable [phone] Al Platt MD Unavailable Amparo Lopez MD Primary Care Provider + Amparo Lopez MD Unavailable [phone] Amparo Lopez MD Unavailable [phone] Allergies Active Allergy Reactions Criticality Noted Date Comments Adhesives/Tape Rash/Dermatitis Low 11/29/2017 Only paper tape-REDNESS Codeine Anaphylaxis High 11/16/2014 Erythromycin Anaphylaxis High 11/16/2014 Penicillins Rash/Dermatitis Low 11/16/2014 Vancomycin Hives,Other (See Comments),Itching Medium 11/30/2014 Tongue tingling Medications acetaminophen (TYLENOL) 500 MG tablet Take 2 tablets (1,000 mg total) by mouth every 6 (six) hours as needed for pain. Active diltiazem (CARDIZEM CD) 120 MG 24 hr capsule 025 Active metoPROLOL SUCCINATE (TOPROL-XL) 25 MG 24 hr tablet 025 Active colchicine (COLCRYS) 0.6 mg tabletIndications :Calcium pyrophosphate arthropathy Take 1 tablet (0.6 mg total) by mouth daily. 30 tablet 1 025 Active Additional Information Patient not taking.Reported on 09/28/2025 ibandronate (BONIVA) 150 MG tabletIndications :Osteoporosis without current pathological fracture, unspecified osteoporosis type Take 1 tablet (150 mg total) by mouth every 30 days (once a month). Take in AM with glass of water prior to food; don't lie down for 60 minutes. 3 tablet 3 Active Additional Information Patient not taking.Reported on 09/28/2025 meclizine (ANTIVERT) 25 MG tabletIndications :Dizziness Take 1 tablet (25 mg total) by mouth 3 (three) times a day as needed for dizziness. 90 tablet 3 Active Additional Information Patient not taking.Reported on 09/28/2025 ondansetron (ZOFRAN-ODT) 8 MG disintegrating tabletIndications :Nausea and vomiting, unspecified vomiting type Take 1 tablet (8 mg total) by mouth 3 times daily (every 8 hours) as needed for nausea or vomiting. Place tablet on tongue and to dissolve. 30 tablet 3 Active Additional Information Patient not taking.Reported on 09/28/2025 Cholecalciferol 50 MCG (2000 UT) Tab Active hydrocortisone 2.5 % cream INSERT RECTALLY TO [...] (ROXICODONE) 5 MG immediate release tablet Active HYDROmorphone (DILAUDID) 2 MG tablet Take 2-4 mg by mouth. for pain Active tiZANidine (ZANAFLEX) 4 MG tabletIndications :Muscle spasm Take 1 tablet (4 mg total) by mouth nightly as needed for muscle spasms. 10 tablet Active sodium-potassium- magnesium sulfates (Suprep Bowel Prep Kit) 17.5-3.13-1.6 GM/177ML Solution solutionIndicatio ns:Change in bowel function,Nausea,W eight loss,Decrease in appetite,Low mean corpuscular volume (MCV) Take two 177 mL bottles as directed 2 each 021 2021 Discontinued diltiazem (DILACOR XR) 120 MG 24 hr capsule Take 120 mg by mouth daily. 2021 Discontinued(P atient Discharge) magnesium citrate solutionIndicatio ns:Change in bowel function,Nausea,W eight loss,Decrease in appetite Take two 10 oz bottle as instructed 2days before procedure 2 each 022 2021 Discontinued methocarbamol (ROBAXIN) 750 MG tablet TAKE 1 TABLET BY MOUTH EVERY NIGHT AT BEDTIME FOR MUSCLE SPASM 024 2024 Discontinued(T herapy completed) baclofen (LIORESAL) 20 MG tablet Take 20 mg by mouth nightly as needed. FOR MUSCLE SPASM 2024 Discontinued(T herapy completed) Active Problems Problem [...] Encounters Date Type Department Care Team Description 09/28/2025 12:00 PM EST Office Visit [facility] Department of Family Medicine [address] [address] Amparo Lopez MD Chronic left shoulder pain (Primary Dx); Muscle spasm; Chronic diastolic heart failure (HCC); Osteoarthritis of spine with radiculopathy, lumbar region; Essential hypertension 09/02/2025 2:30 PM EDT Office Visit [facility] [address] [place] [address] Amparo Lopez MD S/P lumbar fusion (Primary Dx); Chronic obstructive pulmonary disease, unspecified COPD type (HCC); Essential hypertension; Congestive heart failure, unspecified HF chronicity, unspecified heart failure type (HCC) 09/01/2025 Scanned Document [facility] [address] [place] [address] Amparo Lopez MD 07/20/2025 1:00 PM EDT Clinical Support [facility] [place] [address] [place] [phone] Fan Ness MD Necklas, Gabriella, Au.D Tinnitus, bilateral (Primary Dx); Sensorineural hearing loss, bilateral; Impacted cerumen of left ear from Last 3 Months Immunizations Immunization Administration [...] Date Smoking Tobacco: Former Cigarettes 1 20 1 - 2013 Smokeless Tobacco: Former Tobacco Cessation:Counseling Given: [...] Sign Reading Time Taken Comments Blood Pressure 125/78 09/28/2025 12:18 PM EST Pulse 99 09/28/2025 12:18 PM EST Temperature 36.5 C (97.7 F) 09/28/2025 12:18 PM EST Respiratory Rate 14 09/28/2025 12:1 8 PM EST Oxygen Saturation 99% 09/28/2025 12: 18 PM EST Inhaled Oxygen Concentration - - Weight 59.3 kg (130 lb 12.8 oz) 025 12:18 PM EST Height 157.5 cm (5' 2 ) 09/28/2025 12:1 8 PM EST Body Mass Index 23.92 09/28/2025 12:18 PM EST Plan of Treatment Health Maintenance Due [...] 08/01/2020, 07/28/2019, 07/15/2018 COVID-19 Vaccine (1 - 2024-2 5 season) 2025 DXA Bone Density (Females,Ages [...] Procedure Name Priority Date/Time Associated Diagnosis Comments [place] PURE TONE AUDIOMETRY AIR ONLY Routine 07/20/2025 1:00 PM EDT Tinnitus, bilateral Sensorineural hearing loss, bilateral DEXA BONE DENSITY AXIAL SKELETON, 1 OR [...] AUDIOLOGY SERVICES ORDERAB LES Final Result * DEXA Bone Density axial [...] your patient to us, Ranjeet Roman MD [id number] (Electronically Signed - 04/20/2025 13:31) Narrative 04/20/2025 1:31 PM EDT EXAMINATION: BONE DENSITOMETRY CLINICAL INDICATION: Asymptomatic menopausal state. COMPARISON: This is the patients baseline examination. TECHNIQUE: Using a [employer] DXA system (software version: 14.10) manufactured by [employer], dual-energy x-ray absorptiometry was performed of the [...] the patients baseline examination. TECHNIQUE: Using a [employer] DXA system (software version:14.10) manufactured by [employer], dual-energy x-rayabsorptiometry was performed of the right [...] Roman MD 04/20/2025 01:31 PM EDT RPWorkstation: [id number] Thank you for referring your patient to us, Ranjeet Roman MD [id number] (Electronically Signed - 04/20/2025 13:31) us Amparo Lopez MD IMG DXA ORDERABLES Final Result * MM Mammogram [...] your patient to us, Betina Sharma MD [id number] (Electronically Signed - 04/20/2025 09:16) Narrative 04/20/2025 [...] patients personal breast tissue composition as [facility]. Electronically signed by: Betina Sharma MD 04/20/2025 09:16 AM EDT RPWorkstation: [id number] Thank you for referring your patient to us, Betina Sharma MD [phone] (Electronically Signed - 04/20/2025 09:16) Amparo Lopez MD IMG MAMMOGRAPHY ORDERABL ES Final Result from Last 3 Months or Most Recently Relevant to Health Maintenance Insurance [id number] MEDICARE [id number] MEDICARE [employer] MEDICARE [facility] MEDICARE Member Subscriber Plan / Payer (Ef fective for All Dates) Name:Marisa Bella Relation to Subscriber:Self Name:Marisa Bella Payer ID:[id number] Type:Not on file Address: [facility] [address] [place] [id number] Advance Directives Documents on File Type Date Recorded Patient Train Attendant Expl anation Advance Directive-Scan 05/22/2023 Ortho pedics Note Advance Directive-Scan 03/17/2023 Medic al Records Transfer to [facility] Mink Slicer Relationship Specialty Start Date End Date Amparo Lopez MD [address] [place] [address] PCP - General Internal Medicine 04/01/23 Amparo Lopez MD [address] [place] [address] PCP - [facility] attributed 06/10/25 Becca Browne MD Credit Administration Specialist Cardiovascular Disease 03/12/22 Al Platt MD [address] [place] [address] Gastroenterology 03/26/22 Amparo Lopez MD [address] [place] [address] Internal Medicine 02/01/25
--- OUTSIDE RECORDS SUMMARY | 2025-10-04 14:00 | XMS_ITS | Encounter Summary ---
Author Organization [facility] Address [address] [place] [address] Care Team Providers Care Criminal Justice Department Chair Name Role Phone Provider, Mikie MEDLEY Primary Care Provider Un available Maria Dolores Sinha MD Primary Care Provider [phone] Becca Browne MD Unavailable [phone] Al Platt MD Unavailable Amparo Lopez MD Primary Care Provider + Amparo Lopez MD Unavailable + [phone] Amparo Lopez MD Unavailable + [phone] Amparo Lopez MD Unavailable + [phone] Amparo Lopez MD Unavailable [phone] Encounter Details Date Type Department Care Team (Late st Contact Info) Description 09/16/2017 Scanned Document [facility] [address] [place] [phone] Delvis Mcknight MD [address] [place] [address] Social History Tobacco Use Types Packs/Day Years [...] on filedocumented in this encounter Care Teams Criminal Justice Department Chair Relationship Specialty Start Date End Date Mikie Davis MD PCP - General 03/10/15 09/13/21 Maria Dolores Sinha MD [address] [place] [address] PCP - General Internal Medicine 09/14/21 03/31/23 Amparo Lopez MD [address] [place] [address] PCP - General Internal Medicine 04/01/23 Amparo Lopez MD [address] [place] [address] PCP - Starjovana [facility] JULY Attributed 12/11/23 09/09/24 Amparo Lopez MD [address] [place] [address] PCP - Starjovana Quintana MA Attributed 09/10/24 06/09/25 Amparo Lopez MD [address] [place] [address] PCP - Starjovana Brady MA attributed 06/10/25 Becca Browne MD [address] [place] [address] Spray Operator Cardiovascular Disease 03/12/22 Al Platt MD [address] [place] [address] Gastroenterology 03/26/22 Amparo Lopez MD [address] [place] [address] Internal Medicine 02/01/25 documented as of this encounter
--- OUTSIDE RECORDS SUMMARY | 2025-10-04 14:00 | XMS_ITS | Encounter Summary ---
Author Organization [facility] Address [address] [place] [address] Care Team Providers Care Crate Tier Name Role Phone Becca Browne MD Unavailable [phone] Al Platt MD Unavailable Amparo Lopez MD Primary Care Provider + Amparo Lopez MD Unavailable [phone] Amparo Lopez MD Unavailable [phone] Encounter Details Date Type Department Care Team (Late st Contact Info) Description 09/01/2025 Scanned Document [facility] Department of Family Medicine [place] [address] [place] [address] Amparo Lopez MD [address] [place], [place] [phone] Social History Tobacco Use Types Packs/Day Years [...] on filedocumented in this encounter Care Teams Crate Tier Relationship Specialty Start Date End Date Amparo Lopez MD [address] [place] [address] PCP - General Internal Medicine 04/01/23 Amparo Lopez MD [address] [place] [address] PCP - [place] Brady MA attributed 06/10/25 Becca Browne MD Event Planning Intern Cardiovascular Disease 03/12/22 Al Platt MD [address] [place] [address] Gastroenterology 03/26/22 Amparo Lopez MD [address] [place] [address] Internal Medicine 02/01/25 documented as of this encounter
== END 2025-10-04 15:11 | disposition home or self-care (01) ==
LOC: HO.HOSX 15:10
PROVIDERS: Visit Provider Physician Assistant
DX: Z98.1 Arthrodesis status (principal)
CPT/HCPCS: 72110

== ENCOUNTER 2025-10-28 08:51 | Outpatient (REF) | payer MEDICARE, SELFPAY ==
--- NOTE | ~2025-10-28 | XR_ITS ---
EXAMINATION: XR LUMBOSACRAL SPINE CLINICAL INFORMATION: Z98.1 - Arthrodesis status COMPARISON: 10/04/2025. TECHNIQUE: 4 views of the lumbar spine, inclusive of flexion and extension views, were obtained. FINDINGS: There is a levoconvex scoliosis, estimated at approximately 22 degrees, apex at L3. There is a normal lordosis. Neutral view demonstrates a grade 2, 18 mm anterolisthesis of L4 on L5. There is no evidence of instability on flexion and extension views. There is no additional subluxation or developing subluxations on flexion or extension. Posterior fusion of L1-L5 with transpedicular screws and posterior connecting rods. There are intervening disc spacers/prostheses at L1-2 and L2-3. The hardware all appears intact, without definite periscrew or periprosthetic lucency on these radiographs. There is no fracture or compression deformity. No suspicious bone lesion. Severe disc degeneration is present at L4-5 and L5-S1. Moderate degeneration at L3-4. Facets are largely obscured by hardware. There is a left hip replacement. There is right hip chondrocalcinosis and degenerative changes. There are vascular calcifications present. XR/XR lumbar spine 4V min IMPRESSION: 1. No acute bony or soft tissue abnormalities. 2. Intact posterior interbody fusion from L1 through L5. No evidence of hardware complication or loosening. 3. Stable levoconvex scoliosis measuring approximately 22 degrees. 4. Stable 18 mm grade 2 anterolisthesis of L4 on L5. No evidence of instability on flexion and extension views. Electronically signed by: Ronal Martinez MD 10/28/2025 02:30 PM [facility]
--- OUTSIDE RECORDS SUMMARY | 2025-10-31 09:29 | XMS_ITS | Encounter Summary ---
Author Organization [facility] Address [address] [place] [address] Care Team Providers Care Sleeping Room Cleaner Name Role Phone Provider, Mikie MEDLEY Primary Care Provider Un available Maria Dolores Sinha MD Primary Care Provider [phone] Becca Browne MD Unavailable [phone] Al Platt MD Unavailable Amparo Lopez MD Primary Care Provider + Amparo Lopez MD Unavailable + [phone] Amparo Lopez MD Unavailable + [phone] Amparo Lopez MD Unavailable + [phone] Amparo Lopez MD Unavailable [phone] Encounter Details Date Type Department Care Team (Late st Contact Info) Description 07/11/2017 [facility] [address] [place] [id number] Susana Blake MA [address] [facility] [address] [place] [address] Social History Tobacco Use Types Packs/Day Years [...] Visit Elroy Batista Department of Family Medicine [place] [address] [place] [address] Amparo Lopez MD [address] [place] [address] documented as of this encounter Visit Diagnoses Not on filedocumented in this encounter Care Teams Sleeping Room Cleaner Relationship Specialty Start Date End Date Provider, MD Mikie PCP - General 03/10/15 09/13/21 Maria Dolores Sinha MD [address] [place] [address] PCP - General Internal Medicine 09/14/21 03/31/23 Amparo Lopez MD [address] [place] [address] PCP - General Internal Medicine 04/01/23 Amparo Lopez MD [address] [place] [address] PCP - Elroy HENDERSON MA Attributed 12/11/23 09/09/24 Amparo Lopez MD [address] [place] [address] PCP - Elroy Quintana MA Attributed 09/10/24 06/09/25 Amparo Lopez MD [address] [place] [address] PCP - Elroy Brady MA attributed 06/10/25 Becca Browne MD [address] [place] [address] Financial Developer Cardiovascular Disease 03/12/22 Al Platt MD [address] [place] [address] Gastroenterology 03/26/22 Amparo Lopez MD [address] [place] [address] Internal Medicine 02/01/25 documented as of this encounter
--- OUTSIDE RECORDS SUMMARY | 2025-10-31 09:29 | XMS_ITS | Encounter Summary ---
Author Organization [facility] Address [address] [place] [address] Care Team Providers Care Registrar Museum Name Role Phone Provider, Mikie MEDLEY Primary Care Provider Un available Maria Dolores Sinha MD Primary Care Provider [phone] Becca Browne MD Unavailable [phone] Al Platt MD Unavailable Amparo Lopez MD Primary Care Provider + Amparo Lopez MD Unavailable [phone] Amparo Lopez MD Unavailable [phone] Amparo Lopez MD Unavailable [phone] Amparo Lopez MD Unavailable [phone] Encounter Details Date Type Department Care Team (Late st Contact Info) Description 11/20/2017 Scanned Document [facility] [address] [place] [address] Jhony Mcdonald MD 85 [facility] [address] [place] [address] Social History Tobacco Use Types Packs/Day Years [...] Visit [facility] Department of Family Medicine [place] [address] [place] [address] Amparo Lopez MD [address] [place] [address] documented as of this encounter Visit Diagnoses Not on filedocumented in this encounter Care Teams Registrar Museum Relationship Specialty Start Date End Date Provider, MD Mikie PCP - General 03/10/15 09/13/21 Maria Dolores Sinha MD [address] [place] [address] PCP - General Internal Medicine 09/14/21 03/31/23 Amparo Lopez MD [address] [place] [address] PCP - General Internal Medicine 04/01/23 Amparo Lopez MD [address] [place] [address] PCP - Elroy Bonifacio MCDOWELL Attributed 12/11/23 09/09/24 Amparo Lopez MD [address] [place] [address] PCP - Elroy Quintana MA Attributed 09/10/24 06/09/25 Amparo Lopez MD [address] [place] [address] PCP - Elroy Brady [place] attributed 06/10/25 Becca Browne MD [address] [place] [address] City Letter Carrier Cardiovascular Disease 03/12/22 Al Platt MD [address] [place] [address] Gastroenterology 03/26/22 Amparo Lopez MD [address] [place] [address] Internal Medicine 02/01/25 documented as of this encounter
--- OUTSIDE RECORDS SUMMARY | 2025-10-31 09:29 | XMS_ITS | Encounter Summary ---
Author Organization [facility] Address [address] [place] [address] Care Team Providers Care Head Of It Name Role Phone Becca Browne MD Unavailable [phone] Al Platt MD Unavailable Amparo Lopez MD Primary Care Provider + Amparo Lopez MD Unavailable [phone] Amparo Lopez MD Unavailable [phone] Amparo Lopez MD Unavailable [phone] Encounter Details Date Type Department Care Team (Late st Contact Info) Description 01/28/2025 Scanned Document [facility], [address], [address] [place] [address] Unknown Unknow Provider Address Social [...] Visit Elroy Batista Department of Family Medicine [place] [address] [place] [address] Amparo Lopez MD [address] [place] [address] documented as of this encounter Goals Goal [...] on filedocumented in this encounter Care Teams Head Of It Relationship Specialty Start Date End Date Amparo Lopez MD [address] [place] [address] PCP - General Internal Medicine 04/01/23 Amparo Lopez MD [address] [place] [address] PCP - Elroy Quintana MA Attributed 09/10/24 06/09/25 Amparo Lopez MD [address] [place] [address] PCP - Elroy Brady [place] attributed 06/10/25 Becca Browne MD [facility] Cardiovascular Disease 03/12/22 Al Platt MD [address] [place] [address] Gastroenterology 03/26/22 Amparo Lopez MD [address] [place] [address] Internal Medicine 02/01/25 documented as of this encounter
--- OUTSIDE RECORDS SUMMARY | 2025-10-31 09:29 | XMS_ITS | Clinical Summary ---
Author Organization [facility] Address [address] [place] [address] Care Team Providers Care Layout Mechanic Name Role Phone Amparo Lopez DO Unavailable [phone] Amparo Lopez DO Primary Care Provider + Allergies Active Allergy Reactions Criticality Noted Date Comments Adhesive Rash Low 11/29/2017 Only paper [id number] pt bandaides and tegaderms are okay Adhesive [...] EST - 09/13/2025 12:22 PM EST Emergency [facility] Department of Emergency Services [address] [place] [address] Junie Girard MD Muscle strain of left [...] 3 <=14 ng/L 09/13/2025 12:23 PM EST [facility] Comment:Refer to the high se nsitivity TnI algorithm for further workup Blood Venous blood specimen / Unknown Venipuncture / Unknown 09/13/2025 11:10 AM EST 09/13/2025 11:50 AM EST us Junie Girard MD LAB BLOOD ORDERABLES Final Result [facility] [address] [place] [address], [place] [phone] * CT angiogram pulmonary WO+/or W iv [...] 3.6 - 11.0 10*3/uL 09/13/2025 8:58 AM [facility] Red Cell Count 3.58(L) 3.80 - 5.20 10*6/ L 09/13/2025 8:58 AM [facility] Hemoglobin 8.8(L) 12.0 - 16.0 g/dL 09/13/2025 8:58 AM [facility] Hematocrit 26.7(L) 35.0 - 47.0 % 09/13/2025 8:58 AM [facility] MCV 74.6(L) 80.0 - 100.0 fL 09/13/2025 8:58 AM [facility] MCH 24.6(L) 26.0 - 34.0 pg 09/13/2025 8:58 AM [facility] MCHC 33.0 32.0 - 36.0 g/dL 09/13/2025 8:58 AM [facility] RBC Distribution Width 15.4(H) 11.6 - 14.8 % 09/13/2025 8:58 AM [facility] Platelet count 578(H) 150 - 440 10*3/uL 09/13/2025 8:58 AM [facility] Neutrophils 85.3(H) 40.0 - 70.0 % 09/13/2025 8:58 AM [facility] Immature Granulocytes 0.5 0.0 - 0.6 % 09/13/2025 8:58 AM [facility] Lymphocytes 6.4(L) 20.0 - 50.0 % 09/13/2025 8:58 AM [facility] Monocytes 7.2 4.0 - 12.0 % 09/13/2025 8:58 AM [facility] Eosinophils 0.1 0.0 - 6.0 % 09/13/2025 8:58 AM [facility] Basophils 0.5 0.0 - 2.0 % 09/13/2025 8:58 AM [facility] Absolute Neutrophil Ct. 7.88(H) 1.40 - 6.30 10*3/uL 09/13/2025 8:58 AM [facility] Absolute Lymphocyte Ct. 0.59(L) 0.70 - 4.50 10*3/uL 09/13/2025 8:58 AM [facility] Absolute Monocyte Ct. 0.67 0.20 - 0.80 10*3/uL 09/13/2025 8:58 AM [facility] Absolute Eosinophil Ct. 0.01 0.00 - 0.30 10*3/uL 09/13/2025 8:58 AM [facility] Absolute Basophil Ct. 0.05 0.00 - 0.20 10*3/uL 09/13/2025 8:58 AM [facility] nRBC 0.0 0.0 - 0.0 % 09/13/2025 8:58 AM [facility] MPV 9.1(L) 9.4 - 12.4 fL 09/13/2025 8:58 AM [facility] Absolute immature granulocytes 0.05 10*3/uL 09/13/2025 8:58 AM [facility] Blood Venous blood specimen / Unknown Venipuncture / Unknown 09/13/2025 8:48 AM EST 09/13/2025 8:53 AM EST Junie Girard MD LAB BLOOD ORDERABLES Final Result [facility] [address] [place] [address], [place] [phone] * (ABNORMAL) D-dimer, quantitative (09/13/2025 8:48 AM EST) D-Dimer, Quantitative 836(H) <=243 ng/mL D-DU 09/13/2025 9:06 AM EST [facility] Blood Venous blood specimen / Unknown Venipuncture / Unknown 09/13/2025 8:48 AM EST 09/13/2025 8:53 AM EST Narrative [facility] - 09/13/2025 9:06 AM EST [...] Girard MD LAB BLOOD ORDERABLES Final Result [facility] [address] [place] [address], [place] [phone] * Magnesium (09/13/2025 8:48 AM EST) Magnesium 2.0 1.8 - 3.0 mg/dL 09/13/2025 9:27 AM EST [facility] Blood Venous blood specimen / Unknown Venipuncture / Unknown 09/13/2025 8:48 AM EST 09/13/2025 8:53 AM EST Junie Girard MD LAB BLOOD ORDERABLES Final Result [facility] [address] [place] [address], [place] [phone] * Basic metabolic panel (09/13/2025 8:48 AM EST) Sodium 138 137 - 144 mmol/L 09/13/2025 9:27 AM EST [facility] Potassium 4.0 3.6 - 5.1 mmol/L 09/13/2025 9:27 AM EST [facility] Chloride 106 100 - 111 mmol/L 09/13/2025 9:27 AM EST [facility] CO2 23 23 - 32 mmol/L 09/13/2025 9:27 AM [facility] Anion gap 9 3 - 11 mmol/L 09/13/2025 9:27 AM [facility] BUN 15 8 - 24 mg/dL 09/13/2025 9:27 AM [facility] Creatinine 0.60 0.60 - 1.20 mg/dL 09/13/2025 9:27 AM EST [facility] Glucose 125 70 - 200 mg/dL 09/13/2025 9:27 AM [facility] Comment: Normal fasting glucose 75-99 [...] - 10.2 mg/dL 09/13/2025 9:27 AM EST [facility] eGFR 95 >60 mL/min/1. 73m*2 09/13/2025 9:27 AM EST [facility] Comment: Calculation based on the [...] 70 + 75 ml/min/1.73 m2 Pursuant to [place] Public Act 06-120(1)(b)(1). The 2020 CKD-EPI calculation used to estimate eGFR has only been validated for patients 18 years or older. Blood Venous blood specimen / Unknown Venipuncture / Unknown 09/13/2025 8:48 AM EST 09/13/2025 8:53 AM EST us Junie Girard MD LAB BLOOD ORDERABLES Final Result [facility] [address] [place] [address], * ECG 12 lead (09/13/2025 8:25 AM EST) 09/13/2025 8:25 AM EST 09/13/2025 9:15 AM EST Narrative [facility] ([facility]) - 09/13/2025 9:15 AM EST Ventricular Rate: 102 BPM Atrial Rate: 102 BPM P-R Interval: 216 ms QRS Duration: 80 ms Q-T Interval: 330 ms QTC Calculation(Bazett): 430 ms P [place]: 68 degrees R [place]: -13 degrees T [place]: 44 degrees Diagnosis: Sinus tachycardia with 1st degree A-V block with Premature supraventricular complexes Nonspecific T wave abnormality Abnormal ECG When compared with ECG of 16-Jun-2022 17:51, Nonspecific T wave abnormality, worse in Anterior leads Confirmed by Chely Harrington ([id number]) on 09/13/2025 8:57:33 AM Also confirmed by Chely Harrington ([id number]), editor department Gwendolyn Mayorga ([id number]) on 09/13/2025 9:15:49 AM Procedure Note Chely Harrington MD - 09/13/2025 Ventricular Rate: 102 BPM Atrial Rate: 102 BPM P-R Interval: 216 ms QRS Duration: 80 ms Q-T Interval: 330 ms QTC Calculation(Bazett): 430 ms P [place]: 68 degrees R [place]: -13 degrees T [place]: 44 degrees Diagnosis: Sinus tachycardia with 1st degree A-V block with Prematuresupraventricular complexes Nonspecific T wave abnormality Abnormal ECG When compared with ECG of 16-Jun-2022 17:51, Nonspecific T wave abnormality, worse in Anterior leads Confirmed by Chely Harrington ([id number]) on 09/13/2025 8:57:33 AM Also confirmed by Chely Harrington ([id number]), editor department Gwendolyn Mayorga ([id number])on 09/13/2025 9:15:49 AM us Junie Girard MD ECG ORDERABLES Final Result [facility] ([place]) [place] [address], from Last 3 Months Insurance () [employer] MEDICARE [facility] MEDICARE [facility] Advance Directives For more information, please contact: [phone] Documents on File Type Date Recorded 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
--- OUTSIDE RECORDS SUMMARY | 2025-10-31 09:29 | XMS_ITS | Data Portability ---
Author Organization [place] [facility] Address [address] [place] [address] Care Team Providers Care Operating Room Rn Name Role Phone NANI WHEATLEY Referring Provider [...] not fully diagnostic because of her hardware. EMG/[facility]/Jhonathan-Ivet posito/June 23, 2024: Electrodiagnostic evidence suggestive [...] as it would cost her thousand dollars [id number]. She last had physical therapy about a [...] lower extremity pain consistent with neurogenic claudication. [facility]/Jhonathan-Es posito/June 23, 2024: Electrodiagnostic evidence suggestive [...] as it would cost her thousand dollars [id number]-grtgkw. She last had physical therapy about a [...] over the SI joint and pain with zjffft-gb-kozz. She does not have a great deal [...] tenderness over the SI joint with positive famtlt-ji-bisb and a great deal of discomfort with [...] injections. Most recently she was seen by material mover. She had an MRI and a CT [...] tenderness over the SI joint with positive siqnwt-er-qxrw and a great deal of discomfort with [...] injections. Most recently she was seen by material mover. She had an MRI and a CT [...] None recorded. Lab None recorded. Referral [facility] pain medicine specialist referral - Please contact patient to schedule appointment . Diagnostic right SI joint injection. Please have patient keep a pain diary. 2023 024 Rosana Sparrow MD, [address] [facility], [facility], [place], [address], 4 09:59:19 Procedures None recorded. Surgeries None recorded. Imaging XR, lumbosacral spine, 2 or 3 view 2024 025 [email or web address] 2 [facility], [address], [place], [address], 5 09:45:22 Medication Orders None recorded. Patient TargetsNo targets recorded. Patient Instructions Encounter Date Encounter Id Patient Instructions Last Modified By Organization Details Last Modified Time 09/27/2025 [id number] Radiographs: As per the patient's request AP and lateral lumbosacral spine radiographs were obtained in the [facility] facility. There is a new L1 to [...] study No observ ation record ed. [email or web address] [facility] [address] [facility] [address], [place], [address], 06/25/2024 08:20:27 08/19/20 24 08/19/2024 CT, myelo gram, lumba r spine No observ ation record ed. [email or web address] [facility] [address] [facility], [place], [address], 08/19/2024 22:53:49 08/20/2008/19/2024 CT, myelo gram, lumba r spine No observ ation record ed. [email or web address] [facility] [address] [place], [address], 08/20/2024 12:38:06 06/02/20 25 05/04/2024 MRI, lumba r spine , w/o contr ast No observ ation record ed. [email or web address] Available 2024 14:03:26 Result Notes None recorded. Problems Name Problem SNOMED Code Status Onset Date Resolution Date Notes Provider Name and Address Organization Details Recorded Time Essential hypertens ion 74618161 Active 2014 Essential hypertens ion - Overview: Formattin g of this note might be different from the original. ICD-10 Activatio n Not Available [facility] 5 23:53:13 History of total knee arthropla sty 96618415555 05 Active 2014 Status post total right knee replaceme nt Not Available [facility] 5 23:53:07 Chronic obstructi ve pulmonary disease 94952317 Active 2014 COPD (chronic obstructi ve pulmonary disease) Not Available [facility] 5 23:53:09 Supravent ricular tachycard ia 6770389 Active 2014 Supravent ricular tachycard ia Not Available [facility] 5 23:53:11 Iron deficienc y anemia 16744421 Active 2014 Iron deficienc y anemia Not Available [facility] 5 23:53:13 History of intestina l infection caused by Clostridi oides difficile 95634622770 9101 Active 2015 History of Clostridi um difficile colitis Not Available [facility] 5 23:53:07 Spondylos is 6724909 Active 2016 Spondylos is Not Available [facility] 5 23:53:12 Abnormal gait 54857033 Active 2016 Gait instabili ty Not Available [facility] 5 23:53:08 Lumbar spondylol isthesis 86944782372 9102 Active 2016 Spondylol isthesis of lumbar region Not Available [facility] 5 23:53:08 Adolescen t idiopathi c scoliosis of lumbar spine 50568317122 9105 Active 2016 Adolescen t idiopathi c scoliosis of lumbar region Not Available [facility] 5 23:53:09 Chronic low back pain 567525371 Active 2016 Chronic bilateral low back pain with bilateral sciatica Chronic low back pain without sciatica Not Available [facility] 5 23:53:15 Diverticu lum of large intestine without hemorrhag e 002037236 Active 2016 Diverticu losis of large intestine without hemorrhag e Not Available [facility] 5 23:53:16 Postopera tive ileus 421628931 Active 2017 Postopera tive ileus Not Available [facility] 5 23:53:11 Arthritis of hip 28267889 Active 2017 Hip arthritis Not Available [facility] 5 23:53:05 Bilateral carpal tunnel syndrome 39624765134 252210 Active 2017 Bilateral carpal tunnel syndrome Not Available [facility] 5 23:53:05 Pain of right hand 98656507660 9109 Active 2017 Hand pain, right Not Available [facility] 5 23:53:07 Pain of elbow region 61961300 Active 2017 Elbow pain, right Lef t elbow pain Not Available [facility] 5 23:53:08 Arthritis of joint of hand Active 2017 Hand arthritis Not Available [facility] 5 23:53:09 Arthritis of elbow 681073792 Active 2017 Elbow arthritis Not Available [facility] 5 23:53:10 Clostridi um difficile colitis 673320556 Active 2017 C. 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 Not Available [facility] 5 23:53:14 Greater trochante geremias pain syndrome 8992584 Active 2017 Greater trochante geremias bursitis of left hip Not Available [facility] 5 23:53:15 History of repair of hip joint 834068314 Active 2017 Status post left hip replaceme nt Not Available [facility] 5 23:53:06 Family history of breast cancer 200393782 Active 2018 Family history of malignant neoplasm of breast Not Available [facility] 5 23:53:14 Simple chronic bronchiti s 87814923 Active 2018 Simple chronic bronchiti s Not Available [facility] 5 23:53:13 Premature atrial contracti on 346517162 Active 2019 Premature atrial beats Not Available [facility] 5 23:53:06 Palpitati ons 05070763 Active 2019 Palpitati ons Not Available [facility] 5 23:53:10 Periphera l muscle fatigue 72046023 Active 2020 Leg fatigue Not Available [facility] 5 23:53:06 Spondylol ysis of cervical spine 888390047 Active 2020 Cervical spondylol ysis Not Available [facility] 5 23:53:05 Ventricul ar hypertrop hy 945272463 Active 2021 Asymmetri c septal hypertrop hy Not Available [facility] 5 23:53:10 Chest pain 20923295 Active 2021 Other chest pain Not Available [facility] 5 23:53:14 Kyphosis of thoracic spine 533401268 Active 2022 Sai Aguilar MD [address], [place], [address] , [place] [facility] 3 16:47:48 Scoliosis deformity of spine 494684171 Active 2022 Sai Aguilar MD [address], [place], [address] , [place] [facility], [facility] 3 16:48:03 Cramp in lower limb 507314377 Active [address], [place], [address] , [place] [facility], [facility] 3 16:48:09 Lumbar post-lami nectomy syndrome 647734553 Active 2022 Postlamin ectomy syndrome, lumbar region Not Available [facility] 5 23:53:12 Low back pain 914363345 Active 2023 Sai Aguilar MD [address], [place], [place], , [place] [facility], [facility] 4 14:24:44 Neck pain 23751891 Active 2023 Sai Aguilar MD [address], [place], [address] , [place] [facility], [facility] 4 14:25:02 History of lumbar fusion 22556586585 106 Active [address], [place], [place], , [place] [facility], [facility] 4 14:29:10 Stenosis of cervix 90992655 Active [address], [place], [place], , [place] [facility], [facility] 4 14:30:05 Stenosis of intervert ebral foramina 63035147517 9 Active [address], [place], [address] , [place] [facility], [facility] 4 14:30:27 Neurogeni c claudicat ion 814938906 Active [address], [place], , [place] [facility], [facility] 4 14:00:28 Claustrop hobia 94646428 Active [address], [place], [address] , [place] [facility], [facility] 4 15:25:05 Problem Notes None recorded. Medical Equipment None Reported. Allergies Allergen ID Allergen Name Allergen Category Reaction Reaction Severity Criticality Documentation Date Start Date Code Code System Note Provider Name and Address Organization Details Recorded Time 00140 vancomyci n medicatio n hives itching Not available Not available Not available 04/29/20242014 21977 RxNorm Barbara Plochocki null, [place] [facility], [facility] 5 09:45:12 23148 Product containin g penicilli n (product) medicatio n rash Not available Not available 04/29/20242014 07058 8001 SNOMED Barbara Rosalesi null, [facility], P 5 09:45:12 01652 erythromy elly medicatio n anaphylax is Not available Not available 04/29/20242014 4053 RxNorm Barbara Plochocki null, [facility], [facility] 5 09:45:12 22336 codeine medicatio n anaphylax is Not available Not available 04/29/20242014 2670 RxNorm Barbara Chavezocki [facility], [facility] 5 09:45:12 07005 Adhesive agent (substanc e) environme nt,medica tion rash Not available Not available 05/31/20252017 00987 0007 SNOMED Barbara Rosalesi [facility], [facility] 5 09:45:12 Medications Name Sig Start [...] Updated DateTime 12/07/2024 160.02 cm 23 kg/m2 76383.[address] [facility] 12/07/2024 15:20:03 Date Recorded Body height Provider Name an d Address Organization Details Last Updated DateTime 05/31/2025 160.02 cm [facility] 05/31/2025 09:45:00 Date Recorded Body height Body mass index (BMI) Body weight Provider Name and Address Organization Details Last Updated DateTime 06/29/2024 160.02 cm 23.7 kg/m2 27084.38 g Shannan Epps [place] - [facility] 06/29/2024 13:18:28 Date Recorded Body height Body mass index (BMI) Body weight Heart rate Body temperature Oxygen saturation Systolic And Diastolic Provider Name and Address Organization Details Last Updated DateTime 4 158.8 cm 23.76 kg/m2 49403 g 79 /min 97.7 [degF] 98 % 110/84 mm[Hg] Not Available [facility] 5 00:57:07 Date Recorded Body height Body mass index (BMI) Body weight Provider Name and Address Organization Details Last Updated DateTime 08/24/2024 160.02 cm 23.7 kg/m2 82428.[address] [place] [facility] 08/24/2024 11:31:38 Social History None recorded. Functional Status None recorded. Mental Status None recorded. Family History Nothing Reported. Medical History No medical history recorded. Gynecological HistoryNo gynecological history recorded. Obstetrics History GPAL:G 0 P 0 0 0 0 Immunizations Vaccine Type Date Status Note Provider Nam e and Address Organization Details Recorded Time pneumococcal polysaccharide PPV23 8 completed Not Available [facility] 08/02/2025 05:39:36 Influenza, split virus, quadrivalent, PF 8 completed Not Available [facility] 08/02/2025 05:39:36 Influenza, MDCK, quadrivalent, PF 9 completed Not Available [facility] 08/02/2025 05:39:36 Past Encounters Encounter ID Performer Location Encounter Start Date Encounter Closed Date Diagnosis/Indication Diagnosis SNOMED-CT Code Diagnosis ICD10 Code Diagnosis IMO Codes Diagnosis Note [id number] MD VALARIE Hernandez [address] [place] [address] [place] [address] 05/20/2023 16:07:30 05/20/2023 16:49:57 History of lumbar fusion 8202750891 9106 Z98.1 Kyphosis o f thoracic spine 942985000 M40.204 Scoliosis deformity of spine 894139616 M41.9 Cramp in lower limb 4499 46741 R25.2 [id number] DAYSI GOODWIN PA-C [address] [place] [address] 06/13/2023 11:38:29 06/13/2023 12:13:26 Kyphosis of thoracic spine 434441324 M40.204 History of lumbar fusion 8149454650 9106 Z98.1 Scoliosis deformity of spine 674879737 M41.9 Cramp in lower limb 4499 40184 R25.2 [id number] MD VALARIE Hernandez [address] [address] 04/15/2024 13:28:12 04/15/2024 14:26:44 Kyphosis of thoracic spine 318643503 M40.204 History of lumbar fusion 2931303920 9106 Z98.1 Scoliosis deformity of spine 352722428 M41.9 Low back pain 336208669 M54.50 Additional diagnosis detail: Lumbar back pain Neck pain 05156337 M54.2 Stenosis o f intervertebral foramina 2198411640 09 M48.02 Additional diagnosis detail: Foraminal stenosis of cervical region [id number] MD VALARIE Hernandez Shahid [address] [place] [address] 04/29/2024 14:47:07 04/29/2024 15:22:36 History of lumbar fusion 0654038244 9106 Z98.1 Neurogenic claudication 893734433 R29.818 Claustrophobia 69591173 F40.240 [id number] MD VALARIE Hernandez [address] [place] [address] 05/18/2024 15:10:26 05/18/2024 15:46:26 Neurogenic claudication 697289089 R29.818 Claustrophobia 63117848 F40.240 History of lumbar fusion 3384390255 9106 Z98.1 Kyphosis o f thoracic spine 088195502 M40.204 Low back pain 634343977 M54.50 Additional diagnosis detail: Lumbar back pain [id number] MD VALARIE Hernandez [address] [place] [address] 06/29/2024 13:12:16 06/29/2024 14:01:35 History of lumbar fusion 4705771906 9106 Z98.1 Low back pain 927674884 M54.50 Additional diagnosis detail: Lumbar back pain Neurogenic claudication 684460347 R29.818 [id number] MD VALARIE Hernandez [address] [place] [address] 08/24/2024 11:20:07 08/24/2024 12:00:42 Kyphosis of thoracic spine 449116137 M40.204 Low back pain 237142767 M54.50 Additional diagnosis detail: Lumbar back pain [id number] MD VALARIE Hernandez [address] [place] [address] 12/07/2024 15:11:42 12/07/2024 16:28:22 Low back pain 226893706 M54.50 Additional diagnosis detail: Lumbar back pain Kyphosis o f thoracic spine 490544373 M40.204 [id number] MD VALARIE Hernandez [address] [place] [address] 05/31/2025 09:34:53 05/31/2025 10:06:10 Low back pain 631906696 M54.50 Additional diagnosis detail: Lumbar back pain Scoliosis deformity of spine 256208723 M41.9 Stenosis o f intervertebral foramina 8170121939 09 M48.02 Additional diagnosis detail: Foraminal stenosis of cervical region [id number] MD VALARIE Hernandez [address] [place] [address] 09/27/2025 13:02:56 09/27/2025 13:52:40 History of lumbar fusion 8363509945 9106 Z98.1 Kyphosis o f thoracic spine 299620944 M40.204 Scoliosis deformity of spine 344539380 M41.9 Health Concerns Section Related Observation LastModified by Organization Detai ls LastModified Time None Recorded Concern Status LastModified by Organization Details LastModified Time None Recorded Advance Directives Directive None Recorded Payers Insurance Date Sequence Insurance Name Policy Number Policy Font[place] Covered Member ID Font[place] Member ID Guarantor Name 09/24/2025 1 [facility]MEDICARE REPLACEMENT/AD VANTAGE - HMO) [id number] Marisa Bella [id number] Marisa Bella 06/29/2024 2 [place] Marisa Bella [id number] Marisa Bella 06/21/2024 1 [facility] (MEDICARE REPLACEMENT/AD VANTAGE - PPO) [id number] Marisa Bella [id number] Marisa Bella 12/06/2024 1 [employer] (MEDICARE REPLACEMENT/AD VANTAGE - PPO) [id number] Marisa Bella [id number] Marisa C Shayne OBGyn Episode No OBEpisode recorded.
--- OUTSIDE RECORDS SUMMARY | 2025-10-31 09:29 | XMS_ITS | Encounter Summary ---
Author Organization [facility] Address [address] [place] [address] Care Team Providers Care Route Jumper Name Role Phone Provider, Mikie MEDLEY Primary Care Provider Un available Maria Dolores Sinha MD Primary Care Provider [phone] Becca Browne MD Unavailable [phone] Al Platt MD Unavailable Amparo Lopez MD Primary Care Provider + Amparo Lopez MD Unavailable + [phone] Amparo Lopez MD Unavailable + [phone] Amparo Lopez MD Unavailable + [phone] Amparo Lopez MD Unavailable [phone] Encounter Details Date Type Department Care Team (Late st Contact Info) Description 09/16/2017 Scanned Document [facility] [place] [place] [address] [place] [phone] Delvis Mcknight MD [address] [place] [address] Social History Tobacco Use Types Packs/Day Years [...] Visit [facility] Department of Family Medicine [place] [address] [place] [address] Amparo Lopez MD [address] [place] [address] documented as of this encounter Visit Diagnoses Not on filedocumented in this encounter Care Teams Route Jumper Relationship Specialty Start Date End Date ProviderMikie MD PCP - General 03/10/15 09/13/21 Maria Dolores Sinha MD [address] [place] [address] PCP - General Internal Medicine 09/14/21 03/31/23 Amparo Lopez MD [address] [place] [address] PCP - General Internal Medicine 04/01/23 Amparo Lopez MD [address] [place] [address] PCP - Elroy Bonifacio MCDOWELL Attributed 12/11/23 09/09/24 Amparo Lopez MD [address] [place] [address] PCP - Elroy Quintana MA Attributed 09/10/24 06/09/25 Amparo Lopez MD [address] [place] [address] PCP - Elroy Brady [place] attributed 06/10/25 Becca Browne MD [address] [place] [address] Collector Cardiovascular Disease 03/12/22 Al Platt MD [address] [place] [address] Gastroenterology 03/26/22 Amparo Lopez MD [address] [place] [address] Internal Medicine 02/01/25 documented as of this encounter
--- OUTSIDE RECORDS SUMMARY | 2025-10-31 09:29 | XMS_ITS | Encounter Summary ---
Author Organization [facility] Address [address] [place] [address] Care Team Providers Care Bridge/Structure Inspection Team Leader Name Role Phone Maria Dolores Sinha MD Primary Care Provider [phone] Becca Browne MD Unavailable [phone] Al Platt MD Unavailable Amparo Lopez MD Primary Care Provider + Amparo Lopez MD Unavailable + [phone] Amparo Lopez MD Unavailable [phone] Amparo Lopez MD Unavailable [phone] Amparo Lopez MD Unavailable [phone] Encounter Details Date Type Department Care Team (Late st Contact Info) Description 05/24/[address] [facility] [address] [place] [phone] Al Platt MD [address] [place] [phone] Social History Tobacco Use Types Packs/Day Years [...] Description 03/06/2026 1:00 PM EDT Office Visit [facility] Department of Family Medicine [place] [address] [place] [phone] Amparo Lopez MD [address] [place] [address] documented as of this encounter Goals Goal [...] on filedocumented in this encounter Care Teams Bridge/Structure Inspection Team Leader Relationship Specialty Start Date End Date Maria Dolores Sinha MD [address] [place] [address] PCP - General Internal Medicine 09/14/21 03/31/23 Amparo Lopez MD [address] [place] [address] PCP - General Internal Medicine 04/01/23 Amparo Lopez MD [address] [place] [address] PCP - [facility] JULY Attributed 12/11/23 09/09/24 Amparo Lopez MD [address] [place] [address] PCP - Meridalejovana Quintana MA Attributed 09/10/24 06/09/25 Amparo Lopez MD [address] [place] [address] PCP - Starj[facility] JULY attributed 06/10/25 Becca Browne MD [address] [place] [address] Computer Systems Software Architect Cardiovascular Disease 03/12/22 Al Platt MD [address] [place] [address] Gastroenterology 03/26/22 Amparo Lopez MD [address] [place] [address] Internal Medicine 02/01/25 documented as of this encounter
--- OUTSIDE RECORDS SUMMARY | 2025-10-31 09:29 | XMS_ITS | Clinical Summary ---
Author Organization [facility] Address [address] [place] [address] Care Team Providers Care Advanced Practice Nurse Psychotherapist Name Role Phone Becca Browne MD Unavailable [phone] Al Platt MD Unavailable Amparo Lopez MD Primary Care Provider + Amparo Lopez MD Unavailable [phone] Amparo Lopez MD Unavailable [phone] Allergies Active Allergy Reactions Criticality Noted Date [...] Description 09/28/2025 12:00 PM EST Office Visit [facility] [address] [place] [address] Amparo Lopez MD Chronic left shoulder pain (Primary Dx); Muscle spasm; Chronic diastolic heart failure (HCC); Osteoarthritis of spine with radiculopathy, lumbar region; Essential hypertension 09/02/2025 2:30 PM EDT Office Visit [facility] [address] [place] [address] Amparo Lopez MD S/P lumbar fusion (Primary Dx); Chronic obstructive pulmonary disease, unspecified COPD type (HCC); Essential hypertension; Congestive heart failure, unspecified HF chronicity, unspecified heart failure type (HCC) 09/01/2025 Scanned Document [facility] Department of Family Medicine [address] [id number] Amparo Lopez MD from Last 3 Months [...] Visit [facility] Department of Family Medicine [place] [address] [place] [address] Amparo Lopez MD [address] [place] [address] Health Maintenance Due Date Last Done Comments [...] your patient to us, Freddy Kumar MD [id number] (Electronically Signed - 10/10/2025 15:06) Copy: PATIENT [...] Kumar MD 10/10/2025 03:06 PM EST RPWorkstation: [id number] Thank you for referring your patient to us, Freddy Kumar MD [id number] (Electronically Signed - 10/10/2025 15:06) Copy: PATIENT [...] your patient to us, Ranjeet Roman MD [id number] (Electronically Signed - 04/20/2025 13:31) Narrative 04/20/2025 1:31 PM EDT EXAMINATION: BONE DENSITOMETRY CLINICAL INDICATION: Asymptomatic menopausal state. COMPARISON: This is the patients baseline examination. TECHNIQUE: Using a BioArray DXA system (software version: 14.10) manufactured by [employer] dual-energy x-ray absorptiometry was performed of the [...] the patients baseline examination. TECHNIQUE: Using a BioArray DXA system (software version:14.10) manufactured by [employer] dual-energy x-rayabsorptiometry was performed of the right [...] Roman MD 04/20/2025 01:31 PM EDT RPWorkstation: [id number] Thank you for referring your patient to us, Ranjeet Roman MD [id number] (Electronically Signed - 04/20/2025 13:31) Amparo Lopez MD [facility] DXA ORDERABLES Final Result * MM Mammogram [...] your patient to us, Betina Sharma MD [id number] (Electronically Signed - 04/20/2025 09:16) Narrative 04/20/2025 [...] Sharma MD 04/20/2025 09:16 AM EDT RPWorkstation: [id number] Thank you for referring your patient to us, Betina Sharma MD [id number] (Electronically Signed - 04/20/2025 09:16) Amparo Lopez MD IMG MAMMOGRAPHY ORDERABL ES Final Result from Last 3 Months or Most Recently Relevant to Health Maintenance Insurance MEDICARE Member Subscriber Plan / Payer (Ef fective for All Dates) Name:Marisa Bella Relation to Subscriber:Self Name:Marisa Bella Payer ID:[id number] Type:Not on file Address: [place] [phone] Member Subscriber Plan / Payer (Ef fective for All Dates) Name:Marisa Bella Relation to Subscriber:Self Name:Marisa Bella Payer ID:[id number] Type:Not on file Address: [place] [phone] [facility] MEDICARE Advance Directives Documents on File Type Date Recorded Patient Documentum Consultant Expl anation Advance Directive-Scan 05/22/2023 Ortho pedics Note Advance Directive-Scan 03/17/2023 Medic al Records Transfer to [facility] Advanced Practice Nurse Psychotherapist Relationship Specialty Start Date End Date Amparo Lopez MD [address] [place] [address] PCP - General Internal Medicine 04/01/23 Amparo Lopez MD [address] [place] [address] PCP - [facility] 06/10/25 Becca Browne MD Director Of Institutional Research Cardiovascular Disease 03/12/22 Al Platt MD [address] [place] [address] Gastroenterology 03/26/22 Amparo Lopez MD [address] [place] [address] Internal Medicine 02/01/25
--- OUTSIDE RECORDS SUMMARY | 2025-10-31 09:29 | XMS_ITS | Encounter Summary ---
Author Organization [facility] Address [address] [place] [address] Care Team Providers Care Outplacement Consultant Name Role Phone Becca Browne MD Unavailable [phone] Al Platt MD Unavailable Amparo Lopez MD Primary Care Provider + Amparo Lopez MD Unavailable [phone] Amparo Lopez MD Unavailable [phone] Encounter Details Date Type Department Care Team (Late st Contact Info) Description 09/01/2025 Scanned Document [facility] Department of Family Medicine [place] [address] [place] [address] Amparo Lopez MD [address] [place], [place] [phone] Social History Tobacco Use Types Packs/Day Years [...] Description 03/06/2026 1:00 PM EDT Office Visit [facility] Department of Family Medicine [place] [address] [place] [address] Amparo Lopez MD [address] [place] [address] documented as of this encounter Goals Goal [...] on filedocumented in this encounter Care Teams Outplacement Consultant Relationship Specialty Start Date End Date Amparo Lopez MD [address] [place] [address] PCP - General Internal Medicine 04/01/23 Amparo Lopez MD [address] [place] [address] PCP - [facility] attributed 06/10/25 Becca Browne MD [facility] [employer] Cardiovascular Disease 03/12/22 Al Platt MD [address] [place] [address] Gastroenterology 03/26/22 Amparo Lopez MD [address] [place] [address] Internal Medicine 02/01/25 documented as of this encounter
--- OUTSIDE RECORDS SUMMARY | 2025-10-31 09:29 | XMS_ITS | Clinical Summary ---
Author Organization [facility] [employer] [employer] Prior to 04/09/25 Address [address] [place] [address] Care Team Providers Care Dubbing Machine Operator Name Role Phone Amparo Lopez DO Primary Care Provider + Allergies Active Allergy Reactions Criticality Noted Date Comments Codeine Anaphylaxis High 11/16/2014 Erythromycin Anaphylaxis High 11/16/2014 Penicillins Rash Low 11/16/2014 Tape Rash Low 11/29/2017 Only paper dlnt-DTRJOZB-jum pt bandaides and tegaderms are okay Vancomycin [...] 1 Alive Brother 2 (Age 29) PLANE DIETETIC TECHNICIAN REGISTERED H Father Alive Mother (Age 59) BREAST [...] this topic Medical Devices Implanted Type Area Review Scheduling Coordinator Device Identifier Shelf Expiration Date Model / Serial / Lot Sponge Surgiflo 8ml Hemostatic Matrix Absorbable Latex Free - 245655 - [id number] Implanted:Qty: 1 on 11/26/2017 by Sai Aguilar MD at [facility] Hemostatic Agent Left: Spine Lumbar [employer] 07/10/2019 2991 / / [id number] Cement Simplex P Radiopaque Full Dose Bone - 624125 - [id number] Implanted:Qty: 2 on 11/30/2014 by Jaskaran Farrell MD at [facility] Left: Knee [employer] 04/09/2017 6191-1-010 / / [id number] Component Nexgen 32mm All Poly Ptlar - 426423 - [id number] Implanted:Qty: 1 on 11/30/2014 by Jaskaran Farrell MD at [facility] Left: Knee [employer] 08/09/2022 [id number] / / [id number] Insert Lps-Flex Nexgen 3-4mm E-F 10mm Net Mold Fix Uhmwpe - 294285 - [id number] Implanted:Qty: 1 on 11/30/2014 by Jaskaran Farrell MD at [facility] Left: Knee [employer] 07/09/2022 [id number] / / [id number] Plate Nexgen 96a93e3tz Cement Modular Stem Tivanium Pmma - 175488 - [id number] Implanted:Qty: 1 on 11/30/2014 by Jaskaran Farrell MD at [facility] Left: Knee [employer] 08/09/2024 [id number] / / [id number] Component Lps-Flex Gender Solutions Option Nexgen F Cocr - 787282 - [id number] Implanted:Qty: 1 on 11/30/2014 by Jaskaran Farrell MD at [facility] Left: Knee [employer] 08/09/2024 [id number] / / [id number] System Gender Solutions Option Flex Cement Tkr Femur - 459817 - [id number] Implanted:Qty: 1 on 11/30/2014 by Jaskaran Farrell MD at [facility] Left: Knee [employer] [id number] / / Insert Legion 3-4 9mm Posterior Stabilized High Flexion Xlpe - 837094 - [id number] Implanted:Qty: 1 on 03/29/2015 by Jaskaran Farrell MD at [facility] Right: Knee [employer] 02/28/2024 [id number] / / [id number] Component Grace Ii 32mm Resurfacing Oxinium Ptlar Knee - 461401 - [id number] Implanted:Qty: 1 on 03/29/2015 by Jaskaran Farrell MD at [facility] Right: Knee [employer] 01/27/2025 [id number] / / [id number] Lgn Gii Ps Cemented Standard Insert - 975334 - [id number] Implanted:Qty: 1 on 03/29/2015 by Jaskaran Farrell MD at [facility] Right: Knee [employer] [id number] / / Cement Simplex P Radiopaque Full Dose Bone - 968999 - [id number] Implanted:Qty: 2 on 03/29/2015 by Jaskaran Farrell MD at [facility] [employer] 03/29/2017 6191-1-010 / / [id number] Component Legion Narrow Posterior Stabilize Femoral Knee - 028248 - [id number] Implanted:Qty: 1 on 03/29/2015 by Jaskaran Farrell MD at [facility] Right: Knee [employer] 06/29/2024 22277876 / / [id number] Baseplate Grace Ii 4 Cemented Titanium Nonporous Tibial - 128697 - [id number] Implanted:Qty: 1 on 03/29/2015 by Jaskaran Farrell MD at [facility] Right: Knee [employer] 08/29/2022 [id number] / / [id number] Kit Infuse Medium 2x1in 20ga 5.6ml Vial Absorbable Collagen - 880580 - [id number] Implanted:Qty: 1 on 11/26/2017 by Sai Aguilar MD at [facility] Left: Spine Lumbar [employer] 09/09/2019 6839581 / / [id number] Spacer Trans[employer]ental 18mm Wide Medium 10d 11mm - 475779 - [id number] Implanted:Qty: 1 on 11/26/2017 by Sai Aguilar MD at [facility] Left: Spine Lumbar [employer] 375.271 / / Screw Creo Creo Amp 55mm 6.5mm Modular Rehman Bone Spine Sterile - 186095 - [id number] Implanted:Qty: 1 on 11/26/2017 by Sai Aguilar MD at [facility] Poster r: Spine Lumbar [employer] 02/14/2022 1067.1656S / / [id number] Screw Creo Creo Amp 55mm 6.5mm Modular Rehman Bone Spine Sterile - 452310 - [id number] Implanted:Qty: 1 on 11/26/2017 by Sai Aguilar MD at [facility] Poster r: Spine Lumbar [employer] 02/14/2022 1067.1656S / / [id number] Bone Cancellous Coarse 30cc - 421907 - [id number] Implanted:Qty: 1 on 11/26/2017 by Sai Aguilar MD at [facility] r: Spine Lumbar [employer] 01/30/2022 1103-12 / [id number] / 6.5 X 50mm Screw Modular Creo Amp - 237070 - [id number] Implanted:Qty: 1 on 11/26/2017 by Sai Aguilar MD at [facility] Poster r: Spine Lumbar [employer] 1067.1650 / / 6.5 X 55mm Screw Modular Creo Amp - 458021 - [id number] Implanted:Qty: 1 on 11/26/2017 by Sai Aguilra MD at [facility] r: Spine Lumbar [employer] 1067.1655 / / Clamp Spinal Od6.5 Mm Mark To Mark - 503152 - [id number] Implanted:Qty: 2 on 11/26/2017 at [facility] r: Spine Lumbar [employer] 154.858 / / 5.5 Polyaxial Tulip Threaded Creo Amp - 812113 - [id number] Implanted:Qty: 4 on 11/26/2017 at [facility] r: Spine Lumbar [employer] 1119.0110 / / 5.5 Threaded Locking Cap Creo - 118255 - [id number] Implanted:Qty: 4 on 11/26/2017 at [facility] r: Spine Lumbar [employer] 1119.0010 / / 5.5mm Curved Mark Titanium Alloy 100mm Length - 093848 - [id number] Implanted:Qty: 1 on 11/26/2017 at [facility] Posterio r: Spine Lumbar [facility] 1119.7100 / / 5.5 Snap On Cross Connector 30 To 35mm Long Creo - 506935 - [id number] Implanted:Qty: 1 on 11/26/2017 at [facility] Poster r: Spine Lumbar [facility] 1119.0030 / / Off Set Connection 20mm Implanted:Qty: 1 on 11/26/2017 at [facility] Posterio r: Spine Lumbar 124.971 / / Shell R3 Standard 52mm 3 Hole Poly Acetabular Hip - 345072 - [id number] Implanted:Qty: 1 on 05/27/2018 by Jaskaran Farrell MD at [facility] Left: Hip [employer] 04/16/2028 79338514 / / [id number] Liner R3 20d 52mm 36mm Xlpe Poly Acetabular Hip Sterile - 729940 - [id number] Implanted:Qty: 1 on 05/27/2018 by Jaskaran Farrell MD at [facility] Left: Hip [employer] 03/24/2028 23602370 / / [id number] Screw Reflection 30mm 6.5mm Reflection Spherical Head Bone - 544877 - [id number] Implanted:Qty: 1 on 05/27/2018 by Jaskaran Farrell MD at [facility] Left: Hip [employer] 12/24/2027 [id number] / / [id number] Screw Reflection 25mm 6.5mm Spherical Head Bone Acetabular - 890935 - [id number] Implanted:Qty: 1 on 05/27/2018 by Jaskaran Farrell MD at [facility] Left: Hip [employer] 01/28/2028 85267366 / / [id number] Stem Anthology 5 High Offset Porous Femoral Hip - 541811 - [id number] Implanted:Qty: 1 on 05/27/2018 by Jaskaran Farrell MD at [facility] Left: Hip [employer] 12/02/2027 20817582 / / [id number] Head Fletcher -3mm 12\14 Taper 36mm Revision Oxinium Femoral - 492802 - [id number] Implanted:Qty: 1 on 05/27/2018 by Jaskaran Farrell MD at [facility] Left: Hip [employer] 02/22/2028 96751033 / / [id number] Explanted Type Area Review Scheduling Coordinator Device Identifier Shelf Expiration Date Model / Serial / Lot Clamp External Fixation L18 Mm Od5.5-6.5 Mm Spine Mark To Mark - 301069 - [id number] Explanted:Qty: 1 on 11/26/2017 at [facility] Posterior: Spine Lumbar [employer] 154.860 / / Screw 6.5 X 45.Mm - 038144 - [id number] Explanted:Qty: 1 on 11/26/2017 at [facility] Posterior: Spine Lumbar [employer] 1067.1645 / / 5.5mm Curved Mark Titanium Alloy 90mm Length - 791960 - [id number] Explanted:Qty: 2 on 11/26/2017 at [facility] Posterior: Spine Lumbar [employer] 1119.7090 / / Advance Directives For more information, please contact: [phone] Documents on File Type Date Recorded Patient Natural Gas Technician Expl anation Advance Directive and Living Will [...] in the following way: discussion with healthcare insurance sales representative. Care Teams Dubbing Machine Operator Relationship Specialty Start Date End Date Amparo Lopez DO [address] [place] [address] PCP - General Family Medicine 03/18/23
--- OUTSIDE RECORDS SUMMARY | 2025-10-31 09:29 | XMS_ITS | Encounter Summary ---
Author Organization [facility] Address [address] [place] [address] Care Team Providers Care High Density Finishing Operator Name Role Phone Amparo Lopez DO Unavailable [phone] Amparo Lopez DO Primary Care Provider + Encounter Details Date Type Department Care Team (Late st Contact Info) Description 09/04/2022 Orders Only [address] [address] Micki Rice DDS [address] [place] [address] [place] [address] Social History Tobacco Use Types Packs/Day Years [...] on filedocumented in this encounter Care Teams High Density Finishing Operator Relationship Specialty Start Date End Date Amparo Lopez DO [address] [place], [place] [phone] PCP - Insurance Payer PCP 04/02/24 Amparo Lopez DO [address] [place], [place] [phone] PCP - General Internal Medicine 04/02/24 documented as of this encounter
--- OUTSIDE RECORDS SUMMARY | 2025-10-31 09:29 | XMS_ITS | Clinical Summary ---
Author Organization [facility] [address] [facility] Address [address] [place] [address] Phone Care Team Providers Care Equipment Operat0R Name Role Phone Amparo Lopez Primary Care Provider Allergies Active Allergy Reactions Criticality Noted Date Comments Adhesive Rash Low 11/29/2017 Only paper jmdi-[id number]-eau pt bandaides and tegaderms are okay Codeine [...] EDT Office Visit [facility] [place] [facility] [address] [place] [address] Rebekah Kline NP Pre-operative cardiovascular examination (Primary Dx); Nonrheumatic aortic valve insufficiency; Supraventricular tachycardia ([facility] V24) from Last 3 Months Immunizations Immunization [...] TOTAL HIP; Surgeon: Jaskaran Farrell MD; Location: [facility] Service: Orthopedics; Laterality: Left; LUMBAR FUSION 11/26/2017 Left PROCEDURE:LUMBAR FUSION;COMMENT:Procedure: L2-3 FUSION SPINE LUMBAR - DLIF 1 INTERSPACE/; Surgeon: Sai Aguilar MD; Location: [facility]; Service: Spine; Laterality: Left; LUMBAR FUSION 11/26/2017 Posterior PROCEDURE:LUMBAR FUSION;COMMENT:Procedure: L2- L3 FUSION SPINE LUMBAR POSTERIOR EXTENSION TO L4; Surgeon: Sai Aguilar MD; Location: [facility]; Service: Spine; Laterality: Posterior; LUMBAR LAMINECTOMY 11/26/2017 Bilateral Posterior PROCEDURE:LUMBAR LAMINECTOMY;COMMENT:Procedu re: L2, L3 LAMINECTOMY POSTERIOR LUMBAR; Surgeon: Sai Aguilar MD; Location: [facility]; Service: Spine; Laterality: Bilateral Posterior; BONE MARROW ASPIRATION 11/26/2017 Right Posterior PROCEDURE:BONE MARROW ASPIRATION;COMMENT:Procedur e: BONE MARROW ASPIRATION; Surgeon: Sai Aguilar MD; Location: [facility]; Service: Spine; Laterality: Right Posterior; COLONOSCOPY 06/26/2016 N/A PROCEDURE:COLONOSCOPY;COMME NT:Procedure: COLONOSCOPY; Surgeon: Teddy Enamorado MD; Location: [facility]; Service: Gastroenterology; Laterality: N/A; 06/26/16@10:30am [id number] Medicaid# [id number] propofol TOTAL KNEE ARTHROPLASTY 03/29/2015 Right PROCEDURE:TOTAL KNEE ARTHROPLASTY;COMMENT:Proced ure: REPLACEMENT TOTAL KNEE; Surgeon: Jaskarna Farrell MD; Location: [facility]); Service: Orthopedics; Laterality: Right; TOTAL KNEE ARTHROPLASTY 11/30/2014 Left PROCEDURE:TOTAL KNEE ARTHROPLASTY;COMMENT:Proced ure: REPLACEMENT TOTAL KNEE; Surgeon: Jaskaran Farrell MD; Location: [facility] Service: Orthopedics; Laterality: Left; Medical History Medical [...] 1 Alive Brother 2 (Age 29) PLANE DIRECT SERVICE PROFESSIONAL H Father Alive Mother (Age 59) BREAST [...] EDT [facility] Visit [facility] [place] [facility] [address] [place] [address] Becca Browne MD [address] [facility] [place] [address] [facility] [place] [address] Health Maintenance Due Date Last Done Comments [...] LAB CHEMISTRY METHOD 03/14/2025 9:14 AM [facility] Potassium 3.8 3.5 - 5.1 mmol/L LAB CHEMISTRY METHOD 03/14/2025 9:14 AM [facility] Chloride 103 98 - 107 mmol/L LAB CHEMISTRY METHOD 03/14/2025 9:14 AM [facility] CO2 22(L) 24 - 32 mmol/L LAB CHEMISTRY METHOD 03/14/2025 9:14 AM [facility] Anion Gap 11 5 - 14 LAB CHEMISTRY METHOD 03/14/2025 9:14 AM [facility] Glucose 83 70 - 199 mg/dL LAB CHEMISTRY METHOD 03/14/2025 9:14 AM [facility] BUN 9 7 - 17 mg/dL LAB CHEMISTRY METHOD 03/14/2025 9:14 AM [facility] Creatinine 0.50 0.50 - 1.00 mg/dL LAB CHEMISTRY METHOD 03/14/2025 9:14 AM [facility] eGFR 100 >=60 mL/min/1. 73m2 LAB CHEMISTRY METHOD 03/14/2025 9:14 AM [facility] Comment:Calculation based on the Chronic Kidney Disease Epidemiology Collaboration (CKD-EPI) equation refit without adjustment for race. BUN/Creatinine Ratio 18.0 12.0 - 20.0 LAB CHEMISTRY METHOD 03/14/2025 9:14 AM [facility] Calcium 8.6 8.4 - 10.2 mg/dL LAB CHEMISTRY METHOD 03/14/2025 9:14 AM [facility] Blood Venous blood specimen / Unknown Venipuncture / Unknown 03/14/2025 8:21 AM EDT 03/14/2025 8:46 AM EDT [facility] [place] [facility] WAISTLINE JOINER LAB BLOOD ORDERABLES Final Res ult [facility] [address] [place] [address], [place] [phone] * Lipid panel (03/02/2024) LDL/HDL Ratio 0 [...] on 09/03/2023 1:11 PM. Workstation Name - [id number] Procedure Note Isabel Washburn MD - 12/16/2023 [...] MD on 09/03/2023 1:11PM. Workstation Name - [id number] Amparo Lopez IM BI PROCEDURES Final Res [...] on 03/21/2023 8:34 AM. Workstation Name - [id number] Procedure Note Neisha Fuentes MD - 12/16/2023 [...] MD on 03/21/2023 8:34AM. Workstation Name - [id number] Amparo Lopez IMGely DXA PROCEDURES Final Re [...] MD on 03/20/2023 4:50PM. Workstation Name - [id number] Amparo [facility]EL CT PROCEDURES Final Res ult * Hepatitis C Screening (01/19/2019) [facility]ologist [facility] Hepatitis C Screening Abstracted Historical Provider HEALTH MAINTENANCE Final Result * Colonoscopy (06/26/2016) Pathologist [facility] Colonoscopy Abstracted, no interpretation Anatomical Region Laterality [...] currently active code status orders. Care Teams Equipment Operat0R Relationship Specialty Start Date End Date Amparo Lopez [address] [place] [phone] PCP - General 03/18/23
== END 2025-10-28 08:52 | disposition home or self-care (01) ==
LOC: HO.HOSX 08:51
PROVIDERS: Visit Provider Physician Assistant
DX: Z47.89 Encounter for other orthopedic aftercare (principal); M48.061 Spinal stenosis, lumbar region without neurogenic claudication; M51.360 Other intervertebral disc degeneration, lumbar region with discogenic back pain only; Z98.1 Arthrodesis status
CPT/HCPCS: 72110; 99212

== ENCOUNTER 2025-10-28 13:36 | Outpatient (AMB) | payer MEDICARE, SELFPAY ==
--- NOTE | 2025-10-28 13:44 | HO.SPINEOV ---
Intake Visit Reasons: 2nd post op with Xrays Intake Note: Ms. Bella is here today for her 2nd post op with x-rays. Punch Machine Operator Required: No Allergies adhesive tape Allergy (Severe, Verified 08/19/25 09:02) Rash codeine Allergy (Severe, Verified 08/19/25 09:02) Anaphylaxis erythromycin base Allergy (Severe, Verified 08/19/25 09:02) Itching Penicillins Allergy (Severe, Verified 08/19/25 09:02) Itching vancomycin Allergy (Severe, Verified 08/19/25 09:02) Itching Assessment & Plan Assessment & Plan (1) S/P spinal fusion: Code(s): Z98.1 - Arthrodesis status Category: Surgical (2) Lumbar spinal stenosis due to adjacent segment disease after fusion procedure: Code(s): M48.061 - Spinal stenosis, lumbar region without neurogenic claudication; M51.369 - Other intervertebral disc degeneration, lumbar region without mention of lumbar back pain or lower extremity pain; Z98.1 - Arthrodesis status Category: Medical Plan Mrs Bella is 2 months out from her L1-2 trans Kambin lumbar interbody fusion with revision of posterior instrumentation. The original pain that she came to see Dr. Bull for with standing and walking in her back that was going toward her right side, it is gone. She is having some discomfort right over the left side of the incision area for the trans Kambin approach. This is not unusual as this area can be quite sensitive for number of months after surgery. Her back is itchy as well. She has been putting lotion on it. On exam, she looks comfortable, she stands up walks down the hallway independently, and can do so with minimal assistance of her cane. Her wounds have all healed up beautifully. Her x-rays today show stable positioning of the hardware. Overall I think she is recovering beautifully. She would like a little help from physical therapy to work on some gait training it some strengthening so I will place a referral for that and she can take it any place close to home. I will see her back in 2 months for another postoperative visit. We will get x-rays at that time. Jai Bull MD, PhD [facility] Orders: Orders XR lumbar spine 4V min Today Z98.1 - Arthrodesis status PT Evaluation and Treatment Today M48.061 - Spinal stenosis, lumbar region without neurogenic claudication, M51.369 - Other intervertebral disc degeneration, lumbar region without mention of lumbar back pain or lower extremity pain, Z98.1 - Arthrodesis status Coding Level of Care Code Global (92882) Diagnoses S/P spinal fusion Z98.1 Lumbar spinal stenosis due to adjacent segment disease after fusion procedure M48.061; M51.369; Z98.1
--- OUTSIDE RECORDS SUMMARY | 2025-10-28 15:16 | XMS_ITS | Clinical Summary ---
Author Organization [facility] Prior to 04/09/25 Address [address] [place] [address] Care Team Providers Care Video Editing Internship Name Role Phone Amparo Lopez DO Primary Care Provider + Allergies Active Allergy Reactions Criticality Noted Date Comments Codeine Anaphylaxis High 11/16/2014 Erythromycin Anaphylaxis High 11/16/2014 Penicillins Rash Low 11/16/2014 Tape Rash Low 11/29/2017 Only paper [id number] pt bandaides and tegaderms are okay Vancomycin [...] Colitis, Clostridium difficile 04/03/2015 11/07/2015 Atrial tachycardia 6 Hx of echocardiogram 019 Overview: nl [...] 1 Alive Brother 2 (Age 29) 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 Father Alive Mother (Age 59) BREAST [...] this topic Medical Devices Implanted Type Area Uniform Force Captain Device Identifier Shelf Expiration Date Model / Serial / Lot Sponge Surgiflo 8ml Hemostatic Matrix Absorbable Latex Free - 091175 - [id number] Implanted:Qty: 1 on 11/26/2017 by Sai Aguilar MD at [facility] Hemostatic Agent Left: Spine Lumbar [employer] 07/10/2019 2991 / / [id number] Cement Simplex P Radiopaque Full Dose Bone - 080099 - [id number] Implanted:Qty: 2 on 11/30/2014 by Jaskaran Farrell MD at [facility] [place] [facility] Left: Knee [employer] 04/09/2017 6191-1-010 / / [id number] Component Nexgen 32mm All Poly Ptlar - 914621 - [id number] Implanted:Qty: 1 on 11/30/2014 by Jaskaran Farrell MD at [facility] [place] [facility] Left: Knee [employer] 08/09/2022 [id number] / / [id number] Insert Lps-Flex Nexgen 3-4mm E-F 10mm Net Mold Fix Uhmwpe - 293325 - [id number] Implanted:Qty: 1 on 11/30/2014 by Jaskaran Farrell MD at [facility] [place] [facility] Left: Knee [employer] 07/09/2022 [id number] / / [id number] Plate Nexgen [id number] Cement Modular Stem Tivanium Pmma - 767083 - [id number] Implanted:Qty: 1 on 11/30/2014 by Jaskaran Farrell MD at [facility] [place] [facility] Left: Knee [employer] 08/09/2024 [id number] / / [id number] Component Lps-Flex Gender Solutions Option Nexgen F Cocr - 515997 - [id number] Implanted:Qty: 1 on 11/30/2014 by Jaskaran Farrell MD at [facility] Left: Knee [employer] 08/09/2024 [id number] / / [id number] System Gender Solutions Option Flex Cement Tkr Femur - 200242 - [id number] Implanted:Qty: 1 on 11/30/2014 by Jaskaran Farrell MD at [facility] [place] [facility] Left: Knee [employer] [id number] / / Insert Legion 3-4 9mm Posterior Stabilized High Flexion Xlpe - 774449 - [id number] Implanted:Qty: 1 on 03/29/2015 by Jaskaran Farrell MD at [facility] [place] [facility] Right: Knee [employer] 02/28/2024 [id number] / / [id number] Component Grace Ii 32mm Resurfacing Oxinium Ptlar Knee - 661665 - [id number] Implanted:Qty: 1 on 03/29/2015 by Jaskaran Farrell MD at [facility] [place] [facility] Right: Knee [employer] 01/27/2025 [id number] / / [id number] Lgn Gii Ps Cemented Standard Insert - 772795 - [id number] Implanted:Qty: 1 on 03/29/2015 by Jaskaran Farrell MD at [facility] Right: Knee [employer] 01800841 / / Cement Simplex P Radiopaque Full Dose Bone - 628176 - [id number] Implanted:Qty: 2 on 03/29/2015 by Jaskaran Farrell MD at [facility] [employer] 03/29/2017 6191-1-010 / / [id number] Component Legion Narrow Posterior Stabilize Femoral Knee - 903293 - [id number] Implanted:Qty: 1 on 03/29/2015 by Jaskaran Farrell MD at [facility] Right: Knee [employer] 06/29/2024 [id number] / / [id number] Baseplate Grace Ii 4 Cemented Titanium Nonporous Tibial - 563580 - [id number] Implanted:Qty: 1 on 03/29/2015 by Jaskaran Farrell MD at [facility] Right: Knee [employer] 08/29/2022 [id number] / / [id number] Kit Infuse Medium 2x1in 20ga 5.6ml Vial Absorbable Collagen - 654844 - [id number] Implanted:Qty: 1 on 11/26/2017 by Sai Aguilar MD at [facility] Left: Spine Lumbar [employer] 09/09/2019 7506335 / / [id number] Spacer Transcontinental 18mm Wide Medium 10d 11mm - 581951 - [id number] Implanted:Qty: 1 on 11/26/2017 by Sai Aguilar MD at [facility] Left: Spine Lumbar [employer] 375.271 / / Screw Creo Creo Amp 55mm 6.5mm Modular Rehman Bone Spine Sterile - 616567 - [id number] Implanted:Qty: 1 on 11/26/2017 by Sai Aguilar MD at [facility] Poster r: Spine Lumbar [employer] 02/14/2022 1067.1656S / / [id number] Screw Creo Creo Amp 55mm 6.5mm Modular Rehman Bone Spine Sterile - 550102 - [id number] Implanted:Qty: 1 on 11/26/2017 by Sai Aguilar MD at [facility] Poster r: Spine Lumbar [employer] 02/14/2022 1067.1656S / / [id number] Bone Cancellous Coarse 30cc - 779870 - [id number] Implanted:Qty: 1 on 11/26/2017 by Sai Aguilar MD at [facility] r: Spine Lumbar [employer] 01/30/2022 1103-12 / [id number] / 6.5 X 50mm Screw Modular Creo Amp - 280148 - [id number] Implanted:Qty: 1 on 11/26/2017 by Sai Aguilar MD at [facility] Poster r: Spine Lumbar [employer] 1067.1650 / / 6.5 X 55mm Screw Modular Creo Amp - 523570 - [id number] Implanted:Qty: 1 on 11/26/2017 by Sai Aguilar MD at [facility] r: Spine Lumbar [employer] 1067.1655 / / Clamp Spinal Od6.5 Mm Mark To Mark - 675290 - [id number] Implanted:Qty: 2 on 11/26/2017 at [facility] r: Spine Lumbar [employer] 154.858 / / 5.5 Polyaxial [place] Threaded Creo Amp - 783790 - [id number] Implanted:Qty: 4 on 11/26/2017 at [facility] r: Spine Lumbar [employer] 1119.0110 / / 5.5 Threaded Locking Cap Creo - 678153 - [id number] Implanted:Qty: 4 on 11/26/2017 at [facility] r: Spine Lumbar [employer] 1119.0010 / / 5.5mm Curved Mark Titanium Alloy 100mm Length - 484909 - [id number] Implanted:Qty: 1 on 11/26/2017 at [facility] Posterio r: Spine Lumbar [facility] 1119.7100 / / 5.5 Snap On Cross Connector 30 To 35mm Long Creo - 682425 - [id number] Implanted:Qty: 1 on 11/26/2017 at [facility] Poster r: Spine Lumbar [facility] 1119.0030 / / Off Set Connection 20mm Implanted:Qty: 1 on 11/26/2017 at [facility] Posterio r: Spine Lumbar 124.971 / / Shell R3 Standard 52mm 3 Hole Poly Acetabular Hip - 813007 - [id number] Implanted:Qty: 1 on 05/27/2018 by Jaskaran Farrell MD at [facility] Left: Hip [employer] 04/16/2028 [id number] / / [id number] Liner R3 20d 52mm 36mm Xlpe Poly Acetabular Hip Sterile - 170957 - [id number] Implanted:Qty: 1 on 05/27/2018 by Jaskaran Farrell MD at [facility] [place] [facility] Left: Hip [employer] 03/24/2028 [id number] / / [id number] Screw Reflection 30mm 6.5mm Reflection Spherical Head Bone - 154126 - [id number] Implanted:Qty: 1 on 05/27/2018 by Jaskaran Farrell MD at [facility] Left: Hip [employer] 12/24/2027 31660378 / / [id number] Screw Reflection 25mm 6.5mm Spherical Head Bone Acetabular - 974309 - [id number] Implanted:Qty: 1 on 05/27/2018 by Jaskaran Farrell MD at [facility] Left: Hip [employer] 01/28/2028 43660049 / / [id number] Stem Anthology 5 High Offset Porous Femoral Hip - 334454 - [id number] Implanted:Qty: 1 on 05/27/2018 by Jaskaran Farrell MD at [facility] Left: Hip [employer] 12/02/2027 42101570 / / [id number] Head Seymour -3mm 12\14 Taper 36mm Revision Oxinium Femoral - 997768 - [id number] Implanted:Qty: 1 on 05/27/2018 by Jaskaran Farrell MD at [facility] Left: Hip [employer] 02/22/2028 29447536 / / [id number] Explanted Type Area Uniform Force Captain Device Identifier Shelf Expiration Date Model / Serial / Lot Clamp External Fixation L18 Mm Od5.5-6.5 Mm Spine Mark To Mark - 878504 - [id number] Explanted:Qty: 1 on 11/26/2017 at [facility] Posterior: Spine Lumbar [employer] 154.860 / / Screw 6.5 X 45.Mm - 335558 - [id number] Explanted:Qty: 1 on 11/26/2017 at [facility] Posterior: Spine Lumbar [employer] 1067.1645 / / 5.5mm Curved Mark Titanium Alloy 90mm Length - 244083 - [id number] Explanted:Qty: 2 on 11/26/2017 at [facility] Posterior: Spine Lumbar [employer] 1119.7090 / / Advance Directives For more information, please contact: [phone] Documents on File Type Date Recorded Patient Quality Control Engineer Expl anation Advance Directive and Living Will [...] in the following way: discussion with healthcare sales representative graphic art. Care Teams Video Editing Internship Relationship Specialty Start Date End Date Amparo Lopez DO [address] [place] [address] PCP - General Family Medicine 03/18/23
--- OUTSIDE RECORDS SUMMARY | 2025-10-28 15:16 | XMS_ITS | Continuity of Care Document ---
Author Organization [place] [facility] [place] Address [address] [place] [address] Care Team Providers Care Barrel Repairer Name Role Phone NANI WHEATLEY Referring Provider [...] injections. Most recently she was seen by head athletic trainer/strength coach. She had an MRI and a CT [...] view 2024 025 [email or web address] 2 [facility], [address], [place], [address], 09:45:22 Medication Orders None recorded. Patient TargetsNo targets recorded. Patient Instructions Encounter Date Encounter Id Patient Instructions Last Modified By Organization Details Last Modified Time 09/27/2025 [id number] Radiographs: As per the patient's request AP and lateral lumbosacral spine radiographs were obtained in the [place] facility. There is a new L1 to instrumentation which appears well-positioned. There is a severe scoliotic deformity with apex just above the reconstruction. There is no evidence of hardware failure or loosening. Not available 09/27/2025 14:01:24 Reason for Referral None Reported. Problems Name Problem SNOMED Code Status Onset Date Resolution Date Notes Provider Name and Address Organization Details Recorded Time Essential hypertens ion 58662602 Active 2014 Essential hypertens ion - Overview: Formattin g of this note might be different from the original. ICD-10 Activatio n Not Available [facility] 5 23:53:13 History of total knee arthropla sty 51208758079 05 Active 2014 Status post total right knee replaceme nt Not Available [facility] 5 23:53:07 Chronic obstructi ve pulmonary disease 62606279 Active 2014 COPD (chronic obstructi ve pulmonary disease) Not Available [facility] 5 23:53:09 Supravent ricular tachycard ia 4238983 Active 2014 Supravent ricular tachycard ia Not Available [facility] 5 23:53:11 Iron deficienc y anemia 06020866 Active 2014 Iron deficienc y anemia Not Available [facility] 5 23:53:13 History of intestina l infection caused by Clostridi oides difficile 20362227409 9101 Active 2015 History of Clostridi um difficile colitis Not Available [facility] 5 23:53:07 Spondylos is 0197916 Active 2016 Spondylos is Not Available [facility] 5 23:53:12 Abnormal gait 90667183 Active 2016 Gait instabili ty Not Available [facility] 5 23:53:08 Lumbar spondylol isthesis 97353186334 9102 Active 2016 Spondylol isthesis of lumbar region Not Available [facility] 5 23:53:08 Adolescen t idiopathi c scoliosis of lumbar spine 25786441165 9105 Active 2016 Adolescen t idiopathi c scoliosis of lumbar region Not Available [facility] 5 23:53:09 Chronic low back pain 947056104 Active 2016 Chronic bilateral low back pain with bilateral sciatica Chronic low back pain without sciatica Not Available [facility] 5 23:53:15 Diverticu lum of large intestine without hemorrhag e 269811657 Active 2016 Diverticu losis of large intestine without hemorrhag e Not Available [facility] 5 23:53:16 Postopera tive ileus 597358769 Active 2017 Postopera tive ileus Not Available [facility] 5 23:53:11 Arthritis of hip 00328450 Active 2017 Hip arthritis Not Available [facility] 5 23:53:05 Bilateral carpal tunnel syndrome 03804941777 561056 Active 2017 Bilateral carpal tunnel syndrome Not Available [facility] 5 23:53:05 Pain of right hand 46193855166 9109 Active 2017 Hand pain, right Not Available [facility] 5 23:53:07 Pain of elbow region 40428284 Active 2017 Elbow pain, right Lef t elbow pain Not Available [facility] 5 23:53:08 Arthritis of joint of hand Active 2017 Hand arthritis Not Available [facility] 5 23:53:09 Arthritis of elbow 019429330 Active 2017 Elbow arthritis Not Available [facility] 5 23:53:10 Clostridi um difficile colitis 768885498 Active 2017 C. difficile colitis Not Available 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 5 23:53:14 Greater trochante geremias pain syndrome 7619788 Active 2017 Greater trochante geremias bursitis of left hip Not Available [facility] 5 23:53:15 History of repair of hip joint 374428901 Active 2017 Status post left hip replaceme nt Not Available [facility] 5 23:53:06 Family history of breast cancer 632216415 Active 2018 Family history of malignant neoplasm of breast Not Available [facility] 5 23:53:14 Simple chronic bronchiti s 60586707 Active 2018 Simple chronic bronchiti s Not Available [facility] 5 23:53:13 Premature atrial contracti on 419114548 Active 2019 Premature atrial beats Not Available [facility] 5 23:53:06 Palpitati ons 95304389 Active 2019 Palpitati ons Not Available [facility] 5 23:53:10 Periphera l muscle fatigue 95875579 Active 2020 Leg fatigue Not Available [facility] 5 23:53:06 Spondylol ysis of cervical spine 186089040 Active 2020 Cervical spondylol ysis Not Available [facility] 5 23:53:05 Ventricul ar hypertrop hy 556858641 Active 2021 Asymmetri c septal hypertrop hy Not Available [facility] 5 23:53:10 Chest pain 71240207 Active 2021 Other chest pain Not Available [facility] 5 23:53:14 Kyphosis of thoracic spine 057618694 Active [address], [place], [address] , [place] [facility] 3 16:47:48 Scoliosis deformity of spine 037030873 Active 2022 Sai Aguilar MD [address], [place], [address] , [place] [facility] 3 16:48:03 Cramp in lower limb 783092887 Active 2022 Sai Aguilar MD [address], [place], [address] , [place] [facility], [facility] 3 16:48:09 Lumbar post-lami nectomy syndrome 023118533 Active 2022 Postlamin ectomy syndrome, lumbar region Not Available [facility] 5 23:53:12 Low back pain 673284695 Active 2023 Sai Aguilar MD [address], [place], [address] , [place] [facility] 4 14:24:44 Neck pain 63416623 Active 2023 Sai Aguilar MD [address], [address] [place] [address] , [facility] 4 14:25:02 History of lumbar fusion 62114504392 106 Active 2023 Sai Aguilar MD [address], [address] , [facility], [facility] 4 14:29:10 Stenosis of cervix 39749153 Active 2023 Sai Aguilar MD [address], [address] [place] [address] , [facility], P 4 14:30:05 Stenosis of intervert ebral foramina 90006644842 9 Active 2023 Sai Aguilar MD [address], [address] , [facility], [facility] 4 14:30:27 Neurogeni c claudicat ion 895092140 Active 2023 Sai Aguilar MD [address],[place] [address], [place], [address] , [facility], P 4 14:00:28 Claustrop hobia 97646176 Active 2023 Sai Aguilar MD [address], [address] , [facility] 4 15:25:05 Problem Notes None recorded. Medical Equipment None Reported. Allergies Allergen ID Allergen Name Allergen Category Reaction Reaction Severity Criticality Documentation Date Start Date Code Code System Note Provider Name and Address Organization Details Recorded Time 60082 vancomyci n medicatio n hives itching Not available Not available Not available 04/29/20242014 61077 RxNorm Barbara bolaños, [place] - [facility] 5 09:45:12 56681 Product containin g penicilli n (product) medicatio n rash Not available Not available 04/29/20242014 63157 8001 SNOMED Barbara Plemmyocki null, [place] [facility], [facility] 5 09:45:12 36670 erythromy elly medicatio n anaphylax is Not available Not available 04/29/20242014 4053 RxNorm Barbara Plochocki null, [place] [facility], [facility] 5 09:45:12 37194 codeine medicatio n anaphylax is Not available Not available 04/29/20242014 2670 RxNorm Barbara Plochocki null, [place] [facility], [facility] 5 09:45:12 87330 Adhesive agent (substanc e) environme nt,medica tion rash Not available Not available 05/31/20252017 30188 0007 SNOMED Barbara Chavezocki null, [place] [facility] 5 09:45:12 Medications Name Sig Start [...] pneumococcal polysaccharide PPV23 8 completed Not Available [facility] 08/02/2025 05:39:36 Influenza, split virus, quadrivalent, PF 8 completed Not Available [facility] 08/02/2025 05:39:36 Influenza, MDCK, quadrivalent, PF 9 completed Not Available [facility] 08/02/2025 05:39:36 Past Encounters Encounter ID Performer Location Encounter Start Date Encounter Closed Date Diagnosis/Indication Diagnosis SNOMED-CT Code Diagnosis ICD10 Code Diagnosis IMO Codes Diagnosis Note [id number] MD VALARIE Hernandez [address] [place] [address] [place] [address] 09/27/2025 13:02:56 09/27/2025 13:52:40 History of lumbar fusion 5672873343 9106 Z98.1 Kyphosis o f thoracic spine 397867880 M40.204 Scoliosis deformity of spine 476456044 M41.9 Health Concerns Section Related Observation LastModified by Organization Detai ls LastModified Time None Recorded Concern Status LastModified by Organization Details LastModified Time None Recorded Payers Encounter Date Sequence Insurance Name Policy Number Policy [place] Covered Member ID [place] Member ID Guarantor Name 09/27/2025 1 [employer] - PASSAGE DUAL (MEDICARE REPLACEMENT/ADV ANTAGE - HMO) [id number] Marisa Bella [id number] Marisa Bella OBGyn Episode No OBEpisode recorded.
--- OUTSIDE RECORDS SUMMARY | 2025-10-28 15:17 | XMS_ITS | Clinical Summary ---
Author Organization [facility] [address] [facility] Address [address] [place] [address] Phone Care Team Providers Care Program Writer Name Role Phone Amparo Lopez Primary Care Provider Allergies Active Allergy Reactions Criticality Noted Date Comments Adhesive Rash Low 11/29/2017 Only paper [id number] pt bandaides and tegaderms are okay Codeine [...] syndrome 11/19/2024 Inflammation of sacroiliac joint 09/13/2024 Postlaminectomy syndrome, lumbar region 06/24/20 23 Other chest pain 10/04/2022 Asymmetric septal hypertrophy 02/03/2022 Cervical spondylolysis 08/14/2021 Leg fatigue 01/26/2021 Palpitations 01/16/2020 Premature atrial beats 01/16/2020 Simple chronic bronchitis 07/28/2019 Greater trochanteric bursitis of left hip [...] 01/14/2017 Iron deficiency anemia 04/26/2015 Supraventricular tachycardia 04/03/2015 Essential hypertension 03/08/2015 Overview (08/26/2024): ICD-10 Activation Resolved Problems Problem Noted Date Diagnosed Date Resolved Date Tachycardia 03/13/2025 03/14/2025 COPD (chronic obstructive pulmonary disease) 5 06/30/2025 Encounters Date Type Department Care Team Description 08/24/2025 9:30 AM EDT Office Visit [facility] [place] [address] [place] [address] Rebekah Kline NP Pre-operative cardiovascular examination (Primary Dx); Nonrheumatic aortic valve insufficiency; Supraventricular tachycardia ([facility] V24) from Last 3 Months [...] TOTAL HIP; Surgeon: Jaskaran Farrell MD; Location: [facility] Service: Orthopedics; Laterality: Left; LUMBAR FUSION 11/26/2017 Left PROCEDURE:LUMBAR FUSION;COMMENT:Procedure: L2-3 FUSION SPINE LUMBAR - DLIF 1 INTERSPACE/; Surgeon: Sai Aguilar MD; Location: MAIN OPERATING ROOM; Service: Spine; Laterality: Left; LUMBAR FUSION 11/26/2017 Posterior PROCEDURE:LUMBAR FUSION;COMMENT:Procedure: L2- L3 FUSION SPINE LUMBAR POSTERIOR EXTENSION TO L4; Surgeon: Sai Aguilar MD; Location: MAIN OPERATING ROOM; Service: Spine; Laterality: Posterior; LUMBAR LAMINECTOMY 11/26/2017 Bilateral Posterior PROCEDURE:LUMBAR LAMINECTOMY;COMMENT:Procedu re: L2, L3 LAMINECTOMY POSTERIOR LUMBAR; Surgeon: Sai Aguilar MD; Location: MAIN OPERATING ROOM; Service: Spine; Laterality: Bilateral Posterior; BONE MARROW ASPIRATION 11/26/2017 Right Posterior PROCEDURE:BONE MARROW ASPIRATION;COMMENT:Procedur e: BONE MARROW ASPIRATION; Surgeon: Sai Aguilar MD; Location: MAIN OPERATING ROOM; Service: Spine; Laterality: Right Posterior; COLONOSCOPY 06/26/2016 N/A PROCEDURE:COLONOSCOPY;COMME NT:Procedure: COLONOSCOPY; Surgeon: Teddy Enamorado MD; Location: ENDOSCOPY; Service: Gastroenterology; Laterality: N/A; 06/26/16@10:30am [facility] Exchange# [id number] Medicaid# [id number] propofol TOTAL KNEE ARTHROPLASTY 03/29/2015 Right PROCEDURE:TOTAL KNEE ARTHROPLASTY;COMMENT:Proced ure: REPLACEMENT TOTAL KNEE; Surgeon: Jaskaran Farrell MD; Location: [facility] ([facility]); Service: Orthopedics; Laterality: Right; TOTAL KNEE ARTHROPLASTY 11/30/2014 Left PROCEDURE:TOTAL KNEE ARTHROPLASTY;COMMENT:Proced ure: REPLACEMENT TOTAL KNEE; Surgeon: Jaskaran Farrell MD; Location: [facility] ([facility]); Service: Orthopedics; Laterality: Left; Medical [...] 1 Alive Brother 2 (Age 29) 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 H Father Alive Mother (Age 59) BREAST [...] AM EST Sexual Orientation Not on file Last Filed [...] EDT Office Visit [facility] [place] [facility] [address] [place] [address] Becca Browne MD [facility] [place] [address] [facility] [place] [address] Health Maintenance Due Date Last Done Comments [...] EDT Sinus rhythm 76 bpm Rebekah Kline NP ECG ORDERABLES Final Result * (ABNORMAL) Basic metabolic panel (03/14/2025 8:21 AM EDT) Sodium 136 135 - 145 mmol/L LAB CHEMISTRY METHOD 03/14/2025 9:14 AM [facility] Potassium 3.8 3.5 - 5.1 mmol/L LAB CHEMISTRY METHOD 03/14/2025 9:14 AM [facility] Chloride 103 98 - 107 mmol/L LAB CHEMISTRY METHOD 03/14/2025 9:14 AM [facility] CO2 22(L) 24 - 32 mmol/L LAB CHEMISTRY METHOD 03/14/2025 9:14 AM [facility] Anion Gap 11 5 - 14 LAB CHEMISTRY METHOD 03/14/2025 9:14 AM [facility] Glucose 83 70 - 199 mg/dL LAB CHEMISTRY METHOD 03/14/2025 9:14 AM [facility] BUN 9 7 - 17 mg/dL LAB CHEMISTRY METHOD 03/14/2025 9:14 AM [facility] Creatinine 0.50 0.50 - 1.00 mg/dL LAB CHEMISTRY METHOD 03/14/2025 9:14 AM [facility] eGFR 100 >=60 mL/min/1. 73m2 LAB CHEMISTRY METHOD 03/14/2025 9:14 AM [facility] Comment:Calculation based on the Chronic Kidney Disease Epidemiology Collaboration (CKD-EPI) equation refit without adjustment for race. BUN/Creatinine Ratio 18.0 12.0 - 20.0 LAB CHEMISTRY METHOD 03/14/2025 9:14 AM [facility] Calcium 8.6 8.4 - 10.2 mg/dL LAB CHEMISTRY METHOD 03/14/2025 9:14 AM [facility] Blood Venous blood specimen / Unknown Venipuncture / Unknown 03/14/2025 8:21 AM EDT 03/14/2025 8:46 AM EDT us Haven Cui BOX LINING MACHINE FEEDER LAB BLOOD ORDERABLES Final Res ult [facility] [address] [place] [address], [place] [phone] * Lipid panel (03/02/2024) LDL/HDL Ratio 0 [...] on 09/03/2023 1:11 PM. Workstation Name - [id number] Procedure Note Isabel Washburn MD - 12/16/2023 [...] MD on 09/03/2023 1:11PM. Workstation Name - [id number] Amparo Lopez IM BI PROCEDURES Final Res [...] on 03/21/2023 8:34 AM. Workstation Name - [id number] Procedure Note Neisha Fuentes MD - 12/16/2023 [...] MD on 03/21/2023 8:34AM. Workstation Name - [id number] Amparo Lopez IMGely DXA PROCEDURES Final Re [...] on 03/20/2023 4:50 PM. Workstation Name - [id number] Procedure Note Garland Ellis MD - 12/16/2023 [...] MD on 03/20/2023 4:50PM. Workstation Name - [id number] Amparo STEEL CT PROCEDURES Final Res ult * Hepatitis C Screening (01/19/2019) Pathologist [facility] Hepatitis C Screening Abstracted Historical Provider HEALTH MAINTENANCE Final Result * Colonoscopy (06/26/2016) Pathologist [facility] Colonoscopy Abstracted, no interpretation Anatomical Region Laterality [...] currently active code status orders. Care Teams Program Writer Relationship Specialty Start Date End Date Amparo Lopez [address] [place] [address] PCP - General 03/18/23
--- OUTSIDE RECORDS SUMMARY | 2025-10-28 15:17 | XMS_ITS | Clinical Summary ---
Author Organization [facility] Address [address] [place] [address] Care Team Providers Care Iron Erector Name Role Phone Amparo Lopez DO Unavailable [phone] Amparo Lopez DO Primary Care Provider + Allergies Active Allergy Reactions Criticality Noted Date Comments Adhesive Rash Low 11/29/2017 Only paper [id number] pt bandaides and tegaderms are okay Adhesive [...] EST - 09/13/2025 12:22 PM EST Emergency [facility] Department of Emergency Services [address] [place] [address] Junie Girard MD Muscle strain of left [...] 3 <=14 ng/L 09/13/2025 12:23 PM EST [facility] Comment:Refer to the high se nsitivity TnI algorithm for further workup Blood Venous blood specimen / Unknown Venipuncture / Unknown 09/13/2025 11:10 AM EST 09/13/2025 11:50 AM EST us Junie Girard MD LAB BLOOD ORDERABLES Final Result [facility] [address] [place] [address], [place] [phone] * CT angiogram pulmonary WO+/or W iv [...] 3.6 - 11.0 10*3/uL 09/13/2025 8:58 AM [facility] Red Cell Count 3.58(L) 3.80 - 5.20 10*6/ L 09/13/2025 8:58 AM [facility] Hemoglobin 8.8(L) 12.0 - 16.0 g/dL 09/13/2025 8:58 AM [facility] Hematocrit 26.7(L) 35.0 - 47.0 % 09/13/2025 8:58 AM [facility] MCV 74.6(L) 80.0 - 100.0 fL 09/13/2025 8:58 AM [facility] MCH 24.6(L) 26.0 - 34.0 pg 09/13/2025 8:58 AM [facility] MCHC 33.0 32.0 - 36.0 g/dL 09/13/2025 8:58 AM [facility] RBC Distribution Width 15.4(H) 11.6 - 14.8 % 09/13/2025 8:58 AM [facility] Platelet count 578(H) 150 - 440 10*3/uL 09/13/2025 8:58 AM [facility] Neutrophils 85.3(H) 40.0 - 70.0 % 09/13/2025 8:58 AM [facility] Immature Granulocytes 0.5 0.0 - 0.6 % 09/13/2025 8:58 AM [facility] Lymphocytes 6.4(L) 20.0 - 50.0 % 09/13/2025 8:58 AM [facility] Monocytes 7.2 4.0 - 12.0 % 09/13/2025 8:58 AM [facility] Eosinophils 0.1 0.0 - 6.0 % 09/13/2025 8:58 AM [facility] Basophils 0.5 0.0 - 2.0 % 09/13/2025 8:58 AM [facility] Absolute Neutrophil Ct. 7.88(H) 1.40 - 6.30 10*3/uL 09/13/2025 8:58 AM [facility] Absolute Lymphocyte Ct. 0.59(L) 0.70 - 4.50 10*3/uL 09/13/2025 8:58 AM [facility] Absolute Monocyte Ct. 0.67 0.20 - 0.80 10*3/uL 09/13/2025 8:58 AM [facility] Absolute Eosinophil Ct. 0.01 0.00 - 0.30 10*3/uL 09/13/2025 8:58 AM [facility] Absolute Basophil Ct. 0.05 0.00 - 0.20 10*3/uL 09/13/2025 8:58 AM [facility] nRBC 0.0 0.0 - 0.0 % 09/13/2025 8:58 AM [facility] MPV 9.1(L) 9.4 - 12.4 fL 09/13/2025 8:58 AM [facility] Absolute immature granulocytes 0.05 10*3/uL 09/13/2025 8:58 AM [facility] Blood Venous blood specimen / Unknown Venipuncture / Unknown 09/13/2025 8:48 AM EST 09/13/2025 8:53 AM EST Junie Girard MD LAB BLOOD ORDERABLES Final Result [facility] [address] [place] [address], [place] [phone] * (ABNORMAL) D-dimer, quantitative (09/13/2025 8:48 AM EST) D-Dimer, Quantitative 836(H) <=243 ng/mL D-DU 09/13/2025 9:06 AM EST [facility] Blood Venous blood specimen / Unknown Venipuncture / Unknown 09/13/2025 8:48 AM EST 09/13/2025 8:53 AM EST Narrative [facility] - 09/13/2025 9:06 AM EST Elevated [...] Girard MD LAB BLOOD ORDERABLES Final Result [facility] [address] [place] [address], [place] [phone] * Magnesium (09/13/2025 8:48 AM EST) Magnesium 2.0 1.8 - 3.0 mg/dL 09/13/2025 9:27 AM EST [facility] Blood Venous blood specimen / Unknown Venipuncture / Unknown 09/13/2025 8:48 AM EST 09/13/2025 8:53 AM EST Junie Girard MD LAB BLOOD ORDERABLES Final Result [facility] [address] [place] [address], [place] [phone] * Basic metabolic panel (09/13/2025 8:48 AM EST) Sodium 138 137 - 144 mmol/L 09/13/2025 9:27 AM EST [facility] Potassium 4.0 3.6 - 5.1 mmol/L 09/13/2025 9:27 AM EST [facility] Chloride 106 100 - 111 mmol/L 09/13/2025 9:27 AM EST [facility] CO2 23 23 - 32 mmol/L 09/13/2025 9:27 AM [facility] Anion gap 9 3 - 11 mmol/L 09/13/2025 9:27 AM [facility] BUN 15 8 - 24 mg/dL 09/13/2025 9:27 AM [facility] Creatinine 0.60 0.60 - 1.20 mg/dL 09/13/2025 9:27 AM EST [facility] Glucose 125 70 - 200 mg/dL 09/13/2025 9:27 AM [facility] Comment: Normal fasting glucose 75-99 mg/dL Impaired fasting glucose 100 - 125 mg/dL Fasting glucose >125 mg/dL - provisional diagnosis of diabetes mellitus Random glucose >= 200 mg/dl is considered diagnostic for diabetes ADA Guidelines: Classification and Diagnosis of Diabetes: Standards of Medical Care in Diabetes - 2020, Diabetes Care 2020; S15-S33. Calcium 9.3 8.4 - 10.2 mg/dL 09/13/2025 9:27 AM EST [facility] eGFR 95 >60 mL/min/1. 73m*2 09/13/2025 9:27 AM EST [facility] Comment: Calculation based on the Chronic [...] 70 + 75 ml/min/1.73 m2 Pursuant to [place] Public Act 06-120(1)(b)(1). The 2020 CKD-EPI calculation used to estimate eGFR has only been validated for patients 18 years or older. Blood Venous blood specimen / Unknown Venipuncture / Unknown 09/13/2025 8:48 AM EST 09/13/2025 8:53 AM EST us Junie Girard MD LAB BLOOD ORDERABLES Final Result [facility] [address] [place] [address], * ECG 12 lead (09/13/2025 8:25 AM EST) 09/13/2025 8:25 AM EST 09/13/2025 9:15 AM EST Narrative [facility] (MUSE) - 09/13/2025 9:15 AM EST Ventricular Rate: 102 BPM Atrial Rate: 102 BPM P-R Interval: 216 ms QRS Duration: 80 ms Q-T Interval: 330 ms QTC Calculation(Bazett): 430 ms P Canaan: 68 degrees R Canaan: -13 degrees T Canaan: 44 degrees Diagnosis: Sinus tachycardia with 1st degree A-V block with Premature supraventricular complexes Nonspecific T wave abnormality Abnormal ECG When compared with ECG of 16-Jun-2022 17:51, Nonspecific T wave abnormality, worse in Anterior leads Confirmed by Chely Harrington ([id number]) on 09/13/2025 8:57:33 AM Also confirmed by Chely Harrington (2001), editor producer Gwendolyn Mayorga ([id number]) on 09/13/2025 9:15:49 AM Procedure Note Chely Harrington MD - 09/13/2025 Ventricular Rate: 102 BPM Atrial Rate: 102 BPM P-R Interval: 216 ms QRS Duration: 80 ms Q-T Interval: 330 ms QTC Calculation(Bazett): 430 ms P Canaan: 68 degrees R Canaan: -13 degrees T Canaan: 44 degrees Diagnosis: Sinus tachycardia with 1st degree A-V block with Prematuresupraventricular complexes Nonspecific T wave abnormality Abnormal ECG When compared with ECG of 16-Jun-2022 17:51, Nonspecific T wave abnormality, worse in Anterior leads Confirmed by Chely Harrington (2001) on 09/13/2025 8:57:33 AM Also confirmed by Chely Harrington (2001), editor producer Gwendolyn Mayorga ([id number])on 09/13/2025 9:15:49 AM us Junie Girard MD ECG ORDERABLES Final Result [facility] ([place] [place] [address], from Last 3 Months Insurance () [facility] Advance Directives For more information, please contact: [phone] Documents on File Type Date Recorded Patient Senior Software Engineer Analytics Expl anation Advance Directives 03/24/2025 2:19 PM Care Teams Iron Erector Relationship Specialty Start Date End Date Amparo Lopez DO [address] [place] [address] PCP - Insurance Payer PCP 04/02/24 Amparo Lopez DO [address] [place] [address] PCP - General Internal Medicine 04/02/24
--- OUTSIDE RECORDS SUMMARY | 2025-10-28 15:17 | XMS_ITS | Encounter Summary ---
Author Organization [facility] Address [address] [place] [address] Care Team Providers Care Sprinkler Helper Name Role Phone Provider, Mikie MEDLEY Primary Care Provider Un available Maria Dolores Sinha MD Primary Care Provider [phone] Becca Browne MD Unavailable [phone] Al Platt MD Unavailable Amparo Lopez MD Primary Care Provider + Amparo Lopez MD Unavailable [phone] Amparo Lopez MD Unavailable [phone] Amparo Lopez MD Unavailable [phone] Amparo Lopez MD Unavailable [phone] Encounter Details Date Type Department Care Team (Late st Contact Info) Description 11/20/2017 Scanned Document [facility] [address] [place] [address] Jhony Mcdonald MD [facility] [address] [place], [place] [id number] Social History Tobacco Use Types Packs/Day Years [...] Visit [facility] Department of Family Medicine [place] [address] [place] [address] Amparo Lopez MD [address] [place] [address] documented as of this encounter Visit Diagnoses Not on filedocumented in this encounter Care Teams Sprinkler Helper Relationship Specialty Start Date End Date Provider, MD Mikie PCP - General 03/10/15 09/13/21 Maria Dolores Sinha MD [address] [place] [address] PCP - General Internal Medicine 09/14/21 03/31/23 Amparo Lopez MD [address] [place] [address] PCP - General Internal Medicine 04/01/23 Amparo Lopez MD [address] [place] [address] PCP - Elroy Bonifacio MCDOWELL Attributed 12/11/23 09/09/24 Amparo Lopez MD [address] [place] [address] PCP - Elroy Quintana MA Attributed 09/10/24 06/09/25 Amparo Lopez MD [address] [place] [address] PCP - Elroy Brady [place] attributed 06/10/25 Becca Browne MD [address] [place] [address] Graphics Editor Cardiovascular Disease 03/12/22 Al Platt MD [address] [place] [address] Gastroenterology 03/26/22 Amparo Lopez MD [address] [place] [address] Internal Medicine 02/01/25 documented as of this encounter
--- OUTSIDE RECORDS SUMMARY | 2025-10-28 15:17 | XMS_ITS | Encounter Summary ---
Author Organization [facility] Address [address] [place] [address] Care Team Providers Care Principal Account Clerk Name Role Phone Becca Browne MD Unavailable [phone] Al Platt MD Unavailable Amparo Lopez MD Primary Care Provider + Amparo Lopez MD Unavailable [phone] Amparo Lopez MD Unavailable [phone] Amparo Lopez MD Unavailable [phone] Encounter Details Date Type Department Care Team (Late st Contact Info) Description 01/28/2025 Scanned Document [facility] [address], [address] [place] [address] Unknown Unknow Provider Address Social [...] Visit [facility] Department of Family Medicine [place] [address] [place] [address] Amparo Lopez MD [address] [place] [address] documented as of this encounter Goals Goal [...] on filedocumented in this encounter Care Teams Principal Account Clerk Relationship Specialty Start Date End Date Amparo Lopez MD [address] [place] [address] PCP - General Internal Medicine 04/01/23 Amparo Lopez MD [address] [place] [address] PCP - Elroy Quintana MA Attributed 09/10/24 06/09/25 Amparo Lopez MD [address] [place] [address] PCP - Elroy Brady [place] attributed 06/10/25 Becca Browne MD Media Relations Manager Cardiovascular Disease 03/12/22 Al Platt MD [address] [place] [address] Gastroenterology 03/26/22 Amparo Lopez MD [address] [place] [address] Internal Medicine 02/01/25 documented as of this encounter
--- OUTSIDE RECORDS SUMMARY | 2025-10-28 15:17 | XMS_ITS | Encounter Summary ---
Author Organization [facility] Address [address] [place] [address] Care Team Providers Care Dust Brush Assembler Name Role Phone Maria Dolores Sinha MD Primary Care Provider [phone] Becca Browne MD Unavailable [phone] Al Platt MD Unavailable Amparo Lopez MD Primary Care Provider + Amparo Lopez MD Unavailable [phone] Amparo Lopez MD Unavailable [phone] Amparo Lopez MD Unavailable [phone] Amparo Lopez MD Unavailable [phone] Encounter Details Date Type Department Care Team (Late st Contact Info) Description 05/24/[address] [facility] [address] [place] [address] Al Platt MD [address] [place] [id number] Social History Tobacco Use Types Packs/Day Years [...] Description 03/06/2026 1:00 PM EDT Office Visit [facility] Department of Family Medicine [place] [address] [place] [phone] Amparo Lopez MD [address] [place] [address] documented as of this encounter Goals Goal [...] on filedocumented in this encounter Care Teams Dust Brush Assembler Relationship Specialty Start Date End Date Maria Dolores Sinha MD [address] [place] [address] PCP - General Internal Medicine 09/14/21 03/31/23 Amparo Lopez MD [address] [place] [address] PCP - General Internal Medicine 04/01/23 Amparo Lopez MD [address] [place] [address] PCP - [place] [facility] Attributed 12/11/23 09/09/24 Amparo Lopez MD [address] [place] [address] PCP - [place] Quintana MA Attributed 09/10/24 06/09/25 Amparo Lopez MD [address] [place] [address] PCP - Starjovana [facility] JULY attributed 06/10/25 Becca Browne MD [address] [place] [address] Citizenship Teacher Cardiovascular Disease 03/12/22 Al Platt MD [address] [place] [address] Gastroenterology 03/26/22 Amparo Lopez MD [address] [place] [address] Internal Medicine 02/01/25 documented as of this encounter
--- OUTSIDE RECORDS SUMMARY | 2025-10-28 15:17 | XMS_ITS | Encounter Summary ---
Author Organization [facility] Address [address] [place] [address] Care Team Providers Care Gas Derrick Operator Name Role Phone Becca Browne MD Unavailable [phone] Al Platt MD Unavailable Amparo Lopez MD Primary Care Provider + Amparo Lopez MD Unavailable [phone] Amparo Lopez MD Unavailable [phone] Encounter Details Date Type Department Care Team (Late st Contact Info) Description 09/01/2025 Scanned Document [facility] Department of Family Medicine [place] [address] [place] [address] Amparo Lopez MD [address] [place], [place] [phone] Social History Tobacco Use Types Packs/Day Years [...] Description 03/06/2026 1:00 PM EDT Office Visit [facility] Department of Family Medicine [place] [address] [place] [address] Amparo Lopez MD [address] [place] [address] documented as of this encounter Goals Goal [...] on filedocumented in this encounter Care Teams Gas Derrick Operator Relationship Specialty Start Date End Date Amparo Lopez MD [address] [place] [address] PCP - General Internal Medicine 04/01/23 Amparo Lopez MD [address] [place] [address] PCP - [facility] attributed 06/10/25 Becca Browne MD Twenty One Dealer Cardiovascular Disease 03/12/22 Al Platt MD [address] [place] [address] Gastroenterology 03/26/22 Amparo Lopez MD [address] [place] [address] Internal Medicine 02/01/25 documented as of this encounter
--- OUTSIDE RECORDS SUMMARY | 2025-10-28 15:17 | XMS_ITS | Encounter Summary ---
Author Organization [facility] Address [address] [place] [address] Care Team Providers Care Milieu Coordinator Name Role Phone Amparo Lopez DO Unavailable [phone] Amparo Lopez DO Primary Care Provider + Encounter Details Date Type Department Care Team (Late st Contact Info) Description 09/04/2022 Orders Only [address] [address] Micki Rice DDS [address] [place] [address] [place] [address] Social History Tobacco Use Types Packs/Day Years [...] on filedocumented in this encounter Care Teams Milieu Coordinator Relationship Specialty Start Date End Date Amparo Lopez DO [address] [place], [place] [phone] PCP - Insurance Payer PCP 04/02/24 Amparo Lopez DO [address] [place], [place] [phone] PCP - General Internal Medicine 04/02/24 documented as of this encounter
--- OUTSIDE RECORDS SUMMARY | 2025-10-28 15:17 | XMS_ITS | Clinical Summary ---
Author Organization Formerly [facility] Address [address] [place] [address] Care Team Providers Care Dukey Rider Name Role Phone Becca Browne MD Unavailable [phone] Al Platt MD Unavailable Amparo Lopez MD Primary Care Provider + Amparo Lopez MD Unavailable [phone] Amparo Lopez MD Unavailable [phone] Allergies Active Allergy Reactions Criticality Noted Date [...] Active Problems Problem Noted Date Diagnosed Date Localized osteoarthritis of shoulder, left 10/11 Mild episode of recurrent major depressive disor [...] Description 09/28/2025 12:00 PM EST Office Visit [facility] [address] [place] [address] Amparo Lopez MD Chronic left shoulder pain (Primary Dx); Muscle spasm; Chronic diastolic heart failure (HCC); Osteoarthritis of spine with radiculopathy, lumbar region; Essential hypertension 09/02/2025 2:30 PM EDT Office Visit [facility] [address] [place] [address] Amparo Lopez MD S/P lumbar fusion (Primary Dx); Chronic obstructive pulmonary disease, unspecified COPD type (HCC); Essential hypertension; Congestive heart failure, unspecified HF chronicity, unspecified heart failure type (HCC) 09/01/2025 Scanned Document [facility] Department of Family Medicine [address] [id number] Amparo Lopez MD from Last 3 Months Immunizations Immunization Administration [...] Smoking Tobacco: Former Cigarettes 1 20 1 2013 Smokeless Tobacco: Former Tobacco Cessation:Counseling [...] EDT Gender Identity Choose not to disclose 3 10:53 AM EDT Sexual Orientation Choose not [...] 09/28/2025 12:18 PM EST Plan of Treatment Upcoming Encounters Date Type Department Care Team (Late st Contact Info) Description 03/06/2026 1:00 PM EDT Office Visit [facility] Department of Family Medicine [place] [address] [place] [address] Amparo Lopez MD [address] [place] [address] Health Maintenance Due Date Last Done Comments [...] 07/28/2019, 07/15/2018 COVID-19 Vaccine (1 - 2024-2 6 season) 2025 DXA Bone Density (Females,Ages 65 [...] Procedure Name Priority Date/Time Associated Diagnosis Comments XR SHOULDER 2+ VIEWS-LEFT Routine 10/05/2025 1:47 PM EST Chronic left shoulder pain DEXA BONE DENSITY AXIAL SKELETON, 1 OR MORE SITES Routine 04/19/2025 3:46 PM EDT Post-menopausal MM MAMMOGRAM SCREENING-BILATERAL Routine 04/19/2025 1:34 PM EDT Encounter for screening mammogram for malignant neoplasm of breast from Last 3 Months or Most Recently Relevant to Health Maintenance Results * XR Shoulder 2+ views-Left (10/05/2025 1:47 PM EST) Anatomical Region Laterality Modality Shoulder Left Computed Radiogr aphy 10/05/2025 1:00 PM EST 10/05/2025 1:00 PM EST Impressions 10/10/2025 3:06 PM EST Mild osteoarthropathy. Electronically signed by: Freddy Kumar MD 10/10/2025 03:06 PM EST RP Thank you for referring your patient to us, Freddy Kumar MD [id number] (Electronically Signed - 10/10/2025 15:06) Copy: PATIENT , Narrative 10/10/2025 3:06 PM EST EXAMINATION: XR SHOULDER, LEFT CLINICAL INFORMATION: Pain in left shoulder. Other chronic pain. COMPARISON: No relevant prior studies are available for comparison. TECHNIQUE: AP external rotation, Grashey, scapular Y, and axillary views of the left shoulder. FINDINGS: No fracture subluxation or bone lesion is seen. There is mild narrowing of the glenohumeral and acromioclavicular joint spaces. No abnormal calcifications are seen around the joint. Procedure Note Freddy Kumar MD - 10/10/2025 EXAMINATION: XR SHOULDER, LEFT CLINICAL INFORMATION: Pain in left shoulder. Other chronic pain. COMPARISON: No relevant prior studies are available for comparison. TECHNIQUE: AP external rotation, Grashey, scapular Y, and axillary views of the leftshoulder. FINDINGS: No fracture subluxation or bone lesion is seen. There is mild narrowing ofthe glenohumeral and acromioclavicular joint spaces. No abnormalcalcifications are seen around the joint. IMPRESSION: Mild osteoarthropathy. Electronically signed by: Freddy Kumar MD 10/10/2025 03:06 PM EST RPWorkstation: [id number] Thank you for referring your patient to us, Freddy Kumar MD [id number] (Electronically Signed - 10/10/2025 15:06) Copy: PATIENT , Amparo Lopez MD IMG DIAGNOSTIC IMAGING O RDERABLES Final Result * DEXA Bone Density axial [...] your patient to us, Ranjeet Roman MD [id number] (Electronically Signed - 04/20/2025 13:31) Narrative 04/20/2025 1:31 PM EDT EXAMINATION: BONE DENSITOMETRY CLINICAL INDICATION: Asymptomatic menopausal state. COMPARISON: This is the patients baseline examination. TECHNIQUE: Using a [employer] DXA system (software version: 14.10) manufactured by [employer], dual-energy x-ray absorptiometry was performed of the [...] the patients baseline examination. TECHNIQUE: Using a [employer] DXA system (software version:14.10) manufactured by [employer], dual-energy x-rayabsorptiometry was performed of the right [...] Roman MD 04/20/2025 01:31 PM EDT RPWorkstation: [id number] Thank you for referring your patient to us, Ranjeet Roman MD [id number] (Electronically Signed - 04/20/2025 13:31) Amparo Lopez MD [facility] DXA ORDERABLES Final Result * MM Mammogram [...] your patient to us, Betina Sharma MD [id number] (Electronically Signed - 04/20/2025 09:16) Narrative 04/20/2025 [...] Sharma MD 04/20/2025 09:16 AM EDT RPWorkstation: [id number] Thank you for referring your patient to us, Betina Sharma MD [id number] (Electronically Signed - 04/20/2025 09:16) Amparo Lopez MD IMG MAMMOGRAPHY ORDERABL ES Final Result from Last 3 Months or Most Recently Relevant to Health Maintenance Insurance MEDICARE Member Subscriber Plan / Payer (Ef fective for All Dates) Name:Marisa Bella Relation to Subscriber:Self Name:Marisa Bella Payer ID:[id number] Type:Not on file Address: [place] [phone] Member Subscriber Plan / Payer (Ef fective for All Dates) Name:Marisa Bella Relation to Subscriber:Self Name:Marisa Bella Payer ID:[id number] Type:Not on file Address: [place] [phone] [facility] MEDICARE Advance Directives Documents on File Type Date Recorded Patient Flavor Room Worker Expl anation Advance Directive-Scan 05/22/2023 Ortho pedics Note Advance Directive-Scan 03/17/2023 Medic al Records Transfer to [facility] Dukey Rider Relationship Specialty Start Date End Date Amparo Lopez MD [address] [place] [id number] PCP - General Internal Medicine 04/01/23 Amparo Lopez MD [address] [place] [address] PCP - [facility] 06/10/25 Becca Browne MD Clinical Rehabilitation Liaison Cardiovascular Disease 03/12/22 Al Platt MD [address] [place] [address] Gastroenterology 03/26/22 Amparo Lopez MD [address] [place] [address] Internal Medicine 02/01/25
--- OUTSIDE RECORDS SUMMARY | 2025-10-28 15:17 | XMS_ITS | Encounter Summary ---
Author Organization [facility] Address [address] [place] [address] Care Team Providers Care Quail Farmer Name Role Phone Provider, Mikie MEDLEY Primary Care Provider Un available Maria Dolores Sinha MD Primary Care Provider [phone] Becca Browne MD Unavailable [phone] Al Platt MD Unavailable Amparo Lopez MD Primary Care Provider + Amparo Lopez MD Unavailable [phone] Amparo Lopez MD Unavailable [phone] Amparo Lopez MD Unavailable [phone] Amparo Lopez MD Unavailable [phone] Encounter Details Date Type Department Care Team (Late st Contact Info) Description 07/11/2017 [facility] [address] [place] [id number] Susana Blake MA [address] [facility] [address] [place] [address] Social History Tobacco Use Types Packs/Day Years [...] Visit [facility] Department of Family Medicine [place] [address] [place] [address] Amparo Lopez MD [address] [place] [address] documented as of this encounter Visit Diagnoses Not on filedocumented in this encounter Care Teams Quail Farmer Relationship Specialty Start Date End Date Provider, MD Mikie PCP - General 03/10/15 09/13/21 Maria Dolores Sinha MD [address] [place] [address] PCP - General Internal Medicine 09/14/21 03/31/23 Amparo Lopez MD [address] [place] [address] PCP - General Internal Medicine 04/01/23 Amparo Lopez MD [address] [place] [address] PCP - [facility] MA Attributed 12/11/23 09/09/24 Amparo Lopez MD [address] [place] [address] PCP - [facility] Quintana MA Attributed 09/10/24 06/09/25 Amparo Lopez MD [address] [place] [address] PCP - [facility] Brady MA attributed 06/10/25 Becca Browne MD [address] [place] [address] Tire Shop Manager Cardiovascular Disease 03/12/22 Al Platt MD [address] [place] [address] Gastroenterology 03/26/22 Amparo Lopez MD [address] [place] [id number] Internal Medicine 02/01/25 documented as of this encounter
--- OUTSIDE RECORDS SUMMARY | 2025-10-28 15:17 | XMS_ITS | Data Portability ---
Author Organization [place] [facility] [place] Address [address] [place] [address] Care Team Providers Care Pastry Chef Name Role Phone NANI WHEATLEY Referring Provider [...] not fully diagnostic because of her hardware. [facility]/Jhonathan-Ivet posito/June 23, 2024: Electrodiagnostic evidence suggestive [...] as it would cost her thousand dollars [id number]. She last had physical therapy about a [...] lower extremity pain consistent with neurogenic claudication. [facility]/Jhonathan-Es posito/June 23, 2024: Electrodiagnostic evidence suggestive [...] as it would cost her thousand dollars [id number]. She last had physical therapy about a [...] over the SI joint and pain with [id number]. She does not have a great deal [...] tenderness over the SI joint with positive ssnmzk-yc-xzzu and a great deal of discomfort with [...] injections. Most recently she was seen by freelance art director. She had an MRI and a CT [...] tenderness over the SI joint with positive wtnyre-tq-eber and a great deal of discomfort with [...] injections. Most recently she was seen by freelance art director. She had an MRI and a CT [...] None recorded. Lab None recorded. [facility] referral - Please contact patient to schedule appointment . Diagnostic right SI joint injection. Please have patient keep a pain diary. 2023 024 Rosana Sparrow MD, [address] [facility], [place], [address], 4 09:59:19 Procedures None recorded. Surgeries None recorded. Imaging XR, lumbosacral spine, 2 or 3 view 2024 025 [email or web address] 2 [facility], [address], [place], [address], 5 09:45:22 Medication Orders None recorded. Patient TargetsNo targets recorded. Patient Instructions Encounter Date Encounter Id Patient Instructions Last Modified By Organization Details Last Modified Time 09/27/2025 [id number] Radiographs: As per the patient's request AP and lateral lumbosacral spine radiographs were obtained in the [facility] facility. There is a new L1 to [...] study No observ ation record ed. [email or web address] [facility] [address] [facility] [address], [place], [address], 06/25/2024 08:20:27 08/19/20 24 08/19/2024 CT, myelo gram, lumba r spine No observ ation record ed. [email or web address] [facility] [address], [place], [address], 08/19/2024 22:53:49 08/20/2008/19/2024 CT, myelo gram, lumba r spine No observ ation record ed. [email or web address] [facility] [address] [place], [address], 08/20/2024 12:38:06 06/02/20 25 05/04/2024 MRI, lumba r spine , w/o contr ast No observ ation record ed. [email or web address] Available 2024 14:03:26 Result Notes None recorded. Problems Name Problem SNOMED Code Status Onset Date Resolution Date Notes Provider Name and Address Organization Details Recorded Time Essential hypertens ion 55186090 Active 2014 Essential hypertens ion - Overview: Formattin g of this note might be different from the original. ICD-10 Activatio n Not Available [facility] 5 23:53:13 History of total knee arthropla sty 47212772697 05 Active 2014 Status post total right knee replaceme nt Not Available [facility] 5 23:53:07 Chronic obstructi ve pulmonary disease 93399532 Active 2014 COPD (chronic obstructi ve pulmonary disease) Not Available [facility] 5 23:53:09 Supravent ricular tachycard ia 7421014 Active 2014 Supravent ricular tachycard ia Not Available [facility] 5 23:53:11 Iron deficienc y anemia 66633319 Active 2014 Iron deficienc y anemia Not Available [facility] 5 23:53:13 History of intestina l infection caused by Clostridi oides difficile 60315161893 9101 Active 2015 History of Clostridi um difficile colitis Not Available [facility] 5 23:53:07 Spondylos is 5377096 Active 2016 Spondylos is Not Available [facility] 5 23:53:12 Abnormal gait 47528274 Active 2016 Gait instabili ty Not Available [facility] 5 23:53:08 Lumbar spondylol isthesis 39495108010 9102 Active 2016 Spondylol isthesis of lumbar region Not Available [facility] 5 23:53:08 Adolescen t idiopathi c scoliosis of lumbar spine 16767288626 9105 Active 2016 Adolescen t idiopathi c scoliosis of lumbar region Not Available [facility] 5 23:53:09 Chronic low back pain 675783226 Active 2016 Chronic bilateral low back pain with bilateral sciatica Chronic low back pain without sciatica Not Available [facility] 5 23:53:15 Diverticu lum of large intestine without hemorrhag e 774427781 Active 2016 Diverticu losis of large intestine without hemorrhag e Not Available [facility] 5 23:53:16 Postopera tive ileus 161950889 Active 2017 Postopera tive ileus Not Available [facility] 5 23:53:11 Arthritis of hip 80769950 Active 2017 Hip arthritis Not Available [facility] 5 23:53:05 Bilateral carpal tunnel syndrome 19107929481 753108 Active 2017 Bilateral carpal tunnel syndrome Not Available [facility] 5 23:53:05 Pain of right hand 90320311684 9109 Active 2017 Hand pain, right Not Available [facility] 5 23:53:07 Pain of elbow region 02795978 Active 2017 Elbow pain, right Lef t elbow pain Not Available [facility] 5 23:53:08 Arthritis of joint of hand Active 2017 Hand arthritis Not Available [facility] 5 23:53:09 Arthritis of elbow 348157181 Active 2017 Elbow arthritis Not Available [facility] 5 23:53:10 Clostridi um difficile colitis 731073969 Active 2017 C. 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 17456099560 9107 Active 2017 Primary osteoarth ritis second MCP joint right hand Not Available [facility] 5 23:53:14 Greater trochante geremias pain syndrome 1245926 Active 2017 Greater trochante geremias bursitis of left hip Not Available [facility] 5 23:53:15 History of repair of hip joint 981450097 Active 2017 Status post left hip replaceme nt Not Available [facility] 5 23:53:06 Family history of breast cancer 830001455 Active 2018 Family history of malignant neoplasm of breast Not Available [facility] 5 23:53:14 Simple chronic bronchiti s 72282803 Active 2018 Simple chronic bronchiti s Not Available [facility] 5 23:53:13 Premature atrial contracti on 139690279 Active 2019 Premature atrial beats Not Available [facility] 5 23:53:06 Palpitati ons 19241399 Active 2019 Palpitati ons Not Available [facility] 5 23:53:10 Periphera l muscle fatigue 85514896 Active 2020 Leg fatigue Not Available [facility] 5 23:53:06 Spondylol ysis of cervical spine 788231678 Active 2020 Cervical spondylol ysis Not Available [facility] 5 23:53:05 Ventricul ar hypertrop hy 985211168 Active 2021 Asymmetri c septal hypertrop hy Not Available [facility] 5 23:53:10 Chest pain 77152149 Active 2021 Other chest pain Not Available [facility] 5 23:53:14 Kyphosis of thoracic spine 423538525 Active 2022 Sai Aguilar MD [address], [place], [address] , [place] [facility] 3 16:47:48 Scoliosis deformity of spine 639776173 Active 2022 Sai Aguilar MD [address], [place], [address] , [place] [facility], [facility] 3 16:48:03 Cramp in lower limb 336044272 Active [address], [place], [address] , [place] [facility], [facility] 3 16:48:09 Lumbar post-lami nectomy syndrome 727489184 Active 2022 Postlamin ectomy syndrome, lumbar region Not Available [facility] 5 23:53:12 Low back pain 776828331 Active 2023 Sai Aguilar MD [address], [place], [place], , [place] [facility], [facility] 4 14:24:44 Neck pain 27337629 Active 2023 Sai Aguilar MD [address], [place], [address] , [place] [facility], [facility] 4 14:25:02 History of lumbar fusion 25741532510 106 Active [address], [place], [place], , [place] [facility], [facility] 4 14:29:10 Stenosis of cervix 40343581 Active [address], [place], , [place] [facility], [facility] 4 14:30:05 Stenosis of intervert ebral foramina 71933168095 9 Active [address], [place], [address] , [place] [facility], [facility] 4 14:30:27 Neurogeni c claudicat ion 932131517 Active [address], [place], , [place] [facility], [facility] 4 14:00:28 Claustrop hobia 03692860 Active [address], [place], [address] , [place] [facility], [facility] 4 15:25:05 Problem Notes None recorded. Medical Equipment None Reported. Allergies Allergen ID Allergen Name Allergen Category Reaction Reaction Severity Criticality Documentation Date Start Date Code Code System Note Provider Name and Address Organization Details Recorded Time 15111 vancomyci n medicatio n hives itching Not available Not available Not available 04/29/20242014 97157 RxNorm Barbara Plochocki null, [place] [facility] 5 09:45:12 27379 Product containin g penicilli n (product) medicatio n rash Not available Not available 04/29/20242014 00994 8001 SNOMED Barbara Rosalesi null, [facility], P 5 09:45:12 49688 erythromy elly medicatio n anaphylax is Not available Not available 04/29/20242014 4053 RxNorm Barbara Plochocki null, [facility], P 5 09:45:12 70704 codeine medicatio n anaphylax is Not available Not available 04/29/20242014 2670 RxNorm Barbara Chavezocki [facility], [facility] 5 09:45:12 25450 Adhesive agent (substanc e) environme nt,medica tion rash Not available Not available 05/31/20252017 57506 0007 SNOMED Barbara Rosalesi [facility], [facility] 5 09:45:12 Medications Name Sig Start [...] Updated DateTime 12/07/2024 160.02 cm 23 kg/m2 29101.01 g [facility] 12/07/2024 15:20:03 Date Recorded Body height Provider Name an d Address Organization Details Last Updated DateTime 05/31/2025 160.02 cm [facility] 05/31/2025 09:45:00 Date Recorded Body height Body mass index (BMI) Body weight Provider Name and Address Organization Details Last Updated DateTime 06/29/2024 160.02 cm 23.7 kg/m2 59935.38 g Shannan Epps [place] [facility] 06/29/2024 13:18:28 Date Recorded Body height Body mass index (BMI) Body weight Heart rate Body temperature Oxygen saturation Systolic And Diastolic Provider Name and Address Organization Details Last Updated DateTime 4 158.8 cm 23.76 kg/m2 67187 g 79 /min 97.7 [degF] 98 % 110/84 mm[Hg] Not Available [facility] 5 00:57:07 Date Recorded Body height Body mass index (BMI) Body weight Provider Name and Address Organization Details Last Updated DateTime 08/24/2024 160.02 cm 23.7 kg/m2 42684.[address] [place] [facility] 08/24/2024 11:31:38 Social History None recorded. Functional Status None recorded. Mental Status None recorded. Family History Nothing Reported. Medical History No medical history recorded. Gynecological HistoryNo gynecological history recorded. Obstetrics History GPAL:G 0 P 0 0 0 0 Immunizations Vaccine Type Date Status Note Provider Nam e and Address Organization Details Recorded Time pneumococcal polysaccharide PPV23 8 completed Not Available [facility] 08/02/2025 05:39:36 Influenza, split virus, quadrivalent, PF 8 completed Not Available [facility] 08/02/2025 05:39:36 Influenza, MDCK, quadrivalent, PF 9 completed Not Available [facility] 08/02/2025 05:39:36 Past Encounters Encounter ID Performer Location Encounter Start Date Encounter Closed Date Diagnosis/Indication Diagnosis SNOMED-CT Code Diagnosis ICD10 Code Diagnosis IMO Codes Diagnosis Note [id number] MD VALARIE Hernandez [address] [place] [address] [place] [address] 05/20/2023 16:07:30 05/20/2023 16:49:57 History of lumbar fusion 0338402020 9106 Z98.1 Kyphosis o f thoracic spine 045765132 M40.204 Scoliosis deformity of spine 469669123 M41.9 Cramp in lower limb 4499 59063 R25.2 [id number] DAYSI GOODWIN PA-C [address] [place] [address] 06/13/2023 11:38:29 06/13/2023 12:13:26 Kyphosis of thoracic spine 253263220 M40.204 History of lumbar fusion 7215592060 9106 Z98.1 Scoliosis deformity of spine 710490084 M41.9 Cramp in lower limb 4499 26244 R25.2 [id number] MD VALARIE Hernandez [address] [address] 04/15/2024 13:28:12 04/15/2024 14:26:44 Kyphosis of thoracic spine 564544093 M40.204 History of lumbar fusion 7549890823 9106 Z98.1 Scoliosis deformity of spine 423938203 M41.9 Low back pain 259060658 M54.50 Additional diagnosis detail: Lumbar back pain Neck pain 77106879 M54.2 Stenosis o f intervertebral foramina 5134111614 09 M48.02 Additional diagnosis detail: Foraminal stenosis of cervical region [id number] MD VALARIE Hernandez Shahid [address] [place] [address] 04/29/2024 14:47:07 04/29/2024 15:22:36 History of lumbar fusion 3790159642 9106 Z98.1 Neurogenic claudication 487751938 R29.818 Claustrophobia 18596611 F40.240 [id number] MD VALARIE Hernandez [address] [place] [address] 05/18/2024 15:10:26 05/18/2024 15:46:26 Neurogenic claudication 017714100 R29.818 Claustrophobia 30702887 F40.240 History of lumbar fusion 9082398186 9106 Z98.1 Kyphosis o f thoracic spine 115181024 M40.204 Low back pain 103484876 M54.50 Additional diagnosis detail: Lumbar back pain [id number] MD VALARIE Hernandez [address] [facility] [place] [address] 06/29/2024 13:12:16 06/29/2024 14:01:35 History of lumbar fusion 5282190856 9106 Z98.1 Low back pain 021676296 M54.50 Additional diagnosis detail: Lumbar back pain Neurogenic claudication 185906727 R29.818 [id number] MD VALARIE Hernandez [address] [place] [address] 08/24/2024 11:20:07 08/24/2024 12:00:42 Kyphosis of thoracic spine 278537755 M40.204 Low back pain 585259821 M54.50 Additional diagnosis detail: Lumbar back pain [id number] MD VALARIE Hernandez [address] [place] [address] 12/07/2024 15:11:42 12/07/2024 16:28:22 Low back pain 801236272 M54.50 Additional diagnosis detail: Lumbar back pain Kyphosis o f thoracic spine 384835221 M40.204 [id number] MD VALARIE Hernandez [address] [place] [address] 05/31/2025 09:34:53 05/31/2025 10:06:10 Low back pain 651123148 M54.50 Additional diagnosis detail: Lumbar back pain Scoliosis deformity of spine 667327721 M41.9 Stenosis o f intervertebral foramina 1747993966 09 M48.02 Additional diagnosis detail: Foraminal stenosis of cervical region [id number] MD VALARIE Hernandez [address] [place] [address] 09/27/2025 13:02:56 09/27/2025 13:52:40 History of lumbar fusion 0041264730 9106 Z98.1 Kyphosis o f thoracic spine 187160604 M40.204 Scoliosis deformity of spine 683026485 M41.9 Health Concerns Section Related Observation LastModified by Organization Detai ls LastModified Time None Recorded Concern Status LastModified by Organization Details LastModified Time None Recorded Advance Directives Directive None Recorded Payers Insurance Date Sequence Insurance Name Policy Number Policy Fontana Covered Member ID Fontana Member ID Guarantor Name 09/24/2025 1 [facility] (MEDICARE REPLACEMENT/AD VANTAGE - HMO) [id number] Marisa Bella [id number] Marisa Bella 06/29/2024 2 [place] Marisa Bella [id number] Marisa Bella 06/21/2024 1 [facility] (MEDICARE REPLACEMENT/AD VANTAGE - PPO) [id number] Marisa Bella [id number] Marisa Bella 12/06/2024 1 [employer] (MEDICARE REPLACEMENT/AD VANTAGE - PPO) [id number] Marisa Bella [id number] Marisa C Shayne OBGyn Episode No OBEpisode recorded.
--- OUTSIDE RECORDS SUMMARY | 2025-10-28 15:17 | XMS_ITS | Encounter Summary ---
Author Organization [facility] Address [address] [place] [address] Care Team Providers Care Barrel Charrer Name Role Phone Provider, Mikie MEDLEY Primary Care Provider Un available Maria Dolores Sinha MD Primary Care Provider [phone] Becca Browne MD Unavailable [phone] Al Platt MD Unavailable Amparo Lopez MD Primary Care Provider + Amparo Lopez MD Unavailable + [phone] Amparo Lopez MD Unavailable + [phone] Amparo Lopez MD Unavailable + [phone] Amprao Lopez MD Unavailable + [phone] Encounter Details Date Type Department Care Team (Late st Contact Info) Description 09/16/2017 Scanned Document [facility] [place] [address] [place] [phone] Delvis Mcknight MD [address] [place] [address] Social History Tobacco Use Types Packs/Day Years [...] Visit [facility] Department of Family Medicine [place] [address] [place] [address] Amparo Lopez MD [address] [place] [address] documented as of this encounter Visit Diagnoses Not on filedocumented in this encounter Care Teams Barrel Charrer Relationship Specialty Start Date End Date ProviderMikie MD PCP - General 03/10/15 09/13/21 Maria Dolores Sinha MD [address] [place] [address] PCP - General Internal Medicine 09/14/21 03/31/23 Amparo Lopez MD [address] [place] [address] PCP - General Internal Medicine 04/01/23 Amparo Lopez MD [address] [place] [address] PCP - Elroy Bonifacio MCDOWELL Attributed 12/11/23 09/09/24 Amparo Lopez MD [address] [place] [address] PCP - Elroy Quintana MA Attributed 09/10/24 06/09/25 Amparo Lopez MD [address] [place] [address] PCP - Elroy Brady [place] attributed 06/10/25 Becca Browne MD [address] [place] [address] Play Leader Cardiovascular Disease 03/12/22 Al Platt MD [address] [place] [address] Gastroenterology 03/26/22 Amparo Lopez MD [address] [place] [address] Internal Medicine 02/01/25 documented as of this encounter
== END 2025-10-28 14:19 | disposition home or self-care (01) ==
LOC: HO.HNS 13:36
PROVIDERS: PCP Family Medicine; Visit Provider Physician Assistant
DX: Z98.1 Arthrodesis status (principal); M48.061 Spinal stenosis, lumbar region without neurogenic claudication; M51.369 Other intervertebral disc degeneration, lumbar region without mention of lumbar back pain or lower extremity pain
CPT/HCPCS: 99024

== ENCOUNTER → 2025-10-28 13:44 | Outpatient (BNV) | payer MEDICARE, SELFPAY | PROVIDERS: Visit Provider Radiology Diagnostic Radiology | DX: Z98.1 Arthrodesis status (principal); M41.86 Other forms of scoliosis, lumbar region | CPT/HCPCS: 72110 ==